=== PATIENT | male | born 1935 | race Caucasian/White ===

== ENCOUNTER 2017-01-03 11:14 | Inpatient (IN) | payer BC, OTHER ==
[~2017-01-03] VITALS: Ht 172.7 cm; Wt 76.5 kg
[~2017-01-03 11:14] MED LIST: COUMADIN PO; Diltiazem PO; coumadin PO
[2017-01-03 12:16] LABS: HEMATOCRIT 39.7 % (42-52); MEAN CORPUSCULAR HEMOGLOBIN 30.8 pg (25-34); MEAN CORPUSCULAR HGB CONC 34.3 g/dl (32-36); MEAN PLATELET VOLUME 10.2 fL (7.4-10.4); PLATELET COUNT 142 K/uL (130-400); RED BLOOD COUNT 4.41 M/uL (4.7-6.1); WHITE BLOOD COUNT 44.66 K/uL (4.8-10.8)
[2017-01-03 12:17] LABS: ALT/SGPT 20 U/L (12-78); BLOOD UREA NITROGEN 24 mg/dl (7-18); BUN/CREATININE RATIO 14.9 (10-20); CALCIUM 8.6 mg/dl (8.5-10.1); CARBON DIOXIDE 23 mmol/L (21-32); CHLORIDE 103 mmol/L (98-107); GLUCOSE 158 mg/dl (70-99); POTASSIUM 4.1 mmol/L (3.5-5.1); SODIUM 136 mmol/L (136-145)
--- NOTE | 2017-01-03 12:18 | DIAGNOSTIC IMAGING REPORT ---
CHEST ONE VIEW PORTABLE CLINICAL HISTORY: Syncope. COMPARISON STUDY: Chest radiograph May 07, 2016. FINDINGS: Lung volumes are normal. No consolidation is identified. There is no evidence of pulmonary edema. Mild cardiomegaly is unchanged. The appearance of the chest is unchanged. There is no evidence of pulmonary edema. IMPRESSION: No acute cardiopulmonary findings. No change in appearance of the chest. Electronically signed by: Tam Keller M.D. 01/03/2017 12:17 PM Dictated Date/Time: 01/03/2017 12:16 PM
[2017-01-03 12:27] LABS: ALB/GLOB RATIO 1.3 (0.9-2); ALKALINE PHOSPHATASE 59 U/L (45-117); AST/SGOT 17 U/L (15-37); CKMB/CK RATIO 1.1 (0-3.0)
[2017-01-03] MEDS ORDERED: METO25TA3 PO (12:41)
[2017-01-03] MEDS ORDERED: WARF5TAB90 PO (12:41)
[2017-01-03] MEDS ORDERED: SODIUM CHLORIDE 0.9% 1000ML 1,000 ML IV STA (13:10)
[2017-01-03] MEDS ORDERED: SODIUM CHLORIDE 0.9% 500ML 500 ML IV STA (13:10)
[2017-01-03] MEDS ORDERED: ACETAMINOPHEN 500 MG TAB PO STA (13:13)
[2017-01-03 13:14] LABS: COMPLETE YES; LYMPH ABS # 22.69 K/uL (1.2-3.4); LYMPHOCYTE % 50.8 %; NEUTROPHILS % 14.7 %; PROLYM# MAN 4.24 K/uL (0-0); VARIANT LYM ABS # 11.17 K/uL
[2017-01-03] MEDS ORDERED: VANCOMYCIN 1GM/270ML NSS IV STA (13:18)
[2017-01-03] MEDS ORDERED: CEFTRIAXONE SOD INJ 1 GM ADDVIAL IV STA (13:18)
[2017-01-03 13:29] LABS: PARTIAL THROMBOPLASTIN RATIO 1.4; PROTHROMBIN TIME (PATIENT) 22.1 SECONDS (9.0-12.0)
--- NOTE | 2017-01-03 13:56 | DIAGNOSTIC IMAGING REPORT ---
RIGHT KNEE 1 OR 2 VIEWS ROUTINE CLINICAL HISTORY: right knee swelling Right COMPARISON: None. 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 No significant joint effusion. Mild prepatellar soft tissue edema. There is no evidence for soft tissue swelling. 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 No acute process. Electronically signed by: Jorje Carmona M.D. 01/03/2017 1:55 PM Dictated Date/Time: 01/03/2017 1:43 PM
--- NOTE | 2017-01-03 14:27 | DIAGNOSTIC IMAGING REPORT ---
CT OF THE HEAD WITHOUT CONTRAST CLINICAL HISTORY: Syncope. Weakness. COMPARISON STUDY: No previous studies for comparison. CT DOSE: 614.27 mGy.cm TECHNIQUE: Helical axial images of the head were obtained without IV contrast. Automated exposure control was utilized for the study. FINDINGS: No acute intracranial hemorrhage, midline shift or mass effect is present. Mild ventricular dilatation is likely due to atrophy. The basilar cisterns are patent. There are no extra axial collections. There are old infarcts within the right frontal lobe and right basal ganglia. There are no CT findings to suggest acute dural sinus thrombosis or acute territorial infarct. No calvarial fracture is identified. IMPRESSION: 1. No acute intracranial findings. 2. 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 Electronically signed by: Tam Keller M.D. 01/03/2017 2:25 PM Dictated Date/Time: 01/03/2017 2:22 PM
[2017-01-03] MEDS ORDERED: MAGNESIUM HYDROXIDE SUSP 30 ML UDC PO PRN (15:45)
[2017-01-03] MEDS ORDERED: ONDANSETRON INJ 2 MG/ML 2 ML VIAL IV PRN (15:45)
--- NOTE | 2017-01-03 15:51 | Progress Note ---
Progress Note Date of Service Jan 03, 2017. Progress Note pt seen and examed, d/w PHY1 about shaw points of dignosis and care plan, agreed current management, for details please referral to PA's note S: feel hot, knee pain , syncope no n/v/abd pain /d/c no cough/sob/cp, palpitation denies dysuria O: VS reviewed, stable, pleasant, NAD, skin is hot Lungs: clear, decreased breathing sound, no respiratory distress, no accessory muscle use Cardiovascular: regular rate, rhythm, no edema, normal peripheral pulses Abdomen / GI: normal bowel sounds, non tender, soft Extremities: right knee hot/swelling/tender/effusion, no calf tenderness, no pedal edema Neurologic/Psychiatric: alert, normal mood/affect, oriented x 3, CNII-XII intact All labs, images, reviewed head Ct, CXR neg, Ua pending, blood C+S sent A/P: right kneed cellulitis in hx of leukemia /immuno compromised patient possible right knee sepsis possible sepsis (syncope, source of infection, wbc elevated) syncope likely from infection acute on chronic kidney failure with Cr 1.6 vanco Rocephin, ivf, call to ortho to see pt stat b/c possible septic right knee consult hem b/c leukemia f/u renal func hold Coumadin b/c possible need knee aspiration DNR d/w'ed 2 daughter in bedside, time spend (minutes): 35
--- NOTE | 2017-01-03 16:17 | History and Physical ---
History & Physical Date & Time of Service: Jan 03, 2017 at 15:25 Chief Complaint: Weakness Primary Care Physician: Prasad Encinas M.D. History of Present Illness Source: patient, family Patient is an 81 year old male with a past medical history of leukemia and multi -vessel heart disease that presents with confusion, altered mental status, and knee pain. The family states that the patient has has had some weakness and confusion over the last few days. Over the weekend they realized he was more quite and withdrawn than usual, and last night when they were over at his house he seemed to be a bit confused. This morning he called woke up at 2am and had multiple falls at home and was "trying to mckeon for his daughters in the house". He called his daughter this morning who brought him into the ED and at this point when removing his pants the patient stated that he was having right knee pain and at this point his knee was red, hot, and swollen. He claims this pain has been going on for over a month. He dies any recent fever, cough, or shortness of breath but says that he has had diarrhea over the last few days. His knee pain has been so bad over the last few days that he has been crawling around his house. The patient also has history of leukemia for which he is followed at [facility] and is now only having yearly follow ups. His previous visits to the ED show that his WBC count has been consistently in the mid to upper 30' s. Past Medical/Surgical History Medical Problems: (1) Heart disease Status: Chronic (2) Leukemia Status: Chronic Family History Cancer Diabetes mellitus Gallbladder disease Heart disease Hypertension Kidney disease Kidney stones Lung disease Social History Smoking Status: Former Smoker Immunizations History of Influenza Vaccine: Unknown History of Tetanus Vaccine?: Unknown History of Pneumococcal: Yes History of Hepatitis B Vaccine: No Multi-Drug Resistant Organisms History of MDRO: No Allergies Coded Allergies: No Known Allergies (Verified , 01/03/17) Home Medications Scheduled Metoprolol Succ (Toprol Xl) (Toprol-Xl), 25 MG PO HS Warfarin Sodium (Coumadin), 5 MG PO DAILY Review of Systems Constitutional: + fatigue, + weakness, No chills, No fever, No sweats Respiratory: No cough, No shortness of breath, No wheezing Cardiovascular: No chest pain, No palpitations Abdomen: + diarrhea, No nausea, No pain, No vomiting Musculoskeletal: + joint pain, + muscle pain, + problem reported (Right Knee Pain), + swelling Genitourinary - Male: No dysuria Endocrine: + fatigue Physical Exam Vital Signs Date Time Temp Pulse Resp B/P Pulse Ox O2 Delivery O2 Flow Rate FiO2 01/03/17 14:29 90 18 132/60 01/03/17 13:12 89 18 133/61 01/03/17 11:33 92 01/03/17 11:28 37.5 91 20 143/92 96 Room Air General Appearance: WD/WN, + mild distress Eyes: normal inspection, PERRL, EOMI, sclerae normal Neck: supple, no JVD, no carotid bruits Respiratory/Chest: chest non-tender, lungs clear, normal breath sounds Cardiovascular: regular rate, rhythm, no edema, no gallop, + systolic murmur Abdomen/GI: normal bowel sounds, non tender, soft, + hernia Extremities/Musculoskelatal: + inflammation, + swelling, + pertinent finding ( Tender, hot, swollen right knee. Attempts to flex knee result in severe pain. Palpation of the knee also results in severe pain. There is tracking of the erythema up the thigh (mid femur)) Neurologic/Psych: alert, normal mood/affect, oriented x 3 Diagnostics Laboratory Results Results Past 24 Hours Test 01/03/17 10:55 01/03/17 11:55 01/03/17 13:40 01/03/17 13:54 Range/Units White Blood Count 44.66 4.8-10.8 K/uL Red Blood Count 4.41 4.7-6.1 M/uL Hemoglobin 13.6 14.0-18.0 g/dL Hematocrit 39.7 42-52 % Mean Corpuscular Volume 90.0 80-100 fL Mean Corpuscular Hemoglobin 30.8 25-34 pg Mean Corpuscular Hemoglobin Concent 34.3 32-36 g/dl Platelet Count 142 130-400 K/uL Mean Platelet Volume 10.2 7.4-10.4 fL RDW Standard Deviation 48.3 36.4-46.3 fL RDW Coefficient of Variation 14.9 11.5-14.5 % Neutrophils % (Manual) 14.7 % Lymphocytes % (Manual) 50.8 % Prolymphocyte % 9.5 % Variant Lymphocytes % (manual) 25.0 % Neutrophils # (Manual) 6.57 1.4-6.5 K/uL Total Absolute Neutrophils 6.57 1.4-6.5 K/uL Lymphocytes # (Manual) 22.69 1.2-3.4 K/uL Prolymphocyte # 4.24 0-0 K/uL Absolute Variant Lymphocytes 11.17 K/uL Total Absolute Lymphocytes 33.85 1.2-3.4 K/uL Blood Smear Review Prothrombin Time 22.1 9.0-12.0 SECONDS Prothromb Time International Ratio 2.0 0.9-1.1 Activated Partial Thromboplast Time 36.4 21.0-31.0 SECONDS Partial Thromboplastin Ratio 1.4 Sodium Level 136 136-145 mmol/L Potassium Level 4.1 3.5-5.1 mmol/L Chloride Level 103 98-107 mmol/L Carbon Dioxide Level 23 21-32 mmol/L Anion Gap 10.0 3-11 mmol/L Blood Urea Nitrogen 24 7-18 mg/dl Creatinine 1.60 0.60-1.40 mg/dl Estimated GFR () 45.5 Estimated GFR (Non- 39.3 BUN/Creatinine Ratio 14.9 10-20 Random Glucose 158 70-99 mg/dl Calcium Level 8.6 8.5-10.1 mg/dl Total Bilirubin 1.6 0.2-1 mg/dl Aspartate Amino Transf (AST/SGOT) 17 15-37 U/L Alanine Aminotransferase (ALT/SGPT) 20 12-78 U/L Alkaline Phosphatase 59 45-117 U/L Total Creatine Kinase 73 39-308 U/L Creatine Kinase MB 0.8 0.5-3.6 ng/ml Creatine Kinase MB Ratio 1.1 0-3.0 Total Protein 6.9 6.4-8.2 gm/dl Albumin 3.9 3.4-5.0 gm/dl Globulin 3.0 2.5-4.0 gm/dl Albumin/Globulin Ratio 1.3 0.9-2 Thyroid Stimulating Hormone (TSH) 3.950 0.300-4.500 uIu/ml Bedside Troponin I 0.000 0-0.045 ng/ml Influenza Type A Antigen Neg for Influ A NEG Influenza Type B Antigen Neg for Influ B NEG Bedside Lactic Acid Venous 1.10 0.90-1.70 mmol/L Microbiology Results 01/03/17 Blood Culture, Received Pending 01/03/17 Blood Culture, Received Pending CXR normal Impression Assessment and Plan Patient is an 81 year old male that presents with confusion and right knee pain 1) Cellulitis with Possible Septic Right Knee - IV Vancomycin - IV Rocephin - IV Fluids - NS 100ml/h - Right Knee X-ray - No acute process, severe degenerative changes - Stat Orthopaedic Consultation for potential arthrocentesis - Blood cultures ordered - WBC elevated (h/o leukemia makes it difficult to assess true leukocytosis at this time) - Acetaminophen for pain 2) Sepsis - Meets SIRS Criteria - HR > 90, WBC > 09734 - Does not meet qSOFA at this time - Vitals currently stable - IV Fluids, IV Antibiotics 3) Confusion / AMS - Patient A&O x 3 at bedside - Most likely related to acute infectious process - Head CT shows no acute findings - UA pending 4) Chronic Lymphocytic Leukemia - Consult to Hematology Oncology to follow patient 5) History of Paroxysmal Atrial Fibrillation - Metoprolol - Hold Coumadin at this time for possible procedure - INR 2.0 6) DVT Prophylaxis - SCD at this time - Hold Coumadin Level of Care Med/Surg Resuscitation Status DO NOT RESUSCITATE VTE Prophylaxis VTE Risk Assessment Done? Y/N: Yes Risk Level: Moderate Given or contraindicated: SCD's Additional Copies To Nilton Sanchez M.D.
[2017-01-03] MEDS ORDERED: PATIENT'S HEIGHT AND/OR WEIGHT NEEDED SCH (16:30)
[2017-01-03] MEDS ORDERED: VANCOMYCIN CONSULT ACTIVE PRN (16:30)
[2017-01-03 17:28] LABS: URINE APPEARANCE CLEAR (CLEAR); URINE BILIRUBIN NEG (NEG); URINE COLOR YELLOW; URINE EPITHELIAL CELL AUTO 0-5 /lpf (0-5); URINE NITRITE NEG (NEG); URINE SPECIFIC GRAVITY 1.014 (1.000-1.030); UROBILINOGEN NEG (NEG)
[2017-01-03 17:29] LABS: MANUAL MICROSCOPIC REQUIRED? NO; REVIEW REQ? NO
--- NOTE | 2017-01-03 17:55 | EMERGENCY ROOM VISIT NOTE ---
History Report prepared by Eda: Jeanna Alcaraz Under the Supervision of: Dr. Roosevelt Zuluaag M.D. First contact with patient: 13:04 Chief Complaint: WEAKNESS Stated Complaint: WEAKNESS Nursing Triage Summary: pt lives alone independently has leukemia which is being monitored starting yesterday pt began to feel weak during night pt fell this am called his family, fell again possible loc pt skin is hot to touch pt denies n/v/d, cough or urinary s/s pt has abraison to nose and pain in right knee History of Present Illness The patient is an 81 year old male who presents to the Emergency Room with complaints of persistent weakness that began prior to arrival. Per the patient' s family, the patient has been feeling increasingly weak recently. They note that the patient had two recent falls. The family notes that the patient had a loss of consciousness this morning. They note that the patient fell a second time today as well when he was trying to answer the phone call. The patient's family states that the patient was very confused today. They state that they were with him last evening and he was normal. The patient states that he feels sore today and notes right leg pain that began several days ago. He states that his right knee started bothering him several days ago, stating that he had difficulty ambulating. The patient's family states that the patient is no his hands a knees different times scrubbing his floor and working on his tractor. The patient's family notes that the patient has had diarrhea recently. The patient has a history of Leukemia, which he is being monitored for. Pt denies headache, fevers, chills, diaphoresis, visual changes, neck pain, chest pain, breathing difficulties, nausea, vomiting, abdominal pain, back pain, melena, hematochezia, urinary symptoms, numbness, lymphadenopathy, rash, or other complaints. Source of History: patient, family Onset: prior to arrival Position: other (global) Quality: other (weakness) Timing: other (persistent) Associated Symptoms: + LOC, + diarrhea Note: Associated Symptoms: recent falls, right leg pain Review of Systems See HPI for pertinent positives and negatives. A total of ten systems were reviewed and were otherwise negative. Past Medical & Surgical Medical Problems: (1) Heart disease (2) Leukemia (3) Septic joint of right knee joint Family History Cancer Diabetes mellitus Gallbladder disease Heart disease Hypertension Kidney disease Kidney stones Lung disease Social History Smoking Status: Former Smoker Smokeless Tobacco Use: No Alcohol Use: none Current/Historical Medications Scheduled Metoprolol Succ (Toprol Xl) (Toprol-Xl), 25 MG PO HS Warfarin Sodium (Coumadin), 5 MG PO DAILY Allergies Coded Allergies: No Known Allergies (Verified , 01/03/17) Physical Exam Vital Signs Date Time Temp Pulse Resp B/P Pulse Ox O2 Delivery O2 Flow Rate FiO2 01/03/17 15:30 94 01/03/17 14:29 90 18 132/60 01/03/17 13:12 89 18 133/61 01/03/17 11:33 92 01/03/17 11:28 37.5 91 20 143/92 96 Room Air Physical Exam GENERAL: Awake, alert, well-appearing, in no acute distress HENT: Normocephalic, atraumatic. Oropharynx unremarkable. EYES: Normal conjunctiva. Sclera non-icteric. NECK: Supple. No nuchal rigidity. FROM. No JVD. RESPIRATORY: Clear to auscultation. CARDIAC: Regular rate, normal rhythm. Extremities warm and well perfused. Pulses equal. ABDOMEN: Soft, non-distended. No tenderness to palpation. No rebound or guarding. No masses. RECTAL: Deferred. MUSCULOSKELETAL: Chest examination reveals no tenderness. The back is symmetrical on inspection without obvious abnormality. There is no CVA tenderness to palpation. No joint edema. LOWER EXTREMITIES: Warmth erythema and swelling around the right anterior aspect of the knee. Calves are equal size bilaterally and non-tender. NEURO: Normal sensorium. No sensory or motor deficits noted. SKIN: No rash or jaundice noted. Medical Decision & Procedures ER Provider Diagnostic Interpretation: X ray results as stated below per my interpretation and radiologist interpretation. Other radiology results as stated below per my review and radiologist interpretation CHEST ONE VIEW PORTABLE CLINICAL HISTORY: Syncope. COMPARISON STUDY: Chest radiograph May 07, 2016. FINDINGS: Lung volumes are normal. No consolidation is identified. There is no evidence of pulmonary edema. Mild cardiomegaly is unchanged. The appearance of the chest is unchanged. There is no evidence of pulmonary edema. IMPRESSION: No acute cardiopulmonary findings. No change in appearance of the chest. Electronically signed by: Tam Keller M.D. 01/03/2017 12:17 PM Dictated Date/Time: 01/03/2017 12:[address] OF THE HEAD WITHOUT CONTRAST CLINICAL HISTORY: Syncope. Weakness. COMPARISON STUDY: No previous studies for comparison. CT DOSE: 614.27 mGy.cm TECHNIQUE: Helical axial images of the head were obtained without IV contrast. Automated exposure control was utilized for the study. FINDINGS: No acute intracranial hemorrhage, midline shift or mass effect is present. Mild ventricular dilatation is likely due to atrophy. The basilar cisterns are patent. There are no extra axial collections. There are old infarcts within the right frontal lobe and right basal ganglia. There are no CT findings to suggest acute dural sinus thrombosis or acute territorial infarct. No calvarial fracture is identified. IMPRESSION: 1. No acute intracranial findings. 2. 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 Electronically signed by: Tam Keller M.D. 01/03/2017 2:25 PM Dictated Date/Time: 01/03/2017 2:22 PM RIGHT KNEE 1 OR 2 VIEWS ROUTINE CLINICAL HISTORY: right knee swelling Right COMPARISON: None. 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 No significant joint effusion. Mild prepatellar soft tissue edema. There is no evidence for soft tissue swelling. 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 No acute process. Electronically signed by: Jorje Carmona M.D. 01/03/2017 1:55 PM Dictated Date/Time: 01/03/2017 1:43 PM Laboratory Results 01/03/17 10:55 Red Blood Count 4.41, Mean Corpuscular Volume 90.0, Mean Corpuscular Hemoglobin 30.8, Mean Corpuscular Hemoglobin Concent 34.3, Mean Platelet Volume 10.2 01/03/17 10:55 Test 01/03/17 10:55 01/03/17 11:55 01/03/17 13:40 01/03/17 13:54 White Blood Count 44.66 K/uL (4.8-10.8) Red Blood Count 4.41 M/uL (4.7-6.1) Hemoglobin 13.6 g/dL (14.0-18.0) Hematocrit 39.7 % (42-52) Mean Corpuscular Volume 90.0 fL (80-100) Mean Corpuscular Hemoglobin 30.8 pg (25-34) Mean Corpuscular Hemoglobin Concent 34.3 g/dl (32-36) Platelet Count 142 K/uL (130-400) Mean Platelet Volume 10.2 fL (7.4-10.4) RDW Standard Deviation 48.3 fL (36.4-46.3) RDW Coefficient of Variation 14.9 % (11.5-14.5) Neutrophils % (Manual) 14.7 % Lymphocytes % (Manual) 50.8 % Prolymphocyte % 9.5 % Variant Lymphocytes % (manual) 25.0 % Neutrophils # (Manual) 6.57 K/uL (1.4-6.5) Total Absolute Neutrophils 6.57 K/uL (1.4-6.5) Lymphocytes # (Manual) 22.69 K/uL (1.2-3.4) Prolymphocyte # 4.24 K/uL (0-0) Absolute Variant Lymphocytes 11.17 K/uL Total Absolute Lymphocytes 33.85 K/uL (1.2-3.4) Blood Smear Review Prothrombin Time 22.1 SECONDS (9.0-12.0) Prothromb Time International Ratio 2.0 (0.9-1.1) Activated Partial Thromboplast Time 36.4 SECONDS (21.0-31.0) Partial Thromboplastin Ratio 1.4 Anion Gap 10.0 mmol/L (3-11) Estimated GFR () 45.5 Estimated GFR (Non- 39.3 BUN/Creatinine Ratio 14.9 (10-20) Calcium Level 8.6 mg/dl (8.5-10.1) Total Bilirubin 1.6 mg/dl (0.2-1) Aspartate Amino Transf (AST/SGOT) 17 U/L (15-37) Alanine Aminotransferase (ALT/SGPT) 20 U/L (12-78) Alkaline Phosphatase 59 U/L (45-117) Total Creatine Kinase 73 U/L (39-308) Creatine Kinase MB 0.8 ng/ml (0.5-3.6) Creatine Kinase MB Ratio 1.1 (0-3.0) Total Protein 6.9 gm/dl (6.4-8.2) Albumin 3.9 gm/dl (3.4-5.0) Globulin 3.0 gm/dl (2.5-4.0) Albumin/Globulin Ratio 1.3 (0.9-2) Thyroid Stimulating Hormone (TSH) 3.950 uIu/ml (0.300-4.500) Bedside Troponin I 0.000 ng/ml (0-0.045) Influenza Type A Antigen Neg for Influ A (NEG) Influenza Type B Antigen Neg for Influ B (NEG) Bedside Lactic Acid Venous 1.10 mmol/L (0.90-1.70) Laboratory results reviewed by me Medications Administered Medications (Trade) Dose Ordered Sig/Dania Route Start Time Stop Time Status Last Admin Dose Admin Sodium Chloride 1,000 ml @ 125 mls/hr Q8H STAT IV 01/03/17 13:10 01/03/17 16:18 DC 01/03/17 14:11 125 MLS/HR Sodium Chloride (Nss 500ml) 500 ml @ 999 mls/hr Q31M STAT IV 01/03/17 13:10 01/03/17 13:40 DC 01/03/17 13:10 999 MLS/HR Acetaminophen (Tylenol Tab) 1,000 mg NOW STAT PO 01/03/17 13:13 01/03/17 13:14 DC 01/03/17 14:12 1,000 MG Ceftriaxone Sodium (Rocephin Inj) 1 gm NOW STAT IV 01/03/17 13:18 01/03/17 13:20 DC 01/03/17 14:11 1 GM Vancomycin HCl (Vancomycin 1gm/ 270ml Nss) 1 gm NOW STAT IV 01/03/17 13:18 01/03/17 13:20 DC 01/03/17 14:11 1 GM ECG Indication: weakness Rate (beats per minute): 94 Rhythm: sinus rhythm Findings: 1st degree AV block, PAC, no acute ischemic change, left axis deviation, other (LVH) ED Course 1307: The patient was evaluated in room A9B. A complete history and physical exam was performed. 1310: Ordered Sodium Chloride 500 ml @ 999 mls/hr IV, Sodium chloride 1000 ml @ 125 mls/hr IV. 1313: Ordered Tylenol Tab 1000 mg PO. 1318: Ordered Vancomycin HCl 1 gm IV, Rocephin Inj 1 gm IV 1434: I reevaluated the patient and he is resting comfortably. I discussed the exam findings with him and his family and I discussed the treatment plan. They all verbalized complete understanding and agreement. The patient is going to be evaluated for further treatment. 1436: I discussed the patients case with GLENNY Ojeda. He is going to evaluate the patient for further treatment. Medical Decision Triage Nursing notes reviewed. The patient's presentation and history were concerning for weakness and a fall. Etiologies such as metabolic, infection, hypo/hyperglycemia, electrolyte abnormalities, cardiac sources, intracerebral event, toxicologic, neurologic, contusion, fracture, soft tissue injury, as well as others were entertained. The patient was evaluated. On physical examination he had a cellulitis of the right knee and thigh. An IV was established. The patient was given saline hydration and Tylenol. Blood cultures were obtained. Lactate was normal. The patient had an elevated leukocytosis on CBC consistent with his hematologic disease. Chemistry panel was unremarkable. CT of his head and chest x-ray were unremarkable. X-ray imaging of the right knee showed arthritis but no fracture or dislocation. The patient was treated with IV Rocephin and IV vancomycin. Because of this situation he will need further evaluation and management in hospital. Consultation was made with internal medicine. The patient was evaluated in the Emergency Room for further treatment. The chart was completed utilizing [employer] Speech voice recognition software. Grammatical errors, random word insertions, pronoun errors, and incomplete sentences are an occasional consequence of this system due to software limitations, ambient noise, and hardware issues. Any formal questions or concerns about the content, text, or information contained within the body of this dictation should be directly addressed to the physician for clarification. Consults Time Called: 1433 Consulting Physician: GLENNY Ojeda Returned Call: [phone] I discussed the patients case with GLENNY Ojeda. He is going to evaluate the patient for further treatment. Impression Primary Impression: Cellulitis of right leg Additional Impressions: Syncope Weakness Closed head injury Scribe Attestation The scribe's documentation has been prepared under my direction and personally reviewed by me in its entirety. I confirm that the note above accurately reflects all work, treatment, procedures, and medical decision making performed by me. Departure Information Dispostion Being Evaluated By Hospitalist Referrals Nilton Sanchez M.D. (PCP) Problem Qualifiers
[2017-01-03 18:06] LABS: SYNOVIAL FLUID COLOR RED
[2017-01-03 18:08] LABS: SYNOVIAL FLUID MONONUC RELAT 30.6 %; SYNOVIAL FLUID POLYNUC RELAT 69.4 %
[2017-01-03 18:10] LABS: SYNOVIAL FLUID APPEARANCE BLOODY
[2017-01-03] MEDS ORDERED: VANCOMYCIN INJ 1,000 MG in SODIUM CHLORIDE 0.9% 250ML 250 ML IV ONE (18:30)
[2017-01-03] MEDS: SODIUM CHLORIDE 0.9% 1000ML 1,000 ML IV SCH (18:53)
--- NOTE | 2017-01-03 19:04 | CONSULTATION REPORT ---
DATE OF CONSULTATION: 01/03/2017 REASON FOR CONSULT: Question of septic right knee. HISTORY OF PRESENT ILLNESS: The patient is an 81-year-old white male, who came into the Emergency Room today to be seen for generalized weakness, general malaise and also right knee pain. The patient states that his knee has been hurting him off and on over the last month, but however, in the last several days it began to increase in the amount of pain he was having. He was still able to ambulate on the right lower extremity, but was having some more difficulty bending the knee and getting around. He does state along with his family who was present with him that he was having low-grade fevers, some chills and some nausea at home, but no vomiting per se. He was seen by the staff today in the Emergency Room and evaluated by Dr. Mead who has asked us to see the patient for his right knee. The patient states that at rest he does have pain, but is not excruciating. It is only when he tries to deeply bend the knee or touch the knee cap itself that he has moderate to severe pain. He denies any loss of consciousness, no falls. No shortness of breath or chest pain. The patient states that he does get around on his knees working around the house off and on, but denies injuring the knee in any way of recent. The family states that over the weekend, he seemed to be worsening and when they were over to see him yesterday evening he seemed a bit confused. Apparently, the family states that he had fallen late last night and was apparently trying to mckeon for his daughters home. He then ended up calling his daughters this morning around 9:00 a.m. and they brought him into the Emergency Room to be seen. PAST MEDICAL HISTORY: Heart disease, leukemia, previous history of intermittent SVT, previous myocardial infarction, hypertension and hypercholesterolemia. PAST SURGICAL HISTORY: Vasectomy and removal of a benign breast cyst. FAMILY HISTORY: Diabetes mellitus, cholelithiasis, heart disease, hypertension, kidney disease, lung disease and cancer with past history of family. SOCIAL HISTORY: The patient is a former smoker who does not use alcohol and he is . MEDICATIONS: Metoprolol XL 25 mg p.o. at bedtime, warfarin 5 mg p.o. daily. ALLERGIES: NKDA. REVIEW OF SYSTEMS: As per admitting history and physical. PHYSICAL EXAMINATION: VITAL SIGNS: Temperature on admission was 37.5, pulse was 91, respiratory rate was 20 and BP was 143/92, pulse ox was 96 on room air. GENERAL: Reveals a patient when walking into the room, he is lying in his gurney and sitting up. He did not appear to be in acute distress and he is pleasant and informative. Family is present with him. EXTREMITIES: On examination of his right lower extremity, he has some overt erythema over the patella itself that goes down over both medial and lateral sides of the joint line of the knee, but it is most prevalent over the patella itself. It does go distal, but only approximately a few centimeters. The patient is able to fully extend the knee without discomfort. Axial loading does not provide any increased pain. He is somewhat tense on letting me flex the knee at this time, but after relaxing the knee enough I can go from 0 to approximately 20 degrees of flexion without him having excruciating pain. Trying to bend the knee further though, he complains of pain over the patellar area mostly and a little bit down along the joint line. Collaterals feel stable and he does have a mild amount of pain whenever testing the collaterals at this time. He has no pain posterior on palpation. On palpating over the patellar surface and prepatellar area, I do feel a little bit of fluctuance and he is exquisitely tender on palpation. At one point in time, the patient did stand up at the bedside to use the urinal. He was able to put weight on the right lower extremity without having excruciating pain in the right knee. The erythema does travel approximately 3-4 cm, but mostly again his tenderness is around the patellar and prepatellar area. He has no overt tenderness at the tibial tubercle and approximately about [facility] up the patellar tendon towards the insertion at the inferior pole of the patella he does start having some mild tenderness. Otherwise, examination of the right lower extremity is essentially benign. He has no right hip pain at this time with range of motion and he has full range of motion of his right ankle and toes without any pain. Sensation is intact and distal pulses are equal bilaterally. NEUROLOGIC: He is not overtly confused, carries on a good conversation and answers most of the questions appropriately. Cranial nerves II-XII appear to be intact otherwise. IMAGING: X-ray review; AP and lateral film of the right knee were taken and it showed no overt effusion. He does have degenerative joint disease noted with some spurring over the patella as well. ASSESSMENT: I discussed the case with Dr. Pineda who is on-call tonight and with the exam at present I feel this is more of a prepatellar bursa infection rather than a joint infection. With the fluctuance that I felt over the patellar and prepatellar area after asking permission from the patient and family, we went ahead with cleansing the area that had the fluctuance, with 2 alcohol swabs and also 3 Betadine swabs and let it to dry. Ethyl chloride was applied to the aspiration site and a 20-gauge needle was inserted into the prepatellar bursa area. Approximately 1.5 mL of bloody fluid was extracted and sent for culture and cell count if there was enough for that. A small dressing was applied to the area and we will see if anything grows from the cultures. At this point in time, he will be admitted by the medicine service and antibiotics have been ordered. We will see the patient later tomorrow to see how well he was doing. I discussed with the family that we will make him n.p.o. after midnight tonight and the medicine service will hold his Coumadin and try to get his INR down for the possibility if he needs to go to the operating room for irrigation and debridement of the prepatellar bursa.
--- NOTE | 2017-01-03 20:29 | Pharmacy Progress Note ---
Pharmacy Antibiotic Consult Date of Service: Jan 03, 2017. Pharmacy Dosing Scope Pharmacy is consulted to initiate Vancomycin IV dosing therapy, order appropriate labs and adjust drug dose/frequency. Subjective The patient is a 81 year old male admitted on Jan 03, 2017 at 15:51 with potential septic (R) knee that Dr. Patricio consulted pharmacy for Vancomycin dosing. Objective Height (Feet): 5 Height (Inches): 8.00 Lab Results (24hrs): Laboratory Tests Test 01/03/17 10:55 BUN/Creatinine Ratio 14.9 Blood Urea Nitrogen 24 mg/dl Creatinine 1.60 mg/dl White Blood Count 44.66 K/uL Red Blood Count 4.41 M/uL Hemoglobin 13.6 g/dL Hematocrit 39.7 % Mean Corpuscular Volume 90.0 fL Mean Corpuscular Hemoglobin 30.8 pg Mean Corpuscular Hemoglobin Concent 34.3 g/dl Platelet Count 142 K/uL Mean Platelet Volume 10.2 fL Micro Results: Item Value Date Time Gram Stain Received 01/03/17 1715 Aspirate - Other Knee Right Pending Blood Culture Received 01/03/17 1402 Blood Pending Blood Culture Received 01/03/17 1347 Blood Pending Recent Pertinent Medications Item Value Date Time Ceftriaxone 50 ml @ 100 mls/hr 01/04/17 0800 Sodium 1 gm/ Q24H/IV Dextrose Assessment & Plan Loading dose was split between E.D Vanco 1gm x 1; then 1gm upon arrival to [facility] for total of 2000mg (~25mg/kg) I estimated patients half life to be around 16 hours per current renal function which I expect to improve. Given that, I will give him Vancomycin 1200mg (~15mg/kg) IV every 18 hours and check a trough level prior to 0400 dose on 01/06/17. Goal trough level estimate: between 15-20 mcg/mL. Pharmacy will continue to follow and will adjust dose/frequency as necessary. Thank you
[2017-01-03 20:53] VITALS: BP 138/76; PULSE 86; TEMP 37.4; O2SAT 96
[2017-01-03] MEDS: ACETAMINOPHEN 325 MG TAB PO PRN (22:04)
[2017-01-03 22:47] VITALS: BP 127/68; PULSE 83; TEMP 37.4; O2SAT 96; Ht 172.7 cm; Wt 76.5 kg
[2017-01-04] VITALS (9 sets, daily range): BP systolic 110–148; BP diastolic 64–83; PULSE 83–100; TEMP 36.8–38.2; O2SAT 94–96
[2017-01-04] MEDS: ACETAMINOPHEN 325 MG TAB PO PRN ×3 (01:51→22:08)
[2017-01-04 07:41] LABS: CREATININE 1.4 mg/dl (0.60-1.40)
[2017-01-04] MEDS: SODIUM CHLORIDE 0.9% 1000ML 1,000 ML IV SCH (07:55)
[2017-01-04] MEDS ORDERED: CEFTRIAXONE SOD INJ 1 GM in DEXTROSE 5% ADD-VANTAGE 50ML 50 ML IV SCH (08:00)
--- NOTE | 2017-01-04 09:43 | Clinical Documentation Query ---
NEVILLE Lester : CLINICAL DOCUMENTATION QUERIES QUERY 1 OF 2 Patient is an 81 year old male admitted for evaluation and treatment of confusion, altered mental status, and knee pain. He was noted to have a low grade fever, elevated HR, and elevated WBC's. CT scan of the head was performed and was negative for acute insult. Blood cultures are pending, orthopedics was consulted and performed a needle aspiration of the prepatellar bursa which is preliminarily growing Staph Aureus. As appropriate, consider clarification as suggested below as this directly impacts DRG assignment and therefore metrics affecting expected mortality and severity of illness. Thank you. In your clinical opinion is this patient being managed for: ( X) Encephalopathy secondary to sepsis ( ) Other explanation of clinical findings (Please Explain) ( ) Unable to determine (Please Define) ( ) Need to Discuss ( ) Not Agree The medical record reflects the following clinical findings, treatment, and risk factors. Clinical Indicators: Altered mental status in the setting of possible sepsis Treatment: CT scan of the head was performed and was negative for acute insult. Blood cultures are pending, orthopedics was consulted and performed a needle aspiration of the prepatellar bursa which is preliminarily growing Staph Aureus. Risk Factors: Age, infection, metabolic derangement. QUERY 2 OF 2 H&P documentation includes "chronic kidney failure", not otherwise specified. Estimated GFR range from 05/06/15 to 11/04/16 of 47-57 ml/min. Please clarify by explicitly documenting the appropriate stage of CKD in your patient. Thank you. In your clinical opinion is this patient being managed for: ( X ) Chronic kidney disease, stage 3 ( ) Other explanation of clinical findings (Please Explain) ( ) Unable to determine (Please Define) ( ) Need to Discuss ( ) Not Agree The medical record reflects the following clinical findings, treatment, and risk factors. Clinical Indicators: As above Treatment: IVF, serial chemistries Risk Factors: Age, hypertension, paroxysmal atrial fibrillation Please clarify and document your clinical opinion in the progress notes and discharge summary. Terms such as "probable", "suspected", "likely", "questionable", "possible", or "still to be ruled out" are acceptable. IF IN AGREEMENT, YOU MUST DOCUMENT ABOVE DIAGNOSTIC STATEMENT IN DAILY PROGRESS NOTES AND DISCHARGE SUMMARY. This document is not part of the patient's record. Thank You, Hesham Farrell, REDD [phone]
--- NOTE | 2017-01-04 10:03 | Progress Note ---
Subjective Date of Service: Jan 04, 2017. Subjective Pt evaluation today including: conversation w/ patient, physical exam, chart review, lab review, review of studies, review of inpatient medication list Overnight had aspiration of right knee bursa by ortho. Still c/ right knee pain exacerbated by movement. No new complaints. No chest pain, no sob, no urinary symptoms. One episode of loose stools prior to admission, no further episodes reported. Problem List Medical Problems: (1) Cellulitis of right leg Status: Acute (2) Closed head injury Status: Acute (3) Syncope Status: Acute (4) Weakness Status: Acute Review of Systems All Other Systems: Reviewed and Negative Medications Acetaminophen (Tylenol Tab) 650 mg Q4H PRN PO Last administered on 01/04/17 03 :24; Admin Dose 650 MG; Start 01/03/17 at 15:45; Stop 02/02/17 at 15:44 Ceftriaxone Sodium 1 gm/ Dextrose 50 ml @ 100 mls/hr Q24H IV Last administered on 01/04/17 07:54; Admin Dose 100 MLS/HR; Start 01/04/17 at 08:00; Stop 01/21/17 at 07:59 Magnesium Hydroxide (Milk Of Magnesia Susp) 30 ml Q6H PRN PO; Start 01/03/17 at 15:45; Stop 02/02/17 at 15:44 Ondansetron HCl 4 mg 4 mg Q6H PRN IV; Start 01/03/17 at 15:45; Stop 02/02/17 at 15:44 Sodium Chloride (Nss 1000ml) 1,000 ml @ 100 mls/hr Q10H IV Last administered on 01/04/17 07:55; Admin Dose 100 MLS/HR; Start 01/03/17 at 16:00; Stop at 15:59 Vancomycin HCl 1 ea 1 ea UD PRN N/A; Start 01/03/17 at 16:30; Stop 02/02/17 at 16:29 Vancomycin HCl/ Sodium Chloride (Vancomycin Inj/ Nss 250ml) 274 ml @ 125 mls/ hr Q18H IV; Start 01/04/17 at 16:00; Stop 02/15/17 at 15:59 Objective Vital Signs Date Time Temp Pulse Resp B/P Pulse Ox O2 Delivery O2 Flow Rate FiO2 01/04/17 06:55 36.8 84 19 125/64 96 Room Air 01/04/17 04:09 36.9 88 20 110/65 96 Room Air 01/04/17 01:54 37.2 01/04/17 00:22 38.2 100 20 123/83 95 Room Air 01/03/17 23:45 Room Air 01/03/17 22:47 37.4 83 17 127/68 96 Room Air 01/03/17 20:53 37.4 86 20 138/76 96 Room Air 01/03/17 17:11 89 20 120/60 96 Room Air 01/03/17 16:19 91 20 114/61 96 Room Air 01/03/17 15:30 94 01/03/17 14:29 90 18 132/60 01/03/17 13:12 89 18 133/61 01/03/17 11:33 92 01/03/17 11:28 37.5 91 20 143/92 96 Room Air Physical Exam Comments: NAD, AOx3, anicteric eomi, perrl, cn 2-12 grossly inact with coherent and fluent speech s1 s2 rrr, no murmurs appreciated ctab no w/r/r ab soft, nt/nd +BS R knee erythema and warmth noted, LLE no edema Laboratory Results Last 24 Hours Test 01/03/17 10:55 01/03/17 11:55 01/03/17 13:40 01/03/17 13:54 White Blood Count 44.66 K/uL Red Blood Count 4.41 M/uL Hemoglobin 13.6 g/dL Hematocrit 39.7 % Mean Corpuscular Volume 90.0 fL Mean Corpuscular Hemoglobin 30.8 pg Mean Corpuscular Hemoglobin Concent 34.3 g/dl Platelet Count 142 K/uL Mean Platelet Volume 10.2 fL RDW Standard Deviation 48.3 fL RDW Coefficient of Variation 14.9 % Neutrophils % (Manual) 14.7 % Lymphocytes % (Manual) 50.8 % Prolymphocyte % 9.5 % Variant Lymphocytes % (manual) 25.0 % Neutrophils # (Manual) 6.57 K/uL Total Absolute Neutrophils 6.57 K/uL Lymphocytes # (Manual) 22.69 K/uL Prolymphocyte # 4.24 K/uL Absolute Variant Lymphocytes 11.17 K/uL Total Absolute Lymphocytes 33.85 K/uL Blood Smear Review Prothrombin Time 22.1 SECONDS Prothromb Time International Ratio 2.0 Activated Partial Thromboplast Time 36.4 SECONDS Partial Thromboplastin Ratio 1.4 Sodium Level 136 mmol/L Potassium Level 4.1 mmol/L Chloride Level 103 mmol/L Carbon Dioxide Level 23 mmol/L Anion Gap 10.0 mmol/L Blood Urea Nitrogen 24 mg/dl Creatinine 1.60 mg/dl Estimated GFR () 45.5 Estimated GFR (Non- 39.3 BUN/Creatinine Ratio 14.9 Random Glucose 158 mg/dl Calcium Level 8.6 mg/dl Total Bilirubin 1.6 mg/dl Aspartate Amino Transf (AST/SGOT) 17 U/L Alanine Aminotransferase (ALT/SGPT) 20 U/L Alkaline Phosphatase 59 U/L Total Creatine Kinase 73 U/L Creatine Kinase MB 0.8 ng/ml Creatine Kinase MB Ratio 1.1 Total Protein 6.9 gm/dl Albumin 3.9 gm/dl Globulin 3.0 gm/dl Albumin/Globulin Ratio 1.3 Thyroid Stimulating Hormone (TSH) 3.950 uIu/ml Bedside Troponin I 0.000 ng/ml Influenza Type A Antigen Neg for Influ A Influenza Type B Antigen Neg for Influ B Bedside Lactic Acid Venous 1.10 mmol/L Test 01/03/17 17:15 01/04/17 06:32 Urine Color YELLOW Urine Appearance CLEAR Urine pH 5.0 Urine Specific [place] 1.014 Urine Protein NEG Urine Glucose (UA) NEG Urine Ketones NEG Urine Occult Blood 1+ Urine Nitrite NEG Urine Bilirubin NEG Urine Urobilinogen NEG Urine Leukocyte Esterase NEG Urine WBC (Auto) 1-5 /hpf Urine RBC (Auto) 5-10 /hpf Urine Hyaline Casts (Auto) 5-10 /lpf Urine Epithelial Cells (Auto) 0-5 /lpf Urine Bacteria (Auto) NEG Synovial Fluid Source PREPATELLAR BURSA Synovial Fluid Color RED Synovial Fluid Appearance BLOODY Synovial Fluid WBC 08661 /uL Synovial Fluid RBC [id number] /uL Synovial Fluid Polynuclear WBCs % 69.4 % Synovial Fluid Mononuclear WBCs % 30.6 % Creatinine 1.40 mg/dl Est Creatinine Clear Calc Drug Dose 38.7 ml/min Estimated GFR () 53.5 Estimated GFR (Non- 46.1 Phosphorus Level 2.6 mg/dl SPEC #: [id number] TONY: 01/03/17 STATUS: RES REQ #: [id number] RECD: 01/03/[address] [facility] [address]: Gasper Singh PLindyALindy SOURCE: ASP-OTHER ENTR: 01/03/[address] [facility] [address]: Jaiden Eckert , D.O. SPDESC: KNEE RIGHT Alyce, Colten Balbuena MD , PhD Roosevelt Zuluaga , Jer Faye M.D. Zoda, Albert R M.D. ORDERED: AER/SARAH CULTSMR COMMENTS: Specimen Comment RIGHT PREPATELLAR BURSA FLUID Has Specimen Been Obtained/Collected? Y Procedure Result Verified Site GRAM STAIN Final 01/04/17 RESULT NO ORGANISMS SEEN RARE WBCs SEEN OR AER/SARAH CULT Preliminary 01/04/17 Organism 1 STAPHYLOCOCCUS AUREUS QUANITY MODERATE SENS SENSITIVITY TO FOLLOW Assessment and Plan 1. Sepsis from Right knee septic joint - fluid cx with Staph, can stop Rocephin until sensitivities come back - appreciate ortho evaluation - IVF with D5 NS for now while NPO 2. Leukocytosis - 2/2 sepsis + leukemia (chronically elevated) - will cont to monitor - con abx 3. CKD IIIa - appears to be close to baseline ~1.3 - will cont IVF while NPO to prevent volume depletion 4. PAfib - hold off coumadin for possible procedure - INR 2.0 - no dvt ppx indicated
[2017-01-04] MEDS ORDERED: METOPROLOL SUCC 25MG EXT REL TAB PO ONE (10:15)
--- NOTE | 2017-01-04 10:41 | Orthopedic Progress Note ---
Orthopedic Progress Note Date of Service Jan 04, 2017. Subjective Additional Notes: Pt awake, alert. States his knee feels a little better but not much. Not quite 24 hours on antibx. Denies SOB, CP. Objective calves soft nontender, N/V intact, A&O x3, toes mobile right patellar area continues to be inflamed. Feels boggy on palpation and is very tender. Date Time Temp Pulse Resp B/P Pulse Ox O2 Delivery O2 Flow Rate FiO2 01/04/17 10:30 Room Air 01/04/17 06:55 36.8 84 19 125/64 96 Room Air 01/04/17 04:09 36.9 88 20 110/65 96 Room Air 01/04/17 01:54 37.2 01/04/17 00:22 38.2 100 20 123/83 95 Room Air 01/03/17 23:45 Room Air 01/03/17 22:47 37.4 83 17 127/68 96 Room Air 01/03/17 20:53 37.4 86 20 138/76 96 Room Air 01/03/17 17:11 89 20 120/60 96 Room Air 01/03/17 16:19 91 20 114/61 96 Room Air 01/03/17 15:30 94 01/03/17 14:29 90 18 132/60 01/03/17 13:12 89 18 133/61 01/03/17 11:33 92 01/03/17 11:28 37.5 91 20 143/92 96 Room Air Laboratory Results 24 Hours: Test 01/03/17 10:55 01/04/17 10:03 White Blood Count 44.66 K/uL Red Blood Count 4.41 M/uL Hemoglobin 13.6 g/dL Hematocrit 39.7 % Mean Corpuscular Volume 90.0 fL Mean Corpuscular Hemoglobin 30.8 pg Mean Corpuscular Hemoglobin Concent 34.3 g/dl Platelet Count 142 K/uL Mean Platelet Volume 10.2 fL Prothromb Time International Ratio 2.0 Prothrombin Time 22.1 SECONDS Additional Notes: RUN DATE: 01/04/17 [facility] LAB PAGE 1 RUN TIME: 0858 Specimen Inquiry PATIENT: MARK LARKIN LOC: Eliane U # : [id number] AGE/SX: 81/M ROOM: [id number] REG : 01/03/[address]: Colten Mead MD, PhD : 1935 BED: 1 DIS : STATUS: ADM IN TLOC: SPEC #: [id number] TONY: 01/03/17 STATUS: RES REQ #: [id number] RECD: 01/03/[address]: Gasper Singh PLindyALindy SOURCE: ASP-OTHER ENTR: 01/03/17 [facility] DR: Jaiden Eckert , D.O. SPDESC: KNEE RIGHT Colten Mead MD , PhD Roosevelt Zuluaga MD [place], Edwin, M.D. Zoda, Albert R M.D. ORDERED: AER/SARAH CULTSMR COMMENTS: Specimen Comment RIGHT PREPATELLAR BURSA FLUID Has Specimen Been Obtained/Collected? Y Procedure Result Verified Site GRAM STAIN Final 01/04/17 RESULT NO ORGANISMS SEEN RARE WBCs SEEN OR AER/SARAH CULT Preliminary 01/04/17 Organism 1 STAPHYLOCOCCUS AUREUS QUANITY MODERATE SENS SENSITIVITY TO FOLLOW Assessment & Plan Assessment: Septic Prepatellar Bursitis Cx showing Staph Aureus Plan: Continue IV antibx Sensitivities pending INR pending Possible need for I&D
[2017-01-04] MEDS ORDERED: MoRPHine SULFATE 4 MG/ML 1 ML CARP\\VIAL IV PRN (10:45)
[2017-01-04] MEDS ORDERED: MoRPHine SULFATE 2 MG/ML CARP IV PRN (10:45)
[2017-01-04] MEDS: D5W AND 1/2NSS 1,000 ML IV SCH ×2 (11:01→22:08)
[2017-01-04 11:06] LABS: INR 2.1 (0.9-1.1); PROTHROMBIN TIME (PATIENT) 23.3 SECONDS (9.0-12.0)
--- NOTE | 2017-01-04 11:15 | Oncology Consultation ---
Oncology/Heme Consultation Date of Consultation: Jan 04, 2017. Attending Physician: Colten Mead MD, PhD Reason for Consultation: History of CLL History of Present Illness Mr. 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 He was first diagnosed in mid 2014 is not required any sort of intervention. He is admitted now with what appears to be a septic arthritis affecting the right knee. He states he's lost a considerable amount of weight over the past month. He denies any night sweats. He states he's had fevers however. Past Medical/Surgical History Medical Problems: (1) Cellulitis of right leg Status: Acute (2) Closed head injury Status: Acute (3) Syncope Status: Acute (4) Weakness Status: Acute Family History Cancer Diabetes mellitus Gallbladder disease Heart disease Hypertension Kidney disease Kidney stones Lung disease Social History Smoking Status: Former Smoker Smokeless Tobacco Use: No Allergies Coded Allergies: No Known Allergies (Verified , 01/03/17) Home Medications Scheduled Metoprolol Succ (Toprol Xl) (Toprol-Xl), 25 MG PO HS Warfarin Sodium (Coumadin), 5 MG PO DAILY Current Inpatient Medications Current Inpatient Medications Medications (Trade) Dose Ordered Sig/Dania Route Start Time Stop Time Status Last Admin Dose Admin Acetaminophen (Tylenol Tab) 650 mg Q4H PRN PO 01/03/17 15:45 02/02/17 15:44 01/04/17 03:24 650 MG Magnesium Hydroxide (Milk Of Magnesia Susp) 30 ml Q6H PRN PO 01/03/17 15:45 02/02/17 15:44 Ondansetron HCl (Zofran Inj) 4 mg Q6H PRN IV 01/03/17 15:45 02/02/17 15:44 Vancomycin HCl 1 ea 1 ea UD PRN N/A 01/03/17 16:30 02/02/17 16:29 Vancomycin HCl/ Sodium Chloride (Vancomycin Inj/ Nss 250ml) 274 ml @ 125 mls/hr Q18H IV 01/04/17 16:00 02/15/17 15:59 Metoprolol Succinate 25 mg 25 mg HS PO 01/04/17 21:00 02/03/17 20:59 Dextrose/Sodium Chloride (D5W And 1/2nss) 1,000 ml @ 80 mls/hr [id number] IV 01/04/17 10:30 02/03/17 10:29 01/04/17 11:01 80 MLS/HR Morphine Sulfate (MoRPHine SULFATE INJ) 2 mg Q4HWA PRN IV 01/04/17 10:45 01/18/17 10:44 UNV Morphine Sulfate (MoRPHine SULFATE INJ) 4 mg Q4HWA PRN IM 01/04/17 10:45 01/18/17 10:44 UNV Review of Systems Constitutional: Negative for night sweats. He has had a fever he states. He also admits to about a 20-30 pound weight loss in the past several months Eyes: Negative for event change of vision ENT: Negative for epistaxis, nasal discharge, sore throat, or deafness Cardiovascular: Negative for chest pain, palpitations, dizziness, diaphoresis Respiratory: Negative for new shortness of breath,hemoptysis, or purulent cough Gastrointestinal: Negative for diarrhea, hematemesis, melena, nausea, vomiting , or dyspepsia Integumentary (skin): Negative for rash or jaundice discoloration Genitourinary: Negative for urinary frequency, hematuria, or dysuria Neurological: Negative for weakness, seizure activity, headache, or dizziness Lymphatic/Hematologic: Negative for petechiae, bleeding or new adenopathy Musculoskeletal: Negative for new joint or back pain. His right knee which has been a problem he states for about a year is gone significantly swollen and worse and painful Allergic/Immunologic: Negative for unusual rash or pruritis. Physical Exam Date Time Temp Pulse Resp B/P Pulse Ox O2 Delivery O2 Flow Rate FiO2 01/04/17 10:59 84 131/68 01/04/17 10:30 Room Air 01/04/17 06:55 36.8 84 19 125/64 96 Room Air 01/04/17 04:09 36.9 88 20 110/65 96 Room Air 01/04/17 01:54 37.2 01/04/17 00:22 38.2 100 20 123/83 95 Room Air 01/03/17 23:45 Room Air 01/03/17 22:47 37.4 83 17 127/68 96 Room Air 01/03/17 20:53 37.4 86 20 138/76 96 Room Air 01/03/17 17:11 89 20 120/60 96 Room Air 01/03/17 16:19 91 20 114/61 96 Room Air 01/03/17 15:30 94 01/03/17 14:29 90 18 132/60 01/03/17 13:12 89 18 133/61 01/03/17 11:33 92 01/03/17 11:28 37.5 91 20 143/92 96 Room Air Constitutional: vitals are stable. Eyes: Eyes are KATRIN EOMI without conjuctival erythema or icterus. ENT: External examination was negative for masses. Neck: Negative for masses or palpable thyromegaly Respiratory: Lung sounds were generally clear bilaterally Cardiovascular: Heart was RRR without significant murmur, gallops aoe rubs Gastrointestinal: No palpable hepatic or splenomegaly. The abdomen was soft with normal bowel sounds. Lymphatic system: there was no palpable peripheral lymphadenopathy Musculoskeletal System: The musculoskeletal system seemed concordant with age. Skin: The skin was negative for jaundice. Neurologic exam: The exam was negative for any focal findings. Deep tendon reflexes were equal and symmetrical. Psychiatric exam: Was essentially negative with normal mood and effect. Extremities: The right knee is erythematous tender and swollen Laboratory Results Last 24 Hours Test 01/03/17 11:55 01/03/17 13:40 01/03/17 13:54 01/03/17 17:15 Bedside Troponin I 0.000 ng/ml Influenza Type A Antigen Neg for Influ A Influenza Type B Antigen Neg for Influ B Bedside Lactic Acid Venous 1.10 mmol/L Urine Color YELLOW Urine Appearance CLEAR Urine pH 5.0 Urine Specific [place] 1.014 Urine Protein NEG Urine Glucose (UA) NEG Urine Ketones NEG Urine Occult Blood 1+ Urine Nitrite NEG Urine Bilirubin NEG Urine Urobilinogen NEG Urine Leukocyte Esterase NEG Urine WBC (Auto) 1-5 /hpf Urine RBC (Auto) 5-10 /hpf Urine Hyaline Casts (Auto) 5-10 /lpf Urine Epithelial Cells (Auto) 0-5 /lpf Urine Bacteria (Auto) NEG Synovial Fluid Source PREPATELLAR [place] Synovial Fluid Color RED Synovial Fluid Appearance BLOODY Synovial Fluid WBC [id number] /uL Synovial Fluid RBC [id number] /uL Synovial Fluid Polynuclear WBCs % 69.4 % Synovial Fluid Mononuclear WBCs % 30.6 % Test 01/04/17 06:32 01/04/17 10:40 Creatinine 1.40 mg/dl Est Creatinine Clear Calc Drug Dose 38.7 ml/min Estimated GFR () 53.5 Estimated GFR (Non- 46.1 Phosphorus Level 2.6 mg/dl Prothrombin Time 23.3 SECONDS Prothromb Time International Ratio 2.1 Assessment & Plan Low risk CLL. His CBC is acceptable. No intervention for his CLL is necessary from our standpoint. We'll ask for update of his serum immunoglobulin levels however when last checked a year ago these were quite normal.. At this juncture there doesn't appear to be any need for hematologic intervention. Perhaps an updated ultrasound of the abdomen will be necessary since his creatinine is ever so slightly higher than before.
[2017-01-04 12:40] LABS: IMMUNOGLOBULN A 35.6 mg/dL (70-400); IMMUNOGLOBULN M 21.7 mg/dL (40-230)
[2017-01-04] MEDS: VANCOMYCIN INJ 1,200 MG in SODIUM CHLORIDE 0.9% 250ML 250 ML IV SCH (17:17)
--- NOTE | 2017-01-04 19:52 | Anesthesiology Progress Note ---
Anesthesia Progress Note Date of Service Jan 04, 2017. Progress Notes Mr. Lakhani is a pleasant 81 year old gentleman who presented with sepsis and altered mental status 2/2 right septic knee. PMH significant for hx/o afib on coumadin (has since been held and awaiting normalization of INR), HTN, CAD, [place] 2000 with 3 stents placed, CKD and CLL. He was a former smoker and quit in the . He has not had any surgical procedures other than the heart cath. He denied any recent chest pains or pressures. Prior to this he was living at home and caring for himself. He states he is active and can mow the lawn without SOB , etc. EKG showed SR with 1 degree AV block and poor R wave progression along with LAD, LVH and LAFB (when compared to EKG 2003 showed new LVH). Labs notable for WBC 44.66 with heme/onc consulted and stated no further treatment necessary. BUN/creat elevated at 24/1.6 and INR today was 2.1 so surgery deferred another day. Airway exam notable for full dentures but favorable MP. Patient and his two daughters were present and he was counseled for general anesthesia. All questions were answered and his daughter signed consent on his behalf given his continued MS change/confusion.
--- NOTE | 2017-01-04 20:06 | Progress Note ---
Orthopedic SOAP Note Subjective Date of Service: Jan 04, 2017. Additional Notes: continued knee pain not severe Problem List Medical Problems: (1) Cellulitis of right leg Status: Acute (2) Closed head injury Status: Acute (3) Syncope Status: Acute (4) Weakness Status: Acute Objective N/V intact prepatellar bursal swelling indurated and boggy but no clear fluid collection, erythema up lateral thigh,distal csm intact,knee joint not painful all anterior pain, erythema over bursa Date Time Temp Pulse Resp B/P Pulse Ox O2 Delivery O2 Flow Rate FiO2 01/04/17 16:03 36.8 84 16 118/68 95 Room Air 01/04/17 10:59 84 131/68 01/04/17 10:30 Room Air 01/04/17 06:55 36.8 84 19 125/64 96 Room Air 01/04/17 04:09 36.9 88 20 110/65 96 Room Air 01/04/17 01:54 37.2 01/04/17 00:22 38.2 100 20 123/83 95 Room Air 01/03/17 23:45 Room Air 01/03/17 22:47 37.4 83 17 127/68 96 Room Air 01/03/17 20:53 37.4 86 20 138/76 96 Room Air Laboratory Results 24 Hours: Test 01/04/17 10:40 Prothromb Time International Ratio 2.1 Prothrombin Time 23.3 SECONDS Assessment Septic Prepatellar Bursitis Cx showing Staph Aureus Plan Continue IV antibx now on vanco Sensitivities pending INR pending Possible need for I&D
[2017-01-04] MEDS: METOPROLOL SUCC 25MG EXT REL TAB PO SCH (21:27)
[2017-01-05] VITALS (10 sets, daily range): BP systolic 113–157; BP diastolic 67–80; PULSE 80–87; TEMP 36.4–37.9; O2SAT 95–98
[2017-01-05 07:23] LABS: CREATININE 1.2 mg/dl (0.60-1.40)
--- NOTE | 2017-01-05 08:07 | Orthopedic Progress Note ---
Orthopedic Progress Note Date of Service Jan 05, 2017. Subjective Reports: complaints (continued pain in the right patellar area), feeling well Objective calves soft nontender, N/V intact, toes mobile Pt appears to be in good spirits. Remembered who I was and stated Dr Go was in to see him this AM. Right knee continues to be inflamed at the patellar/ prepatellar area. Tender on palpation. Boggy swelling but no fluctuance. No open areas of drainage. Date Time Temp Pulse Resp B/P Pulse Ox O2 Delivery O2 Flow Rate FiO2 01/05/17 07:45 37.1 80 16 138/70 96 Room Air 01/05/17 07:45 37.1 80 16 138/70 96 Room Air 01/05/17 04:16 37.1 81 20 157/77 98 Room Air 01/05/17 00:30 Room Air 01/04/17 23:58 37.9 89 20 148/76 95 Room Air 01/04/17 20:14 36.8 83 16 116/64 94 Room Air 01/04/17 16:25 95 Room Air 01/04/17 16:03 36.8 84 16 118/68 95 Room Air 01/04/17 10:59 84 131/68 01/04/17 10:30 Room Air Laboratory Results 24 Hours: Test 01/04/17 10:40 Prothromb Time International Ratio 2.1 Prothrombin Time 23.3 SECONDS Assessment & Plan Assessment: Septic Prepatellar Bursitis Cx showing Staph Aureus Plan: Dr Go did eval this AM. Plan for OR today for I&D right septic prepatellar bursa Continue IV antibx on vanco Sensitivities showing resistance to Erythromycin only Inhouse Planning Pain Management: Morphine
[2017-01-05 09:10] LABS: HEMATOCRIT 35.8 % (42-52); MEAN CELL VOLUME 90.9 fL (80-100); MEAN CORPUSCULAR HGB CONC 34.1 g/dl (32-36); PLATELET COUNT 103 K/uL (130-400); RED BLOOD COUNT 3.94 M/uL (4.7-6.1); WHITE BLOOD COUNT 40.04 K/uL (4.8-10.8)
[2017-01-05 09:19] LABS: INR 1.4 (0.9-1.1); PROTHROMBIN TIME (PATIENT) 15.6 SECONDS (9.0-12.0)
--- NOTE | 2017-01-05 10:03 | Hematology/Oncology Prog Note ---
Hematology/Onc Progress Note Date of Service Jan 05, 2017. Diagnoses CLL Septic arthritis Medications Medications Administered Medications (Trade) Dose Ordered Sig/Dania Route Start Time Stop Time Status Last Admin Dose Admin Sodium Chloride 1,000 ml @ 125 mls/hr Q8H STAT IV 01/03/17 13:10 01/03/17 16:18 DC 01/03/17 14:11 125 MLS/HR Sodium Chloride (Nss 500ml) 500 ml @ 999 mls/hr Q31M STAT IV 01/03/17 13:10 01/03/17 13:40 DC 01/03/17 13:10 999 MLS/HR Acetaminophen (Tylenol Tab) 1,000 mg NOW STAT PO 01/03/17 13:13 01/03/17 13:14 DC 01/03/17 14:12 1,000 MG Ceftriaxone Sodium (Rocephin Inj) 1 gm NOW STAT IV 01/03/17 13:18 01/03/17 13:20 DC 01/03/17 14:11 1 GM Vancomycin HCl (Vancomycin 1gm/ 270ml Nss) 1 gm NOW STAT IV 01/03/17 13:18 01/03/17 13:20 DC 01/03/17 14:11 1 GM Acetaminophen 650 mg 650 mg Q4H PRN PO 01/03/17 15:45 02/02/17 15:44 01/04/17 22:08 650 MG Vancomycin HCl 1000 mg/Sodium Chloride 270 ml @ 125 mls/hr TODAY@1830 ONCE IV 01/03/17 18:30 01/03/17 20:39 DC 01/03/17 18:53 125 MLS/HR Ceftriaxone Sodium 1 gm/ Dextrose 50 ml @ 100 mls/hr Q24H IV 01/04/17 08:00 01/04/17 10:21 DC 01/04/17 07:54 100 MLS/HR Sodium Chloride 1,000 ml @ 100 mls/hr Q10H IV 01/03/17 16:00 01/04/17 10:21 DC 01/04/17 07:55 100 MLS/HR Vancomycin HCl/ Sodium Chloride (Vancomycin Inj/ Nss 250ml) 274 ml @ 125 mls/hr Q18H IV 01/04/17 16:00 02/15/17 15:59 01/04/17 17:17 125 MLS/HR Metoprolol Succinate (Toprol Xl Tab) 25 mg HS PO 01/04/17 21:00 02/03/17 20:59 01/04/17 21:27 25 MG Metoprolol Succinate 12.5 mg 12.5 mg ONE ONCE PO 01/04/17 10:15 01/04/17 10:16 DC 01/04/17 11:00 12.5 MG Dextrose/Sodium Chloride (D5W And 1/2nss) 1,000 ml @ 80 mls/hr [id number] IV 01/04/17 10:30 02/03/17 10:29 01/04/17 22:08 80 MLS/HR Subjective He is stable. His right knee is still edematous and tender. Review of Systems: Constitutional: Negative for weight loss, night sweats, or fever Eyes: Negative for event change of vision ENT: Negative for epistaxis, nasal discharge, sore throat, or deafness Cardiovascular: Negative for chest pain, palpitations, dizziness, diaphoresis Respiratory: Negative for new shortness of breath,hemoptysis, or purulent cough Gastrointestinal: Negative for diarrhea, hematemesis, melena, nausea, vomiting , or dyspepsia Integumentary (skin): Negative for rash or jaundice discoloration Genitourinary: Negative for urinary frequency, hematuria, or dysuria Neurological: Negative for weakness, seizure activity, headache, or dizziness Lymphatic/Hematologic: Negative for petechiae, bleeding or new adenopathy Musculoskeletal: Right knee edematous with erythema overlying. Allergic/Immunologic: Negative for unusual rash or pruritis. Vital Signs Vital Signs Past 12 Hours Date Time Temp Pulse Resp B/P Pulse Ox O2 Delivery O2 Flow Rate FiO2 01/05/17 09:59 Room Air 01/05/17 07:50 Room Air 01/05/17 07:45 37.1 80 16 138/70 96 Room Air 01/05/17 07:45 37.1 80 16 138/70 96 Room Air 01/05/17 04:16 37.1 81 20 157/77 98 Room Air 01/05/17 00:30 Room Air 01/04/17 23:58 37.9 89 20 148/76 95 Room Air Physical Exam Constitutional: vitals are stable. Eyes: Eyes are KATRIN EOMI without conjuctival erythema or icterus. ENT: External examination was negative for masses. Neck: Negative for masses or palpable thyromegaly Respiratory: Lung sounds were generally clear bilaterally Cardiovascular: Heart was RRR without significant murmur, gallops aoe rubs Gastrointestinal: No palpable hepatic or splenomegaly. The abdomen was soft with normal bowel sounds. Lymphatic system: there was no palpable peripheral lymphadenopathy Musculoskeletal System: The musculoskeletal system seemed concordant with age. Skin: The skin was negative for jaundice. Neurologic exam: The exam was negative for any focal findings. Deep tendon reflexes were equal and symmetrical. Psychiatric exam: Was essentially negative with normal mood and effect. Extremities: Edematous right knee area with overlying erythema Laboratory Last 24 Hours Test 01/04/17 10:40 01/05/17 06:33 01/05/17 08:51 Prothrombin Time 23.3 SECONDS 15.6 SECONDS Prothromb Time International Ratio 2.1 1.4 Creatinine 1.20 mg/dl Est Creatinine Clear Calc Drug Dose 45.1 ml/min Estimated GFR () 64.4 Estimated GFR (Non- 55.6 White Blood Count 40.04 K/uL Red Blood Count 3.94 M/uL Hemoglobin 12.2 g/dL Hematocrit 35.8 % Mean Corpuscular Volume 90.9 fL Mean Corpuscular Hemoglobin 31.0 pg Mean Corpuscular Hemoglobin Concent 34.1 g/dl Platelet Count 103 K/uL Mean Platelet Volume 10.0 fL RDW Standard Deviation 50.9 fL RDW Coefficient of Variation 15.2 % Assessment & Plan CLL. Serum immunoglobulin levels are acceptable. I don't believe that IVIG infusion would be helpful. He appears clinical stable creatinine is now stable. He's moderately thrombocytopenic on the basis primarily I suspect of the staphylococcal infection. We will follow but mostly at a distance. Little else to offer from our standpoint. I understand that it surgical debridement is being planned of the right knee area.
[2017-01-05] MEDS: D5W AND 1/2NSS 1,000 ML IV SCH ×2 (10:08→23:59)
[2017-01-05] MEDS: VANCOMYCIN INJ 1,200 MG in SODIUM CHLORIDE 0.9% 250ML 250 ML IV SCH (10:10)
--- NOTE | 2017-01-05 10:34 | Progress Note ---
Subjective Date of Service: Jan 05, 2017. Subjective Pt evaluation today including: conversation w/ patient, physical exam, review of studies, review of inpatient medication list Patient feeling well. No chest pain, no sob. No new complaints. STill has right knee pain. Problem List Medical Problems: (1) Cellulitis of right leg Status: Acute (2) Closed head injury Status: Acute (3) Syncope Status: Acute (4) Weakness Status: Acute Review of Systems All Other Systems: Reviewed and Negative Medications Acetaminophen (Tylenol Tab) 1,000 mg Q8H PO; Start 01/05/17 at 14:00; Stop at 13:59 Dextrose/Sodium Chloride (D5W And 1/2nss) 1,000 ml @ 80 mls/hr [id number] IV Last administered on 01/05/17 10:08; Admin Dose 80 MLS/HR; Start 01/04/17 at 10:30; Stop 02/03/17 at 10:29 Magnesium Hydroxide (Milk Of Magnesia Susp) 30 ml Q6H PRN PO; Start 01/03/17 at 15:45; Stop 02/02/17 at 15:44 Metoprolol Succinate 25 mg 25 mg HS PO Last administered on 01/04/17 21:27; Admin Dose 25 MG; Start 01/04/17 at 21:00; Stop 02/03/17 at 20:59 Morphine Sulfate (MoRPHine SULFATE INJ) 2 mg Q4HWA PRN IV; Start 01/04/17 at 10: 45; Stop 01/18/17 at 10:44 Morphine Sulfate (MoRPHine SULFATE INJ) 4 mg Q4HWA PRN IV; Start 01/04/17 at 10: 45; Stop 01/18/17 at 10:44 Ondansetron HCl (Zofran Inj) 4 mg Q6H PRN IV; Start 01/03/17 at 15:45; Stop at 15:44 Oxycodone HCl (Roxicodone Immediate Rel Tab) 1-2 TABS FOR PAIN 1 TABLET ... Q4H PRN PO; Start 01/05/17 at 13:45; Stop 01/19/17 at 13:44 Vancomycin HCl 1 ea 1 ea UD PRN N/A; Start 01/03/17 at 16:30; Stop 02/02/17 at 16:29 Vancomycin HCl/ Sodium Chloride (Vancomycin Inj/ Nss 250ml) 274 ml @ 125 mls/ hr Q18H IV Last administered on 01/05/17t 10:10; Admin Dose 125 MLS/HR; Start 01/04/17 at 16:00; Stop 02/15/17 at 15:59 Objective Vital Signs Date Time Temp Pulse Resp B/P Pulse Ox O2 Delivery O2 Flow Rate FiO2 01/05/17 09:59 Room Air 01/05/17 07:50 Room Air 01/05/17 07:45 37.1 80 16 138/70 96 Room Air 01/05/17 07:45 37.1 80 16 138/70 96 Room Air 01/05/17 04:16 37.1 81 20 157/77 98 Room Air 01/05/17 00:30 Room Air 01/04/17 23:58 37.9 89 20 148/76 95 Room Air 01/04/17 20:14 36.8 83 16 116/64 94 Room Air 01/04/17 16:25 95 Room Air 01/04/17 16:03 36.8 84 16 118/68 95 Room Air 01/04/17 10:59 84 131/68 01/04/17 10:30 Room Air Physical Exam Comments: nad, aox3 eomi, perrl, anicteric s1 s2 rrr, no m/r/g ctab no w/r/r abd soft nt/nd +BS no LE edema Right knee swollen and erythematous cn 2-12 grossly intact Laboratory Results Last 24 Hours Test 01/04/17 10:40 01/05/17 06:33 01/05/17 08:51 Prothrombin Time 23.3 SECONDS 15.6 SECONDS Prothromb Time International Ratio 2.1 1.4 Creatinine 1.20 mg/dl Est Creatinine Clear Calc Drug Dose 45.1 ml/min Estimated GFR () 64.4 Estimated GFR (Non- 55.6 White Blood Count 40.04 K/uL Red Blood Count 3.94 M/uL Hemoglobin 12.2 g/dL Hematocrit 35.8 % Mean Corpuscular Volume 90.9 fL Mean Corpuscular Hemoglobin 31.0 pg Mean Corpuscular Hemoglobin Concent 34.1 g/dl Platelet Count 103 K/uL Mean Platelet Volume 10.0 fL RDW Standard Deviation 50.9 fL RDW Coefficient of Variation 15.2 % Assessment and Plan 1. Metabolic encephalopathy 2/2 Sepsis from Right knee septic joint - afebrile overnight, no tachycardia-- improving mental status and vitals - fluid cx with Staph, can stop Rocephin until sensitivities come back - appreciate ortho evaluation - IVF with D5 NS for now while NPO 2. Leukocytosis - 2/2 sepsis + leukemia (chronically elevated) - will cont to monitor - con abx 3. NANCY on CKD IIIa - 2/2 volume depletion - resolved - will cont IVF while NPO to prevent volume depletion 4. PAfib - hold off coumadin for possible procedure - INR 1.4 - no dvt ppx indicated
[2017-01-05] MEDS ORDERED: EpHEDrine SULFATE INJ 50 MG/ML AMP IV PRN (10:45)
[2017-01-05] MEDS ORDERED: PHENYLEPHRINE 100MCG/ML 5ML SYR IV PRN (10:45)
[2017-01-05] MEDS ORDERED: ATROPINE SULFATE 0.1 MG/ML 5ML SYR IV PRN (10:45)
[2017-01-05] MEDS ORDERED: ONDANSETRON INJ 2 MG/ML 2 ML VIAL IV PRN (10:45)
[2017-01-05] MEDS ORDERED: HYDROmorphone INJ 2 MG/ML SYR/VIAL IV PRN (10:45)
[2017-01-05 11:07] LABS: COMPLETE YES; LYMPH ABS # 25.71 K/uL (1.2-3.4); LYMPHOCYTE % 64.2 %; NEUTROPHILS % 10.8 %; VARIANT LYM ABS # 9.69 K/uL; VARIANT LYMPHOCYTE % 24.2 %
[2017-01-05] MEDS ORDERED: MIDAZOLAM HCL 1 MG/ML 2ML VIAL ONE (11:52)
[2017-01-05] MEDS ORDERED: FENTANYL CITRATE INJ 50 MCG/1 ML 2 ML VIAL ONE (11:53)
[2017-01-05] MEDS ORDERED: LIDOCAINE HCL 2% 2 ML VIAL (20MG/ML) ONE (11:57)
[2017-01-05] MEDS ORDERED: PROPOFOL IV EMULSION 10 MG/ML 20 ML VIAL IV ONE (11:57)
[2017-01-05] MEDS ORDERED: BACITRACIN 50000 UNIT VIAL ONE (12:48)
[2017-01-05] MEDS ORDERED: VANCOMYCIN HCL 1000MG/20ML VIAL ONE (13:26)
[2017-01-05] MEDS ORDERED: BUPIVACAINE/EPINEPHRINE 0.5% MPF 1:200,000 30 ML VIAL ONE (13:53)
[2017-01-05] MEDS ORDERED: EpHEDrine SULFATE 50MG/5ML SYR ONE (13:56)
--- NOTE | 2017-01-05 14:08 | [facility] Post Operative Brief Note ---
Immediate Operative Summary Operative Date Jan 05, 2017. Pre-Operative Diagnosis Septic Prepatellar Bursitis Post-Operative Diagnosis Septic Prepatellar Bursitis Procedure(s) Performed Right Prepatellar Bursitis Incision and Drainage with Application of Stimulan Beads Surgeon Dr. Go Heel Builder Surgeon(s) Gasper Singh PA-C Estimated Blood Loss 50 mL Findings Septic bursa Specimens Microbiology #1-Prepatellar Bursa Fluid, gram stain, routine culture and sensitivity, anaerobic/aerobic-out of room at 1341 Disposition Recovery Room / PACU
--- NOTE | 2017-01-05 14:19 | OPERATIVE REPORT ---
DATE OF OPERATION: 01/05/2017 PREOPERATIVE DIAGNOSIS: Septic prepatellar bursitis, right knee. POSTOPERATIVE DIAGNOSIS: Septic prepatellar bursitis, right knee. PROCEDURE: Excisional debridement, septic prepatellar bursa, right knee. SURGEON: Dr. Go. ANESTHESIA: General. COMPLICATIONS: None. OPERATION AND FINDINGS: PROCEDURE: Following induction of adequate general anesthesia, the patient's right leg was prepped and draped in usual sterile manner. Limb was exsanguinated with elevation only and tourniquet was inflated to 350 mmHg. Longitudinal incision was made over the palpable bursitis. Gross purulence was identified with much contaminated irregular septic bursal tissue. Initial cultures were obtained and initial irrigation of 100 mL of sterile saline was carried out. Using a 10 blade and pickups complete excision of the septic prepatellar bursa was carried out. Much bursal tissue was obtained. Hemostasis was obtained. Stimulan beads were prepared and the knee was thoroughly irrigated with 3000 mL of pulsatile irrigation with bacitracin. The inspection for bleeding was carried out once again and the previously prepared Stimulan beads were implanted. These were spread evenly throughout the bursal defect. The wound was closed using 2-0 Vicryl and 3-0 nylon vertical mattress and simple sutures. Sterile dressing of Xeroform, 4 x 4s, ABDs, sterile Webril and double length Ney was applied. The patient tolerated the procedure well. I attest to the content of the Intraoperative Record and any orders documented therein. Any exceptio ns are noted below.
--- NOTE | 2017-01-05 14:32 | Anesthesiology Progress Note ---
Anesthesia Post Op Note Date & Time Jan 05, 2017 at 14:31 Vital Signs Pain Intensity: 0 Vital Signs Past 12 Hours Date Time Temp Pulse Resp B/P Pulse Ox O2 Delivery O2 Flow Rate FiO2 01/05/17 14:09 37.0 92 16 106/60 91 Mask 10 01/05/17 11:31 37.2 80 14 139/74 97 Room Air 01/05/17 11:30 37.2 80 14 139/74 97 Room Air 01/05/17 09:59 Room Air 01/05/17 07:50 Room Air 01/05/17 07:45 37.1 80 16 138/70 96 Room Air 01/05/17 07:45 37.1 80 16 138/70 96 Room Air 01/05/17 04:16 37.1 81 20 157/77 98 Room Air Notes Mental Status: alert / awake / arousable, participated in evaluation Pt Amnestic to Procedure: Yes Nausea / Vomiting: adequately controlled Pain: adequately controlled Airway Patency, RR, SpO2: stable & adequate BP & HR: stable & adequate Hydration State: stable & adequate Anesthetic Complications: no major complications apparent
[2017-01-05] MEDS: ACETAMINOPHEN 500 MG TAB PO SCH ×2 (17:28→22:00)
[2017-01-05] MEDS: METOPROLOL SUCC 25MG EXT REL TAB PO SCH (21:05)
[2017-01-06 03:24] VITALS: BP 138/76; PULSE 74; TEMP 37; O2SAT 96
[2017-01-06] MEDS ORDERED: VANCOMYCIN TROUGH SCH (03:30)
[2017-01-06] MEDS: VANCOMYCIN INJ 1,200 MG in SODIUM CHLORIDE 0.9% 250ML 250 ML IV SCH (04:07)
[2017-01-06 04:15] LABS: INR 1.3 (0.9-1.1)
[2017-01-06 04:19] LABS: HEMATOCRIT 34.3 % (42-52); MEAN CELL VOLUME 89.6 fL (80-100); MEAN CORPUSCULAR HEMOGLOBIN 30.5 pg (25-34); MEAN CORPUSCULAR HGB CONC 34.1 g/dl (32-36); MEAN PLATELET VOLUME 9.7 fL (7.4-10.4); PLATELET COUNT 113 K/uL (130-400); RED BLOOD COUNT 3.83 M/uL (4.7-6.1); WHITE BLOOD COUNT 37.52 K/uL (4.8-10.8)
[2017-01-06 04:24] LABS: CALCIUM 7.8 mg/dl (8.5-10.1); CREATININE 1.3 mg/dl (0.60-1.40); MAGNESIUM 2.3 mg/dl (1.8-2.4); POTASSIUM 3.9 mmol/L (3.5-5.1)
[2017-01-06 05:14] LABS: COMPLETE YES; EOSINOPHIL % 0.9 %; LYMPH ABS # 15.87 K/uL (1.2-3.4); LYMPHOCYTE % 42.3 %; NEUTROPHILS % 7.2 %; PROLYM# MAN 2.03 K/uL (0-0); VARIANT LYM ABS # 16.25 K/uL; VARIANT LYMPHOCYTE % 43.3 %
[2017-01-06] MEDS: ACETAMINOPHEN 500 MG TAB PO SCH ×3 (05:29→21:21)
[2017-01-06 08:13] VITALS: BP 134/72; PULSE 72; TEMP 36.6; O2SAT 96
--- NOTE | 2017-01-06 08:23 | Progress Note ---
Subjective Date of Service: Jan 06, 2017. Subjective Pt evaluation today including: conversation w/ patient, physical exam, lab review, review of inpatient medication list Patient feeling well. T max 37.9 yesterday PM, afebrile overnight. Eating well. No chest pain, no sob. No BM yet. Right knee pain/tenderness. Problem List Medical Problems: (1) Cellulitis of right leg Status: Acute (2) Closed head injury Status: Acute (3) Syncope Status: Acute (4) Weakness Status: Acute Review of Systems All Other Systems: Reviewed and Negative Medications Current Inpatient Medications Medications (Trade) Dose Ordered Sig/Dania Route Start Time Stop Time Status Last Admin Dose Admin Magnesium Hydroxide (Milk Of Magnesia Susp) 30 ml Q6H PRN PO 01/03/17 15:45 02/02/17 15:44 Ondansetron HCl (Zofran Inj) 4 mg Q6H PRN IV 01/03/17 15:45 02/02/17 15:44 Vancomycin HCl 1 ea 1 ea UD PRN N/A 01/03/17 16:30 02/02/17 16:29 Vancomycin HCl/ Sodium Chloride (Vancomycin Inj/ Nss 250ml) 274 ml @ 125 mls/hr Q18H IV 01/04/17 16:00 02/15/17 15:59 01/06/17 04:07 125 MLS/HR Metoprolol Succinate 25 mg 25 mg HS PO 01/04/17 21:00 02/03/17 20:59 01/05/17 21:05 25 MG Dextrose/Sodium Chloride (D5W And 1/2nss) 1,000 ml @ 80 mls/hr [id number] IV 01/04/17 10:30 02/03/17 10:29 01/05/17 23:59 80 MLS/HR Morphine Sulfate (MoRPHine SULFATE INJ) 2 mg Q4HWA PRN IV 01/04/17 10:45 01/18/17 10:44 Morphine Sulfate (MoRPHine SULFATE INJ) 4 mg Q4HWA PRN IV 01/04/17 10:45 01/18/17 10:44 Oxycodone HCl (Roxicodone Immediate Rel Tab) 1-2 TABS FOR PAIN 1 TABLET ... Q4H PRN PO 01/05/17 13:45 01/19/17 13:44 Acetaminophen (Tylenol Tab) 1,000 mg Q8H PO 01/05/17 14:00 02/04/17 13:59 01/06/17 05:29 1,000 MG Objective Vital Signs Date Time Temp Pulse Resp B/P Pulse Ox O2 Delivery O2 Flow Rate FiO2 01/06/17 08:13 36.6 72 24 134/72 96 Room Air 01/06/17 03:24 37.0 74 19 138/76 96 Room Air 01/06/17 00:07 Room Air 01/05/17 23:47 36.8 83 20 120/71 96 Room Air 01/05/17 20:00 36.7 84 18 113/67 95 Room Air 01/05/17 17:09 36.9 87 18 151/80 98 Nasal Cannula 2.0 01/05/17 16:05 37.9 85 18 141/75 98 Nasal Cannula 2.0 01/05/17 16:00 Room Air 01/05/17 15:29 36.4 85 18 136/72 97 Nasal Cannula 2.0 01/05/17 15:20 37.6 84 18 137/74 96 Nasal Cannula 2.0 01/05/17 14:52 87 26 01/05/17 14:52 90 26 95 01/05/17 14:51 96/72 01/05/17 14:47 85 25 94 01/05/17 14:47 86 25 01/05/17 14:46 86 23 95 01/05/17 14:46 87 23 01/05/17 14:45 119/66 01/05/17 14:41 86 25 95 01/05/17 14:41 84 25 01/05/17 14:40 114/73 01/05/17 14:36 87 23 95 01/05/17 14:36 87 23 01/05/17 14:35 126/66 01/05/17 14:34 90 24 98 01/05/17 14:34 90 24 01/05/17 14:31 125/68 01/05/17 14:29 92 22 98 01/05/17 14:29 89 22 01/05/17 14:25 109/67 01/05/17 14:24 87 23 98 01/05/17 14:24 87 23 01/05/17 14:20 108/62 01/05/17 14:19 87 25 98 01/05/17 14:19 88 25 01/05/17 14:15 108/64 01/05/17 14:14 89 23 98 01/05/17 14:14 87 23 01/05/17 14:10 106/60 01/05/17 14:09 37.0 92 16 106/60 91 Mask 10 01/05/17 14:09 90 17 01/05/17 14:09 90 17 100/61 98 01/05/17 11:31 37.2 80 14 139/74 97 Room Air 01/05/17 11:30 37.2 80 14 139/74 97 Room Air 01/05/17 09:59 Room Air Physical Exam Comments: nad, aox3, eomi, perrl, anicteric s1 s2 rrr, no murmurs appreciated ctab no w/r/r abd soft, nt/nd +BS no cva tend no LLE edema RLE dressed cn 2-12 grossly intact without facial drooping Laboratory Results Last 24 Hours Test 01/05/17 08:51 01/06/17 03:55 White Blood Count 40.04 K/uL 37.52 K/uL Red Blood Count 3.94 M/uL 3.83 M/uL Hemoglobin 12.2 g/dL 11.7 g/dL Hematocrit 35.8 % 34.3 % Mean Corpuscular Volume 90.9 fL 89.6 fL Mean Corpuscular Hemoglobin 31.0 pg 30.5 pg Mean Corpuscular Hemoglobin Concent 34.1 g/dl 34.1 g/dl Platelet Count 103 K/uL 113 K/uL Mean Platelet Volume 10.0 fL 9.7 fL RDW Standard Deviation 50.9 fL 49.3 fL RDW Coefficient of Variation 15.2 % 15.2 % Neutrophils % (Manual) 10.8 % 7.2 % Lymphocytes % (Manual) 64.2 % 42.3 % Variant Lymphocytes % (manual) 24.2 % 43.3 % Monocytes % (Manual) 0.8 % 0.9 % Neutrophils # (Manual) 4.32 K/uL 2.70 K/uL Total Absolute Neutrophils 4.32 K/uL 2.70 K/uL Lymphocytes # (Manual) 25.71 K/uL 15.87 K/uL Absolute Variant Lymphocytes 9.69 K/uL 16.25 K/uL Total Absolute Lymphocytes 35.40 K/uL 32.12 K/uL Monocytes # (Manual) 0.32 K/uL 0.34 K/uL Red Blood Cell Morphology Unremarkable Unremarkable Prothrombin Time 15.6 SECONDS 14.0 SECONDS Prothromb Time International Ratio 1.4 1.3 Prolymphocyte % 5.4 % Eosinophils % (Manual) 0.9 % Prolymphocyte # 2.03 K/uL Eosinophils # (Manual) 0.34 K/uL Sodium Level 143 mmol/L Potassium Level 3.9 mmol/L Chloride Level 110 mmol/L Carbon Dioxide Level 24 mmol/L Anion Gap 9.0 mmol/L Blood Urea Nitrogen 21 mg/dl Creatinine 1.30 mg/dl Est Creatinine Clear Calc Drug Dose 41.6 ml/min Estimated GFR () 58.5 Estimated GFR (Non- 50.5 BUN/Creatinine Ratio 16.0 Random Glucose 123 mg/dl Calcium Level 7.8 mg/dl Magnesium Level 2.3 mg/dl Vancomycin Level Trough 10.0 mcg/ml Assessment and Plan 1. Metabolic encephalopathy 2/2 Sepsis from Right septic prepatellar bursitis - mentals status at baseline - Fluid Cx as above. ID consult for duration of treatment - stop fluids - PT/OT eval 2. Leukocytosis - 2/2 sepsis + leukemia (chronically elevated) - will cont to monitor - cont abx 3. NANCY on CKD IIIa - resolved - creat at baseline 4. PAfib - would resume anticoagulation if no further ortho procedures planned - coumadin 5 mg tonight -INR in am
--- NOTE | 2017-01-06 09:29 | Hematology/Oncology Prog Note ---
Hematology/Onc Progress Note Date of Service Jan 06, 2017. Diagnoses CLL Septic arthritis Medications Medications Administered Medications (Trade) Dose Ordered Sig/Dania Route Start Time Stop Time Status Last Admin Dose Admin Sodium Chloride 1,000 ml @ 125 mls/hr Q8H STAT IV 01/03/17 13:10 01/03/17 16:18 DC 01/03/17 14:11 125 MLS/HR Sodium Chloride (Nss 500ml) 500 ml @ 999 mls/hr Q31M STAT IV 01/03/17 13:10 01/03/17 13:40 DC 01/03/17 13:10 999 MLS/HR Acetaminophen (Tylenol Tab) 1,000 mg NOW STAT PO 01/03/17 13:13 01/03/17 13:14 DC 01/03/17 14:12 1,000 MG Ceftriaxone Sodium (Rocephin Inj) 1 gm NOW STAT IV 01/03/17 13:18 01/03/17 13:20 DC 01/03/17 14:11 1 GM Vancomycin HCl (Vancomycin 1gm/ 270ml Nss) 1 gm NOW STAT IV 01/03/17 13:18 01/03/17 13:20 DC 01/03/17 14:11 1 GM Acetaminophen 650 mg 650 mg Q4H PRN PO 01/03/17 15:45 01/05/17 13:41 DC 01/04/17 22:08 650 MG Vancomycin HCl 1000 mg/Sodium Chloride 270 ml @ 125 mls/hr TODAY@1830 ONCE IV 01/03/17 18:30 01/03/17 20:39 DC 01/03/17 18:53 125 MLS/HR Ceftriaxone Sodium 1 gm/ Dextrose 50 ml @ 100 mls/hr Q24H IV 01/04/17 08:00 01/04/17 10:21 DC 01/04/17 07:54 100 MLS/HR Sodium Chloride 1,000 ml @ 100 mls/hr Q10H IV 01/03/17 16:00 01/04/17 10:21 DC 01/04/17 07:55 100 MLS/HR Vancomycin HCl/ Sodium Chloride (Vancomycin Inj/ Nss 250ml) 274 ml @ 125 mls/hr Q18H IV 01/04/17 16:00 02/15/17 15:59 01/06/17 04:07 125 MLS/HR Metoprolol Succinate (Toprol Xl Tab) 25 mg HS PO 01/04/17 21:00 02/03/17 20:59 01/05/17 21:05 25 MG Metoprolol Succinate 12.5 mg 12.5 mg ONE ONCE PO 01/04/17 10:15 01/04/17 10:16 DC 01/04/17 11:00 12.5 MG Dextrose/Sodium Chloride (D5W And 1/2nss) 1,000 ml @ 80 mls/hr [id number] IV 01/04/17 10:30 01/06/17 08:24 DC 01/05/17 23:59 80 MLS/HR Bacitracin (Bacitracin Inj) 50,000 units STK-MED ONCE .ROUTE 01/05/17 12:48 01/05/17 12:51 DC 01/05/17 13:45 50,000 UNITS Vancomycin HCl (Vancomycin Inj) 100 mg STK-MED ONCE .ROUTE 01/05/17 13:26 01/05/17 13:29 DC 01/05/17 13:45 100 MG Acetaminophen (Tylenol Tab) 1,000 mg Q8H PO 01/05/17 14:00 02/04/17 13:59 01/06/17 05:29 1,000 MG Bupivacaine HCl/ Epinephrine Bitart (Sensorcaine/ Epinephrine 0.5% Mpf 1:200,000) 30 ml STK-MED ONCE .ROUTE 01/05/17 13:53 01/05/17 13:56 DC 01/05/17 13:58 30 ML Subjective He is now status post surgery IND of a right prepatellar bursitis. He really denies any new complaints Review of Systems: Constitutional: Negative for weight loss, night sweats, or fever Eyes: Negative for event change of vision ENT: Negative for epistaxis, nasal discharge, sore throat, or deafness Cardiovascular: Negative for chest pain, palpitations, dizziness, diaphoresis Respiratory: Negative for new shortness of breath,hemoptysis, or purulent cough Gastrointestinal: Negative for diarrhea, hematemesis, melena, nausea, vomiting , or dyspepsia Integumentary (skin): Negative for rash or jaundice discoloration Neurological: Negative for weakness, seizure activity, headache, or dizziness Lymphatic/Hematologic: Negative for petechiae, bleeding or new adenopathy Musculoskeletal: Negative for new joint or back pain Allergic/Immunologic: Negative for unusual rash or pruritis. Vital Signs Vital Signs Past 12 Hours Date Time Temp Pulse Resp B/P Pulse Ox O2 Delivery O2 Flow Rate FiO2 01/06/17 08:56 Room Air 01/06/17 08:13 36.6 72 24 134/72 96 Room Air 01/06/17 03:24 37.0 74 19 138/76 96 Room Air 01/06/17 00:07 Room Air 01/05/17 23:47 36.8 83 20 120/71 96 Room Air Physical Exam Constitutional: vitals are stable. Eyes: Eyes are KATRIN EOMI without conjuctival erythema or icterus. ENT: External examination was negative for masses. Neck: Negative for masses or palpable thyromegaly Respiratory: Lung sounds were generally clear bilaterally Cardiovascular: Heart was RRR without significant murmur, gallops aoe rubs Gastrointestinal: No palpable hepatic or splenomegaly. The abdomen was soft with normal bowel sounds. Lymphatic system: there was no palpable peripheral lymphadenopathy Musculoskeletal System: The musculoskeletal system seemed concordant with age. Skin: The skin was negative for jaundice. Neurologic exam: The exam was negative for any focal findings. Deep tendon reflexes were equal and symmetrical. Psychiatric exam: Was essentially negative with normal mood and effect. Extremity right lower extremity is bandaged. Bandaged looks dry. Left leg unremarkable Assessment & Plan CLL. CBC is acceptable. Platelet count is better yesterday to 113,000. Little else to offer from our standpoint. He appears comfortable. Would recheck a CBC in the morning again.
--- NOTE | 2017-01-06 09:35 | Orthopedic Progress Note ---
Orthopedic Progress Note Date of Service Jan 06, 2017. Subjective Post OP Day: 1 Reports: feeling well, Denies: SOB, chest pain, light headedness, nausea / vomiting Additional Notes: Having some knee pain but overall feels better today. No other complaints. Objective calves soft nontender, N/V intact, dressing C/D/I, A&O x3, toes mobile Date Time Temp Pulse Resp B/P Pulse Ox O2 Delivery O2 Flow Rate FiO2 01/06/17 08:56 Room Air 01/06/17 08:13 36.6 72 24 134/72 96 Room Air 01/06/17 03:24 37.0 74 19 138/76 96 Room Air 01/06/17 00:07 Room Air 01/05/17 23:47 36.8 83 20 120/71 96 Room Air 01/05/17 20:00 36.7 84 18 113/67 95 Room Air 01/05/17 17:09 36.9 87 18 151/80 98 Nasal Cannula 2.0 01/05/17 16:05 37.9 85 18 141/75 98 Nasal Cannula 2.0 01/05/17 16:00 Room Air 01/05/17 15:29 36.4 85 18 136/72 97 Nasal Cannula 2.0 01/05/17 15:20 37.6 84 18 137/74 96 Nasal Cannula 2.0 01/05/17 14:52 87 26 01/05/17 14:52 90 26 95 01/05/17 14:51 96/72 01/05/17 14:47 85 25 94 01/05/17 14:47 86 25 01/05/17 14:46 86 23 95 01/05/17 14:46 87 23 01/05/17 14:45 119/66 01/05/17 14:41 86 25 95 01/05/17 14:41 84 25 01/05/17 14:40 114/73 01/05/17 14:36 87 23 95 01/05/17 14:36 87 23 01/05/17 14:35 126/66 01/05/17 14:34 90 24 98 01/05/17 14:34 90 24 01/05/17 14:31 125/68 01/05/17 14:29 92 22 98 01/05/17 14:29 89 22 01/05/17 14:25 109/67 01/05/17 14:24 87 23 98 01/05/17 14:24 87 23 01/05/17 14:20 108/62 01/05/17 14:19 87 25 98 01/05/17 14:19 88 25 01/05/17 14:15 108/64 01/05/17 14:14 89 23 98 01/05/17 14:14 87 23 01/05/17 14:10 106/60 01/05/17 14:09 37.0 92 16 106/60 91 Mask 10 01/05/17 14:09 90 17 01/05/17 14:09 90 17 100/61 98 01/05/17 11:31 37.2 80 14 139/74 97 Room Air 01/05/17 11:30 37.2 80 14 139/74 97 Room Air 01/05/17 09:59 Room Air Laboratory Results 24 Hours: Test 01/06/17 03:55 White Blood Count 37.52 K/uL Red Blood Count 3.83 M/uL Hemoglobin 11.7 g/dL Hematocrit 34.3 % Mean Corpuscular Volume 89.6 fL Mean Corpuscular Hemoglobin 30.5 pg Mean Corpuscular Hemoglobin Concent 34.1 g/dl Platelet Count 113 K/uL Mean Platelet Volume 9.7 fL Prothromb Time International Ratio 1.3 Prothrombin Time 14.0 SECONDS Assessment & Plan Assessment: POD 1 s/p Right I&D of Septic Prepatellar Bursitis Cx showing Staph Aureus Plan: Plan for dressing change tomorrow. May expect some increased drainage with implantation of antibx beads. Continue IV antibx - Will consult ID per Dr Go request Sensitivities showing resistance to Erythromycin only Inhouse Planning Pain Management: Morphine, Oxy IR DVT Prophylaxis: TEDs, SCDs, Coumadin
--- NOTE | 2017-01-06 11:28 | Medical Consult ---
Consultation Date of Consultation: Jan 06, 2017. Attending Physician: Rere Delgado MD Reason for Consultation: Septic prepatellar bursitis History of Present Illness The patient is an 81-year-old male who presents to the hospital with concerns of confusion, altered mental status, and right knee pain. The patient states that he had been week prior to admission, and he had been having knee pain for approximately 1 month on an off. He states that it did get worse and then it would get better. 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 He states that approximately a few days prior to admission, the patient noted that his right knee was red, warm, and swollen. He had not been experiencing any fever, sweats, chills, shortness of breath, chest pain, palpitations, nausea, vomiting , diarrhea, or urinary symptoms at home. Since admission, the patient's white blood cell count has been 44,000 on admission. The patient does have history of leukemia. He had his prepatellar bursa aspirated at the beginning of admission, which is growing MSSA. His blood cultures are showing no growth. The patient is now status/post right prepatellar bursectomy and I and D of the area. The surgical cultures are also growing Staph aureus. His white blood cell count was 16454 today. His creatinine was 1.30. The patient is currently on IV vancomycin. I did speak to Gasper in Orthopedics regarding this patient as well. The patient did have a knee x-ray completed which showed severe degenerative change of all the major compartments but no acute process. Past Medical/Surgical History Medical Problems: (1) Cellulitis of right leg Status: Acute (2) Closed head injury Status: Acute (3) Syncope Status: Acute (4) Weakness Status: Acute Medical Problems: (1) Heart disease (2) Leukemia (3) Septic joint of right knee joint Family History Cancer Diabetes mellitus Gallbladder disease Heart disease Hypertension Kidney disease Kidney stones Lung disease Noncontributory Social History Smoking Status: Former Smoker Smokeless Tobacco Use: No Allergies Coded Allergies: No Known Allergies (Verified , 01/03/17) Home Medications Reported Home Medications Medications Dose Route/Sig Max Daily Dose Days Date Category Dose Instructions Coumadin (Warfarin Sodium) 5 Mg Tab 5 Mg PO DAILY 01/03/17 Reported [facility] PATIENT, CURRENT DIRECTIONS OF 12/20 5MG MON, WED, FRI, 2.52MG TUE,THUR,SAT,SUN NEXT APT 01/19/17 Toprol-Xl (Metoprolol Succinate) 25 Mg Tabcr 25 Mg PO HS 01/03/17 Reported Current Inpatient Medications Current Inpatient Medications Medications (Trade) Dose Ordered Sig/Dania Route Start Time Stop Time Status Last Admin Dose Admin Magnesium Hydroxide (Milk Of Magnesia Susp) 30 ml Q6H PRN PO 01/03/17 15:45 02/02/17 15:44 Ondansetron HCl (Zofran Inj) 4 mg Q6H PRN IV 01/03/17 15:45 02/02/17 15:44 Vancomycin HCl 1 ea 1 ea UD PRN N/A 01/03/17 16:30 02/02/17 16:29 Vancomycin HCl/ Sodium Chloride (Vancomycin Inj/ Nss 250ml) 274 ml @ 125 mls/hr Q18H IV 01/04/17 16:00 02/15/17 15:59 01/06/17 04:07 125 MLS/HR Metoprolol Succinate (Toprol Xl Tab) 25 mg HS PO 01/04/17 21:00 02/03/17 20:59 01/05/17 21:05 25 MG Morphine Sulfate (MoRPHine SULFATE INJ) 2 mg Q4HWA PRN IV 01/04/17 10:45 01/18/17 10:44 Morphine Sulfate (MoRPHine SULFATE INJ) 4 mg Q4HWA PRN IV 01/04/17 10:45 01/18/17 10:44 Oxycodone HCl (Roxicodone Immediate Rel Tab) 1-2 TABS FOR PAIN 1 TABLET ... Q4H PRN PO 01/05/17 13:45 01/19/17 13:44 Acetaminophen (Tylenol Tab) 1,000 mg Q8H PO 01/05/17 14:00 02/04/17 13:59 01/06/17 05:29 1,000 MG Warfarin Sodium (Coumadin Tab) 5 mg DAILY@16 PO 01/06/17 16:00 02/05/17 15:59 Review of Systems Constitutional: + fatigue, + weakness Eyes: No worsening of vision ENT: No hearing loss Respiratory: No cough Cardiovascular: No chest pain Abdomen: No diarrhea, No pain Musculoskeletal: + joint pain, + swelling (right knee) Genitourinary - Male: No hematuria Integumentary: + color change (erythema of the right knee) Physical Exam Date Time Temp Pulse Resp B/P Pulse Ox O2 Delivery O2 Flow Rate FiO2 01/06/17 08:56 Room Air 01/06/17 08:13 36.6 72 24 134/72 96 Room Air 01/06/17 03:24 37.0 74 19 138/76 96 Room Air 01/06/17 00:07 Room Air 01/05/17 23:47 36.8 83 20 120/71 96 Room Air 01/05/17 20:00 36.7 84 18 113/67 95 Room Air 01/05/17 17:09 36.9 87 18 151/80 98 Nasal Cannula 2.0 01/05/17 16:05 37.9 85 18 141/75 98 Nasal Cannula 2.0 01/05/17 16:00 Room Air 01/05/17 15:29 36.4 85 18 136/72 97 Nasal Cannula 2.0 01/05/17 15:20 37.6 84 18 137/74 96 Nasal Cannula 2.0 01/05/17 14:52 87 26 01/05/17 14:52 90 26 95 01/05/17 14:51 96/72 01/05/17 14:47 85 25 94 01/05/17 14:47 86 25 01/05/17 14:46 86 23 95 01/05/17 14:46 87 23 01/05/17 14:45 119/66 01/05/17 14:41 86 25 95 01/05/17 14:41 84 25 01/05/17 14:40 114/73 01/05/17 14:36 87 23 95 01/05/17 14:36 87 23 01/05/17 14:35 126/66 01/05/17 14:34 90 24 98 01/05/17 14:34 90 24 01/05/17 14:31 125/68 01/05/17 14:29 92 22 98 01/05/17 14:29 89 22 01/05/17 14:25 109/67 01/05/17 14:24 87 23 98 01/05/17 14:24 87 23 01/05/17 14:20 108/62 01/05/17 14:19 87 25 98 01/05/17 14:19 88 25 01/05/17 14:15 108/64 01/05/17 14:14 89 23 98 01/05/17 14:14 87 23 01/05/17 14:10 106/60 01/05/17 14:09 37.0 92 16 106/60 91 Mask 10 01/05/17 14:09 90 17 01/05/17 14:09 90 17 100/61 98 01/05/17 11:31 37.2 80 14 139/74 97 Room Air 01/05/17 11:30 37.2 80 14 139/74 97 Room Air General Appearance: WD/WN, no apparent distress Head: normocephalic, atraumatic Eyes: normal inspection, sclerae normal ENT: hearing grossly normal Neck: supple, trachea midline Respiratory/Chest: chest non-tender, lungs clear, normal breath sounds, no respiratory distress, no accessory muscle use Cardiovascular: regular rate, rhythm Abdomen/GI: normal bowel sounds, non tender, soft Back: normal inspection Extremities/Musculoskelatal: + pertinent finding (right knee and leg with large dressing in place. Noted edema of the right knee) Neurologic/Psych: alert, normal mood/affect Skin: warm/dry, no rash, + pertinent finding (erythema noted of the posterior/ lateral thigh above dressing) Laboratory Results [~ rep ct add3]] RIGHT KNEE 1 OR 2 VIEWS ROUTINE CLINICAL HISTORY: right knee swelling Right COMPARISON: None. 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 No significant joint effusion. Mild prepatellar soft tissue edema. There is no evidence for soft tissue swelling. 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 No acute process. RUN DATE: 01/06/17 [facility] LAB PAGE 1 RUN TIME: 1281 Specimen Inquiry PATIENT: MARK LARKIN LOC: [facility] U # : [id number] AGE/SX: 81/M ROOM: E405 REG : 01/03/[address]: Rere Delgado MD : 1935 BED: 1 DIS : STATUS: ADM IN TLOC: SPEC #: [id number] TONY: 01/03/17 STATUS: RES REQ #: [id number] RECD: 01/03/[address]: Gasper Singh P.ALindy SOURCE: ASP-OTHER ENTR: 01/03/17 [facility] DR: Jaiden Eckert , D.OLindy SPDESC: KNEE RIGHT Colten Mead MD , PhD Roosevelt Zuluaga MD Rogusky, Edwin, M.D. Zoda, Albert R M.D. ORDERED: AER/SARAH CULTSMR COMMENTS: Specimen Comment RIGHT PREPATELLAR BURSA FLUID Has Specimen Been Obtained/Collected? Y Procedure Result Verified Site GRAM STAIN Final 01/04/17-857 RESULT NO ORGANISMS SEEN RARE WBCs SEEN OR AER/SARAH CULT Preliminary 01/06/17-834 Organism 1 STAPHYLOCOCCUS AUREUS QUANITY MODERATE SENS SENSITIVITY TO FOLLOW ANAS NO ANAEROBES ISOLATED. 1. STAPHYLOCOCCUS AUREUS Target Route Dose RX AB Cost M.I.C. IQ ------ ----- ------ -- ------ -------- - ------ TRIMET/SULFA S <=0.5/ 9.5 * OXACILLIN S 0.5 VANCOMYCIN S 2 ERYTHROMYCIN R >4 TETRACYCLINE S <=4 CLINDAMYCIN S <=0.5 DAPTOMYCIN S <=0.5 S = SENSITIVE I = INTERMEDIATE R = RESISTANT Item Value Date Time Gram Stain - Final Resulted 01/05/17 1339 Joint Fluid/Space (Synovial) Knee Gram Stain - Final Resulted 01/03/17 1715 Aspirate - Other Knee Right Blood Culture - Preliminary Resulted 01/03/17 1402 Blood NO GROWTH TO DATE. Blood Culture - Preliminary Resulted 01/03/17 1347 Blood NO GROWTH TO DATE. Last 24 Hours Test 01/06/17 03:55 White Blood Count 37.52 K/uL Red Blood Count 3.83 M/uL Hemoglobin 11.7 g/dL Hematocrit 34.3 % Mean Corpuscular Volume 89.6 fL Mean Corpuscular Hemoglobin 30.5 pg Mean Corpuscular Hemoglobin Concent 34.1 g/dl Platelet Count 113 K/uL Mean Platelet Volume 9.7 fL RDW Standard Deviation 49.3 fL RDW Coefficient of Variation 15.2 % Neutrophils % (Manual) 7.2 % Lymphocytes % (Manual) 42.3 % Prolymphocyte % 5.4 % Variant Lymphocytes % (manual) 43.3 % Monocytes % (Manual) 0.9 % Eosinophils % (Manual) 0.9 % Neutrophils # (Manual) 2.70 K/uL Total Absolute Neutrophils 2.70 K/uL Lymphocytes # (Manual) 15.87 K/uL Prolymphocyte # 2.03 K/uL Absolute Variant Lymphocytes 16.25 K/uL Total Absolute Lymphocytes 32.12 K/uL Monocytes # (Manual) 0.34 K/uL Eosinophils # (Manual) 0.34 K/uL Red Blood Cell Morphology Unremarkable Prothrombin Time 14.0 SECONDS Prothromb Time International Ratio 1.3 Sodium Level 143 mmol/L Potassium Level 3.9 mmol/L Chloride Level 110 mmol/L Carbon Dioxide Level 24 mmol/L Anion Gap 9.0 mmol/L Blood Urea Nitrogen 21 mg/dl Creatinine 1.30 mg/dl Est Creatinine Clear Calc Drug Dose 41.6 ml/min Estimated GFR () 58.5 Estimated GFR (Non- 50.5 BUN/Creatinine Ratio 16.0 Random Glucose 123 mg/dl Calcium Level 7.8 mg/dl Magnesium Level 2.3 mg/dl Vancomycin Level Trough 10.0 mcg/ml Assessment & Plan Patient with right septic prepatellar bursitis with MSSA. He is s/p I & D with bursectomy. He is currently on IV Vancomycin. His continued leukocytosis is likely from leukemia with some component of infectious increase. Surgical culture also growing MSSA. Recommend transition to IV Ceftriaxone 2 g daily for continue IV therapy with sensitive staph strain, and would continue IV abx for at least 2 weeks. He may need an extension pending improvement, but he will need ID follow up after discharge. He will need a PICC line or midline. Thanks Plan: 1. D/C Vancomycin 2. Start IV Ceftriaxone 2 g daily x 2 weeks 3. PICC line or Midline 4. ID F/U Note: This document was dictated utilizing [employer] voice recognition software. Minor errors in warehouse shipping clerk may be present. case reviewed and agree with above assessment.
[2017-01-06 11:51] VITALS: BP 136/70; PULSE 76; TEMP 36.5; O2SAT 97
[2017-01-06] MEDS: CEFTRIAXONE SOD INJ 2,000 MG in DEXTROSE 5% 50ML 50 ML IV SCH (13:00)
[2017-01-06] MEDS ORDERED: CEFT1INJ26 IV (13:30)
--- NOTE | 2017-01-06 13:39 | Anesthesiology Progress Note ---
Anesthesia Post Op Note Date & Time Jan 06, 2017 at 13:36 Vital Signs Vital Signs Past 12 Hours Date Time Temp Pulse Resp B/P Pulse Ox O2 Delivery O2 Flow Rate FiO2 01/06/17 11:51 36.5 76 20 136/70 97 Room Air 01/06/17 08:56 Room Air 01/06/17 08:13 36.6 72 24 134/72 96 Room Air 01/06/17 03:24 37.0 74 19 138/76 96 Room Air
[2017-01-06] MEDS: OXYCODONE HCL IR 5 MG TAB (IMMEDIATE RELEASE) PO PRN ×2 (14:31→19:01)
[2017-01-06 15:53] VITALS: BP 151/69; PULSE 78; TEMP 37.1; O2SAT 96
[2017-01-06] MEDS: WARFARIN SOD 5 MG TAB PO SCH (15:59)
[2017-01-06 21:14] VITALS: BP 154/77; PULSE 83; TEMP 36.7; O2SAT 97
[2017-01-06] MEDS: METOPROLOL SUCC 25MG EXT REL TAB PO SCH (21:21)
[2017-01-06 22:21] VITALS: BP 165/85; PULSE 87; TEMP 36.7; O2SAT 96
[2017-01-07 03:50] VITALS: BP 177/93; PULSE 89; TEMP 36.8; O2SAT 95
[2017-01-07] MEDS: ACETAMINOPHEN 500 MG TAB PO SCH ×3 (05:39→22:21)
[2017-01-07 06:09] LABS: MEAN CORPUSCULAR HEMOGLOBIN 30.1 pg (25-34); MEAN CORPUSCULAR HGB CONC 33.4 g/dl (32-36); MEAN PLATELET VOLUME 9.8 fL (7.4-10.4); PLATELET COUNT 131 K/uL (130-400); RED BLOOD COUNT 3.89 M/uL (4.7-6.1); WHITE BLOOD COUNT 39.78 K/uL (4.8-10.8)
[2017-01-07 06:11] LABS: INR 1.3 (0.9-1.1); PROTHROMBIN TIME (PATIENT) 13.6 SECONDS (9.0-12.0)
[2017-01-07 06:20] LABS: ECHINOCYTES 1+
[2017-01-07 07:15] VITALS: BP 146/74; PULSE 77; TEMP 37.1; O2SAT 94
[2017-01-07 07:15] LABS: COMPLETE YES; LYMPH ABS # 24.56 K/uL (1.2-3.4); LYMPHOCYTE % 61.7 %; NEUTROPHILS % 5.2 %; PROLYM# MAN 5.88 K/uL (0-0); VARIANT LYM ABS # 7.26 K/uL; VARIANT LYMPHOCYTE % 18.3 %
--- NOTE | 2017-01-07 08:43 | Progress Note ---
Subjective Date of Service: Jan 07, 2017. Subjective Pt evaluation today including: conversation w/ patient, physical exam, review of studies, review of inpatient medication list No fevers. no chest pain. no sob. feels well. good appetite. Problem List Medical Problems: (1) Cellulitis of right leg Status: Acute (2) Closed head injury Status: Acute (3) Syncope Status: Acute (4) Weakness Status: Acute Review of Systems All Other Systems: Reviewed and Negative Medications Acetaminophen (Tylenol Tab) 1,000 mg Q8H PO Last administered on 01/07/17 14:05 ; Admin Dose 1,000 MG; Start 01/05/17 at 14:00; Stop 02/04/17 at 13:59 Ceftriaxone Sodium/Dextrose (Rocephin Inj/D5 50ml) 70 ml @ 100 mls/hr Q24H IV Last administered on 01/07/17 11:45; Admin Dose 100 MLS/HR; Start 01/06/17 at 12: 00; Stop 01/20/17 at 11:59 Enoxaparin Sodium (Lovenox Inj) 80 mg Q12 SQ Last administered on 01/07/17 10:14 ; Admin Dose 80 MG; Start 01/07/17 at 10:00; Stop 02/06/17 at 09:59 Heparin Sodium (Porcine) (Heparin 10 Unit/ ml 5 ml Flush) 5 ml PRN PRN FLUSH Last administered on 01/07/17 12:59; Admin Dose 5 ML; Start 01/07/17 at 07:00; Stop 02/06/17 at 06:59 Magnesium Hydroxide (Milk Of Magnesia Susp) 30 ml Q6H PRN PO; Start 01/03/17 at 15:45; Stop 02/02/17 at 15:44 Metoprolol Succinate (Toprol Xl Tab) 25 mg HS PO Last administered on 01/06/17 21:21; Admin Dose 25 MG; Start 01/04/17 at 21:00; Stop 02/03/17 at 20:59 Morphine Sulfate (MoRPHine SULFATE INJ) 2 mg Q4HWA PRN IV; Start 01/04/17 at 10: 45; Stop 01/18/17 at 10:44 Morphine Sulfate (MoRPHine SULFATE INJ) 4 mg Q4HWA PRN IV; Start 01/04/17 at 10: 45; Stop 01/18/17 at 10:44 Ondansetron HCl (Zofran Inj) 4 mg Q6H PRN IV; Start 01/03/17 at 15:45; Stop at 15:44 Oxycodone HCl (Roxicodone Immediate Rel Tab) 1-2 TABS FOR PAIN 1 TABLET ... Q4H PRN PO Last administered on 01/06/17 19:01; Admin Dose 5 MG; Start 01/05/17 at 13:45; Stop 01/19/17 at 13:44 Warfarin Sodium 5 mg 5 mg DAILY@16 PO Last administered on 01/07/17 15:51; Admin Dose 5 MG; Start 01/06/17 at 16:00; Stop 02/05/17 at 15:59 Objective Vital Signs Date Time Temp Pulse Resp B/P Pulse Ox O2 Delivery O2 Flow Rate FiO2 01/07/17 07:15 37.1 77 18 146/74 94 Room Air 01/07/17 03:50 36.8 89 20 177/93 95 Room Air 01/07/17 00:52 Room Air 01/06/17 22:21 36.7 87 18 165/85 96 Room Air 01/06/17 21:14 36.7 83 20 154/77 97 Room Air 01/06/17 16:00 Room Air 01/06/17 15:53 37.1 78 20 151/69 96 Room Air 01/06/17 11:51 36.5 76 20 136/70 97 Room Air 01/06/17 08:56 Room Air Physical Exam Comments: nad, aox3 eomi, perrl s1 s2 rrr, no murmurs appreciated ctab no w/r/r abd soft nt/nd +BS no LE edema right knee dressed cn 2-12 grossly intact without facial drooping Laboratory Results Last 24 Hours Test 01/07/17 05:23 White Blood Count 39.78 K/uL Red Blood Count 3.89 M/uL Hemoglobin 11.7 g/dL Hematocrit 35.0 % Mean Corpuscular Volume 90.0 fL Mean Corpuscular Hemoglobin 30.1 pg Mean Corpuscular Hemoglobin Concent 33.4 g/dl Platelet Count 131 K/uL Mean Platelet Volume 9.8 fL RDW Standard Deviation 49.9 fL RDW Coefficient of Variation 15.3 % Neutrophils % (Manual) 5.2 % Lymphocytes % (Manual) 61.7 % Prolymphocyte % 14.8 % Variant Lymphocytes % (manual) 18.3 % Neutrophils # (Manual) 2.08 K/uL Total Absolute Neutrophils 2.08 K/uL Lymphocytes # (Manual) 24.56 K/uL Prolymphocyte # 5.88 K/uL Absolute Variant Lymphocytes 7.26 K/uL Total Absolute Lymphocytes 31.82 K/uL Echinocytes 1+ Prothrombin Time 13.6 SECONDS Prothromb Time International Ratio 1.3 Assessment and Plan 1. Metabolic encephalopathy 2/2 Sepsis from Right septic prepatellar bursitis - mentals status at baseline - Fluid Cx MSSA. ID input re: agent and duration of treatment appreciated - stop fluids - PT/OT eval: will need inpatient rehab - will need PICC prior to discharge (consent done) 2. Leukocytosis - 2/2 sepsis + leukemia (chronically elevated) - will cont to monitor - cont abx 3. NANCY on CKD IIIa - resolved - creat at baseline 4. PAfib - would resume anticoagulation if no further ortho procedures planned - coumadin 5 mg tonight - INR in am
--- NOTE | 2017-01-07 10:08 | Orthopedic Progress Note ---
Orthopedic Progress Note Date of Service Jan 07, 2017. Subjective Post OP Day: 2 Reports: feeling well, Denies: SOB, calf pain, chest pain, light headedness, nausea / vomiting Objective calves soft nontender, N/V intact, capillary refill less than 2 sec., dressing C /D/I, incision C/D/I, A&O x3, toes mobile Date Time Temp Pulse Resp B/P Pulse Ox O2 Delivery O2 Flow Rate FiO2 01/07/17 07:15 37.1 77 18 146/74 94 Room Air 01/07/17 03:50 36.8 89 20 177/93 95 Room Air 01/07/17 00:52 Room Air 01/06/17 22:21 36.7 87 18 165/85 96 Room Air 01/06/17 21:14 36.7 83 20 154/77 97 Room Air 01/06/17 16:00 Room Air 01/06/17 15:53 37.1 78 20 151/69 96 Room Air 01/06/17 11:51 36.5 76 20 136/70 97 Room Air Laboratory Results 24 Hours: Test 01/07/17 05:23 White Blood Count 39.78 K/uL Red Blood Count 3.89 M/uL Hemoglobin 11.7 g/dL Hematocrit 35.0 % Mean Corpuscular Volume 90.0 fL Mean Corpuscular Hemoglobin 30.1 pg Mean Corpuscular Hemoglobin Concent 33.4 g/dl Platelet Count 131 K/uL Mean Platelet Volume 9.8 fL Prothromb Time International Ratio 1.3 Prothrombin Time 13.6 SECONDS Assessment & Plan Assessment: POD 2 s/p Right I&D of Septic Prepatellar Bursitis Cx showing Staph Aureus Plan: DRessing changed today. Continue IV antibx - Will appreciate ID input Sensitivities showing resistance to Erythromycin only Inhouse Planning Pain Management: Morphine, Oxy IR DVT Prophylaxis: TEDs, SCDs, Coumadin Discharge Planning Discharge Planning: uncertain
[2017-01-07] MEDS: ENOXAPARIN 80 MG/0.8 ML SYR SQ SCH ×2 (10:14→20:45)
--- NOTE | 2017-01-07 11:36 | Hematology/Oncology Prog Note ---
Hematology/Onc Progress Note Date of Service Jan 07, 2017. Diagnoses CLL Septic arthritis Medications Medications Administered Medications (Trade) Dose Ordered Sig/Dania Route Start Time Stop Time Status Last Admin Dose Admin Sodium Chloride 1,000 ml @ 125 mls/hr Q8H STAT IV 01/03/17 13:10 01/03/17 16:18 DC 01/03/17 14:11 125 MLS/HR Sodium Chloride (Nss 500ml) 500 ml @ 999 mls/hr Q31M STAT IV 01/03/17 13:10 01/03/17 13:40 DC 01/03/17 13:10 999 MLS/HR Acetaminophen (Tylenol Tab) 1,000 mg NOW STAT PO 01/03/17 13:13 01/03/17 13:14 DC 01/03/17 14:12 1,000 MG Ceftriaxone Sodium (Rocephin Inj) 1 gm NOW STAT IV 01/03/17 13:18 01/03/17 13:20 DC 01/03/17 14:11 1 GM Vancomycin HCl (Vancomycin 1gm/ 270ml Nss) 1 gm NOW STAT IV 01/03/17 13:18 01/03/17 13:20 DC 01/03/17 14:11 1 GM Acetaminophen 650 mg 650 mg Q4H PRN PO 01/03/17 15:45 01/05/17 13:41 DC 01/04/17 22:08 650 MG Vancomycin HCl 1000 mg/Sodium Chloride 270 ml @ 125 mls/hr TODAY@1830 ONCE IV 01/03/17 18:30 01/03/17 20:39 DC 01/03/17 18:53 125 MLS/HR Ceftriaxone Sodium 1 gm/ Dextrose 50 ml @ 100 mls/hr Q24H IV 01/04/17 08:00 01/04/17 10:21 DC 01/04/17 07:54 100 MLS/HR Sodium Chloride 1,000 ml @ 100 mls/hr Q10H IV 01/03/17 16:00 01/04/17 10:21 DC 01/04/17 07:55 100 MLS/HR Vancomycin HCl/ Sodium Chloride (Vancomycin Inj/ Nss 250ml) 274 ml @ 125 mls/hr Q18H IV 01/04/17 16:00 01/06/17 11:28 DC 01/06/17 04:07 125 MLS/HR Metoprolol Succinate (Toprol Xl Tab) 25 mg HS PO 01/04/17 21:00 02/03/17 20:59 01/06/17 21:21 25 MG Metoprolol Succinate 12.5 mg 12.5 mg ONE ONCE PO 01/04/17 10:15 01/04/17 10:16 DC 01/04/17 11:00 12.5 MG Dextrose/Sodium Chloride (D5W And 1/2nss) 1,000 ml @ 80 mls/hr [id number] IV 01/04/17 10:30 01/06/17 08:24 DC 01/05/17 23:59 80 MLS/HR Bacitracin (Bacitracin Inj) 50,000 units STK-MED ONCE .ROUTE 01/05/17 12:48 01/05/17 12:51 DC 01/05/17 13:45 50,000 UNITS Vancomycin HCl (Vancomycin Inj) 100 mg STK-MED ONCE .ROUTE 01/05/17 13:26 01/06/17 11:28 DC 01/05/17 13:45 100 MG Oxycodone HCl (Roxicodone Immediate Rel Tab) 1-2 TABS FOR PAIN 1 TABLET ... Q4H PRN PO 01/05/17 13:45 01/19/17 13:44 01/06/17 19:01 5 MG Acetaminophen (Tylenol Tab) 1,000 mg Q8H PO 01/05/17 14:00 02/04/17 13:59 01/07/17 05:39 1,000 MG Bupivacaine HCl/ Epinephrine Bitart (Sensorcaine/ Epinephrine 0.5% Mpf 1:200,000) 30 ml STK-MED ONCE .ROUTE 01/05/17 13:53 01/05/17 13:56 DC 01/05/17 13:58 30 ML Warfarin Sodium 5 mg 5 mg DAILY@16 PO 01/06/17 16:00 02/05/17 15:59 01/06/17 15:59 5 MG Ceftriaxone Sodium/Dextrose (Rocephin Inj/D5 50ml) 70 ml @ 100 mls/hr Q24H IV 01/06/17 12:00 01/20/17 11:59 01/06/17 13:00 100 MLS/HR Heparin Sodium (Porcine) (Heparin 10 Unit/ ml 5 ml Flush) 5 ml PRN PRN FLUSH 01/07/17 07:00 02/06/17 06:59 01/07/17 07:00 5 ML Enoxaparin Sodium (Lovenox Inj) 80 mg Q12 SQ 01/07/17 10:00 02/06/17 09:59 01/07/17 10:14 80 MG Subjective He is doing well postop. Afebrile and there has been no overt bleeding Review of Systems: Constitutional: Negative for night sweats, or fever Eyes: Negative for event change of vision ENT: Negative for epistaxis, nasal discharge, sore throat, or deafness Cardiovascular: Negative for chest pain, palpitations, dizziness, diaphoresis Respiratory: Negative for new shortness of breath,hemoptysis, or purulent cough Gastrointestinal: Negative for diarrhea, hematemesis, melena, nausea, vomiting , or dyspepsia Integumentary (skin): Negative for rash or jaundice discoloration Genitourinary: Negative for urinary frequency, hematuria, or dysuria Neurological: Negative for weakness, seizure activity, headache, or dizziness Lymphatic/Hematologic: Negative for petechiae, bleeding or new adenopathy Musculoskeletal: Negative for new joint or back pain. Right leg remains wrapped postop Allergic/Immunologic: Negative for unusual rash or pruritis. Vital Signs Vital Signs Past 12 Hours Date Time Temp Pulse Resp B/P Pulse Ox O2 Delivery O2 Flow Rate FiO2 01/07/17 08:15 Room Air 01/07/17 07:15 37.1 77 18 146/74 94 Room Air 01/07/17 03:50 36.8 89 20 177/93 95 Room Air 01/07/17 00:52 Room Air Physical Exam Constitutional: vitals are stable. Eyes: Eyes are KATRIN EOMI without conjuctival erythema or icterus. ENT: External examination was negative for masses. Neck: Negative for masses or palpable thyromegaly Respiratory: Lung sounds were generally clear bilaterally Cardiovascular: Heart was RRR without significant murmur, gallops aoe rubs Gastrointestinal: No palpable hepatic or splenomegaly. The abdomen was soft with normal bowel sounds. Lymphatic system: there was no palpable peripheral lymphadenopathy Musculoskeletal System: The musculoskeletal system seemed concordant with age. Skin: The skin was negative for jaundice. Neurologic exam: The exam was negative for any focal findings. Deep tendon reflexes were equal and symmetrical. Psychiatric exam: Was essentially negative with normal mood and effect. Extremities: Negative for edema or erythema the right leg remains wrapped. Pain seems well under control Laboratory Last 24 Hours Test 01/07/17 05:23 White Blood Count 39.78 K/uL Red Blood Count 3.89 M/uL Hemoglobin 11.7 g/dL Hematocrit 35.0 % Mean Corpuscular Volume 90.0 fL Mean Corpuscular Hemoglobin 30.1 pg Mean Corpuscular Hemoglobin Concent 33.4 g/dl Platelet Count 131 K/uL Mean Platelet Volume 9.8 fL RDW Standard Deviation 49.9 fL RDW Coefficient of Variation 15.3 % Neutrophils % (Manual) 5.2 % Lymphocytes % (Manual) 61.7 % Prolymphocyte % 14.8 % Variant Lymphocytes % (manual) 18.3 % Neutrophils # (Manual) 2.08 K/uL Total Absolute Neutrophils 2.08 K/uL Lymphocytes # (Manual) 24.56 K/uL Prolymphocyte # 5.88 K/uL Absolute Variant Lymphocytes 7.26 K/uL Total Absolute Lymphocytes 31.82 K/uL Echinocytes 1+ Prothrombin Time 13.6 SECONDS Prothromb Time International Ratio 1.3 Assessment & Plan CLL. CBC is acceptable. Platelet count 130,000. His been no overt bleeding. Little else to offer from our standpoint and subsequently we will sign off. Please am hesitate to reconsult if needed. He'll have a follow-up in our clinic.
[2017-01-07] MEDS: CEFTRIAXONE SOD INJ 2,000 MG in DEXTROSE 5% 50ML 50 ML IV SCH (11:45)
[2017-01-07 12:07] VITALS: BP 123/72; PULSE 81; TEMP 36.9; O2SAT 97
[2017-01-07 15:48] VITALS: BP 136/67; PULSE 85; TEMP 36.8; O2SAT 96
[2017-01-07] MEDS: WARFARIN SOD 5 MG TAB PO SCH (15:51)
[2017-01-07 20:27] VITALS: BP 141/78; PULSE 83; TEMP 37.3; O2SAT 96
[2017-01-07] MEDS: METOPROLOL SUCC 25MG EXT REL TAB PO SCH (20:46)
[2017-01-07 23:25] VITALS: BP 150/74; PULSE 82; TEMP 36.8; O2SAT 96
[2017-01-08 03:00] VITALS: BP 160/74; PULSE 74; TEMP 36.6; O2SAT 98
[2017-01-08 05:59] LABS: INR 1.4 (0.9-1.1); PROTHROMBIN TIME (PATIENT) 14.9 SECONDS (9.0-12.0)
[2017-01-08 06:05] LABS: HEMATOCRIT 34.5 % (42-52); MEAN CELL VOLUME 89.8 fL (80-100); MEAN CORPUSCULAR HEMOGLOBIN 29.9 pg (25-34); MEAN CORPUSCULAR HGB CONC 33.3 g/dl (32-36); MEAN PLATELET VOLUME 9.8 fL (7.4-10.4); PLATELET COUNT 126 K/uL (130-400); RED BLOOD COUNT 3.84 M/uL (4.7-6.1); WHITE BLOOD COUNT 36.01 K/uL (4.8-10.8)
[2017-01-08] MEDS: ACETAMINOPHEN 500 MG TAB PO SCH ×3 (06:12→21:18)
[2017-01-08 06:21] LABS: COMPLETE YES; LYMPHOCYTE % 48.6 %; NEUTROPHILS % 10.6 %; PROLYM# MAN 2.88 K/uL (0-0); VARIANT LYM ABS # 10.84 K/uL; VARIANT LYMPHOCYTE % 30.1 %
[2017-01-08 06:25] LABS: BUN/CREATININE RATIO 23.3 (10-20); CALCIUM 8.5 mg/dl (8.5-10.1); POTASSIUM 3.9 mmol/L (3.5-5.1)
--- NOTE | 2017-01-08 08:24 | Progress Note ---
Subjective Date of Service: Jan 08, 2017. Subjective Pt evaluation today including: conversation w/ patient, physical exam, chart review, review of studies, review of inpatient medication list Patient feeling well. Tolerating diet. No chest pain. No sob. No new constipation. No new complaints. Problem List Medical Problems: (1) Cellulitis of right leg Status: Acute (2) Closed head injury Status: Acute (3) Syncope Status: Acute (4) Weakness Status: Acute Review of Systems All Other Systems: Reviewed and Negative Medications Acetaminophen (Tylenol Tab) 1,000 mg Q8H PO Last administered on 01/08/17 06:12 ; Admin Dose 1,000 MG; Start 01/05/17 at 14:00; Stop 02/04/17 at 13:59 Ceftriaxone Sodium/Dextrose (Rocephin Inj/D5 50ml) 70 ml @ 100 mls/hr Q24H IV Last administered on 01/07/17 11:45; Admin Dose 100 MLS/HR; Start 01/06/17 at 12: 00; Stop 01/20/17 at 11:59 Enoxaparin Sodium (Lovenox Inj) 80 mg Q12 SQ Last administered on 01/07/17 20:45 ; Admin Dose 80 MG; Start 01/07/17 at 10:00; Stop 02/06/17 at 09:59 Heparin Sodium (Porcine) (Heparin 10 Unit/ ml 5 ml Flush) 5 ml PRN PRN FLUSH Last administered on 01/08/17 05:40; Admin Dose 5 ML; Start 01/07/17 at 07:00; Stop 02/06/17 at 06:59 Magnesium Hydroxide (Milk Of Magnesia Susp) 30 ml Q6H PRN PO; Start 01/03/17 at 15:45; Stop 02/02/17 at 15:44 Metoprolol Succinate (Toprol Xl Tab) 25 mg HS PO Last administered on 01/07/17 20:46; Admin Dose 25 MG; Start 01/04/17 at 21:00; Stop 02/03/17 at 20:59 Morphine Sulfate (MoRPHine SULFATE INJ) 2 mg Q4HWA PRN IV; Start 01/04/17 at 10: 45; Stop 01/18/17 at 10:44 Morphine Sulfate (MoRPHine SULFATE INJ) 4 mg Q4HWA PRN IV; Start 01/04/17 at 10: 45; Stop 01/18/17 at 10:44 Ondansetron HCl (Zofran Inj) 4 mg Q6H PRN IV; Start 01/03/17 at 15:45; Stop at 15:44 Oxycodone HCl (Roxicodone Immediate Rel Tab) 1-2 TABS FOR PAIN 1 TABLET ... Q4H PRN PO Last administered on 01/06/17 19:01; Admin Dose 5 MG; Start 01/05/17 at 13:45; Stop 01/19/17 at 13:44 Warfarin Sodium 5 mg 5 mg DAILY@16 PO Last administered on 01/07/17 15:51; Admin Dose 5 MG; Start 01/06/17 at 16:00; Stop 02/05/17 at 15:59 Objective Vital Signs Date Time Temp Pulse Resp B/P Pulse Ox O2 Delivery O2 Flow Rate FiO2 01/08/17 03:00 36.6 74 20 160/74 98 Room Air 01/07/17 23:59 Room Air 01/07/17 23:25 36.8 82 18 150/74 96 Room Air 01/07/17 20:27 37.3 83 20 141/78 96 Room Air 01/07/17 20:00 Room Air 01/07/17 16:15 Room Air 01/07/17 15:48 36.8 85 18 136/67 96 Room Air 01/07/17 12:07 36.9 81 18 123/72 97 Room Air Physical Exam Comments: NAD AOX3 EOMI PERRL anicteric s1 s2 rrr, no murmurs appreciated ctab no w/r/r abd soft nt/nd +Bs no cva tend no LE edema, right knee tend cn 2-12 grossly intact with no facial drooping Laboratory Results Last 24 Hours Test 01/08/17 05:17 White Blood Count 36.01 K/uL Red Blood Count 3.84 M/uL Hemoglobin 11.5 g/dL Hematocrit 34.5 % Mean Corpuscular Volume 89.8 fL Mean Corpuscular Hemoglobin 29.9 pg Mean Corpuscular Hemoglobin Concent 33.3 g/dl Platelet Count 126 K/uL Mean Platelet Volume 9.8 fL RDW Standard Deviation 49.7 fL RDW Coefficient of Variation 15.2 % Neutrophils % (Manual) 10.6 % Lymphocytes % (Manual) 48.6 % Prolymphocyte % 8.0 % Variant Lymphocytes % (manual) 30.1 % Monocytes % (Manual) 2.7 % Neutrophils # (Manual) 3.82 K/uL Total Absolute Neutrophils 3.82 K/uL Lymphocytes # (Manual) 17.50 K/uL Prolymphocyte # 2.88 K/uL Absolute Variant Lymphocytes 10.84 K/uL Total Absolute Lymphocytes 28.34 K/uL Monocytes # (Manual) 0.97 K/uL Red Blood Cell Morphology Unremarkable Prothrombin Time 14.9 SECONDS Prothromb Time International Ratio 1.4 Sodium Level 143 mmol/L Potassium Level 3.9 mmol/L Chloride Level 110 mmol/L Carbon Dioxide Level 24 mmol/L Anion Gap 9.0 mmol/L Blood Urea Nitrogen 23 mg/dl Creatinine 1.00 mg/dl Est Creatinine Clear Calc Drug Dose 54.1 ml/min Estimated GFR () 80.3 Estimated GFR (Non- 69.3 BUN/Creatinine Ratio 23.3 Random Glucose 98 mg/dl Calcium Level 8.5 mg/dl Assessment and Plan 1. Sepsis from Right septic prepatellar bursitis - s/p aspiration, s/p I &D - Fluid Cx MSSA. ID input re: agent and duration of treatment appreciated - PT/OT eval: will need inpatient rehab - PICC in place - awaiting placement 2. Leukocytosis - 2/2 sepsis + leukemia (chronically elevated) - will cont to monitor - cont abx 3. NANCY on CKD IIIa - resolved - creat at baseline 4. PAfib - would resume anticoagulation if no further ortho procedures planned - lovenox bridging with coumadin day 3 today - INR in am
[2017-01-08] MEDS: ENOXAPARIN 80 MG/0.8 ML SYR SQ SCH ×2 (08:52→21:17)
[2017-01-08 09:01] VITALS: BP 150/82; PULSE 75; TEMP 36.8; O2SAT 96
--- NOTE | 2017-01-08 09:09 | Orthopedic Progress Note ---
Orthopedic Progress Note Date of Service Jan 08, 2017. Subjective Post OP Day: 3 Reports: feeling well, pain controlled w PO medications, Denies: SOB, calf pain , chest pain, light headedness, nausea / vomiting Objective calves soft nontender, N/V intact, capillary refill less than 2 sec., dressing C /D/I, A&O x3, toes mobile Date Time Temp Pulse Resp B/P Pulse Ox O2 Delivery O2 Flow Rate FiO2 01/08/17 09:01 36.8 75 18 150/82 96 Room Air 01/08/17 03:00 36.6 74 20 160/74 98 Room Air 01/07/17 23:59 Room Air 01/07/17 23:25 36.8 82 18 150/74 96 Room Air 01/07/17 20:27 37.3 83 20 141/78 96 Room Air 01/07/17 20:00 Room Air 01/07/17 16:15 Room Air 01/07/17 15:48 36.8 85 18 136/67 96 Room Air 01/07/17 12:07 36.9 81 18 123/72 97 Room Air Laboratory Results 24 Hours: Test 01/08/17 05:17 White Blood Count 36.01 K/uL Red Blood Count 3.84 M/uL Hemoglobin 11.5 g/dL Hematocrit 34.5 % Mean Corpuscular Volume 89.8 fL Mean Corpuscular Hemoglobin 29.9 pg Mean Corpuscular Hemoglobin Concent 33.3 g/dl Platelet Count 126 K/uL Mean Platelet Volume 9.8 fL Prothromb Time International Ratio 1.4 Prothrombin Time 14.9 SECONDS Assessment & Plan Assessment: POD 3 s/p Right I&D of Septic Prepatellar Bursitis Plan: Patient doing well. Continue ID input. cleared for discharge from ortho, will await medicine discharge plans May need rehab for a few days Inhouse Planning Pain Management: Oxy IR DVT Prophylaxis: TEDs, SCDs, Coumadin Discharge Planning Discharge Planning: uncertain Pain Management: Oxy IR
[2017-01-08 11:42] VITALS: BP 147/75; PULSE 76; O2SAT 96
[2017-01-08] MEDS: CEFTRIAXONE SOD INJ 2,000 MG in DEXTROSE 5% 50ML 50 ML IV SCH (11:42)
[2017-01-08 15:00] VITALS: BP 153/77; PULSE 80; TEMP 36.8; O2SAT 97
[2017-01-08] MEDS: WARFARIN SOD 5 MG TAB PO SCH (15:49)
[2017-01-08 19:55] VITALS: BP 155/77; PULSE 78; TEMP 36.7; O2SAT 97
[2017-01-08] MEDS: METOPROLOL SUCC 25MG EXT REL TAB PO SCH (21:17)
[2017-01-09 00:13] VITALS: BP 155/71; PULSE 81; TEMP 37.1; O2SAT 96
[2017-01-09] MEDS: ACETAMINOPHEN 500 MG TAB PO SCH ×3 (06:07→23:01)
[2017-01-09 06:31] LABS: INR 1.5 (0.9-1.1); PROTHROMBIN TIME (PATIENT) 16.8 SECONDS (9.0-12.0)
[2017-01-09 08:24] VITALS: BP 146/72; PULSE 82; TEMP 36.9; O2SAT 93
[2017-01-09] MEDS: OXYCODONE HCL IR 5 MG TAB (IMMEDIATE RELEASE) PO PRN ×3 (08:45→20:45)
[2017-01-09] MEDS: ENOXAPARIN 80 MG/0.8 ML SYR SQ SCH (08:46)
[2017-01-09] MEDS: CEFTRIAXONE SOD INJ 2,000 MG in DEXTROSE 5% 50ML 50 ML IV SCH (13:00)
[2017-01-09] MEDS ORDERED: CEFT1INJ26 IV (15:20)
[2017-01-09 15:48] VITALS: BP 134/73; PULSE 90; TEMP 36.4; O2SAT 95
--- NOTE | 2017-01-09 15:55 | Orthopedic Progress Note ---
Orthopedic Progress Note Date of Service Jan 09, 2017. Subjective Post OP Day: 4 Reports: feeling well Additional Notes: states that overall, the leg is feeling better, however the area over the patella is still fairly tender. Nursing called to say that patient had copious drainage from the right knee wound today while up and ambulating. Still having drainage from the wound when at rest as well. Objective calves soft nontender, N/V intact, A&O x3, toes mobile Wound with continued erythema around the patella. Ecchymosis noted of the distal portion of the wound. Mild drainage on the current dressing. Less erythema up the leg. Tender over the lateral patella. Area feels boggy to palpation. Redressed Date Time Temp Pulse Resp B/P Pulse Ox O2 Delivery O2 Flow Rate FiO2 01/09/17 10:37 Room Air 01/09/17 08:24 36.9 82 19 146/72 93 Room Air 01/09/17 00:13 37.1 81 20 155/71 96 Room Air 01/08/17 23:59 Room Air 01/08/17 20:00 Room Air 01/08/17 19:55 36.7 78 20 155/77 97 Room Air 01/08/17 16:15 Room Air Laboratory Results 24 Hours: Test 01/09/17 05:20 Prothromb Time International Ratio 1.5 Prothrombin Time 16.8 SECONDS Assessment & Plan Assessment: POD 4 s/p Right I&D of Septic Prepatellar Bursitis Plan: Antibx as per ID team. Will discuss with Dr Go about wound and drainage With the implantation of the Stimulan Beads (antibx beads), Serous drainage is expected. (Addendum 1920 - I discussed the patient's wound with Dr Go who feels a second I&D is warranted. Plan for 2nd I&D tomorrow. Pt made NPO after midnight per Dr Cloud. Recheck INR early AM and plan to appropriate reversal for Coumadin if needed.) Inhouse Planning Pain Management: Morphine, Oxy IR DVT Prophylaxis: TEDs, SCDs, Coumadin Discharge Planning Discharge Planning: uncertain Pain Management: Oxy IR DVT Prophylaxis: Coumadin
[2017-01-09] MEDS: WARFARIN SOD 5 MG TAB PO SCH (16:17)
--- NOTE | 2017-01-09 18:52 | Progress Note ---
Subjective Date of Service: Jan 09, 2017. Subjective notified by nursing of drainage from knee, also spoke to family and they have concerns about pt going home alone Problem List Medical Problems: (1) Cellulitis of right leg Status: Acute (2) Closed head injury Status: Acute (3) Syncope Status: Acute (4) Weakness Status: Acute Review of Systems Constitutional: No chills, No fever Respiratory: No cough, No shortness of breath Cardiac: No chest pain, No edema Abdomen: No diarrhea, No nausea, No pain, No vomiting Musculoskeletal: + muscle pain, + swelling Objective Vital Signs Date Time Temp Pulse Resp B/P Pulse Ox O2 Delivery O2 Flow Rate FiO2 01/09/17 08:24 36.9 82 19 146/72 93 Room Air 01/09/17 00:13 37.1 81 20 155/71 96 Room Air 01/08/17 23:59 Room Air 01/08/17 20:00 Room Air 01/08/17 19:55 36.7 78 20 155/77 97 Room Air 01/08/17 16:15 Room Air 01/08/17 15:00 36.8 80 22 153/77 97 Room Air 01/08/17 11:42 76 18 147/75 96 Room Air 01/08/17 09:01 36.8 75 18 150/82 96 Room Air Physical Exam General Appearance: WD/WN, + mild distress Neck: supple, no JVD Respiratory/Chest: chest non-tender, lungs clear, normal breath sounds Cardiovascular: regular rate, rhythm, no murmur Abdomen: normal bowel sounds, non tender, soft Extremities: + pertinent finding (swelling and serous drainage from left knee) Neurologic/Psychiatric: alert, oriented x 3 Laboratory Results Last 24 Hours Test 01/09/17 05:20 Prothrombin Time 16.8 SECONDS Prothromb Time International Ratio 1.5 Assessment and Plan 81 M with Septic arthritis of knee s/p I&D, shown to be MSSA, has baseline CLL MSSA septic arthritis, per ID note of 3/ IV ceftriaxone for 2 weeks, ortho has evaluated and feels may benefit from another washout, planned for 01/10 Discussion with daughter feels would prefer [facility] evaluation CLL, counts near his baseline with persistent leukocytosis, platelets are acceptable htn control is acceptable with metoprolol DVT prevention is lovenox, but on hold with procedure scheduled I reviewed labs and vital signs 01/09 wbc in 30K range, PLTL 126K
[2017-01-09 19:40] VITALS: BP 134/86; PULSE 87; TEMP 36.8; O2SAT 95
[2017-01-09] MEDS: METOPROLOL SUCC 25MG EXT REL TAB PO SCH (20:44)
[2017-01-09 23:49] VITALS: BP 140/70; PULSE 87; TEMP 37; O2SAT 96
[2017-01-10] VITALS (7 sets, daily range): BP systolic 114–151; BP diastolic 69–82; PULSE 73–88; TEMP 36.7–37.4; O2SAT 95–98
[2017-01-10] MEDS: ACETAMINOPHEN 500 MG TAB PO SCH ×3 (06:13→22:01)
[2017-01-10 06:41] LABS: HEMATOCRIT 36.2 % (42-52); MEAN CELL VOLUME 92.1 fL (80-100); MEAN CORPUSCULAR HGB CONC 33.7 g/dl (32-36); MEAN PLATELET VOLUME 10.1 fL (7.4-10.4); PLATELET COUNT 149 K/uL (130-400); RED BLOOD COUNT 3.93 M/uL (4.7-6.1); WHITE BLOOD COUNT 40.66 K/uL (4.8-10.8)
[2017-01-10 06:42] LABS: INR 1.8 (0.9-1.1); PROTHROMBIN TIME (PATIENT) 19.3 SECONDS (9.0-12.0)
[2017-01-10 06:43] LABS: CREATININE 1.2 mg/dl (0.60-1.40)
[2017-01-10] MEDS: CEFTRIAXONE SOD INJ 2,000 MG in DEXTROSE 5% 50ML 50 ML IV SCH (13:38)
--- NOTE | 2017-01-10 14:03 | Infectious Disease Progress Nt ---
Progress Note Date of Service Jan 10, 2017. Subjective Pt evaluation today including: conversation w/ patient, physical exam, chart review, lab review, review of studies, review of inpatient medication list White blood cell count today was decreased to 10.82. Creatinine was stable at 1.20. His urine culture is growing 3 types of organisms all and high counts, likely skin josh. Blood cultures continue to show no growth. Patient states that he continues to have some mild nausea, but otherwise has no continued symptoms. All Other Systems: Reviewed and Negative Medications Current Inpatient Medications Medications (Trade) Dose Ordered Sig/Dania Route Start Time Stop Time Status Last Admin Dose Admin Magnesium Hydroxide (Milk Of Magnesia Susp) 30 ml Q6H PRN PO 01/03/17 15:45 02/02/17 15:44 Ondansetron HCl (Zofran Inj) 4 mg Q6H PRN IV 01/03/17 15:45 02/02/17 15:44 Metoprolol Succinate (Toprol Xl Tab) 25 mg HS PO 01/04/17 21:00 02/03/17 20:59 01/09/17 20:44 25 MG Morphine Sulfate (MoRPHine SULFATE INJ) 2 mg Q4HWA PRN IV 01/04/17 10:45 01/18/17 10:44 Morphine Sulfate (MoRPHine SULFATE INJ) 4 mg Q4HWA PRN IV 01/04/17 10:45 01/18/17 10:44 Oxycodone HCl (Roxicodone Immediate Rel Tab) 1-2 TABS FOR PAIN 1 TABLET ... Q4H PRN PO 01/05/17 13:45 01/19/17 13:44 01/09/17 20:45 10 MG Acetaminophen (Tylenol Tab) 1,000 mg Q8H PO 01/05/17 14:00 02/04/17 13:59 01/10/17 06:13 1,000 MG Warfarin Sodium 5 mg 5 mg DAILY@16 PO 01/06/17 16:00 02/05/17 15:59 Future Hold 01/09/17 16:17 5 MG Ceftriaxone Sodium/Dextrose (Rocephin Inj/D5 50ml) 70 ml @ 100 mls/hr Q24H IV 01/06/17 12:00 01/20/17 11:59 01/09/17 13:00 100 MLS/HR Heparin Sodium (Porcine) (Heparin 10 Unit/ ml 5 ml Flush) 5 ml PRN PRN FLUSH 01/07/17 07:00 02/06/17 06:59 01/10/17 06:45 5 ML Enoxaparin Sodium (Lovenox Inj) 80 mg Q12 SQ 01/07/17 10:00 02/06/17 09:59 Future Hold 01/09/17 08:46 80 MG Objective Vital Signs Date Time Temp Pulse Resp B/P Pulse Ox O2 Delivery O2 Flow Rate FiO2 01/10/17 11:29 37.1 73 18 151/74 96 01/10/17 10:45 96 Room Air 01/10/17 07:17 36.7 77 16 114/69 97 Room Air 01/10/17 04:08 36.9 78 20 146/74 95 Room Air 01/10/17 02:30 96 Room Air 01/09/17 23:49 37.0 87 18 140/70 96 Room Air 01/09/17 19:40 36.8 87 20 134/86 95 Room Air 01/09/17 16:00 Room Air 01/09/17 15:48 36.4 90 18 134/73 95 Room Air Physical Exam General Appearance: WD/WN, no apparent distress Eyes: normal inspection, sclerae normal ENT: hearing grossly normal Neck: supple, trachea midline Respiratory/Chest: no respiratory distress, no accessory muscle use Cardiovascular: regular rate, rhythm Extremities: + pertinent finding (Dressing on right knee c/d/i) Neurologic/Psychiatric: alert, normal mood/affect Skin: normal color, warm/dry, no rash Laboratory Results RUN DATE: 01/10/17 [facility] PAGE 1 RUN TIME: 113 Specimen Inquiry PATIENT: MARK LARKIN LOC: Eliane U # : [id number] AGE/SX: 81/M ROOM: [facility] REG : 01/03/[address]: Joaquin Cloud M : 1935 BED: 1 DIS : STATUS: ADM IN TLOC: SPEC #: [id number] TONY: 01/05/17 STATUS: COMP REQ #: [id number] RECD: 01/05/[address]: Rere Delgado MD SOURCE: JOINT FLSP ENTR: 01/05/[address] [facility] DR: Jaiden Eckert , D.O. SPDESC: KNEE Jakob Patricio MD Lin, Daniel Y., MD , PhD Jer Pineda M.D. Zoda, Albert R M.D. ORDERED: AER/SARAH CULTSMR Procedure Result Verified Site GRAM STAIN Final 01/05/17-1418 RESULT MANY POLYS FEW GRAM POSITIVE COCCI Phoned results to REYNALDO STEEL on 01/05/17 at 1417 by Jaye Zamudio. Results were verbalized back to JACQUELIN. OR AER/SARAH CULT Final 01/10/17-1132 Organism 1 STAPHYLOCOCCUS AUREUS QUANITY FEW SENS SENSITIVITY TO FOLLOW ANAS NO ANAEROBES ISOLATED. 1. STAPHYLOCOCCUS AUREUS Target Route Dose RX AB Cost M.I.C. IQ ------ ----- ------ -- ------ -------- - ------ TRIMET/SULFA S <=0.5/ 9.5 * OXACILLIN S 0.5 VANCOMYCIN S 2 ERYTHROMYCIN R >4 TETRACYCLINE S <=4 CLINDAMYCIN S <=0.5 DAPTOMYCIN S <=0.5 S = SENSITIVE I = INTERMEDIATE R = RESISTANT Item Value Date Time Gram Stain - Final Complete 01/05/17 1339 Joint Fluid/Space (Synovial) Knee Gram Stain - Final Complete 01/03/17 1715 Aspirate - Other Knee Right Last 24 Hours Test 01/10/17 05:40 White Blood Count 40.66 K/uL Red Blood Count 3.93 M/uL Hemoglobin 12.2 g/dL Hematocrit 36.2 % Mean Corpuscular Volume 92.1 fL Mean Corpuscular Hemoglobin 31.0 pg Mean Corpuscular Hemoglobin Concent 33.7 g/dl RDW Standard Deviation 51.0 fL RDW Coefficient of Variation 15.1 % Platelet Count 149 K/uL Mean Platelet Volume 10.1 fL Prothrombin Time 19.3 SECONDS Prothromb Time International Ratio 1.8 Creatinine 1.20 mg/dl Est Creatinine Clear Calc Drug Dose 45.1 ml/min Estimated GFR () 64.4 Estimated GFR (Non- 55.6 Assessment and Plan Patient with right septic prepatellar bursitis with MSSA. He is s/p I & D with bursectomy. He is currently on IV Ceftriaxone 2 g daily. 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 Patient anticipated to have 2nd I & D today due to increased sanguinous drainage. PICC line is in place. Will continue IV abx for at least 2 weeks after surgery. We will follow. Case reviewed and agree with above assessment, continue abx, will follow
[2017-01-10] MEDS ORDERED: LIDOCAINE/EPINEPHRINE 1% 20 ML VIAL ONE (14:13)
[2017-01-10] MEDS ORDERED: BUPIVACAINE 0.5 % 5 MG/1 ML MPF 30ML VIAL ONE (14:14)
[2017-01-10] MEDS ORDERED: SUCCINYLCHOLINE CHLORIDE 20 MG/ML 10 ML VIAL IV ONE (14:14)
[2017-01-10] MEDS ORDERED: NEOSTIGMINE METHYLSULFATE 5 MG/5 ML SYR ONE (14:14)
[2017-01-10] MEDS ORDERED: LIDOCAINE HCL 2% 2 ML VIAL (20MG/ML) ONE (14:14)
[2017-01-10] MEDS ORDERED: EpHEDrine SULFATE INJ 50 MG/ML AMP ONE (14:14)
[2017-01-10] MEDS ORDERED: ROCURONIUM BROMIDE 10 MG/ML 5 ML VIAL ONE (14:14)
[2017-01-10] MEDS ORDERED: BACITRACIN 50000 UNIT VIAL ONE ×2 (14:14→15:55)
[2017-01-10] MEDS ORDERED: MIDAZOLAM HCL 1 MG/ML 2ML VIAL ONE (14:14)
[2017-01-10] MEDS ORDERED: DEXAMETHASONE SOD INJ 4 MG/ML VIAL ONE ×2 (14:14→16:22)
[2017-01-10] MEDS ORDERED: PROPOFOL IV EMULSION 10 MG/ML 20 ML VIAL IV ONE ×2 (14:14→16:21)
[2017-01-10] MEDS ORDERED: PHENYLEPHRINE HCL INJ 10 MG/ML VIAL ONE (14:14)
[2017-01-10] MEDS ORDERED: ONDANSETRON INJ 2 MG/ML 2 ML VIAL ONE (14:14)
[2017-01-10] MEDS ORDERED: GLYCOPYRROLATE INJ 0.2 MG/ML VIAL ONE (14:14)
[2017-01-10] MEDS ORDERED: FENTANYL CITRATE INJ 50 MCG/1 ML 2 ML VIAL ONE (14:15)
--- NOTE | 2017-01-10 16:00 | History & Physical Bridge Note ---
H&P Re-Evaluation Bridge Note: I have examined the patient, reviewed the History & Physical and in the interval since the performance of the History & Physical I have noted the following changes of clinical significance: No changes noted
[2017-01-10] MEDS ORDERED: TRAMADOL HCL 50 MG TAB PO PRN (16:15)
[2017-01-10] MEDS ORDERED: GENTAMICIN SULFATE 40 MG/ML 2 ML VIAL ONE (16:23)
[2017-01-10] MEDS ORDERED: VANCOMYCIN HCL 1000MG/20ML VIAL ONE (16:24)
[2017-01-10] MEDS ORDERED: ATROPINE SULFATE 0.1 MG/ML 5ML SYR IV PRN (16:30)
[2017-01-10] MEDS ORDERED: ONDANSETRON INJ 2 MG/ML 2 ML VIAL IV PRN (16:30)
[2017-01-10] MEDS ORDERED: FENTANYL CITRATE INJ 50 MCG/1 ML 2 ML VIAL IV PRN (16:30)
[2017-01-10] MEDS ORDERED: EpHEDrine SULFATE INJ 50 MG/ML AMP IV PRN (16:30)
--- NOTE | 2017-01-10 16:49 | [facility] Post Operative Brief Note ---
Immediate Operative Summary Operative Date Jan 10, 2017. Pre-Operative Diagnosis Septic Prepatellar Bursitis Post-Operative Diagnosis Septic Prepatellar Bursitis Procedure(s) Performed Right Prepatellar Bursitis Incision and Drainage with Application of Stimulan Beads Surgeon Dr. Go Patrol Officer Surgeon(s) Gasper Singh PA-C Estimated Blood Loss 50 mL Findings Hematoma right knee Specimens Microbiology #1-Prepatellar Bursa Fluid, gram stain, routine culture and sensitivity, anaerobic/aerobic-out of room at 1341 Drains hemovac Anesthesia general Disposition Recovery Room / PACU
--- NOTE | 2017-01-10 17:37 | Anesthesiology Progress Note ---
Anesthesia Post Op Note Date & Time Jan 10, 2017 at 17:37 Vital Signs Pain Intensity: 0 Vital Signs Past 12 Hours Date Time Temp Pulse Resp B/P Pulse Ox O2 Delivery O2 Flow Rate FiO2 01/10/17 17:25 74 20 139/89 96 Nasal Cannula 2 01/10/17 17:15 74 18 150/73 97 Nasal Cannula 2 01/10/17 17:05 72 16 161/72 100 Mask 10 01/10/17 16:55 70 18 133/98 100 Mask 10 01/10/17 16:47 37.6 78 20 149/86 98 Mask 10 01/10/17 11:29 37.1 73 18 151/74 96 01/10/17 10:45 96 Room Air 01/10/17 07:17 36.7 77 16 114/69 97 Room Air Notes Mental Status: alert / awake / arousable, participated in evaluation Pt Amnestic to Procedure: Yes Nausea / Vomiting: adequately controlled Pain: adequately controlled Airway Patency, RR, SpO2: stable & adequate BP & HR: stable & adequate Hydration State: stable & adequate Anesthetic Complications: no major complications apparent
--- NOTE | 2017-01-10 18:06 | Progress Note ---
Subjective Date of Service: Jan 10, 2017. Subjective this pt is doing well but returns to the OR for re exploration of knee and possible washout Problem List Medical Problems: (1) Cellulitis of right leg Status: Acute (2) Closed head injury Status: Acute (3) Syncope Status: Acute (4) Weakness Status: Acute Review of Systems Constitutional: No chills, No fever Respiratory: No cough, No wheezing Cardiac: No chest pain, No edema Abdomen: No diarrhea, No nausea, No pain Musculoskeletal: + joint pain, + muscle pain, + swelling Male : No dysuria, No urinary frequency Objective Vital Signs Date Time Temp Pulse Resp B/P Pulse Ox O2 Delivery O2 Flow Rate FiO2 01/10/17 17:45 77 20 141/75 97 Nasal Cannula 2 01/10/17 17:35 37 79 20 142/86 95 Nasal Cannula 2 01/10/17 17:25 74 20 139/89 96 Nasal Cannula 2 01/10/17 17:15 74 18 150/73 97 Nasal Cannula 2 01/10/17 17:05 72 16 161/72 100 Mask 10 01/10/17 16:55 70 18 133/98 100 Mask 10 01/10/17 16:47 37.6 78 20 149/86 98 Mask 10 01/10/17 11:29 37.1 73 18 151/74 96 01/10/17 10:45 96 Room Air 01/10/17 07:17 36.7 77 16 114/69 97 Room Air 01/10/17 04:08 36.9 78 20 146/74 95 Room Air 01/10/17 02:30 96 Room Air 01/09/17 23:49 37.0 87 18 140/70 96 Room Air 01/09/17 19:40 36.8 87 20 134/86 95 Room Air Physical Exam General Appearance: WD/WN, + moderate distress Neck: supple, no JVD Respiratory/Chest: chest non-tender, lungs clear, normal breath sounds Cardiovascular: no murmur, + irregularly irregular Abdomen: normal bowel sounds, non tender, soft Extremities: no pedal edema, no calf tenderness, + pertinent finding (swollen tender knee) Laboratory Results Last 24 Hours Test 01/10/17 05:40 White Blood Count 40.66 K/uL Red Blood Count 3.93 M/uL Hemoglobin 12.2 g/dL Hematocrit 36.2 % Mean Corpuscular Volume 92.1 fL Mean Corpuscular Hemoglobin 31.0 pg Mean Corpuscular Hemoglobin Concent 33.7 g/dl RDW Standard Deviation 51.0 fL RDW Coefficient of Variation 15.1 % Platelet Count 149 K/uL Mean Platelet Volume 10.1 fL Prothrombin Time 19.3 SECONDS Prothromb Time International Ratio 1.8 Creatinine 1.20 mg/dl Est Creatinine Clear Calc Drug Dose 45.1 ml/min Estimated GFR () 64.4 Estimated GFR (Non- 55.6 Assessment and Plan 81 M with Septic arthritis of knee s/p I&D, shown to be MSSA, has baseline CLL MSSA septic arthritis, per ID note of 3/3 IV ceftriaxone for 2 weeks, ortho has evaluated and feels may benefit from another washout, planned for 01/10 Discussion with daughter feels would prefer [facility] evaluation, ace as second choice CLL, counts near his baseline with persistent leukocytosis, platelets are acceptable but low and may have implication in bleeding htn control is acceptable with metoprolol was on full AC for PAF may consider holding for a bit in face of recent surgery DVT prevention is lovenox, but on hold with procedure scheduled I reviewed labs and vital signs 3/ wbc in 40K range, PLTL 149K
[2017-01-10] MEDS: D5W AND 1/2NSS + 20MEQ KCL 1,000 ML IV SCH (19:47)
[2017-01-10] MEDS: OXYCODONE HCL IR 5 MG TAB (IMMEDIATE RELEASE) PO PRN (20:20)
[2017-01-10] MEDS: METOPROLOL SUCC 25MG EXT REL TAB PO SCH (22:00)
[2017-01-11] VITALS (7 sets, daily range): BP systolic 103–137; BP diastolic 50–72; PULSE 77–88; TEMP 36.8–37; O2SAT 95–97
[2017-01-11] MEDS: D5W AND 1/2NSS + 20MEQ KCL 1,000 ML IV SCH ×3 (02:17→22:13)
[2017-01-11] MEDS: ACETAMINOPHEN 500 MG TAB PO SCH ×3 (06:23→20:24)
--- NOTE | 2017-01-11 06:59 | OPERATIVE REPORT ---
DATE OF OPERATION: 01/10/2017 PREOPERATIVE DIAGNOSIS: Recurrent septic prepatellar bursa, right knee. POSTOPERATIVE DIAGNOSIS: Hemorrhage, previous I\T\D, septic prepatellar bursitis. SURGEON: kAira Go MD ANESTHESIA: General. COMPLICATIONS: None. DESCRIPTION OF PROCEDURE: Following induction of adequate general anesthesia, the nylon stitches were removed and the right leg was prepped and draped in usual sterile manner. Limb was exsanguinated with elevation and tourniquet was inflated to 250 mmHg. Previously made incision was reopened by cutting the Dexon sutures. Digital palpation revealed no gross purulence. The previous Stimulan beads with prepatellar hematoma were evacuated. No additional soft tissue dissection was carried out. The wound was thoroughly irrigated with 3000 mL of pulsatile irrigation with bacitracin. Another kit for placement of Stimulan beads was obtained, mixed with 1 gram of vancomycin and 1 gram of gentamicin and the Stimulan beads were mixed. Once hardened, there were evacuated into a kidney basin and roughly two-thirds of the kit was utilized throughout the prepatellar bursal defect. Prior to placement of the beads, a small Hemovac drain single limb was placed to avoid reaccumulation of any additional blood. The wound was closed with 3-0 nylon simple suture loosely. A sterile dressing of Xeroform, 4 x 4's, sterile Webril and 4 and 6 inch Ney wrap was applied. The patient tolerated the procedure well. I attest to the content of the Intraoperative Record and any orders documented therein. Any exceptions are noted below. OLMAN
--- NOTE | 2017-01-11 08:28 | Anesthesiology Progress Note ---
Anesthesia Post Op Note Date & Time Jan 11, 2017 at 08:28 Vital Signs Pain Intensity: 2.0 Vital Signs Past 12 Hours Date Time Temp Pulse Resp B/P Pulse Ox O2 Delivery O2 Flow Rate FiO2 01/11/17 04:03 36.8 77 20 121/72 96 Room Air 01/11/17 01:19 96 Room Air 01/10/17 23:34 37.4 88 20 137/76 95 Room Air Notes Mental Status: alert / awake / arousable, participated in evaluation Pt Amnestic to Procedure: Yes Nausea / Vomiting: adequately controlled Pain: adequately controlled Airway Patency, RR, SpO2: stable & adequate BP & HR: stable & adequate Hydration State: stable & adequate Anesthetic Complications: no major complications apparent
[2017-01-11] MEDS: CEFTRIAXONE SOD INJ 2,000 MG in DEXTROSE 5% 50ML 50 ML IV SCH (11:48)
--- NOTE | 2017-01-11 13:13 | Orthopedic Progress Note ---
Orthopedic Progress Note Date of Service Jan 11, 2017. Subjective Post OP Day: 1 Reports: feeling well, Denies: complaints Objective calves soft nontender, N/V intact, A&O x3, toes mobile Dressings with drainage. Appears it had to be reinforced once. HV with mild drainage noted. Date Time Temp Pulse Resp B/P Pulse Ox O2 Delivery O2 Flow Rate FiO2 01/11/17 09:43 Room Air 01/11/17 08:40 97 Room Air 01/11/17 08:36 36.9 86 18 134/54 97 Room Air 01/11/17 04:03 36.8 77 20 121/72 96 Room Air 01/11/17 01:19 96 Room Air 01/10/17 23:34 37.4 88 20 137/76 95 Room Air 01/10/17 19:40 Nasal Cannula 2.0 01/10/17 19:26 36.7 84 20 151/82 98 Nasal Cannula 2.0 01/10/17 18:00 36.9 78 20 141/82 97 Nasal Cannula 2 01/10/17 17:45 77 20 141/75 97 Nasal Cannula 2 01/10/17 17:35 37 79 20 142/86 95 Nasal Cannula 2 01/10/17 17:25 74 20 139/89 96 Nasal Cannula 2 01/10/17 17:15 74 18 150/73 97 Nasal Cannula 2 01/10/17 17:05 72 16 161/72 100 Mask 10 01/10/17 16:55 70 18 133/98 100 Mask 10 01/10/17 16:47 37.6 78 20 149/86 98 Mask 10 Assessment & Plan Assessment: POD 1 (2nd I&D) s/p Right I&D of Septic Prepatellar Bursitis Plan: Antibx as per ID team. Will recheck INR If possible, hold Lovenox one more day. May restart Coumadin. DC drain tomorrow. Inhouse Planning Pain Management: Morphine, Oxy IR DVT Prophylaxis: TEDs, SCDs, Coumadin Discharge Planning Discharge Planning: uncertain Pain Management: Oxy IR DVT Prophylaxis: Coumadin
[2017-01-11 14:06] LABS: PROTHROMBIN TIME (PATIENT) 21.7 SECONDS (9.0-12.0)
--- NOTE | 2017-01-11 15:53 | Hospitalist Progress Note ---
Hospitalist Progress Note Date of Service Jan 11, 2017. Subjective pt is doing well and is now more accepting of rehab whether acute or subacute, drain present in left knee Objective Vital Signs Date Time Temp Pulse Resp B/P Pulse Ox O2 Delivery O2 Flow Rate FiO2 01/11/17 15:01 36.8 87 18 103/50 95 Room Air 01/11/17 09:43 Room Air 01/11/17 08:40 97 Room Air 01/11/17 08:36 36.9 86 18 134/54 97 Room Air 01/11/17 04:03 36.8 77 20 121/72 96 Room Air 01/11/17 01:19 96 Room Air 01/10/17 23:34 37.4 88 20 137/76 95 Room Air 01/10/17 19:40 Nasal Cannula 2.0 01/10/17 19:26 36.7 84 20 151/82 98 Nasal Cannula 2.0 01/10/17 18:00 36.9 78 20 141/82 97 Nasal Cannula 2 01/10/17 17:45 77 20 141/75 97 Nasal Cannula 2 01/10/17 17:35 37 79 20 142/86 95 Nasal Cannula 2 01/10/17 17:25 74 20 139/89 96 Nasal Cannula 2 01/10/17 17:15 74 18 150/73 97 Nasal Cannula 2 01/10/17 17:05 72 16 161/72 100 Mask 10 01/10/17 16:55 70 18 133/98 100 Mask 10 01/10/17 16:47 37.6 78 20 149/86 98 Mask 10 Physical Exam General Appearance: WD/WN, + mild distress Neck: supple, no JVD Respiratory/Chest: chest non-tender, lungs clear, no respiratory distress Cardiovascular: regular rate, rhythm, no murmur Abdomen: normal bowel sounds, non tender, soft Extremities: + pertinent finding (swelling to knee , serous drainage on bandage ) Laboratory Results Last 24 Hours Test 01/11/17 07:37 01/11/17 11:45 01/11/17 13:48 Bedside Glucose 117 mg/dl 119 mg/dl Prothrombin Time 21.7 SECONDS Prothromb Time International Ratio 2.0 Assessment and Plan 81 M with Septic arthritis of knee s/p I&D, shown to be MSSA, has baseline CLL MSSA septic arthritis, per ID note of 3/3 IV ceftriaxone for 2 weeks, ortho has perfomred second washout 01/10, drain in place PT now agrees to rehab and would prefer [facility] evaluation, ace as second choice CLL, counts have been near his baseline with persistent leukocytosis, platelets are acceptable but low and may have implication in bleeding htn control is acceptable with metoprolol was on full AC for PAF resumed inr 2.0 01/11
[2017-01-11] MEDS: WARFARIN SOD 2.5 MG TAB PO SCH (17:09)
[2017-01-11] MEDS: METOPROLOL SUCC 25MG EXT REL TAB PO SCH (20:25)
[2017-01-12 04:52] VITALS: BP 151/72; PULSE 76; TEMP 36.5; O2SAT 99
[2017-01-12] MEDS: ACETAMINOPHEN 500 MG TAB PO SCH ×2 (06:00→14:00)
[2017-01-12 06:02] LABS: INR 1.7 (0.9-1.1); PROTHROMBIN TIME (PATIENT) 18.5 SECONDS (9.0-12.0)
[2017-01-12 07:50] VITALS: BP 147/73; PULSE 79; TEMP 36.9; O2SAT 95
[2017-01-12] MEDS: D5W AND 1/2NSS + 20MEQ KCL 1,000 ML IV SCH (09:20)
--- NOTE | 2017-01-12 11:47 | Orthopedic Progress Note ---
Orthopedic Progress Note Date of Service Jan 12, 2017. Subjective Post OP Day: 2 (2nd washout) Reports: feeling well Objective N/V intact, incision C/D/I (Dressing changed by Dr Go), toes mobile Date Time Temp Pulse Resp B/P Pulse Ox O2 Delivery O2 Flow Rate FiO2 01/12/17 07:50 36.9 79 22 147/73 95 Room Air 01/12/17 04:52 36.5 76 20 151/72 99 Room Air 01/12/17 00:00 Room Air 01/11/17 20:00 Room Air 01/11/17 19:45 37.0 88 16 137/64 97 Room Air 01/11/17 16:30 95 Room Air 2.0 01/11/17 15:01 36.8 87 18 103/50 95 Room Air Laboratory Results 24 Hours: Test 01/11/17 13:48 01/12/17 05:35 Prothromb Time International Ratio 2.0 1.7 Prothrombin Time 21.7 SECONDS 18.5 SECONDS Assessment & Plan Assessment: POD 2 (2nd I&D) s/p Right I&D of Septic Prepatellar Bursitis Plan: 1. Med management- cont iv abx 2. Daily dressing changes- may leave wound open to air when dry 3. D/C planning- per medicine, ortho to sign-off, f/u with dr Go ~ 10-14 days Inhouse Planning Pain Management: Morphine, Oxy IR DVT Prophylaxis: TEDs, SCDs, Coumadin Discharge Planning Discharge Planning: uncertain Pain Management: Oxy IR DVT Prophylaxis: Coumadin
[2017-01-12 11:52] VITALS: BP 122/66; PULSE 77; TEMP 36.8; O2SAT 99
[2017-01-12] MEDS: CEFTRIAXONE SOD INJ 2,000 MG in DEXTROSE 5% 50ML 50 ML IV SCH (12:15)
[2017-01-12] MEDS ORDERED: CEFT1INJ26 IV (14:57)
--- NOTE | 2017-01-12 15:00 | Discharge Instructions ---
Discharge Instructions Date of Service Jan 12, 2017. Admission Reason for Admission: Septic Joint Of Right Knee Discharge Discharge Diagnosis / Problem: mSSA knee infection Discharge Goals Goal(s): Diagnostic testing, Therapeutic intervention Activity Recommendations Activity Level: Assistance Required Therapies: Physical Therapy, Occupational Therapy Weight bearing as tolerated, please contact DR vann for instructions on drain or wounds . Additional Information Patient informed of condition: Yes Advance Directives: Yes DNR: Yes Level of Care: Acute Rehab Communicable Disease: Yes Prognosis: Stable Pena Catheter: No Instructions / Follow-Up Instructions / Follow-Up 81 M with Septic arthritis of knee s/p I&D, shown to be MSSA, has baseline CLL MSSA septic arthritis, per ID note of 3/3 IV ceftriaxone for 2 weeks, DR Castro has washout x2 with antibiotic beads, drain in place CLL, counts near his baseline with persistent leukocytosis, platelets are acceptable but low and may have implication in bleeding htn control is acceptable with metoprolol was on full AC for PAF, restarted coumadin follow inr Current Hospital Diet Patient's current hospital diet: Regular Diet Discharge Diet Recommended Diet: Regular Diet Procedures Procedures Performed: Right Prepatellar Bursitis Incision and Drainage with Application of Stimulan Beads Pending Studies Studies pending at discharge: no Laboratory Results Lipid Panel Test 11/04/16 11:15 Range/Units Triglycerides Level 127 0-150 mg/dl Cholesterol Level 171 0-200 mg/dl HDL Cholesterol 31 mg/dl Cholesterol/HDL Ratio 5.5 LDL Cholesterol, Calculated 115 mg/dl Medical Emergencies . Who to Call and When: Medical Emergencies: If at any time you feel your situation is an emergency, please call 911 immediately. . Non-Emergent Contact Non-Emergency issues call your: Primary Care Provider, Surgeon . . "Provider Documentation" section prepared by Joaquin Cloud. Core Measure Problem Core Measures: None
--- NOTE | 2017-01-12 15:03 | Discharge Summary ---
Discharge Summary Date of Service Jan 12, 2017. Discharge Summary Admission Date: Jan 03, 2017 at 15:51 Discharge Date: Jan 12, 2017 Discharge Disposition: Rehab Principal Diagnosis: MSSA right knee infection s/p or with washout x2 Immunizations: Have You Had Influenza Vaccine: Unknown History of Tetanus Vaccine?: Unknown History of Pneumococcal: Yes History of Hepatitis B Vaccine: No Consultations: INfectious disease, Dr Go from ortho Medication Reconciliation New Medications: Ceftriaxone Sodium (Rocephin) 1 Gm Inj 2 GM IV DAILY for 7 Days Continued Medications: Metoprolol Succ (Toprol Xl) (Toprol-Xl) 25 Mg Tabcr 25 MG PO HS, #30 TAB Warfarin Sodium (Coumadin) 5 Mg Tab 5 MG PO DAILY, TAB COAGULATINO CLINIC PATIENT, CURRENT DIRECTIONS OF 12/20/16 5MG MON, WED, FRI, 2.52MG TUE,THUR,SAT,SUN NEXT APT 01/19/17 Discharge Exam Review of Systems: Constitutional: No chills, No fever Respiratory: No cough, No sputum Cardiovascular: No chest pain, No orthopnea Abdomen: No constipation, No diarrhea, No nausea, No pain, No vomiting Musculoskeletal: + joint pain, + muscle pain Genitourinary - Male: No dysuria, No hematuria Psychiatric: No anhedonism, No depression symptoms Physical Exam: General Appearance: WD/WN, + mild distress Neck: supple, no JVD Respiratory/Chest: chest non-tender, lungs clear, normal breath sounds Cardiovascular: regular rate, rhythm, no murmur Abdomen / GI: normal bowel sounds, non tender, soft Extremities: normal inspection, normal range of motion 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 as tested, no motor/sensory deficits , alert Hospital Course 81 M with Septic arthritis of knee s/p I&D, shown to be MSSA, has baseline CLL MSSA septic arthritis, per ID note of 3/3 IV ceftriaxone for 2 weeks, DR Castro has washout x2 with antibiotic beads, drain in place CLL, counts near his baseline with persistent leukocytosis, platelets are acceptable but low and may have implication in bleeding htn control is acceptable with metoprolol was on full AC for PAF, restarted coumadin follow inr Total Time Spent: Greater than 30 minutes This includes examination of the patient, discharge planning, medication reconciliation, and communication with other providers. Discharge Instructions Please refer to the electronic Patient Visit Report (Discharge Instructions) for additional information.
[2017-01-12] MEDS ORDERED: RXC5 PO (15:26)
[2017-01-12] MEDS: WARFARIN SOD 2.5 MG TAB PO SCH (16:18)
[2017-01-12 16:42] VITALS: BP 144/83; PULSE 80; TEMP 36.5; O2SAT 97
[2017-02-15] MEDS ORDERED: CEPH500C PO (11:03)
== END 2017-01-12 17:00 | DRG 500 ==
LOC: ENRESERVTM → ENRESERVDT → EDBD 11:14 → C.EDA 11:15 → C.4E 15:51
PROVIDERS: ADMIT Student in an Organized Health Care Education/Training Program; ATTEND Internal Medicine
PROC: 0MBN0ZZ Excision of Right Knee Bursa and Ligament, Open Approach (ICD-10-PCS; principal; 2017-01-05 13:30)
PROC: 0MCN0ZZ Extirpation of Matter from Right Knee Bursa and Ligament, Open Approach (ICD-10-PCS; 2017-01-10)
DX: M00.061 Staphylococcal arthritis, right knee (principal); G93.41 Metabolic encephalopathy; N17.9 Acute kidney failure, unspecified; C91.10 Chronic lymphocytic leukemia of B-cell type not having achieved remission; M96.840 Postprocedural hematoma of a musculoskeletal structure following a musculoskeletal system procedure; Z87.891 Personal history of nicotine dependence; R19.7 Diarrhea, unspecified; I48.0 Paroxysmal atrial fibrillation; Z66 Do not resuscitate; I25.2 Old myocardial infarction; E78.00 Pure hypercholesterolemia, unspecified; I12.9 Hypertensive chronic kidney disease with stage 1 through stage 4 chronic kidney disease, or unspecified chronic kidney disease; N18.3 Chronic kidney disease, stage 3 (moderate); I25.10 Atherosclerotic heart disease of native coronary artery without angina pectoris; D69.6 Thrombocytopenia, unspecified; B95.61 Methicillin susceptible Staphylococcus aureus infection as the cause of diseases classified elsewhere; Z80.9 Family history of malignant neoplasm, unspecified; Z83.3 Family history of diabetes mellitus; Z83.6 Family history of other diseases of the respiratory system; Z83.79 Family history of other diseases of the digestive system; Z82.49 Family history of ischemic heart disease and other diseases of the circulatory system

== ENCOUNTER 2017-01-22 10:46 | Inpatient (IN) | payer BC, OTHER ==
[~2017-01-22] VITALS: Ht 175.3 cm; Wt 73.9 kg
[~2017-01-22 10:46] MED LIST changes: +CEFT1INJ26 IV; -COUMADIN PO; -Diltiazem PO; +METO25TA3 PO; +RXC5 PO; +WARF5TAB90 PO; -coumadin PO
[2017-01-22] MEDS ORDERED: ACET325T96 PO (11:51)
[2017-01-22 12:19] LABS: C-REACTIVE PROTEIN 0.45 mg/dl (0-0.29); CALCIUM 8.3 mg/dl (8.5-10.1); CREATININE 1.3 mg/dl (0.60-1.40); PARTIAL THROMBOPLASTIN RATIO 1.5; POTASSIUM 4.8 mmol/L (3.5-5.1); PROTHROMBIN TIME (PATIENT) 33.7 SECONDS (9.0-12.0)
[2017-01-22 12:39] LABS: HEMATOCRIT 37.7 % (42-52); MEAN CELL VOLUME 93.5 fL (80-100); MEAN CORPUSCULAR HEMOGLOBIN 30.5 pg (25-34); MEAN CORPUSCULAR HGB CONC 32.6 g/dl (32-36); MEAN PLATELET VOLUME 9.7 fL (7.4-10.4); PLATELET COUNT 239 K/uL (130-400); RED BLOOD COUNT 4.03 M/uL (4.7-6.1); WHITE BLOOD COUNT 49.92 K/uL (4.8-10.8)
--- NOTE | 2017-01-22 12:44 | DIAGNOSTIC IMAGING REPORT ---
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 Anterior and slightly lateral to the patella are multiple radiopaque foreign bodies within and area of soft tissue prepatellar edematous change. These extend over a soft tissue geographic dimension of 7 x 3 cm. No acute bony abnormality is identified. IMPRESSION: Multiple radiopaque foreign bodies within the soft tissues anterolateral to the patella. Pre-existing degenerative change of all major joint compartments. No acute process specifically of the osseous structures. Electronically signed by: Jorje Carmona M.D. 01/22/2017 12:43 PM Dictated Date/Time: 01/22/2017 12:39 PM
[2017-01-22 12:55] LABS: COMPLETE YES; LYMPH ABS # 20.67 K/uL (1.2-3.4); LYMPHOCYTE % 41.4 %; NEUTROPHILS % 7.4 %; PROLYM# MAN 8.24 K/uL (0-0); VARIANT LYM ABS # 17.32 K/uL; VARIANT LYMPHOCYTE % 34.7 %
[2017-01-22] MEDS ORDERED: PHYTONADIONE INJ 5 MG in SODIUM CHLORIDE 0.9% 50ML 50 ML IV ONE (13:15)
[2017-01-22] MEDS ORDERED: PANTOprazole INJ 80 MG in DEXTROSE 5% 100ML IV SCH (13:30)
[2017-01-22] MEDS ORDERED: PANTOprazole INJ 40 MG in DEXTROSE 5% 100ML IV SCH (14:00)
[2017-01-22] MEDS ORDERED: ONDANSETRON INJ 2 MG/ML 2 ML VIAL IV PRN (14:15)
[2017-01-22] MEDS ORDERED: ACETAMINOPHEN 325 MG TAB PO PRN (14:15)
[2017-01-22 14:30] VITALS: O2SAT 95; Ht 175.3 cm; Wt 73.9 kg
--- NOTE | 2017-01-22 14:57 | ORTHOPEDIC CONSULTATION ---
DATE OF CONSULTATION: 01/22/2017 HISTORY OF PRESENT ILLNESS: This is an 81-year-old gentleman seen at the request of Emergency Department for partial wound dehiscence and anterior knee bleeding. The patient is being treated for chronic lymphocytic leukemia and had a surgery by Dr. Go on his right knee approximately 3 weeks ago. He had been doing fairly well, had his sutures removed last week and then the wound began to dehisce. Again having bleeding last evening and then presented to the Emergency Department today. The patient also complained of black tarry stools this morning which is new onset. The patient is currently on warfarin. He has 3 stents placed and a history of atrial fibrillation. PAST MEDICAL HISTORY: Atrial fibrillation, chronic lymphocytic leukemia, septic prepatellar bursitis. PAST SURGICAL HISTORY: Right knee prepatellar bursectomy with implantation of antibiotic beads, additional noncontributory. ALLERGIES: No known drug allergies. MEDICATIONS: Toprol-XL, oxycodone and warfarin 5 mg daily. SOCIAL HISTORY: Denies tobacco, alcohol or drug use. He is retired. He lives at home with his family members. PHYSICAL EXAMINATION: GENERAL: This is an 81-year-old gentleman who is resting quietly in the Emergency Department. Two of his daughter are present during the examination. No acute pain. EXTREMITIES: Examination of the right knee demonstrates an anterior knee incision with partial closure proximal and distal aspects of the incision; however, the central approximately 2 cm is partially dehisced with trace oozing blood. There is no arterial bleeding at the time. There is enhancing erythema around the incision; however, there is no purulence, no abscess, no fluctuance. There is no proximal streaking. No inflamed lymph nodes with palpation proximally. Pedal pulses are palpable. Feet are warm. Radiographs reviewed demonstrating implanted antibiotic beads and degenerative arthritis, no obvious fractures. Stable alignment. IMPRESSION: Right anterior knee partial wound dehiscence, chronic anticoagulation, atrial fibrillation and chronic lymphocytic leukemia. RECOMMENDATIONS: For supportive measures for the knee. Sterile dry dressing was applied at bedside and consultation should be made for wound care nurse for possibility of application of wound VAC to the right anterior knee. Will follow with you after patient is admitted. Thank you for the opportunity to consult in the care of this patient Carlos Lakhani. No need for emergent operative intervention at this time.
[2017-01-22 16:07] VITALS: BP 104/67; PULSE 77; TEMP 36.8; O2SAT 95
--- NOTE | 2017-01-22 16:45 | History and Physical ---
History & Physical Date & Time of Service: Jan 22, 2017 at 16:35 Chief Complaint: Septic Joint Of Right Knee Joint Primary Care Physician: Prasad Encinas M.D. History of Present Illness Source: patient, family Pt is a 81 yo male who presents to ER for wound dehiscence of right knee. Pt somnolent during exam and most of hx is obtained by 2 daughters at bedside. Pt was admitted to [facility] 2 weeks ago for septic bursitis in the right knee at which he underwent a washout of that knee joint. Pt was discharged on 3 days of IV rocephin and discharged to rehab. Pt was seeing ID and ortho as outpt and had sutures removed last monday. Pt reports worsening pain, swelling over weekend and noted bleeding from knee that started last evening. The patient also complained of black tarry stools this morning which is new onset as well. The patient is currently on warfarin. Pt has hx of CAD, CLL, atrial fibrillation, HTN. Past Medical/Surgical History Medical Problems: (1) Heart disease Status: Chronic (2) Leukemia Status: Chronic Family History Cancer Diabetes mellitus Gallbladder disease Heart disease Hypertension Kidney disease Kidney stones Lung disease Social History Smoking Status: Never Smoker Smokeless Tobacco Use: No Drug Use: none Immunizations History of Influenza Vaccine: Unknown History of Tetanus Vaccine?: Unknown History of Pneumococcal: Yes History of Hepatitis B Vaccine: No Multi-Drug Resistant Organisms History of MDRO: No Allergies Coded Allergies: No Known Allergies (Verified , 01/22/17) Home Medications Scheduled Metoprolol Succ (Toprol Xl) (Toprol-Xl), 25 MG PO HS Oxycodone HCl (Oxycodone HCl), 5-10 MG PO Q6 Warfarin Sodium (Coumadin), 5 MG PO DAILY Scheduled PRN Acetaminophen Tab (Tylenol), 325 MG PO Q6H PRN for Pain Review of Systems Constitutional: No chills, No fever Respiratory: No cough, No sputum Abdomen: + GI bleeding, No diarrhea, No nausea, No pain, No vomiting Musculoskeletal: + joint pain, No muscle pain, No swelling Genitourinary - Male: No dysuria, No hematuria Neurologic: No paralysis, No weakness Endocrine: No fatigue Integumentary: No itch, No rash Physical Exam Vital Signs Date Time Temp Pulse Resp B/P Pulse Ox O2 Delivery O2 Flow Rate FiO2 01/22/17 16:07 36.8 77 20 104/67 95 Room Air 01/22/17 14:30 95 Room Air 01/22/17 14:25 65 16 120/55 95 Room Air 01/22/17 13:12 75 20 91/64 98 Room Air 01/22/17 10:48 36.8 73 20 126/66 97 Room Air General Appearance: WD/WN, no apparent distress Eyes: PERRL, EOMI Neck: supple, no adenopathy Respiratory/Chest: chest non-tender, lungs clear Cardiovascular: no edema, no JVD Abdomen/GI: non tender, soft Neurologic/Psych: alert, normal mood/affect, oriented x 3 Diagnostics Laboratory Results Results Past 24 Hours Test 01/22/17 11:00 Range/Units White Blood Count 49.92 4.8-10.8 K/uL Red Blood Count 4.03 4.7-6.1 M/uL Hemoglobin 12.3 14.0-18.0 g/dL Hematocrit 37.7 42-52 % Mean Corpuscular Volume 93.5 80-100 fL Mean Corpuscular Hemoglobin 30.5 25-34 pg Mean Corpuscular Hemoglobin Concent 32.6 32-36 g/dl Platelet Count 239 130-400 K/uL Mean Platelet Volume 9.7 7.4-10.4 fL RDW Standard Deviation 52.2 36.4-46.3 fL RDW Coefficient of Variation 15.3 11.5-14.5 % Neutrophils % (Manual) 7.4 % Band Neutrophils % (Manual) 0.0 % Lymphocytes % (Manual) 41.4 % Prolymphocyte % 16.5 % Variant Lymphocytes % (manual) 34.7 % Neutrophils # (Manual) 3.69 1.4-6.5 K/uL Total Absolute Neutrophils 3.69 1.4-6.5 K/uL Lymphocytes # (Manual) 20.67 1.2-3.4 K/uL Prolymphocyte # 8.24 0-0 K/uL Absolute Variant Lymphocytes 17.32 K/uL Total Absolute Lymphocytes 37.99 1.2-3.4 K/uL Percent Large Granular Lymphocytes 0.0 % Red Blood Cell Morphology Unremarkable Prothrombin Time 33.7 9.0-12.0 SECONDS Prothromb Time International Ratio 3.0 0.9-1.1 Activated Partial Thromboplast Time 39.0 21.0-31.0 SECONDS Partial Thromboplastin Ratio 1.5 Sodium Level 143 136-145 mmol/L Potassium Level 4.8 3.5-5.1 mmol/L Chloride Level 108 98-107 mmol/L Carbon Dioxide Level 27 21-32 mmol/L Anion Gap 8.0 3-11 mmol/L Blood Urea Nitrogen 29 7-18 mg/dl Creatinine 1.30 0.60-1.40 mg/dl Est Creatinine Clear Calc Drug Dose 43.1 ml/min Estimated GFR () 58.5 Estimated GFR (Non- 50.5 BUN/Creatinine Ratio 22.0 10-20 Random Glucose 92 70-99 mg/dl Calcium Level 8.3 8.5-10.1 mg/dl C-Reactive Protein 0.45 0-0.29 mg/dl Impression Assessment and Plan Pt is a 81 yo male with hx of MSSA septic knee who underwent washout of knee by Dr Go 3 weeks ago admitted to ER today for worsening pain, wound dehiscence and also 1 episode of dark tarry stool this AM. Wound dehiscence s/p washout of right septic knee 3 weeks ago. Ortho has been consulted in addition to wound care. May benefit from wound vac at this time. Coumadin reversed with Vit K in ER. No active bleeding at this time. Started on IV clindamycin which cx was sens to from last admission. ID has been consulted. CLL with leukocytosis at baseline. No need for heme/onc consultation at this time. Platelets WNL GIB cont protonix at this time. Coumadin on hold, 5 mg Vit K given in ER. Recheck HH. Hg stable. HTN stable, cont metoprolol Atrial fibrillation - Coumadin on hold, cont metoprolol DNR code status Advanced Directives Existing Living Will: No Existing Power of Health Program Director: No VTE Prophylaxis VTE Risk Assessment Done? Y/N: Yes Risk Level: Moderate
[2017-01-22] MEDS: SODIUM CHLORIDE 0.9% 1000ML 1,000 ML IV SCH (17:38)
[2017-01-22] MEDS: CLINDAMYCIN IV 300 MG in DEXTROSE 5% 50ML 50 ML IV SCH ×2 (17:50→21:35)
[2017-01-22] MEDS: OXYCODONE HCL IR 5 MG TAB (IMMEDIATE RELEASE) PO SCH (18:00)
[2017-01-22 19:35] VITALS: BP 108/60; PULSE 88; TEMP 36.6; O2SAT 97
[2017-01-22 20:00] VITALS: O2SAT 97
--- NOTE | 2017-01-22 20:10 | EMERGENCY ROOM VISIT NOTE ---
History Report prepared by Eda: Kendra Tapia Under the Supervision of: Dr. Colten White M.D. First contact with patient: 11:56 Chief Complaint: WOUND DEHISCENCE Stated Complaint: BLEEDING Nursing Triage Summary: patient with surgical inscision on the right knee which has been infected with cellulitis. Incision line ruptured with arterial flow at home History of Present Illness The patient is an 81 year old male who presents to the Emergency Room via EMS with complaints of worsening bleeding from a surgical site on his right knee that started one night ago. The patient had surgery on his right knee three weeks ago. The patient spent time at physical rehabilitation and was doing well. His stitches were removed several days ago. One night ago, the patient's surgical wound started to bleed. The patient's family members note that he had an arterial bleed in this site after the surgery. The patient had black stool this morning. The patient denies any trauma to the site, chest pain, headaches. Additionally, the patient is on Warfarin. The patient has three stents in place and he has a history of atrial fibrillation. The patient has a history of CLL. Source of History: patient, family Onset: one night ago Position: knee (right) Quality: other (wound bleeding ) Timing: worsening Associated Symptoms: No chest pain, No headache Note: The patient had black stool this morning. Review of Systems See HPI for pertinent positives & negatives. A total of 10 systems reviewed and were otherwise negative. Past Medical & Surgical Medical Problems: (1) Heart disease (2) Leukemia (3) Septic joint of right knee joint Family History Cancer Diabetes mellitus Gallbladder disease Heart disease Hypertension Kidney disease Kidney stones Lung disease Social History Smoking Status: Never Smoker Alcohol Use: none Current/Historical Medications Scheduled Metoprolol Succ (Toprol Xl) (Toprol-Xl), 25 MG PO HS Oxycodone HCl (Oxycodone HCl), 5-10 MG PO Q6 Warfarin Sodium (Coumadin), 5 MG PO DAILY Scheduled PRN Acetaminophen Tab (Tylenol), 325 MG PO Q6H PRN for Pain Allergies Coded Allergies: No Known Allergies (Verified , 01/22/17) Physical Exam Vital Signs Date Time Temp Pulse Resp B/P Pulse Ox O2 Delivery O2 Flow Rate FiO2 01/22/17 13:12 75 20 91/64 98 Room Air 01/22/17 10:48 36.8 73 20 126/66 97 Room Air Physical Exam GENERAL: Patient is well appearing and in no acute distress. HEENT: No acute trauma, normocephalic atraumatic, mucous membranes moist, no nasal congestion, no scleral icterus. NECK: No stridor, no adenopathy, no meningismus, trachea is midline. LUNGS: No dyspnea. Clear to auscultation and equal bilaterally. No wheeze, no rhonchi. HEART: Regular rate and rhythm. No murmurs, rubs, gallops appreciated. ABDOMEN: Soft, nontender, bowel sounds positive, no masses appreciated, no peritonitis. BACK: No midline tenderness, no CVA tenderness EXTREMITIES: Normal motion all extremities, no cyanosis, no edema. Right knee: anterior patellar swelling with bogginess, with diffuse erythema and warmth, midline incision and the wound has dehisced over the distal half, with mild venous oozing. NEUROLOGIC: Alert and oriented, no acute motor or sensory deficits, no focal weakness, cranial nerves grossly intact. SKIN: No rash, no jaundice, no diaphoresis. RECTAL: Normal perirectal, mildly enlarged nontender prostate, dark brown heme positive stool. Medical Decision & Procedures ER Provider Diagnostic Interpretation: X ray results are stated below per my interpretation and the radiologist's interpretation. 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 Anterior and slightly lateral to the patella are multiple radiopaque foreign bodies within and area of soft tissue prepatellar edematous change. These extend over a soft tissue geographic dimension of 7 x 3 cm. No acute bony abnormality is identified. IMPRESSION: Multiple radiopaque foreign bodies within the soft tissues anterolateral to the patella. Pre-existing degenerative change of all major joint compartments. No acute process specifically of the osseous structures. Electronically signed by: Jorje Carmona M.D. 01/22/2017 12:43 PM Dictated Date/Time: 01/22/2017 12:39 PM Laboratory Results 01/22/17 11:00 Red Blood Count 4.03, Mean Corpuscular Volume 93.5, Mean Corpuscular Hemoglobin 30.5, Mean Corpuscular Hemoglobin Concent 32.6, Mean Platelet Volume 9.7 01/22/17 11:00 Test 01/22/17 11:00 White Blood Count 49.92 K/uL (4.8-10.8) Red Blood Count 4.03 M/uL (4.7-6.1) Hemoglobin 12.3 g/dL (14.0-18.0) Hematocrit 37.7 % (42-52) Mean Corpuscular Volume 93.5 fL (80-100) Mean Corpuscular Hemoglobin 30.5 pg (25-34) Mean Corpuscular Hemoglobin Concent 32.6 g/dl (32-36) Platelet Count 239 K/uL (130-400) Mean Platelet Volume 9.7 fL (7.4-10.4) RDW Standard Deviation 52.2 fL (36.4-46.3) RDW Coefficient of Variation 15.3 % (11.5-14.5) Neutrophils % (Manual) 7.4 % Band Neutrophils % (Manual) 0.0 % Lymphocytes % (Manual) 41.4 % Prolymphocyte % 16.5 % Variant Lymphocytes % (manual) 34.7 % Neutrophils # (Manual) 3.69 K/uL (1.4-6.5) Total Absolute Neutrophils 3.69 K/uL (1.4-6.5) Lymphocytes # (Manual) 20.67 K/uL (1.2-3.4) Prolymphocyte # 8.24 K/uL (0-0) Absolute Variant Lymphocytes 17.32 K/uL Total Absolute Lymphocytes 37.99 K/uL (1.2-3.4) Percent Large Granular Lymphocytes 0.0 % Red Blood Cell Morphology Unremarkable Prothrombin Time 33.7 SECONDS (9.0-12.0) Prothromb Time International Ratio 3.0 (0.9-1.1) Activated Partial Thromboplast Time 39.0 SECONDS (21.0-31.0) Partial Thromboplastin Ratio 1.5 Anion Gap 8.0 mmol/L (3-11) Est Creatinine Clear Calc Drug Dose 43.1 ml/min Estimated GFR () 58.5 Estimated GFR (Non- 50.5 BUN/Creatinine Ratio 22.0 (10-20) Calcium Level 8.3 mg/dl (8.5-10.1) C-Reactive Protein 0.45 mg/dl (0-0.29) Laboratory results as reviewed by me. Medications Administered Medications (Trade) Dose Ordered Sig/Dania Route Start Time Stop Time Status Last Admin Dose Admin Phytonadione 5 mg/ Sodium Chloride 50.5 ml @ 101 mls/hr ONE ONCE IV 01/22/17 13:15 01/22/17 13:44 DC 01/22/17 13:15 101 MLS/HR Pantoprazole Sodium 80 mg/ Dextrose 120 ml @ 480 mls/hr 1330 IV 01/22/17 13:30 01/22/17 13:44 DC 01/22/17 13:30 480 MLS/HR Pantoprazole Sodium/Dextrose (Protonix Inj/D5 100ml) 100 ml @ 20 mls/hr Q5H IV 01/22/17 14:00 01/22/17 18:59 DC 01/22/17 14:00 20 MLS/HR ED Course 1158: The patient was evaluated in room C6. A complete history and physical exam was performed. 1255: I discussed the case with Dr. Gates (Orthopedics); he will come evaluate the patient. 1302: I reevaluated the patient; he is feeling well and nursing staff is looking for a Hemoccult developer. 1313: Protonix 1 ea IV 1315: Phytonadione 5 mg/ Sodium Chloride 50.5 ml @ 101 mls/ hr IV 1330: Pantoprazole Sodium 80 mg / Dextrose 120 ml @ 480 mls/ hr IV 1400: Pantoprazole Sodium 40 mg / Dextrose 100 ml @ 20 mls/ hr IV 1329: I discussed the case with Dr. Nuñez ([facility]); he will further evaluate the patient. Medical Decision 81 yr old male arrives with complaint of right knee bleeding along with blood in stool. Recent knee replacement with some post op bleeding. Just out of [facility] and now with dehiscence of wound today. On coumadin and has CLL. No heavy bleeding now. Ortho in to see patient and feel monitoring and wound care consults without need for OR currently. He has heme positive stool and since on coumadin will need to come in. Will reverse with Vit K given active bleeding. Stable, vitals OK, and patient in no distress. Medicine to bring in for further monitoring/treatment. Consults Time Called: 1250 Consulting Physician: Dr. Gates (Orthopedics) Returned Call: [phone] I discussed the case with Dr. Gates (Orthopedics); he will come evaluate the patient. Additional Consults: Time Called: 1325 Consulted Physician: Dr. Nuñez ([facility]) Returned Call: [phone] Additional Comments: I discussed the case with Dr. Nuñez ([facility]); he will further evaluate the patient. Impression Primary Impression: GI bleed Additional Impressions: Wound dehiscence CLL (chronic lymphocytic leukemia) Supratherapeutic INR Scribe Attestation The scribe's documentation has been prepared under my direction and personally reviewed by me in its entirety. I confirm that the note above accurately reflects all work, treatment, procedures, and medical decision making performed by me. Departure Information Dispostion Being Evaluated By Hospitalist Referrals Prasad Encinas M.D. (PCP) Patient Instructions My [facility] Problem Qualifiers Primary Impression: GI bleed GI bleed type/associated pathology: unspecified gastrointestinal hemorrhage type Qualified Codes: K92.2 - Gastrointestinal hemorrhage, unspecified
[2017-01-22 21:26] LABS: HEMATOCRIT 33.1 % (42-52)
[2017-01-22 21:35] VITALS: BP 106/71; PULSE 79
[2017-01-22] MEDS: METOPROLOL SUCC 25MG EXT REL TAB PO SCH (21:36)
[2017-01-22 23:32] VITALS: BP 124/70; PULSE 86; TEMP 37; O2SAT 95
[2017-01-23] VITALS (7 sets, daily range): BP systolic 108–134; BP diastolic 60–73; PULSE 58–87; TEMP 36.5–36.9; O2SAT 95–98
[2017-01-23] MEDS: OXYCODONE HCL IR 5 MG TAB (IMMEDIATE RELEASE) PO SCH ×5 (00:20→23:28)
[2017-01-23] MEDS: SODIUM CHLORIDE 0.9% 1000ML 1,000 ML IV SCH ×3 (05:23→22:42)
[2017-01-23] MEDS: CLINDAMYCIN IV 300 MG in DEXTROSE 5% 50ML 50 ML IV SCH (05:54)
[2017-01-23 07:08] LABS: HEMATOCRIT 33.4 % (42-52); MEAN CORPUSCULAR HEMOGLOBIN 30.3 pg (25-34); MEAN CORPUSCULAR HGB CONC 32.9 g/dl (32-36); MEAN PLATELET VOLUME 9.3 fL (7.4-10.4); PLATELET COUNT 203 K/uL (130-400); RED BLOOD COUNT 3.63 M/uL (4.7-6.1); WHITE BLOOD COUNT 48.99 K/uL (4.8-10.8)
[2017-01-23 07:10] LABS: BLOOD UREA NITROGEN 24 mg/dl (7-18); BUN/CREATININE RATIO 18.1 (10-20); CALCIUM 8.1 mg/dl (8.5-10.1); CARBON DIOXIDE 27 mmol/L (21-32); CHLORIDE 108 mmol/L (98-107); GLUCOSE 92 mg/dl (70-99); POTASSIUM 4.3 mmol/L (3.5-5.1); SODIUM 142 mmol/L (136-145)
[2017-01-23] MEDS: PANTOprazole SOD 40 MG TAB PO SCH ×2 (08:21→22:37)
[2017-01-23 08:42] LABS: INR 1.3 (0.9-1.1); PROTHROMBIN TIME (PATIENT) 14.3 SECONDS (9.0-12.0)
[2017-01-23 08:55] LABS: BASO ABS # 0.98 K/uL (0-0.2); COMPLETE YES; LYMPH ABS # 14.21 K/uL (1.2-3.4); PROLYM# MAN 7.35 K/uL (0-0); VARIANT LYM ABS # 23.03 K/uL
[2017-01-23 08:56] LABS: SMUDGE CELLS PRESENT
--- NOTE | 2017-01-23 10:15 | Progress Note ---
Progress Note Date of Service Jan 23, 2017. Progress Note ID Consult Dictated #[id number] A/P: 1. Wound dehiscence 2. h/o MSSA septic bursitis -will change to ctx pending surgical plan, if no plans for OR can transition back to po keflex -will continue to follow while inpt and outpt as well -thank you
[2017-01-23] MEDS ORDERED: CEFTRIAXONE SOD INJ 2,000 MG in DEXTROSE 5% 50ML 50 ML IV SCH (12:00)
[2017-01-23] MEDS: CEFTRIAXONE SOD INJ 2000 MG in DEXTROSE 5% 50ML IV SCH (12:51)
--- NOTE | 2017-01-23 13:36 | CONSULTATION REPORT ---
DATE OF CONSULTATION: 01/23/2017 REASON FOR CONSULT: Small wound dehiscence of right knee. HISTORY OF PRESENT ILLNESS: The patient is an 81-year-old white male known to our practice who is status post I\T\D of a septic prepatellar bursa of the right knee by Dr. Go. During his stay between January 03 and January 12 the patient underwent I\T\D x2 with implantation of antibiotic beads. At that point in time he was discharged to [facility] and was continued on antibiotics and physical therapy. The patient was admitted yesterday afternoon after stating that he had just gotten home from [facility]. He apparently had a very rigorous work out in physical therapy with range of motion and ambulation prior to his departure which he states at that point in time he began noticing tightness in the right knee. He had his stitches removed on Monday the in Dr. Go's office and was seen by Dr. Garcia actually the same day. They were continuing with treatment of his knee. When he got home, he felt like the knee was a lot more swollen and was having some discomfort. He states that he might have had some slight chills and slight fever, but nothing overtly so. He apparently was also having black tarry stools as well. He states that at one point he bent the knee and all of a sudden bloody fluid shot out of the knee fairly high in the air from his incision. It drained from then on for some period of time. This obviously worried his family and he was brought into the Emergency Room yesterday and is now admitted for further care. PAST MEDICAL HISTORY: Above noted MSSA septic prepatellar bursitis treated with ceftriaxone for 2 weeks, chronic lymphocytic leukemia, hypertension, paroxysmal atrial fibrillation, on chronic Coumadin, currently admitted for GI bleed. PAST SURGICAL HISTORY: I\T\D x2 of the right prepatellar bursa as noted above, vasectomy, removal of benign breast cyst. FAMILY HISTORY: Diabetes mellitus, cholelithiasis, heart disease, hypertension, kidney disease, lung disease and cancer. SOCIAL HISTORY: Former smoker who does not use alcohol and is . MEDICATIONS: At home Tylenol 325 mg p.o. q. 6 hours p.r.n., metoprolol XL 25 mg p.o. at bedtime, oxycodone 5-10 mg p.o. q. 6 hours, warfarin 5 mg p.o. daily. ALLERGIES: NKDA. REVIEW OF SYSTEMS: As per admitting history and physical. PHYSICAL EXAMINATION: GENERAL: The patient is sleeping when I walk into the room, but is easily awoken. He is in good spirits. VITAL SIGNS: Stable. Temperature 36.8, pulse 76, respirations 18, BP 120/70, on room air, pulse ox is 96%. Of note no fevers from the time he came to the Emergency Room until now. The patient is oriented x3, pleasant, cooperative and in no acute distress. EXTREMITIES: Examination of the patient's right knee, he has a large dressing that was placed on it, which I have removed. He has some Steri-Strips left on the proximal and 1 distal portion of his wound over the prepatellar bursa. There is an area in between that that has opened but is not putting out any grossly purulent material. The dressings itself have a small amount of blood them. He has some mild dusky erythema over the patella and around the wound itself but no overt erythema and he has no pain on palpation over the patella and around the wound at this time. I cannot appreciate any fluid level at this time or fluctuance. He is able to go through gentle range of motion of the right knee without any pain at all. He has full extension without discomfort and states he is able to ambulate weightbearing as tolerated without pain. He states that sensation is intact of his right lower extremity. He does state that he had some mild decrease in sensation at the bottom of his foot, whenever the knee had swollen up over the weekend; however, that has since dissipated and is normal to him at this point in time. He has good active and passive range of motion of the right ankle and toes as well as the right hip. Left lower extremity is benign and has good range of motion throughout the exam. Upper extremities are benign and has good range of motion actively and passively throughout the exam. Distal pulses are equal bilaterally of the upper and lower extremities. NEUROLOGICAL: Sensation is intact and there are no gross motor deficits. The patient is alert and oriented. ASSESSMENT: Wound dehiscence, right prepatellar bursa incision. PLAN: I discussed the plan with Dr. Go who had seen the patient on Monday. He also has discussed the patient's care with Dr. Gates who initially got the consult. Plans will be to consult wound care nursing, which has been done by Dr. Hdez. I have spoken to Citlalli Carmelo and she will plan to place a wound VAC on the right knee if applicable; currently he is on clindamycin. However, Dr. Garcia has been consulted and will see this patient and adjust and change antibiotics as needed. We will also plan on keeping this patient in an immobilizer and limit his range of motion at this time to further help his wound to heal. We will continue to follow this patient during his stay and if wound VAC is not applicable will adjust our treatment as necessary. OLMAN
--- NOTE | 2017-01-23 13:53 | INFECT. DISEASE CONSULTATION ---
DATE OF CONSULTATION: 01/23/2017 REQUESTING PHYSICIAN: Dr. Hdez. HISTORY OF PRESENT ILLNESS: This is an 81-year-old gentleman who was admitted after he had dehiscence of a right knee wound. He was just seen in the office on Monday and was transitioned to oral antibiotics. He was finishing a course of Rocephin for septic bursitis growing MSSA on cultures dated 01/03 and again on 01/05. He had a final washout on 01/10 and intraoperative cultures at that time were negative. He was transitioned to p.o. Keflex. He did have his sutures removed in the orthopedic office on Monday and then followed up by ID in the office. On that exam, he had minimal serosanguineous drainage from the middle of the incision but no significant bleeding, pain, swelling, erythema or warmth. He was home on Monday and had a sudden dehiscence of wound with significant bleeding. He was brought to the Emergency Room and placed on IV clindamycin. He has been afebrile. He denies any pain in the knee. He denies any bleeding today. He is being followed by orthopedics and may undergo washout again. He denies any chest pain, cough, shortness of breath, nausea, vomiting or diarrhea. He is tolerating antibiotics well. All remaining review of systems are reviewed and are negative except for as noted above. PAST MEDICAL HISTORY: Significant for CLL, coronary artery disease, AFib and hypertension. He is chronically on Coumadin. PAST SURGICAL HISTORY: Significant for washout of the knee. FAMILY HISTORY: Noncontributory. SOCIAL HISTORY: Negative for tobacco use, alcohol use or drug use. ALLERGIES: He has no known drug allergies. CURRENT MEDICATIONS: Include Protonix, Toprol-XL, oxycodone, clindamycin, Tylenol and Zofran. PHYSICAL EXAMINATION: VITAL SIGNS: He is afebrile, pulse 76, respiratory rate is 18, blood pressure is 128/70, oxygen saturation is 96% on room air. GENERAL: He is awake, alert and oriented x3. He is in no acute distress. HEENT: Mucous membranes are moist. Extraocular muscles are intact. HEART: Without murmur. LUNGS: Clear. ABDOMEN: Soft. EXTREMITIES: There is no lower extremity edema. Right knee dressing is clean, dry and intact. There is no bleeding, surrounding warmth or erythema. LABORATORY STUDIES: CBC today reveals a white blood cell count of 48.9, hemoglobin 11, platelets are 203. Chemistry panel reveals a sodium of 142, potassium 4.3, chloride 108, bicarb 27, BUN 24, creatinine 1.3, glucose is 92. CRP is mildly elevated at 0.4. There are no cultures to review and the x-ray done in the ER shows no bony abnormalities. ASSESSMENT AND PLAN: Wound dehiscence with history of septic bursitis growing MSSA. He will be transitioned back to IV Rocephin, pending surgical plans. If there are no plans for surgery, certainly he could be transitioned back to oral antibiotics as previously planned. We will follow along with you. Thank you for this consultation.
--- NOTE | 2017-01-23 16:52 | Progress Note ---
Subjective Date of Service: Jan 23, 2017. (Martha Wright PA-C) Subjective Pt evaluation today including: conversation w/ patient, physical exam, chart review, lab review, review of studies, review of inpatient medication list Patient seen and evaluated. No acute events overnight. He is reporting improvement in right knee pain and states that edema has improved. Patient reports one episode of black tarry stool. States he hasn't had a bowel movement yet while admitted. (Martha Wright PA-C) Problem List Medical Problems: (1) Cellulitis of right leg Status: Acute (2) CLL (chronic lymphocytic leukemia) Status: Acute (3) Closed head injury Status: Acute (4) GI bleed Status: Acute (5) Supratherapeutic INR Status: Acute (6) Syncope Status: Acute (7) Weakness Status: Acute (8) Wound dehiscence Status: Acute (Martha Wright, MONI) Review of Systems Constitutional: No chills, No fever Eyes: No worsening of vision ENT: No nasal symptoms, No sore throat Respiratory: No cough, No shortness of breath Cardiac: No chest pain Abdomen: No constipation, No diarrhea, No nausea, No pain, No vomiting Musculoskeletal: + joint pain (R knee pain (improved)), No calf pain, No swelling Male : No dysuria Neurologic: No numbness/tingling, No vertigo Skin: No new/changing skin lesions, No rash (Martha Wright, TEDC) Medications Current Inpatient Medications Medications (Trade) Dose Ordered Sig/Dania Route Start Time Stop Time Status Last Admin Dose Admin Sodium Chloride (Nss 1000ml) 1,000 ml @ 100 mls/hr Q10H IV 01/22/17 17:00 02/21/17 16:59 01/23/17 14:04 100 MLS/HR Acetaminophen (Tylenol Tab) 650 mg Q4H PRN PO 01/22/17 14:15 02/21/17 14:14 Ondansetron HCl (Zofran Inj) 4 mg Q6H PRN IV 01/22/17 14:15 02/21/17 14:14 Metoprolol Succinate (Toprol Xl Tab) 25 mg HS PO 01/22/17 21:00 02/21/17 20:59 01/22/17 21:36 25 MG Oxycodone HCl (Roxicodone Immediate Rel Tab) 5 mg Q6 PO 01/22/17 18:00 02/05/17 17:59 01/23/17 11:21 5 MG Pantoprazole Sodium 40 mg 40 mg BID PO 01/23/17 09:00 02/22/17 08:59 01/23/17 08:21 40 MG Ceftriaxone Sodium/Dextrose (Rocephin Inj/D5 50ml) 70 ml @ 140 mls/hr Q24H IV 01/23/17 12:00 03/06/17 11:59 01/23/17 12:51 140 MLS/HR (Martha Wright, ENRRIQUE-C) Objective Vital Signs Date Time Temp Pulse Resp B/P Pulse Ox O2 Delivery O2 Flow Rate FiO2 01/23/17 16:01 36.6 79 17 108/62 95 Room Air 01/23/17 14:00 36.7 73 16 111/60 95 Room Air 01/23/17 13:43 36.9 58 16 96 01/23/17 11:38 Room Air 01/23/17 11:33 36.9 58 16 115/64 96 Room Air 01/23/17 08:00 Room Air 01/23/17 08:00 36.8 76 18 128/70 96 Room Air 01/23/17 04:00 Room Air 01/23/17 03:09 36.5 71 17 108/68 96 Room Air 01/23/17 00:01 Room Air 01/22/17 23:32 37.0 86 17 124/70 95 Room Air 01/22/17 21:35 79 106/71 01/22/17 20:00 97 Room Air 01/22/17 19:35 36.6 88 16 108/60 97 Room Air (Martha Wright, PA-C) Physical Exam General Appearance: WD/WN, no apparent distress Eyes: sclerae normal ENT: hearing grossly normal Neck: supple, no JVD, trachea midline Respiratory/Chest: lungs clear, normal breath sounds, no respiratory distress, no accessory muscle use Cardiovascular: regular rate, rhythm, no gallop, no murmur Abdomen: normal bowel sounds, non tender, soft Extremities: non-tender, no pedal edema, normal capillary refill, + pertinent finding (R knee with TRENT wrap in place that is clean/dry/intact) Neurologic/Psychiatric: alert, oriented x 3 Skin: normal color, warm/dry (Martha Wright PA-C) Laboratory Results Last 24 Hours Test 01/22/17 21:04 01/23/17 06:05 01/23/17 08:07 Hemoglobin 11.1 g/dL 11.0 g/dL Hematocrit 33.1 % 33.4 % Troponin I < 0.015 ng/ml < 0.015 ng/ml White Blood Count 48.99 K/uL Red Blood Count 3.63 M/uL Mean Corpuscular Volume 92.0 fL Mean Corpuscular Hemoglobin 30.3 pg Mean Corpuscular Hemoglobin Concent 32.9 g/dl Platelet Count 203 K/uL Mean Platelet Volume 9.3 fL RDW Standard Deviation 51.4 fL RDW Coefficient of Variation 15.2 % Neutrophils % (Manual) 5.0 % Lymphocytes % (Manual) 29.0 % Prolymphocyte % 15.0 % Variant Lymphocytes % (manual) 47.0 % Monocytes % (Manual) 2.0 % Basophils % (Manual) 2.0 % Neutrophils # (Manual) 2.45 K/uL Total Absolute Neutrophils 2.45 K/uL Lymphocytes # (Manual) 14.21 K/uL Prolymphocyte # 7.35 K/uL Absolute Variant Lymphocytes 23.03 K/uL Total Absolute Lymphocytes 37.23 K/uL Monocytes # (Manual) 0.98 K/uL Basophils # (Manual) 0.98 K/uL Smudge Cells PRESENT Red Blood Cell Morphology Unremarkable Sodium Level 142 mmol/L Potassium Level 4.3 mmol/L Chloride Level 108 mmol/L Carbon Dioxide Level 27 mmol/L Anion Gap 7.0 mmol/L Blood Urea Nitrogen 24 mg/dl Creatinine 1.30 mg/dl Est Creatinine Clear Calc Drug Dose 43.1 ml/min Estimated GFR () 58.5 Estimated GFR (Non- 50.5 BUN/Creatinine Ratio 18.1 Random Glucose 92 mg/dl Calcium Level 8.1 mg/dl Prothrombin Time 14.3 SECONDS Prothromb Time International Ratio 1.3 (Martha Wright PA-C) Assessment and Plan Pt is a 81 yo male with hx of MSSA septic knee who underwent washout of knee by Dr Go 3 weeks ago admitted to ER today for worsening pain, wound dehiscence and also 1 episode of dark tarry stool this AM. Wound Dehiscence S/P Washout of R Septic Knee (3 Weeks Ago): - Hold Coumadin - vitamin K administered in ED - INR currently 1.3 - no evidence of active bleeding at this time - Orthopedics following - recommend wound VAC, knee immobilizer, and limited ROM - Infectious disease following - Rocephin 2 g IV daily - probable conversion to by mouth Keflex - Wound care following - appreciate recommendations and wound VAC Melena: Hgb Stable at 11 - Hold Coumadin - Protonix 40 mg BID - Trend H&H HTN: Stable - Metoprolol succinate 25 mg daily Paroxysmal Atrial Fibrillation: Currently NSR - Hold Coumadin - Metoprolol succinate 25 mg daily CLL - Leukocytosis at Baseline DVT Prophylaxis: - TRANG/SCDs Code Status: DO NOT RESUSCITATE (Martha Wright, PACateC) Attending Attestation: Pt seen/examined, chart reviewed, care plan d/w ENRRIQUE Wright. I agree w/ the shaw components of her documentation. Only complaint is that of right knee pain. No sob. VSS no fever gen - nad heart - RRR lungs - CTA b/l ext - right knee wrapped in large TRENT dressing WBC count on CBC 45-50 range INR 1.3 Cr 1.3 A/P: 1. recent right septic knee 2nd to MSSA - s/p wash-out/debridement, abx beads, etc now with wound dehiscence no plans for surgery at this time wound vac placement appreciate ortho & ID consults 2. CLL - WBC stable 3. a. fib - in NSR resume coumadin since no surgery planned 4. CKD stage 3 - Cr stable hopefully home with or back to rehab soon Kalyan SUERO MD (Ari Suero MD)
[2017-01-23] MEDS: METOPROLOL SUCC 25MG EXT REL TAB PO SCH (22:40)
[2017-01-24] MEDS: OXYCODONE HCL IR 5 MG TAB (IMMEDIATE RELEASE) PO SCH (06:00)
[2017-01-24 06:38] LABS: BUN/CREATININE RATIO 16.6 (10-20); CALCIUM 8.1 mg/dl (8.5-10.1); CREATININE 1.3 mg/dl (0.60-1.40); POTASSIUM 4.4 mmol/L (3.5-5.1)
[2017-01-24 06:55] LABS: HEMATOCRIT 33.5 % (42-52); MEAN CELL VOLUME 93.6 fL (80-100); MEAN CORPUSCULAR HEMOGLOBIN 30.7 pg (25-34); MEAN CORPUSCULAR HGB CONC 32.8 g/dl (32-36); MEAN PLATELET VOLUME 9.8 fL (7.4-10.4); PLATELET COUNT 190 K/uL (130-400); RED BLOOD COUNT 3.58 M/uL (4.7-6.1); WHITE BLOOD COUNT 50.23 K/uL (4.8-10.8)
[2017-01-24 07:21] VITALS: BP 127/70; PULSE 73; TEMP 36.5; O2SAT 97
[2017-01-24 07:48] LABS: COMPLETE YES; LYMPH ABS # 19.59 K/uL (1.2-3.4); VARIANT LYM ABS # 27.63 K/uL
[2017-01-24] MEDS: PANTOprazole INJ 40 MG in SYRINGE 0 ML IV SCH ×2 (09:36→20:55)
--- NOTE | 2017-01-24 11:26 | Infectious Disease Progress Nt ---
Progress Note Date of Service Jan 24, 2017. Subjective Pt evaluation today including: conversation w/ patient, physical exam, chart review, lab review, review of studies, review of inpatient medication list WBC count today is 50.23 with predoninantly lymphocytes. Creatinine is stable at 1.30. He continues to tolerate his IV Ceftriaxone well. Awaiting further orthopedic opinion since wound VAC was not placed yesterday. He states that his pain is well controlled today. He denies sweats, chills, diarrhea, or abdominal pain. All Other Systems: Reviewed and Negative Medications Current Inpatient Medications Medications (Trade) Dose Ordered Sig/Dania Route Start Time Stop Time Status Last Admin Dose Admin Acetaminophen (Tylenol Tab) 650 mg Q4H PRN PO 01/22/17 14:15 02/21/17 14:14 Ondansetron HCl (Zofran Inj) 4 mg Q6H PRN IV 01/22/17 14:15 02/21/17 14:14 Metoprolol Succinate 25 mg 25 mg HS PO 01/22/17 21:00 02/21/17 20:59 01/23/17 22:40 25 MG Ceftriaxone Sodium/Dextrose (Rocephin Inj/D5 50ml) 70 ml @ 140 mls/hr Q24H IV 01/23/17 12:00 03/06/17 11:59 01/23/17 12:51 140 MLS/HR Oxycodone HCl 10 mg 10 mg Q6H PRN PO 01/24/17 12:00 02/07/17 11:59 Pantoprazole Sodium/Syringe (Protonix Inj/ Syringe) 10 ml @ 5 mls/min DAILY@ IV 01/24/17 09:00 02/23/17 08:59 01/24/17 09:36 5 MLS/MIN Objective Vital Signs Date Time Temp Pulse Resp B/P Pulse Ox O2 Delivery O2 Flow Rate FiO2 01/24/17 07:50 Room Air 01/24/17 07:21 36.5 73 15 127/70 97 Room Air 01/23/17 23:30 Room Air 01/23/17 22:57 36.5 87 18 134/73 98 Room Air 01/23/17 16:01 36.6 79 17 108/62 95 Room Air 01/23/17 15:45 Room Air 01/23/17 14:00 36.7 73 16 111/60 95 Room Air 01/23/17 13:43 36.9 58 16 96 01/23/17 11:38 Room Air 01/23/17 11:33 36.9 58 16 115/64 96 Room Air Physical Exam General Appearance: WD/WN, no apparent distress Eyes: normal inspection, sclerae normal ENT: hearing grossly normal Neck: supple, trachea midline Respiratory/Chest: no respiratory distress, no accessory muscle use Cardiovascular: regular rate, rhythm Extremities: + pertinent finding (Large leg brace on right leg) Neurologic/Psychiatric: alert, normal mood/affect Skin: normal color, warm/dry, no rash Laboratory Results RIGHT KNEE 1 OR 2 VIEWS ROUTINE CLINICAL HISTORY: right knee post op wound dehisce Right COMPARISON: 01/03/2017 DISCUSSION: 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 Anterior and slightly lateral to the patella are multiple radiopaque foreign bodies within and area of soft tissue prepatellar edematous change. These extend over a soft tissue geographic dimension of 7 x 3 cm. No acute bony abnormality is identified. IMPRESSION: Multiple radiopaque foreign bodies within the soft tissues anterolateral to the patella. Pre-existing degenerative change of all major joint compartments. No acute process specifically of the osseous structures. Last 24 Hours Test 01/24/17 05:45 White Blood Count 50.23 K/uL Red Blood Count 3.58 M/uL Hemoglobin 11.0 g/dL Hematocrit 33.5 % Mean Corpuscular Volume 93.6 fL Mean Corpuscular Hemoglobin 30.7 pg Mean Corpuscular Hemoglobin Concent 32.8 g/dl Platelet Count 190 K/uL Mean Platelet Volume 9.8 fL RDW Standard Deviation 51.7 fL RDW Coefficient of Variation 15.2 % Neutrophils % (Manual) 5.0 % Lymphocytes % (Manual) 39.0 % Variant Lymphocytes % (manual) 55.0 % Monocytes % (Manual) 1.0 % Neutrophils # (Manual) 2.51 K/uL Total Absolute Neutrophils 2.51 K/uL Lymphocytes # (Manual) 19.59 K/uL Absolute Variant Lymphocytes 27.63 K/uL Total Absolute Lymphocytes 47.22 K/uL Monocytes # (Manual) 0.50 K/uL Red Blood Cell Morphology Unremarkable Sodium Level 143 mmol/L Potassium Level 4.4 mmol/L Chloride Level 110 mmol/L Carbon Dioxide Level 26 mmol/L Anion Gap 7.0 mmol/L Blood Urea Nitrogen 22 mg/dl Creatinine 1.30 mg/dl Est Creatinine Clear Calc Drug Dose 43.1 ml/min Estimated GFR () 58.5 Estimated GFR (Non- 50.5 BUN/Creatinine Ratio 16.6 Random Glucose 92 mg/dl Calcium Level 8.1 mg/dl Assessment and Plan Patient with right knee wound dehiscence and history of MSSA prepatellar bursitis. He is currently on IV Ceftriaxone awaiting orthopedic opinion regarding further intervention/wound care. He very likely can transition to PO Keflex 500 mg BID again upon discharge. OK to continue IV therapy while inhouse pending surgical intervention/other wound care. We will follow. PROVIDER ADDENDUM: Patient reviewed with Ms. Yanez. Agree with above assessment.
[2017-01-24] MEDS ORDERED: OXYCODONE HCL IR 5 MG TAB (IMMEDIATE RELEASE) PO PRN (12:00)
[2017-01-24] MEDS: CEFTRIAXONE SOD INJ 2000 MG in DEXTROSE 5% 50ML IV SCH (12:20)
[2017-01-24 15:40] VITALS: BP 114/66; PULSE 79; TEMP 36.7; O2SAT 95
--- NOTE | 2017-01-24 16:12 | Progress Note ---
Subjective Date of Service: Jan 24, 2017. Subjective pt has no additional melena, vac placed on wound. Problem List Medical Problems: (1) Cellulitis of right leg Status: Acute (2) CLL (chronic lymphocytic leukemia) Status: Acute (3) Closed head injury Status: Acute (4) GI bleed Status: Acute (5) Supratherapeutic INR Status: Acute (6) Syncope Status: Acute (7) Weakness Status: Acute (8) Wound dehiscence Status: Acute Review of Systems Constitutional: No chills, No fever, No weakness Cardiac: No chest pain, No edema, No orthopnea Abdomen: No diarrhea, No nausea, No pain, No vomiting Male : No dysuria, No urinary frequency Psychiatric: No anhedonism, No depression symptoms Objective Vital Signs Date Time Temp Pulse Resp B/P Pulse Ox O2 Delivery O2 Flow Rate FiO2 01/23/17 23:30 Room Air 01/23/17 22:57 36.5 87 18 134/73 98 Room Air 01/23/17 16:01 36.6 79 17 108/62 95 Room Air 01/23/17 15:45 Room Air 01/23/17 14:00 36.7 73 16 111/60 95 Room Air 01/23/17 13:43 36.9 58 16 96 01/23/17 11:38 Room Air 01/23/17 11:33 36.9 58 16 115/64 96 Room Air Physical Exam General Appearance: WD/WN, + mild distress Neck: supple, no JVD Respiratory/Chest: chest non-tender, lungs clear, normal breath sounds Cardiovascular: regular rate, rhythm, no murmur Abdomen: normal bowel sounds, non tender, soft Extremities: + pertinent finding (vac in place centrally, some dusky skin surrounding) Laboratory Results Last 24 Hours Test 01/23/17 08:07 01/24/17 05:45 Prothrombin Time 14.3 SECONDS Prothromb Time International Ratio 1.3 White Blood Count 50.23 K/uL Red Blood Count 3.58 M/uL Hemoglobin 11.0 g/dL Hematocrit 33.5 % Mean Corpuscular Volume 93.6 fL Mean Corpuscular Hemoglobin 30.7 pg Mean Corpuscular Hemoglobin Concent 32.8 g/dl Platelet Count 190 K/uL Mean Platelet Volume 9.8 fL RDW Standard Deviation 51.7 fL RDW Coefficient of Variation 15.2 % Neutrophils % (Manual) 5.0 % Lymphocytes % (Manual) 39.0 % Variant Lymphocytes % (manual) 55.0 % Monocytes % (Manual) 1.0 % Neutrophils # (Manual) 2.51 K/uL Total Absolute Neutrophils 2.51 K/uL Lymphocytes # (Manual) 19.59 K/uL Absolute Variant Lymphocytes 27.63 K/uL Total Absolute Lymphocytes 47.22 K/uL Monocytes # (Manual) 0.50 K/uL Red Blood Cell Morphology Unremarkable Sodium Level 143 mmol/L Potassium Level 4.4 mmol/L Chloride Level 110 mmol/L Carbon Dioxide Level 26 mmol/L Anion Gap 7.0 mmol/L Blood Urea Nitrogen 22 mg/dl Creatinine 1.30 mg/dl Est Creatinine Clear Calc Drug Dose 43.1 ml/min Estimated GFR () 58.5 Estimated GFR (Non- 50.5 BUN/Creatinine Ratio 16.6 Random Glucose 92 mg/dl Calcium Level 8.1 mg/dl Assessment and Plan Pt is a 81 yo male with hx of MSSA septic knee who underwent washout of knee by Dr Go 3 weeks ago, wound dehiscence and also 1 episode of dark tarry stool Wound Dehiscence S/P Washout of R Septic Knee (3 Weeks Ago): - Hold Coumadin - vitamin K administered in ED - Orthopedics following - recommend wound VAC, knee immobilizer, and limited ROM , no plans for further surgical intervention - Infectious disease following - Rocephin 2 g IV daily - probable conversion to po Keflex Melena: Hgb Stable at 11, Hold Coumadin, Protonix 40 mg iv BID, if hgb remains stable will consider outpt colo if needed Paroxysmal Atrial Fibrillation/: HTN:Currently NSR Hold Coumadin Metoprolol succinate 25 mg daily CLL - Leukocytosis remains 50K range DVT Prophylaxis: - TRANG/SCDs
--- NOTE | 2017-01-24 16:14 | Orthopedic Progress Note ---
Orthopedic Progress Note Date of Service Jan 24, 2017. Subjective Additional Notes: Pt asleep when I walked in. Easiy awoken. No complaints. Pain controlled. Objective Wound vac applied. Seems to have less erythema today around the patella. No overt drainage. Immobilizer put back on. Date Time Temp Pulse Resp B/P Pulse Ox O2 Delivery O2 Flow Rate FiO2 01/24/17 15:40 36.7 79 18 114/66 95 Room Air 01/24/17 07:50 Room Air 01/24/17 07:21 36.5 73 15 127/70 97 Room Air 01/23/17 23:30 Room Air 01/23/17 22:57 36.5 87 18 134/73 98 Room Air Laboratory Results 24 Hours: Test 01/24/17 05:45 White Blood Count 50.23 K/uL Red Blood Count 3.58 M/uL Hemoglobin 11.0 g/dL Hematocrit 33.5 % Mean Corpuscular Volume 93.6 fL Mean Corpuscular Hemoglobin 30.7 pg Mean Corpuscular Hemoglobin Concent 32.8 g/dl Platelet Count 190 K/uL Mean Platelet Volume 9.8 fL Assessment & Plan Assessment: Wound dehiscence Right Preatellar Area s/p I&D Plan: As per Wound Care team No surgery planned currently May be OOB WBAT with Immobilizer and walker. Inhouse Planning Pain Management: Oxy IR
[2017-01-24] MEDS: METOPROLOL SUCC 25MG EXT REL TAB PO SCH (20:55)
[2017-01-24 23:12] VITALS: BP 122/72; PULSE 78; TEMP 36.9; O2SAT 93
[2017-01-25 07:40] LABS: HEMATOCRIT 34.5 % (42-52); MEAN CELL VOLUME 90.1 fL (80-100); MEAN CORPUSCULAR HGB CONC 33.3 g/dl (32-36); MEAN PLATELET VOLUME 9.4 fL (7.4-10.4); PLATELET COUNT 195 K/uL (130-400); RED BLOOD COUNT 3.83 M/uL (4.7-6.1)
[2017-01-25 07:45] LABS: BUN/CREATININE RATIO 17.7 (10-20); CALCIUM 8.4 mg/dl (8.5-10.1); CREATININE 1.3 mg/dl (0.60-1.40); POTASSIUM 4.3 mmol/L (3.5-5.1)
[2017-01-25 07:51] VITALS: BP 138/78; PULSE 76; TEMP 36.6; O2SAT 95
[2017-01-25] MEDS: PANTOprazole INJ 40 MG in SYRINGE 0 ML IV SCH ×2 (08:40→21:15)
[2017-01-25] MEDS: ARGININE EXTRA NUTRITION DRINK 1 BOX PO SCH ×2 (08:40→21:14)
[2017-01-25 09:42] VITALS: O2SAT 95
[2017-01-25 10:57] LABS: COMPLETE YES; LYMPH ABS # 11.18 K/uL (1.2-3.4); LYMPHOCYTE % 24.4 %; NEUTROPHILS % 6.3 %; VARIANT LYM ABS # 30.32 K/uL; VARIANT LYMPHOCYTE % 66.2 %
[2017-01-25] MEDS: CEFTRIAXONE SOD INJ 2000 MG in DEXTROSE 5% 50ML IV SCH (12:32)
[2017-01-25 16:34] VITALS: BP 145/76; PULSE 76; TEMP 36.8; O2SAT 97
--- NOTE | 2017-01-25 17:39 | Progress Note ---
Subjective Date of Service: Jan 25, 2017. Subjective pt is patiently waiting, wound vac is in place, attempted to call family and go answering machine Problem List Medical Problems: (1) Cellulitis of right leg Status: Acute (2) CLL (chronic lymphocytic leukemia) Status: Acute (3) Closed head injury Status: Acute (4) GI bleed Status: Acute (5) Supratherapeutic INR Status: Acute (6) Syncope Status: Acute (7) Weakness Status: Acute (8) Wound dehiscence Status: Acute Review of Systems Constitutional: No chills, No fever, No weakness Respiratory: No cough, No shortness of breath Cardiac: No chest pain, No edema Abdomen: No diarrhea, No nausea, No pain, No vomiting Musculoskeletal: + joint pain, + swelling, No muscle pain Neurologic: No memory loss, No paralysis Psychiatric: No anhedonism, No depression symptoms Objective Vital Signs Date Time Temp Pulse Resp B/P Pulse Ox O2 Delivery O2 Flow Rate FiO2 01/25/17 16:34 36.8 76 17 145/76 97 Room Air 01/25/17 09:42 95 Room Air 01/25/17 07:51 36.6 76 16 138/78 95 Room Air 01/25/17 07:40 Room Air 01/25/17 00:20 Room Air 01/24/17 23:12 36.9 78 17 122/72 93 Room Air Physical Exam General Appearance: WD/WN, + mild distress Neck: supple, thyroid normal Respiratory/Chest: chest non-tender, lungs clear, no accessory muscle use Cardiovascular: regular rate, rhythm, no murmur Abdomen: normal bowel sounds, non tender, soft Extremities: + pertinent finding (wound vac with some bogginess surrounding but much improved) Neurologic/Psychiatric: alert, oriented x 3 Laboratory Results Last 24 Hours Test 01/25/17 06:53 White Blood Count 45.80 K/uL Red Blood Count 3.83 M/uL Hemoglobin 11.5 g/dL Hematocrit 34.5 % Mean Corpuscular Volume 90.1 fL Mean Corpuscular Hemoglobin 30.0 pg Mean Corpuscular Hemoglobin Concent 33.3 g/dl Platelet Count 195 K/uL Mean Platelet Volume 9.4 fL RDW Standard Deviation 48.8 fL RDW Coefficient of Variation 14.9 % Neutrophils % (Manual) 6.3 % Lymphocytes % (Manual) 24.4 % Variant Lymphocytes % (manual) 66.2 % Monocytes % (Manual) 3.1 % Neutrophils # (Manual) 2.89 K/uL Total Absolute Neutrophils 2.89 K/uL Lymphocytes # (Manual) 11.18 K/uL Absolute Variant Lymphocytes 30.32 K/uL Total Absolute Lymphocytes 41.49 K/uL Monocytes # (Manual) 1.42 K/uL Sodium Level 141 mmol/L Potassium Level 4.3 mmol/L Chloride Level 107 mmol/L Carbon Dioxide Level 25 mmol/L Anion Gap 9.0 mmol/L Blood Urea Nitrogen 23 mg/dl Creatinine 1.30 mg/dl Est Creatinine Clear Calc Drug Dose 43.1 ml/min Estimated GFR () 58.5 Estimated GFR (Non- 50.5 BUN/Creatinine Ratio 17.7 Random Glucose 85 mg/dl Calcium Level 8.4 mg/dl Assessment and Plan Pt is a 81 yo male with hx of MSSA septic knee who underwent washout of knee by Dr Go 3 weeks ago, wound dehiscence and also 1 episode of dark tarry stool Wound Dehiscence S/P Washout of R Septic Knee (3 Weeks Ago): - Held Coumadin - vitamin K administered in ED - Orthopedics following - recommend wound VAC, knee immobilizer, and limited ROM , no plans for further surgical intervention - Infectious disease following - Rocephin 2 g IV daily - probable conversion to po Keflex Melena: Hgb Stable at 11, Hold Coumadin, Protonix 40 mg iv BID, as hgb remained stable will consider outpt colo Paroxysmal Atrial Fibrillation/: HTN:Currently NSR Hold Coumadin Metoprolol succinate 25 mg daily, pt in sinus rhythm CLL - Leukocytosis remains 50K range DVT Prophylaxis: - TRANG/SCDs
[2017-01-25 21:10] VITALS: BP 123/65; PULSE 76
[2017-01-25] MEDS: METOPROLOL SUCC 25MG EXT REL TAB PO SCH (21:14)
[2017-01-25 23:59] VITALS: BP 104/68; PULSE 83; TEMP 36.5; O2SAT 95
[2017-01-26 06:56] LABS: HEMATOCRIT 33.4 % (42-52); MEAN CELL VOLUME 90.3 fL (80-100); MEAN CORPUSCULAR HGB CONC 33.2 g/dl (32-36); MEAN PLATELET VOLUME 9.6 fL (7.4-10.4); PLATELET COUNT 181 K/uL (130-400); WHITE BLOOD COUNT 44.11 K/uL (4.8-10.8)
[2017-01-26 07:06] LABS: BUN/CREATININE RATIO 20.1 (10-20); CALCIUM 8.2 mg/dl (8.5-10.1); CREATININE 1.5 mg/dl (0.60-1.40); POTASSIUM 3.6 mmol/L (3.5-5.1)
[2017-01-26 07:11] VITALS: BP 123/69; PULSE 67; TEMP 36.7; O2SAT 97
[2017-01-26] MEDS: ARGININE EXTRA NUTRITION DRINK 1 BOX PO SCH ×2 (07:56→20:30)
[2017-01-26] MEDS: PANTOprazole INJ 40 MG in SYRINGE 0 ML IV SCH (07:57)
[2017-01-26 08:28] LABS: COMPLETE YES; LYMPH ABS # 18.39 K/uL (1.2-3.4); LYMPHOCYTE % 41.7 %; NEUTROPHILS % 5.2 %; PROLYM# MAN 1.54 K/uL (0-0); SMUDGE CELLS PRESENT; VARIANT LYM ABS # 21.88 K/uL; VARIANT LYMPHOCYTE % 49.6 %
--- NOTE | 2017-01-26 11:06 | Infectious Disease Progress Nt ---
Progress Note Date of Service Jan 26, 2017. Subjective Pt evaluation today including: conversation w/ patient, physical exam, chart review, lab review, review of studies, conversation w/ consultant internship, review of inpatient medication list WBC count this morning was 44.11. Hgb is stable at 11.1. Creatinine slightly elevated today to 1.50. No new micro or imaging studies. I did discuss this patient with Dr. Cloud. He continues on IV Ceftriaxone. Awaiting wound care evaluation/eval for home wound vac. The patient continues to have some nausea with sitting for long periods of time. His pain overall is well controlled on current medications. He has an irrigating wound vac in place. All Other Systems: Reviewed and Negative Medications Current Inpatient Medications Medications (Trade) Dose Ordered Sig/Dania Route Start Time Stop Time Status Last Admin Dose Admin Acetaminophen (Tylenol Tab) 650 mg Q4H PRN PO 01/22/17 14:15 02/21/17 14:14 Ondansetron HCl (Zofran Inj) 4 mg Q6H PRN IV 01/22/17 14:15 02/21/17 14:14 Metoprolol Succinate 25 mg 25 mg HS PO 01/22/17 21:00 02/21/17 20:59 01/25/17 21:14 25 MG Ceftriaxone Sodium/Dextrose (Rocephin Inj/D5 50ml) 70 ml @ 140 mls/hr Q24H IV 01/23/17 12:00 03/06/17 11:59 01/25/17 12:32 140 MLS/HR Oxycodone HCl 10 mg 10 mg Q6H PRN PO 01/24/17 12:00 02/07/17 11:59 Pantoprazole Sodium/Syringe (Protonix Inj/ Syringe) 10 ml @ 5 mls/min DAILY@ IV 01/24/17 09:00 02/23/17 08:59 01/26/17 07:57 5 MLS/MIN Enteral Nutritional Formula (Arginaid Extra) 1 box BID PO 01/25/17 09:00 02/24/17 08:59 01/26/17 07:56 1 BOX Objective Vital Signs Date Time Temp Pulse Resp B/P Pulse Ox O2 Delivery O2 Flow Rate FiO2 01/26/17 09:49 Room Air 01/26/17 07:11 36.7 67 16 123/69 97 Room Air 01/26/17 00:05 Room Air 01/25/17 23:59 36.5 83 18 104/68 95 Room Air 01/25/17 21:10 76 123/65 01/25/17 16:34 36.8 76 17 145/76 97 Room Air 01/25/17 16:30 Room Air Physical Exam General Appearance: WD/WN, no apparent distress Eyes: normal inspection, sclerae normal ENT: hearing grossly normal Neck: supple, trachea midline Respiratory/Chest: no respiratory distress, no accessory muscle use Cardiovascular: + pertinent finding (regular rate) Extremities: + pertinent finding (knee immobilizer on right knee. Irrigating wound vac in place) Neurologic/Psychiatric: alert, normal mood/affect Skin: normal color, warm/dry, no rash Laboratory Results Last 24 Hours Test 01/26/17 06:11 White Blood Count 44.11 K/uL Red Blood Count 3.70 M/uL Hemoglobin 11.1 g/dL Hematocrit 33.4 % Mean Corpuscular Volume 90.3 fL Mean Corpuscular Hemoglobin 30.0 pg Mean Corpuscular Hemoglobin Concent 33.2 g/dl Platelet Count 181 K/uL Mean Platelet Volume 9.6 fL RDW Standard Deviation 48.8 fL RDW Coefficient of Variation 14.9 % Neutrophils % (Manual) 5.2 % Lymphocytes % (Manual) 41.7 % Prolymphocyte % 3.5 % Variant Lymphocytes % (manual) 49.6 % Neutrophils # (Manual) 2.29 K/uL Total Absolute Neutrophils 2.29 K/uL Lymphocytes # (Manual) 18.39 K/uL Prolymphocyte # 1.54 K/uL Absolute Variant Lymphocytes 21.88 K/uL Total Absolute Lymphocytes 40.27 K/uL Smudge Cells PRESENT Sodium Level 142 mmol/L Potassium Level 3.6 mmol/L Chloride Level 109 mmol/L Carbon Dioxide Level 23 mmol/L Anion Gap 10.0 mmol/L Blood Urea Nitrogen 30 mg/dl Creatinine 1.50 mg/dl Est Creatinine Clear Calc Drug Dose 37.3 ml/min Estimated GFR () 49.2 Estimated GFR (Non- 42.4 BUN/Creatinine Ratio 20.1 Random Glucose 114 mg/dl Calcium Level 8.2 mg/dl Assessment and Plan Patient with right knee wound dehiscence and history of MSSA prepatellar bursitis. He is currently on IV Ceftriaxone awaiting wound care opinion regarding continued wound vac. He can transition to PO Keflex 500 mg BID again upon discharge. Recommend at least 2 more weeks of therapy pending further outpatient improvement. OK for D/C from ID perspective when cleared by wound/ ortho. We will follow as outpatient. Thanks PROVIDER ADDENDUM: Patient reviewed with Ms. Yanez. Agree with above assessment.
[2017-01-26] MEDS: CEFTRIAXONE SOD INJ 2000 MG in DEXTROSE 5% 50ML IV SCH (12:22)
--- NOTE | 2017-01-26 14:48 | CONSULTATION REPORT ---
DATE OF CONSULTATION: 01/25/2017 DATE OF CONSULTATION: 01/25/2017. CHIEF COMPLAINT: Postoperative wound dehiscence, right knee. HISTORY OF PRESENT ILLNESS: The patient underwent a surgical procedure for a washout of a septic bursitis of the right knee approximately 2 weeks prior. The patient was recently readmitted to the hospital 3 days prior for evaluation of infection in this site and wound dehiscence. The patient today has no other systemic complaints of fever, chills or night sweats. The patient denies any chest pain, shortness of breath, abdominal discomfort, nausea or vomiting. The patient denies any new trauma to the site. 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 SOCIAL HISTORY: The patient is a nonsmoker. REVIEW OF MEDICATIONS: Were noted in the nursing notes and were reviewed. ALLERGIES: None. REVIEW OF SYSTEMS: Ten systems were reviewed in their entirety and positive findings were noted in the chief complaint and history of present illness. PHYSICAL EXAMINATION: GENERAL: The patient is currently sitting in hospital bed in no acute distress, alert and cooperative throughout the examination. HEAD, EYES, EARS, NOSE, AND THROAT: Pupils equal and reactive to light. Sclerae clear. NECK: Supple. CHEST: Heart and lungs clear to auscultation. EXTREMITIES: Reveals the presence of a postoperative wound dehiscence of the right knee measuring 3.9 x 1.2 x 1.2 cm. There is tunneling present at 4 o'clock of 1 cm and at 12 o'clock of 2.1 cm. There is hematoma formation present in the base of the site. There is no periwound erythema, active drainage or odor present. No significant palpable fluctuance present in the knee joint area. Distal neurovascular bundles intact. NEUROLOGIC EXAMINATION: The patient is alert and oriented x3. There are no focal deficits noted. IMPRESSION: Postoperative wound dehiscence, right knee with hematoma formation. PLAN: At this time, the site did require debridement and evacuation of the existing hematoma. With the patient's permission and after the application of topical Xylocaine 4% this was performed with a combination of #5 curette and copious irrigation of normal saline. Greater than 95% of the clot material was removed. Minimal residual was noted. There was no active bleeding present. No tenderness to palpation noted. No exposure of bone is present in the base. This site will be managed with an irrigating wound VAC over the next 24-48 hours and then converted to a conventional wound VAC. Black foam will be placed in the base of the wound. Irrigation of normal saline 10 minutes on, 2 hours of the VAC at 125 mm of negative pressure. The patient will continue to be monitored during his hospital course and will be followed on an outpatient basis upon discharge. It is recommended that wound VAC therapy be maintained once the patient is discharged at 125 mm of negative pressure, black foam in the base, wound VAC changed 3 times weekly. This represented an evacuation of hematoma in the right lower extremity.
[2017-01-26 16:11] VITALS: BP 125/68; PULSE 79; TEMP 36.5; O2SAT 98
--- NOTE | 2017-01-26 17:16 | Orthopedic Progress Note ---
Orthopedic Progress Note Date of Service Jan 26, 2017. Subjective Reports: feeling well, Denies: complaints Additional Notes: States he's doing well overall. Wound Care nurses present to change wound vac. Objective calves soft nontender, N/V intact, A&O x3, toes mobile Wound without purulence. Small darkened area noted by Wound Care that was not there yesterday. (Pictures noted in imaging) Date Time Temp Pulse Resp B/P Pulse Ox O2 Delivery O2 Flow Rate FiO2 01/26/17 16:11 36.5 79 18 125/68 98 Room Air 01/26/17 09:49 Room Air 01/26/17 07:11 36.7 67 16 123/69 97 Room Air 01/26/17 00:05 Room Air 01/25/17 23:59 36.5 83 18 104/68 95 Room Air 01/25/17 21:10 76 123/65 Laboratory Results 24 Hours: Test 01/26/17 06:11 White Blood Count 44.11 K/uL Red Blood Count 3.70 M/uL Hemoglobin 11.1 g/dL Hematocrit 33.4 % Mean Corpuscular Volume 90.3 fL Mean Corpuscular Hemoglobin 30.0 pg Mean Corpuscular Hemoglobin Concent 33.2 g/dl Platelet Count 181 K/uL Mean Platelet Volume 9.6 fL Assessment & Plan Assessment: Wound dehiscence Right Preatellar Area s/p I&D Plan: As per Wound Care team - holding off of reapplying vac to see how the wound does overnight. If darkened area broadens, may need consider further debridement. If better tomorrow, Vac will be reapplied. Inhouse Planning Pain Management: Oxy IR
--- NOTE | 2017-01-26 17:35 | Progress Note ---
Subjective Date of Service: Jan 26, 2017. Subjective pt is doing well, some difference in opinion regarding if he is to return home( his wishes) or not (his daughters request) wound is being irrigated and vac'd Problem List Medical Problems: (1) Cellulitis of right leg Status: Acute (2) CLL (chronic lymphocytic leukemia) Status: Acute (3) Closed head injury Status: Acute (4) GI bleed Status: Acute (5) Supratherapeutic INR Status: Acute (6) Syncope Status: Acute (7) Weakness Status: Acute (8) Wound dehiscence Status: Acute Review of Systems Constitutional: + weakness, No chills, No fatigue, No fever Respiratory: No cough, No shortness of breath Cardiac: No chest pain, No edema Abdomen: No diarrhea, No nausea, No pain, No vomiting Musculoskeletal: + joint pain, + swelling, No muscle pain Neurologic: No memory loss, No weakness Objective Vital Signs Date Time Temp Pulse Resp B/P Pulse Ox O2 Delivery O2 Flow Rate FiO2 01/26/17 16:11 36.5 79 18 125/68 98 Room Air 01/26/17 09:49 Room Air 01/26/17 07:11 36.7 67 16 123/69 97 Room Air 01/26/17 00:05 Room Air 01/25/17 23:59 36.5 83 18 104/68 95 Room Air 01/25/17 21:10 76 123/65 Physical Exam General Appearance: WD/WN, + mild distress Neck: supple, no JVD Respiratory/Chest: chest non-tender, lungs clear, normal breath sounds Cardiovascular: regular rate, rhythm, no murmur Abdomen: normal bowel sounds, non tender, soft Extremities: + pertinent finding (vac on right knee) Neurologic/Psychiatric: alert, oriented x 3 Laboratory Results Last 24 Hours Test 01/26/17 06:11 White Blood Count 44.11 K/uL Red Blood Count 3.70 M/uL Hemoglobin 11.1 g/dL Hematocrit 33.4 % Mean Corpuscular Volume 90.3 fL Mean Corpuscular Hemoglobin 30.0 pg Mean Corpuscular Hemoglobin Concent 33.2 g/dl Platelet Count 181 K/uL Mean Platelet Volume 9.6 fL RDW Standard Deviation 48.8 fL RDW Coefficient of Variation 14.9 % Neutrophils % (Manual) 5.2 % Lymphocytes % (Manual) 41.7 % Prolymphocyte % 3.5 % Variant Lymphocytes % (manual) 49.6 % Neutrophils # (Manual) 2.29 K/uL Total Absolute Neutrophils 2.29 K/uL Lymphocytes # (Manual) 18.39 K/uL Prolymphocyte # 1.54 K/uL Absolute Variant Lymphocytes 21.88 K/uL Total Absolute Lymphocytes 40.27 K/uL Smudge Cells PRESENT Sodium Level 142 mmol/L Potassium Level 3.6 mmol/L Chloride Level 109 mmol/L Carbon Dioxide Level 23 mmol/L Anion Gap 10.0 mmol/L Blood Urea Nitrogen 30 mg/dl Creatinine 1.50 mg/dl Est Creatinine Clear Calc Drug Dose 37.3 ml/min Estimated GFR () 49.2 Estimated GFR (Non- 42.4 BUN/Creatinine Ratio 20.1 Random Glucose 114 mg/dl Calcium Level 8.2 mg/dl Assessment and Plan Pt is a 81 yo male with hx of MSSA septic knee who underwent washout of knee by Dr Go 3 weeks ago, wound dehiscence and also 1 episode of dark tarry stool Wound Dehiscence S/P Washout of R Septic Knee (3 Weeks Ago): - Held Coumadin - vitamin K administered in ED - Orthopedics following - recommend wound VAC, knee immobilizer, and limited ROM , no plans for further surgical intervention - Infectious disease following - Rocephin 2 g IV daily - probable conversion to po Keflex Melena: Hgb Stable at 11, resume Coumadin, feeling melena from high inr, Protonix 40 mg po, as hgb remained stable will consider outpt colo Paroxysmal Atrial Fibrillation/: HTN:Currently NSR resume low dose Coumadin Metoprolol succinate 25 mg daily, pt in sinus rhythm CLL - Leukocytosis remains 50K range DVT Prophylaxis: - TRANG/SCDs disposition, daughters are concerned that the pt is not safe at home ambulating with walker and knee immobilizer will see PT eval
[2017-01-26 20:05] VITALS: O2SAT 98
[2017-01-26] MEDS: METOPROLOL SUCC 25MG EXT REL TAB PO SCH (20:30)
[2017-01-26 23:40] VITALS: BP 122/73; PULSE 90; TEMP 36.7; O2SAT 96
[2017-01-27 07:22] VITALS: BP 105/68; PULSE 77; TEMP 36.7; O2SAT 92
[2017-01-27 08:00] VITALS: BP 125/71; PULSE 78; TEMP 36.5; O2SAT 95; O2SAT 98
[2017-01-27 08:47] LABS: BUN/CREATININE RATIO 24.8 (10-20); CALCIUM 8.1 mg/dl (8.5-10.1); CREATININE 1.3 mg/dl (0.60-1.40); POTASSIUM 4.1 mmol/L (3.5-5.1)
[2017-01-27 08:55] LABS: HEMATOCRIT 33.8 % (42-52); MEAN CELL VOLUME 92.1 fL (80-100); MEAN CORPUSCULAR HEMOGLOBIN 30.5 pg (25-34); MEAN CORPUSCULAR HGB CONC 33.1 g/dl (32-36); MEAN PLATELET VOLUME 10.2 fL (7.4-10.4); PLATELET COUNT 175 K/uL (130-400); RED BLOOD COUNT 3.67 M/uL (4.7-6.1); WHITE BLOOD COUNT 45.65 K/uL (4.8-10.8)
[2017-01-27] MEDS: ARGININE EXTRA NUTRITION DRINK 1 BOX PO SCH ×2 (09:23→21:15)
[2017-01-27 09:45] LABS: COMPLETE YES; EOSINOPHIL % 1.7 %; LYMPH ABS # 10.73 K/uL (1.2-3.4); LYMPHOCYTE % 23.5 %; NEUTROPHILS % 6.7 %; VARIANT LYM ABS # 30.72 K/uL; VARIANT LYMPHOCYTE % 67.3 %
[2017-01-27] MEDS: PANTOprazole SOD 40 MG TAB PO SCH (10:23)
[2017-01-27] MEDS: CEFTRIAXONE SOD INJ 2000 MG in DEXTROSE 5% 50ML IV SCH (12:44)
--- NOTE | 2017-01-27 14:47 | PROGRESS NOTE ---
DATE: 01/27/2017 SUBJECTIVE: The patient is seen today for reevaluation of a postoperative wound dehiscence to the right knee with irrigating of VAC placement. The patient has no complaints at this time. Denies any pain, swelling or fever. OBJECTIVE: The patient's vital signs were reviewed and found to be unremarkable. The patient is afebrile. The wound site today shows no appreciable change in size; however, there is a significant amount of organized clot formation present in the base as compared to yesterday. There is no active drainage, no periwound erythema, no tenderness to palpation. ASSESSMENT: Postoperative wound dehiscence, right knee with hematoma formation. PLAN: At this time, the site required further debridement of the existing hematoma and this was performed with a #5 curette and a digital expression of the hematoma. Bleeding did occur on the medial aspect of the wound site, which was ultimately controlled with a combination of Avitene and pressure. The wound VAC will be held today due to the bleeding, which has occurred. A dressing gauze, ABD and Coban Lite compression wrap was applied. Dressings will be changed tomorrow, and evaluated at that time for further treatment. It is anticipated that over the course of the next 48 hours we will hold the VAC due to this bleeding episode and consider reinstituting the VAC on Monday.
[2017-01-27 15:06] VITALS: BP 111/65; PULSE 84; TEMP 36.7; O2SAT 95
[2017-01-27] MEDS: WARFARIN SOD 3 MG TAB PO SCH (15:41)
--- NOTE | 2017-01-27 17:40 | Progress Note ---
Subjective Date of Service: Jan 27, 2017. Subjective pt is doing well but once again had hematoma removed from knee and now bleeding , will once again hold the coumadin Problem List Medical Problems: (1) Cellulitis of right leg Status: Acute (2) CLL (chronic lymphocytic leukemia) Status: Acute (3) Closed head injury Status: Acute (4) GI bleed Status: Acute (5) Supratherapeutic INR Status: Acute (6) Syncope Status: Acute (7) Weakness Status: Acute (8) Wound dehiscence Status: Acute Review of Systems Constitutional: + fatigue, + weakness, No chills, No fever Respiratory: No cough, No shortness of breath Cardiac: No chest pain, No edema Abdomen: No diarrhea, No nausea, No pain, No vomiting Musculoskeletal: + joint pain, + swelling, No muscle pain Male : No dysuria, No urinary frequency Objective Vital Signs Date Time Temp Pulse Resp B/P Pulse Ox O2 Delivery O2 Flow Rate FiO2 01/26/17 23:47 Room Air 01/26/17 23:40 36.7 90 18 122/73 96 Room Air 01/26/17 20:05 98 Room Air 01/26/17 16:11 36.5 79 18 125/68 98 Room Air 01/26/17 09:49 Room Air Physical Exam General Appearance: WD/WN, + mild distress Neck: supple, no JVD Respiratory/Chest: chest non-tender, lungs clear, normal breath sounds Cardiovascular: no murmur, + irregularly irregular Abdomen: normal bowel sounds, non tender, soft Extremities: + pertinent finding (has swelling around knee, hemoatoma evacuated now pressure dresssing) Laboratory Results Last 24 Hours Test 01/27/17 04:44 Assessment and Plan Pt is a 81 yo male with hx of MSSA septic knee who underwent washout of knee by Dr Go 3 weeks ago, wound dehiscence and also 1 episode of dark tarry stool Wound Dehiscence S/P Washout of R Septic Knee (3 Weeks Ago): - Held Coumadin - vitamin K administered in ED - Orthopedics following - wound care is manipulating wound, bleeding 01/27, knee immobilizer, and limited ROM, no plans for further surgical intervention - Infectious disease following - Rocephin 2 g IV daily - probable conversion to po Keflex Melena: Hgb Stable at 11, resume Coumadin 01/26, but wound bleeding again, feeling melena from high inr, Protonix 40 mg po, as hgb remained stable will consider outpt colo Paroxysmal Atrial Fibrillation/: HTN:Currently NSR resume low dose Coumadin when bleeding is stable, Metoprolol succinate 25 mg daily, pt in sinus rhythm CLL - Leukocytosis remains 50K range DVT Prophylaxis: - TRANG/SCDs disposition, daughters are concerned that the pt is not safe at home ambulating with walker and knee immobilizer pt himself wants to go home
[2017-01-27 21:07] VITALS: BP 129/46; PULSE 80
[2017-01-27] MEDS: METOPROLOL SUCC 25MG EXT REL TAB PO SCH (21:11)
[2017-01-27 23:10] VITALS: BP 103/67; PULSE 89; TEMP 36.7; O2SAT 95
[2017-01-28 07:28] VITALS: BP 122/76; PULSE 78; TEMP 36.8; O2SAT 97
[2017-01-28 07:31] VITALS: O2SAT 97
[2017-01-28] MEDS: PANTOprazole SOD 40 MG TAB PO SCH (07:49)
[2017-01-28 08:00] LABS: INR 1.1 (0.9-1.1); PROTHROMBIN TIME (PATIENT) 11.4 SECONDS (9.0-12.0)
[2017-01-28 08:13] LABS: HEMATOCRIT 34.3 % (42-52); MEAN CORPUSCULAR HEMOGLOBIN 29.9 pg (25-34); MEAN CORPUSCULAR HGB CONC 33.2 g/dl (32-36); MEAN PLATELET VOLUME 10.1 fL (7.4-10.4); PLATELET COUNT 162 K/uL (130-400); RED BLOOD COUNT 3.81 M/uL (4.7-6.1); WHITE BLOOD COUNT 45.81 K/uL (4.8-10.8)
--- NOTE | 2017-01-28 08:19 | Progress Note ---
Subjective Date of Service: Jan 28, 2017. Subjective no complaints, pressure dressing applied to right knee after hematoma stripped by wound care Problem List Medical Problems: (1) Cellulitis of right leg Status: Acute (2) CLL (chronic lymphocytic leukemia) Status: Acute (3) Closed head injury Status: Acute (4) GI bleed Status: Acute (5) Supratherapeutic INR Status: Acute (6) Syncope Status: Acute (7) Weakness Status: Acute (8) Wound dehiscence Status: Acute Review of Systems Constitutional: No chills, No fatigue, No fever, No weakness Respiratory: No cough, No sputum Cardiac: No chest pain, No orthopnea Abdomen: No nausea, No pain Musculoskeletal: + joint pain, + swelling Male : No dysuria, No urinary frequency Psychiatric: No anhedonism, No depression symptoms Objective Vital Signs Date Time Temp Pulse Resp B/P Pulse Ox O2 Delivery O2 Flow Rate FiO2 01/28/17 07:31 97 Room Air 01/28/17 07:28 36.8 78 16 122/76 97 Room Air 01/28/17 01:40 Room Air 01/27/17 23:10 36.7 89 20 103/67 95 Room Air 01/27/17 21:07 80 129/46 01/27/17 15:40 Room Air 01/27/17 15:06 36.7 84 16 111/65 95 Room Air Physical Exam General Appearance: WD/WN, + mild distress Neck: supple, no JVD Respiratory/Chest: chest non-tender, lungs clear, normal breath sounds Cardiovascular: regular rate, rhythm, no murmur Abdomen: normal bowel sounds, non tender, soft Extremities: no pedal edema, no calf tenderness Neurologic/Psychiatric: alert, oriented x 3 Laboratory Results Last 24 Hours Test 01/28/17 07:04 White Blood Count 45.81 K/uL Red Blood Count 3.81 M/uL Hemoglobin 11.4 g/dL Hematocrit 34.3 % Mean Corpuscular Volume 90.0 fL Mean Corpuscular Hemoglobin 29.9 pg Mean Corpuscular Hemoglobin Concent 33.2 g/dl Platelet Count 162 K/uL Mean Platelet Volume 10.1 fL RDW Standard Deviation 50.2 fL RDW Coefficient of Variation 15.4 % Prothrombin Time 11.4 SECONDS Prothromb Time International Ratio 1.1 Assessment and Plan Pt is a 81 yo male with hx of MSSA septic knee who underwent washout of knee by Dr Go weeks ago, wound dehiscence and also 1 episode of dark tarry stool Wound Dehiscence S/P Washout of R Septic Knee (3 Weeks Ago): - Held Coumadin - vitamin K administered in ED - Orthopedics following - wound care is manipulating wound, bleeding 01/27. pressure dressing remains, knee immobilizer, and limited ROM, no plans for further surgical intervention - Infectious disease following - Rocephin 2 g IV daily - probable conversion to po Keflex Melena: Hgb Stable at 11, resume Coumadin 01/26, but wound bleeding again, feeling melena from high inr, Protonix 40 mg po, as hgb remained stable will consider outpt colo Paroxysmal Atrial Fibrillation/: HTN:Currently NSR resume low dose Coumadin when bleeding is stable, Metoprolol succinate 25 mg daily, pt in sinus rhythm CLL - Leukocytosis remains 50K range DVT Prophylaxis: - TRANG/SCDs disposition, daughters are concerned that the pt is not safe at home ambulating with walker and knee immobilizer pt himself wants to go home
[2017-01-28 08:22] LABS: CALCIUM 8.3 mg/dl (8.5-10.1); CREATININE 1.2 mg/dl (0.60-1.40); POTASSIUM 3.9 mmol/L (3.5-5.1)
[2017-01-28 08:28] LABS: COMPLETE YES; LYMPH ABS # 17.87 K/uL (1.2-3.4); VARIANT LYM ABS # 23.82 K/uL
[2017-01-28] MEDS: ARGININE EXTRA NUTRITION DRINK 1 BOX PO SCH ×2 (09:33→21:03)
[2017-01-28] MEDS: CEFTRIAXONE SOD INJ 2000 MG in DEXTROSE 5% 50ML IV SCH (12:15)
[2017-01-28 15:25] VITALS: BP_SYST 104; BP_SYST 112; BP_DIAS 64; BP_DIAS 68; PULSE 83; PULSE 85; TEMP 36.7; TEMP 36.8; O2SAT 94; O2SAT 97
[2017-01-28] MEDS: WARFARIN SOD 3 MG TAB PO SCH (15:51)
[2017-01-28] MEDS: METOPROLOL SUCC 25MG EXT REL TAB PO SCH (21:05)
[2017-01-28 23:10] VITALS: BP 116/68; PULSE 82; TEMP 36.7; O2SAT 97
[2017-01-29 06:41] LABS: INR 1.1 (0.9-1.1); PROTHROMBIN TIME (PATIENT) 11.8 SECONDS (9.0-12.0)
[2017-01-29 06:43] LABS: HEMATOCRIT 33.1 % (42-52); MEAN CELL VOLUME 91.9 fL (80-100); MEAN CORPUSCULAR HEMOGLOBIN 30.8 pg (25-34); MEAN CORPUSCULAR HGB CONC 33.5 g/dl (32-36); PLATELET COUNT 137 K/uL (130-400); WHITE BLOOD COUNT 46.53 K/uL (4.8-10.8)
[2017-01-29 07:03] LABS: BUN/CREATININE RATIO 22.8 (10-20); CALCIUM 8.3 mg/dl (8.5-10.1); CREATININE 1.3 mg/dl (0.60-1.40); POTASSIUM 4.1 mmol/L (3.5-5.1)
[2017-01-29 07:19] LABS: COMPLETE YES; LYMPH ABS # 21.87 K/uL (1.2-3.4); VARIANT LYM ABS # 20.01 K/uL
[2017-01-29] MEDS: PANTOprazole SOD 40 MG TAB PO SCH (07:33)
[2017-01-29] MEDS: ARGININE EXTRA NUTRITION DRINK 1 BOX PO SCH ×2 (07:33→21:00)
[2017-01-29 07:55] VITALS: BP 123/65; PULSE 76; TEMP 36.6; O2SAT 96
--- NOTE | 2017-01-29 11:25 | Progress Note ---
Subjective Date of Service: Jan 29, 2017. Subjective no further bleeding from knee, pressure dressing applied, spoke to daughter, estevan 01/29, agreeable to rehab or [facility] Problem List Medical Problems: (1) Cellulitis of right leg Status: Acute (2) CLL (chronic lymphocytic leukemia) Status: Acute (3) Closed head injury Status: Acute (4) GI bleed Status: Acute (5) Supratherapeutic INR Status: Acute (6) Syncope Status: Acute (7) Weakness Status: Acute (8) Wound dehiscence Status: Acute Review of Systems Constitutional: No chills, No fever Respiratory: No cough, No shortness of breath, No sputum Cardiac: No chest pain, No edema Abdomen: No constipation, No diarrhea, No nausea, No pain Neurologic: No memory loss, No weakness Objective Vital Signs Date Time Temp Pulse Resp B/P Pulse Ox O2 Delivery O2 Flow Rate FiO2 01/29/17 07:55 36.6 76 16 123/65 96 Room Air 01/29/17 07:30 Room Air 01/29/17 00:33 Room Air 01/28/17 23:10 36.7 82 18 116/68 97 Room Air 01/28/17 17:30 Room Air 01/28/17 15:25 36.7 85 16 104/64 97 Room Air Physical Exam General Appearance: WD/WN, no apparent distress Neck: supple, no JVD Respiratory/Chest: chest non-tender, lungs clear, normal breath sounds Cardiovascular: regular rate, rhythm, no murmur Abdomen: normal bowel sounds, non tender, soft Extremities: no pedal edema, no calf tenderness Neurologic/Psychiatric: alert, oriented x 3 Laboratory Results Last 24 Hours Test 01/29/17 05:55 White Blood Count 46.53 K/uL Red Blood Count 3.60 M/uL Hemoglobin 11.1 g/dL Hematocrit 33.1 % Mean Corpuscular Volume 91.9 fL Mean Corpuscular Hemoglobin 30.8 pg Mean Corpuscular Hemoglobin Concent 33.5 g/dl Platelet Count 137 K/uL Mean Platelet Volume 10.0 fL RDW Standard Deviation 51.9 fL RDW Coefficient of Variation 15.4 % Neutrophils % (Manual) 10.0 % Lymphocytes % (Manual) 47.0 % Variant Lymphocytes % (manual) 43.0 % Neutrophils # (Manual) 4.65 K/uL Total Absolute Neutrophils 4.65 K/uL Lymphocytes # (Manual) 21.87 K/uL Absolute Variant Lymphocytes 20.01 K/uL Total Absolute Lymphocytes 41.88 K/uL Red Blood Cell Morphology Unremarkable Prothrombin Time 11.8 SECONDS Prothromb Time International Ratio 1.1 Sodium Level 143 mmol/L Potassium Level 4.1 mmol/L Chloride Level 112 mmol/L Carbon Dioxide Level 23 mmol/L Anion Gap 8.0 mmol/L Blood Urea Nitrogen 30 mg/dl Creatinine 1.30 mg/dl Est Creatinine Clear Calc Drug Dose 43.1 ml/min Estimated GFR () 58.5 Estimated GFR (Non- 50.5 BUN/Creatinine Ratio 22.8 Random Glucose 99 mg/dl Calcium Level 8.3 mg/dl Assessment and Plan Pt is a 81 yo male with hx of MSSA septic knee who underwent washout of knee by Dr Go weeks ago, wound dehiscence and also 1 episode of dark tarry stool Wound Dehiscence S/P Washout of R Septic Knee (3 Weeks Ago): wound inspected very little dry serosanguinous on dressing, no blood expressed, redressed with pressure dressing and knee immobilizer -restarted coumadin cautiously - Wound care is manipulating wound, bleeding 01/27. pressure dressing remains, knee immobilizer, and limited ROM, no plans for further surgical intervention - Infectious disease following - Rocephin 2 g IV daily - probable conversion to po Keflex Melena: Hgb Stable at 11, resume Coumadin 01/26, but wound bleeding again, feeling melena from high inr, Protonix 40 mg po, as hgb remained stable will consider outpt colo Paroxysmal Atrial Fibrillation/: HTN:Currently NSR resume low dose Coumadin when bleeding is stable, Metoprolol succinate 25 mg daily, pt in sinus rhythm CLL - Leukocytosis remains high but stable for him DVT Prophylaxis: - TRANG/SCDs disposition, daughters are concerned that the pt is not safe at home ambulating with walker and knee immobilizer pt now agreeable to rehab
[2017-01-29] MEDS: CEFTRIAXONE SOD INJ 2000 MG in DEXTROSE 5% 50ML IV SCH (12:29)
[2017-01-29 15:05] VITALS: BP 106/62; PULSE 82; TEMP 36.7; O2SAT 96
[2017-01-29] MEDS: WARFARIN SOD 3 MG TAB PO SCH (16:41)
[2017-01-29] MEDS: METOPROLOL SUCC 25MG EXT REL TAB PO SCH (21:38)
[2017-01-29 23:25] VITALS: BP 114/68; PULSE 84; TEMP 36.4; O2SAT 97
[2017-01-30 07:20] LABS: INR 1.1 (0.9-1.1)
[2017-01-30 07:46] LABS: BUN/CREATININE RATIO 23.8 (10-20); CALCIUM 8.4 mg/dl (8.5-10.1); CREATININE 1.2 mg/dl (0.60-1.40); POTASSIUM 4.2 mmol/L (3.5-5.1)
[2017-01-30 07:57] VITALS: BP 124/64; PULSE 73; TEMP 36.4; O2SAT 97
[2017-01-30 07:59] VITALS: O2SAT 97
[2017-01-30 08:10] LABS: HEMATOCRIT 33.1 % (42-52); MEAN CELL VOLUME 89.7 fL (80-100); MEAN CORPUSCULAR HEMOGLOBIN 29.8 pg (25-34); MEAN CORPUSCULAR HGB CONC 33.2 g/dl (32-36); MEAN PLATELET VOLUME 9.5 fL (7.4-10.4); PLATELET COUNT 141 K/uL (130-400); RED BLOOD COUNT 3.69 M/uL (4.7-6.1); WHITE BLOOD COUNT 45.51 K/uL (4.8-10.8)
[2017-01-30 08:47] LABS: COMPLETE YES; LYMPH ABS # 16.84 K/uL (1.2-3.4); VARIANT LYM ABS # 23.67 K/uL
[2017-01-30] MEDS: ARGININE EXTRA NUTRITION DRINK 1 BOX PO SCH ×2 (09:26→19:40)
[2017-01-30] MEDS: PANTOprazole SOD 40 MG TAB PO SCH (09:26)
[2017-01-30 11:30] VITALS: BP 120/70; PULSE 87; TEMP 36.8; O2SAT 96
[2017-01-30] MEDS: CEFTRIAXONE SOD INJ 2000 MG in DEXTROSE 5% 50ML IV SCH (12:45)
--- NOTE | 2017-01-30 14:05 | Family Medicine Progress Note ---
Progress Note Date of Service Jan 30, 2017. Subjective Pt evaluation today including: conversation w/ patient, physical exam, chart review, lab review, review of studies, review of inpatient medication list Pain: 0 PO Intake: good Voiding: no voiding problems Mr Lakhani feels well today. He is keen to go home with homehealth and feels his daughter is able to come round to help him if he calls. Discussed later in the day with Claudine (his daughter) who is very concerned about him going back home. She feels he is unable to cope by himself and she cannot be there for him. She doesn't think he is forgetful, would remove the VAC dressing and walk without aids potentially at risk from falling. I discussed I would be unable to discharge him anywhere without his consent and he is free to make his own poor medical choices as long as he capacity to do so. She will be in later in the day to talk to her father again and would appreciate case management calling her tomorrow. Constitutional: No chills, No fever Respiratory: No cough, No shortness of breath, No sputum Cardiovascular: No chest pain Abdomen: No constipation, No diarrhea, No nausea, No pain, No vomiting Musculoskeletal: + joint pain (right knee) Male : No dysuria All Other Systems: Reviewed and Negative Medications Current Inpatient Medications Medications (Trade) Dose Ordered Sig/Dania Route Start Time Stop Time Status Last Admin Dose Admin Acetaminophen (Tylenol Tab) 650 mg Q4H PRN PO 01/22/17 14:15 02/21/17 14:14 Ondansetron HCl (Zofran Inj) 4 mg Q6H PRN IV 01/22/17 14:15 02/21/17 14:14 Metoprolol Succinate 25 mg 25 mg HS PO 01/22/17 21:00 02/21/17 20:59 01/29/17 21:38 25 MG Ceftriaxone Sodium/Dextrose (Rocephin Inj/D5 50ml) 70 ml @ 140 mls/hr Q24H IV 01/23/17 12:00 03/06/17 11:59 01/30/17 12:45 140 MLS/HR Oxycodone HCl (Roxicodone Immediate Rel Tab) 10 mg Q6H PRN PO 01/24/17 12:00 02/07/17 11:59 Enteral Nutritional Formula (Arginaid Extra) 1 box BID PO 01/25/17 09:00 02/24/17 08:59 01/30/17 09:26 1 BOX Pantoprazole Sodium (Protonix Tab) 40 mg QAM PO 01/27/17 09:00 02/26/17 08:59 01/30/17 09:26 40 MG Warfarin Sodium (Coumadin Tab) 3 mg DAILY@16 PO 01/27/17 16:00 02/26/17 15:59 01/29/17 16:41 3 MG Objective Vital Signs Date Time Temp Pulse Resp B/P Pulse Ox O2 Delivery O2 Flow Rate FiO2 01/30/17 11:30 36.8 87 18 120/70 96 Room Air 01/30/17 07:59 97 Room Air 01/30/17 07:57 36.4 73 16 124/64 97 Room Air 01/30/17 07:45 Room Air 01/29/17 23:32 Room Air 01/29/17 23:25 36.4 84 18 114/68 97 Room Air 01/29/17 20:10 Room Air 01/29/17 15:05 36.7 82 16 106/62 96 Room Air Physical Exam General Appearance: WD/WN, no apparent distress Eyes: normal inspection ENT: normal ENT inspection Neck: supple, no JVD Respiratory/Chest: chest non-tender, lungs clear, normal breath sounds, no respiratory distress, no accessory muscle use Cardiovascular: regular rate, rhythm, no JVD, no murmur Abdomen: normal bowel sounds, non tender, soft Extremities: + pertinent finding (seen VAC dressing being placed minimal erythematous dark change, non cellulitic, NV intact distal to right knee) Neurologic/Psychiatric: alert, normal mood/affect, oriented x 3 Skin: normal color, warm/dry Laboratory Results 01/30/17 06:57 Red Blood Count 3.69, Mean Corpuscular Volume 89.7, Mean Corpuscular Hemoglobin 29.8, Mean Corpuscular Hemoglobin Concent 33.2, Mean Platelet Volume 9.5 01/30/17 06:57 Test 01/30/17 06:57 White Blood Count 45.51 K/uL (4.8-10.8) Red Blood Count 3.69 M/uL (4.7-6.1) Hemoglobin 11.0 g/dL (14.0-18.0) Hematocrit 33.1 % (42-52) Mean Corpuscular Volume 89.7 fL (80-100) Mean Corpuscular Hemoglobin 29.8 pg (25-34) Mean Corpuscular Hemoglobin Concent 33.2 g/dl (32-36) Platelet Count 141 K/uL (130-400) Mean Platelet Volume 9.5 fL (7.4-10.4) RDW Standard Deviation 50.1 fL (36.4-46.3) RDW Coefficient of Variation 15.5 % (11.5-14.5) Neutrophils % (Manual) 11.0 % Lymphocytes % (Manual) 37.0 % Variant Lymphocytes % (manual) 52.0 % Neutrophils # (Manual) 5.01 K/uL (1.4-6.5) Total Absolute Neutrophils 5.01 K/uL (1.4-6.5) Lymphocytes # (Manual) 16.84 K/uL (1.2-3.4) Absolute Variant Lymphocytes 23.67 K/uL Total Absolute Lymphocytes 40.50 K/uL (1.2-3.4) Red Blood Cell Morphology Unremarkable Prothrombin Time 12.0 SECONDS (9.0-12.0) Prothromb Time International Ratio 1.1 (0.9-1.1) Anion Gap 10.0 mmol/L (3-11) Est Creatinine Clear Calc Drug Dose 46.6 ml/min Estimated GFR () 64.4 Estimated GFR (Non- 55.6 BUN/Creatinine Ratio 23.8 (10-20) Calcium Level 8.4 mg/dl (8.5-10.1) Assessment and Plan 81 yo male with hx of MSSA septic knee who underwent washout of knee by Dr Go 01/10/17 presented with wound dehiscence and 1 episode of dark tarry stool. Wound Dehiscence S/P Washout of R Septic Knee (01/10/17) - restarted Coumadin cautiously - Wound care - no more debridement, VAC dressing placed - Infectious disease following - Continue ceftriaxone 2 g IV daily - conversion to po Keflex 500 mg BID on d/c Melena - Hgb Stable, urea stable, resumed Coumadin 01/26, daily INR - Continue pantoprazole 40 mg po daily - consider outpatient EGD/colonoscopy as long as remains stable Paroxysmal Atrial Fibrillation - slowly restarting on warfarin due to melena and wound hematoma HTN - Currently NSR resume low dose Coumadin when bleeding is stable, Metoprolol succinate 25 mg daily, pt in sinus rhythm CLL - Leukocytosis remains high but stable for him - no lymphadenopathy or night sweats VTE Prophylaxis - slowly restarting warfarin due to melena and hematoma - TRANG/SCDs Code - DNR Disposition - initially organized for rehab but patient refusing this currently. He will discuss with daughter tai regarding this as previously patient was for rehabilitation. History Resident Physician Supervision Note: I was present with Dr. Thomas during the history and exam. I discussed the case with the resident and agree with the findings and plan as documented in the note. Any exceptions or clarifications are listed here. Pt seen and examined at bedside. Wound vac dressing in place without suction. Pt reports that he is comfortable and without pain in the right knee. He states that he is looking forward to going home. Reports no sensory changes, other joint pain, fevers/chills, abd pain. General Appearance: WD/WN, no apparent distress Respiratory: chest non-tender, lungs clear, normal breath sounds, no respiratory distress Cardiovascular: normal peripheral pulses, regular rate, rhythm, no edema, no murmur Extremities: non-tender, normal capillary refill, other (right knee with 3cm diameter wound with mild erythema and vac dressing in place) Neurologic/Psychiatric: order administrator II-XII nml as tested, alert, normal mood/affect, oriented x 3 Assessment/Plan 81 y/o male h/o MSSA septic R knee s/p washout and wound dehiscence with melena episode Wound Dehiscence S/P Washout of R Septic Knee (3 Weeks Ago) - vac dressing in place - continue coumadin - close monitoring of INR - ID aware and on board - transition to PO keflex by recommendation - pt refuses rehab and will go home w/ Vac Melena - stable Hgb - continue coumadin w/ close monitoring - protonix 40 mg Paroxysmal Atrial Fibrillation - coumadin, continue metoprolol HTN - continue metoprolol CLL - stable leukocytosis DVT Prophylaxis - TRANG/SCDs Dispo - awaiting clearance for home w/ vac Resident Tracking Resident Involvement: Resident Care Provided Care Provided: Adult [facility] Medicine
[2017-01-30] MEDS: WARFARIN SOD 3 MG TAB PO SCH (15:53)
[2017-01-30 15:56] VITALS: BP 100/62; PULSE 83; TEMP 36.5; O2SAT 99
--- NOTE | 2017-01-30 16:10 | PROGRESS NOTE ---
DATE: 01/30/2017 SUBJECTIVE: The patient is seen today for further reevaluation of a postoperative wound dehiscence to the right knee with prior hematoma evacuation. The patient denies any pain, swelling, or bleeding from the site. The patient has no systemic complaints. OBJECTIVE: The patient's vital signs were reviewed and found to be unremarkable. The patient is afebrile. The wound site today measures 3.5 x 2.4 x 0.8 cm. There is no significant central slough. No presence of hematoma noted, no tenderness to palpation. No fluctuance or periwound erythema noted. There is also some tunneling at 12 o'clock to 1.7 cm and also at 5 o'clock to 1.7 cm. ASSESSMENT: Postoperative wound dehiscence, right knee following hematoma evacuation, stable. PLAN: At this time, no further debridement is indicated. The site will now be managed with a wound VAC, black foam. Will initially start at 100 mm of negative pressure and will escalate up to 125 over the course of 1 week. Wound VAC changed Monday, Monday, Monday. The patient will be reevaluated in the outpatient setting. At this time from my perspective, the patient could be discharged from the hospital with an outpatient wound VAC.
[2017-01-30] MEDS: METOPROLOL SUCC 25MG EXT REL TAB PO SCH (19:41)
[2017-01-30 23:15] VITALS: BP 113/70; PULSE 90; TEMP 36.6; O2SAT 97
[2017-01-31 06:18] LABS: HEMATOCRIT 35.2 % (42-52)
[2017-01-31 06:41] LABS: INR 1.1 (0.9-1.1); PROTHROMBIN TIME (PATIENT) 11.9 SECONDS (9.0-12.0)
[2017-01-31 06:47] LABS: BUN/CREATININE RATIO 23.2 (10-20); CALCIUM 8.3 mg/dl (8.5-10.1); CREATININE 1.3 mg/dl (0.60-1.40); POTASSIUM 3.7 mmol/L (3.5-5.1)
[2017-01-31 07:42] VITALS: BP 105/74; PULSE 77; TEMP 36.6; O2SAT 96
[2017-01-31] MEDS: PANTOprazole SOD 40 MG TAB PO SCH (09:58)
[2017-01-31] MEDS: ARGININE EXTRA NUTRITION DRINK 1 BOX PO SCH ×2 (10:35→20:35)
--- NOTE | 2017-01-31 10:47 | Family Medicine Progress Note ---
Progress Note Date of Service Jan 31, 2017. Subjective Pt evaluation today including: conversation w/ patient, physical exam, chart review, lab review, review of studies, review of inpatient medication list Voiding: no voiding problems No acute issues overnight. He tells me his daughter will be in around 11am. Denies any pain in the knee. No fevers, chills, bleeding. All Other Systems: Reviewed and Negative Medications Current Inpatient Medications Medications (Trade) Dose Ordered Sig/Dania Route Start Time Stop Time Status Last Admin Dose Admin Acetaminophen (Tylenol Tab) 650 mg Q4H PRN PO 01/22/17 14:15 02/21/17 14:14 Ondansetron HCl (Zofran Inj) 4 mg Q6H PRN IV 01/22/17 14:15 02/21/17 14:14 Metoprolol Succinate 25 mg 25 mg HS PO 01/22/17 21:00 02/21/17 20:59 01/30/17 19:41 25 MG Ceftriaxone Sodium/Dextrose (Rocephin Inj/D5 50ml) 70 ml @ 140 mls/hr Q24H IV 01/23/17 12:00 03/06/17 11:59 01/30/17 12:45 140 MLS/HR Oxycodone HCl (Roxicodone Immediate Rel Tab) 10 mg Q6H PRN PO 01/24/17 12:00 02/07/17 11:59 Enteral Nutritional Formula (Arginaid Extra) 1 box BID PO 01/25/17 09:00 02/24/17 08:59 01/31/17 10:35 1 BOX Pantoprazole Sodium (Protonix Tab) 40 mg QAM PO 01/27/17 09:00 02/26/17 08:59 01/31/17 09:58 40 MG Warfarin Sodium (Coumadin Tab) 3 mg DAILY@16 PO 01/27/17 16:00 02/26/17 15:59 01/30/17 15:53 3 MG Objective Vital Signs Date Time Temp Pulse Resp B/P Pulse Ox O2 Delivery O2 Flow Rate FiO2 01/31/17 07:42 36.6 77 16 105/74 96 Room Air 01/31/17 07:40 Room Air 01/30/17 23:52 Room Air 01/30/17 23:15 36.6 90 15 113/70 97 Room Air 01/30/17 15:56 36.5 83 17 100/62 99 Room Air 01/30/17 11:30 36.8 87 18 120/70 96 Room Air Physical Exam General Appearance: WD/WN, no apparent distress Eyes: normal inspection (pupils equal) Neck: supple, no JVD Respiratory/Chest: chest non-tender, lungs clear, normal breath sounds, no respiratory distress, no accessory muscle use Cardiovascular: regular rate, rhythm, no murmur Abdomen: normal bowel sounds, non tender, soft Extremities: no pedal edema, no calf tenderness, normal capillary refill Neurologic/Psychiatric: alert, normal mood/affect, oriented x 3, + pertinent finding (NV intact distal to right knee) Laboratory Results 01/31/17 05:40 01/31/17 05:40 Test 01/31/17 05:40 Prothrombin Time 11.9 SECONDS (9.0-12.0) Prothromb Time International Ratio 1.1 (0.9-1.1) Anion Gap 9.0 mmol/L (3-11) Est Creatinine Clear Calc Drug Dose 43.1 ml/min Estimated GFR () 58.5 Estimated GFR (Non- 50.5 BUN/Creatinine Ratio 23.2 (10-20) Calcium Level 8.3 mg/dl (8.5-10.1) Assessment and Plan 81 yo male with hx of MSSA septic knee who underwent washout of knee by Dr Go 01/10/17 presented with wound dehiscence and 1 episode of dark tarry stool. Wound Dehiscence S/P Washout of R Septic Knee (01/10/17) - restarted Coumadin cautiously. INR 1.1 - Wound care - no more debridement, VAC dressing placed - Infectious disease following - Continue ceftriaxone 2 g IV daily - conversion to po Keflex 500 mg BID on d/c Melena - Hgb Stable, urea stable, resumed Coumadin 01/26, daily INR - Continue pantoprazole 40 mg po daily - consider outpatient EGD/colonoscopy as long as remains stable Paroxysmal Atrial Fibrillation - slowly restarting on warfarin due to melena and wound hematoma - Currently NSR, Metoprolol succinate 25 mg daily, pt in sinus rhythm CLL - Leukocytosis remains high but stable for him - no lymphadenopathy or night sweats VTE Prophylaxis - slowly restarting warfarin due to melena and hematoma - TRANG/SCDs Code - DNR Disposition - not suitable for rehab as per PT/OT assessments. Vac dressing does not qualify for hand zipper trimmer care facility. Medically stable for discharge. He tells me his daughter will be in today and will discuss discharge at that time. Resident Tracking Resident Involvement: Resident Care Provided Care Provided: Adult Hospital Medicine History Resident Physician Supervision Note: I was present with Dr. Thomas during the history and exam. I discussed the case with the resident and agree with the findings and plan as documented in the note. Any exceptions or clarifications are listed here. Pt seen and examined at bedside. Pain is absent in the RLE and tolerated monitored ambulation with PT well. Reports no fever, CP/SOB, palpitations, weakness, sensory changes, other joint pain. General Appearance: WD/WN, no apparent distress Respiratory: chest non-tender, lungs clear, normal breath sounds, no respiratory distress Cardiovascular: normal peripheral pulses, regular rate, rhythm, no edema, no murmur Gastrointestinal: normal bowel sounds, non tender, soft, no organomegaly Neurologic/Psychiatric: alert, normal mood/affect, oriented x 3, other (Clock draw with disorganized number placement and incorrect hand placement (12:25 instead of 2:35); Animal naming 12 in 60 seconds, highest EDU was pre[facility]) Assessment/Plan 81 y/o male h/o MSSA septic R knee s/p washout and wound dehiscence with melena episode Wound Dehiscence S/P Washout of R Septic Knee (3 Weeks Ago) - vac dressing in place - continue coumadin - close monitoring of INR - continue keflex - ID aware and on board - PT reports indicate cleared for home Impaired performance on fluency and mental screening examinations - abnormal clock draw and animal naming of 12 (target 13) - reviewed with patient his activities of daily living - he reports that he is able to self-care (feeding, toileting, dressing, bathing) without issue. For more advanced tasks, such as bills, grocery shopping, cooking and advanced planning, he depends on his two daughters whom he states have distributed the tasks between them. Based on these findings, we will perform a MMSE to further assess his status prior to discharge home as rec'd by PT Melena - stable Hgb - continue coumadin w/ close monitoring, protonix 40 mg Paroxysmal Atrial Fibrillation - coumadin, continue metoprolol HTN - continue metoprolol CLL - stable leukocytosis DVT Prophylaxis - TRANG/SCDs Dispo - MMSE and then discharge home.
[2017-01-31] MEDS: CEFTRIAXONE SOD INJ 2000 MG in DEXTROSE 5% 50ML IV SCH (11:34)
[2017-01-31 15:08] VITALS: BP 123/65; PULSE 77; TEMP 36.5; O2SAT 99
[2017-01-31 15:45] VITALS: O2SAT 99
[2017-01-31] MEDS: WARFARIN SOD 3 MG TAB PO SCH (16:31)
[2017-01-31 20:34] VITALS: BP 114/69; PULSE 81
[2017-01-31] MEDS: METOPROLOL SUCC 25MG EXT REL TAB PO SCH (20:36)
--- NOTE | 2017-01-31 22:19 | Progress Note ---
Progress Note Date of Service Jan 31, 2017. Progress Note Discussed with case with patient's daughter Claudine with the patient's permission. Misunderstanding today as patient mentioned his daughter would be in to speak with us about discharge plans but turns out she was just waiting for us to call her. She is unfortunately not able to transport patient home today and his house is not ready for him to move back in. Discussed his care in detail and tried to answer all her concerns. As I understand there was some talk initially about rehabilitation placement but he was determined not to be a candidate for this by PT and OT which she understands. She mentioned her safety concerns for him at home and over the weekend the possibility of a hydraulic operator care facility was discussed for wound care management with Dr Cloud. However as far as my understanding having a vac dressing does not qualify him for this either but I will check what the criteria for this is with care management in the morning. She is happy to transport him home tomorrow and get him settled into his house however she is still concerned that he will be unable to cope at home. I discussed possibilities of having [facility] come to the house to assess him for rehabilitation if he was not coping or calling the office of aging for a longer term or [place] [facility] placement. She wanted reassurance that insurance would pay for this extra night but I do not know the answer to that. Given he currently has no way of getting into his house and would not be safe doing so by himself we will keep him overnight for discharge tomorrow morning.
[2017-02-01 00:30] VITALS: BP 127/70; PULSE 90; TEMP 36.8; O2SAT 97
[2017-02-01 07:45] VITALS: BP 110/68; PULSE 72; TEMP 36.6; O2SAT 98
[2017-02-01 07:56] LABS: HEMATOCRIT 33.6 % (42-52)
[2017-02-01 08:09] LABS: INR 1.2 (0.9-1.1); PROTHROMBIN TIME (PATIENT) 12.9 SECONDS (9.0-12.0)
[2017-02-01] MEDS: PANTOprazole SOD 40 MG TAB PO SCH (08:41)
[2017-02-01] MEDS: ARGININE EXTRA NUTRITION DRINK 1 BOX PO SCH (08:41)
[2017-02-01 09:35] VITALS: O2SAT 98
[2017-02-01] MEDS: CEFTRIAXONE SOD INJ 2000 MG in DEXTROSE 5% 50ML IV SCH (12:21)
[2017-02-01] MEDS ORDERED: CMD3 PO (12:22)
[2017-02-01] MEDS ORDERED: CEPH500C PO (12:22)
--- NOTE | 2017-02-01 12:43 | Discharge Instructions ---
Discharge Instructions Date of Service Feb 01, 2017. Admission Reason for Admission: Septic bursitis, melena Discharge Discharge Diagnosis / Problem: Wound infection with hematoma Discharge Goals Goal(s): Decrease discomfort, Improve function, Improve disease control Activity Recommendations Activity Limitations: per Instructions/Follow-up section (weight bear as tolerated, use your rolling walker) Exercise/Sports Limitations: gradually increase as tolerated . Instructions / Follow-Up Instructions / Follow-Up You were admitted to [facility] for infection and wound dehiscence from recent infected knee bursa. This was treated by the wound care team with debridement and CAV dressing. Your warfarin was initially held due to hematomas of the wound and black tarry stool before admission, this was restarted on 01/26/17. Homehealth nursing will retake your INR on Monday (03/02/17 ) with further dosing of your warfarin at that time to be determined by the anticoagulation clinic. With regards to the one episode of black tarry stool, your hemoglobin (anemia) has been stable so we recommend following up with your PCP regarding this with a repeat blood test (script given). You have been started on a medication pantoprazole to treat this. You were seen by the infectious disease team and continued treatment with your wound and knee infection with IV antibiotics which were converted to oral antibiotics on discharge. You were evaluated by occupational therapy and physical therapy and were not thought to be a candidate for rehabilitation given your good progress. If you or your daughter feel you are unable to cope at home with the home health agency however we recommend calling the office of aging for assessment for a senior care placement for wound management. Please follow up with your PCP and wound care clinic as previously arranged on . Current Hospital Diet Patient's current hospital diet: AHA Diet (Heart Healthy) Discharge Diet Recommended Diet: AHA Diet (Heart Healthy) Procedures Procedures Performed: Wound debridement Pending Studies Studies pending at discharge: no Laboratory Results Lipid Panel Test 11/04/16 11:15 Range/Units Triglycerides Level 127 0-150 mg/dl Cholesterol Level 171 0-200 mg/dl HDL Cholesterol 31 mg/dl Cholesterol/HDL Ratio 5.5 LDL Cholesterol, Calculated 115 mg/dl Medical Emergencies . Who to Call and When: Medical Emergencies: If at any time you feel your situation is an emergency, please call 911 immediately. . Non-Emergent Contact Non-Emergency issues call your: Primary Care Provider Call Non-Emergent contact if: you have a fever, your pain is not controlled, wound has increased drainage, wound has increased redness, wound has increased pain . . "Provider Documentation" section prepared by Ari Thomas. VTE Core Measure Inpt VTE Proph given/why not?: Warfarin (Coumadin), Contraindicated
[2017-02-01] MEDS ORDERED: PRT40 PO (12:45)
[2017-02-01 12:51] VITALS: BP 110/68; PULSE 72; TEMP 36.6; O2SAT 98
--- NOTE | 2017-02-01 19:30 | Discharge Summary ---
Discharge Summary Date of Service Feb 01, 2017. (Ari Thomas MD) Discharge Summary Admission Date: Jan 22, 2017 at 14:13 Discharge Date: Feb 01, 2017 Discharge Disposition: Home with services Principal Diagnosis: Wound Dehiscence S/P Washout of R Septic Knee (01/10/17) Problems/Secondary Diagnoses: Wound Dehiscence S/P Washout of R Septic Knee (01/10/17) - restarted Coumadin cautiously - Wound care - no more debridement, VAC dressing placed - Infectious disease following - Continue ceftriaxone 2 g IV daily - conversion to po Keflex 500 mg BID on d/c Melena - Hgb Stable, urea stable, resumed Coumadin 01/26, daily INR - Continue pantoprazole 40 mg po daily - consider outpatient EGD/colonoscopy as long as remains stable Immunizations: Have You Had Influenza Vaccine: Unknown History of Tetanus Vaccine?: Unknown History of Pneumococcal: Yes History of Hepatitis B Vaccine: No Procedures: Wound debridement Consultations: Wound care Orthopedics (Ari Thomas MD) Principal Diagnosis: (Fernando Cortez MD) Medication Reconciliation New Medications: Cephalexin Monohydrate (Keflex) 500 Mg Cap 1 CAP PO BID for 8 Days, #16 CAP Pantoprazole (Pantoprazole Sodium) 40 Mg Tab 40 MG PO QAM for 30 Days, #30 TAB Warfarin Sod (Coumadin) 3 Mg Tab 3 MG PO DAILY@16 for 7 Days, TAB Continued Medications: Acetaminophen Tab (Tylenol) 325 Mg Tab 325 MG PO Q6H PRN for Pain, TAB Metoprolol Succ (Toprol Xl) (Toprol-Xl) 25 Mg Tabcr 25 MG PO HS, #30 TAB Oxycodone HCl (Oxycodone HCl) 5 Mg Tab 5-10 MG PO Q6, #40 Discontinued Medications: Warfarin Sodium (Coumadin) 5 Mg Tab 5 MG PO DAILY, TAB COAGULATINO CLINIC PATIENT, CURRENT DIRECTIONS OF 12/20/16 5MG MON, WED, FRI, 2.52MG TUE,THUR,SAT,SUN NEXT APT 01/19/17 Discharge Exam No acute issues overnight. MMSE 24/30. Can understand, weight up, come to a decision and communicate that decision in regards to plans for discharge and he wishes to go home although admits he does rely on his daughter to help him around the house. Discussed getting a life line if he does fall over which he is agreeable to. Plan is to go home with homehealth. Does not qualify for rehab based on PT and OT assessments. However if concerns for safety remain by her daughter then we recommended calling office of ageing for talent development director nursing care assessment. All other systems reviewed and otherwise negative Physical Exam: General Appearance: WD/WN, no apparent distress Neck: supple, no JVD Respiratory/Chest: lungs clear, normal breath sounds, no respiratory distress, no accessory muscle use Cardiovascular: regular rate, rhythm, no murmur Abdomen / GI: normal bowel sounds, non tender, soft Extremities: no calf tenderness, normal capillary refill, no pedal edema, + pertinent finding (seen VAC dressing in place, no cellulitic changes around dressing site) Neurologic/Psychiatric: alert, + pertinent finding (NV intact distal to right knee) (Ari Thomas MD) Hospital Course You were admitted to [facility] for infection and wound dehiscence from recent infected knee bursa. This was treated by the wound care team with debridement and CAV dressing. Your warfarin was initially held due to hematomas of the wound and black tarry stool before admission, this was restarted on 01/26/17. Homehealth nursing will retake your INR on Monday (03/02/17 ) with further dosing of your warfarin at that time to be determined by the anticoagulation clinic. With regards to the one episode of black tarry stool, your hemoglobin (anemia) has been stable so we recommend following up with your PCP regarding this with a repeat blood test (script given). You have been started on a medication pantoprazole to treat this. You were seen by the infectious disease team and continued treatment with your wound and knee infection with IV antibiotics which were converted to oral antibiotics on discharge. You were evaluated by occupational therapy and physical therapy and were not thought to be a candidate for rehabilitation given your good progress. If you or your daughter feel you are unable to cope at home with the home health agency however we recommend calling the office of aging for assessment for a halfway placement for wound management. Total Time Spent: Less than 30 minutes This includes examination of the patient, discharge planning, medication reconciliation, and communication with other providers. (Ari Thomas MD) Total Time Spent: Greater than 30 minutes (Fernando Cortez MD) Discharge Instructions Please refer to the electronic Patient Visit Report (Discharge Instructions) for additional information. (Ari Thomas MD) Follow-Up Follow up with your PCP and wound care clinic as previously arranged on 01/06/17. (Ari Thomas MD) Additional Copies To ,Nilton Rainey M.D.; Akira Go M.D.; Jorje Delong DO; Prasad Encinas M.D. History Resident Physician Supervision Note: I was present with Dr. Thomas during the history and exam. I discussed the case with the resident and agree with the findings and plan as documented in the note. Any exceptions or clarifications are listed here. Pt seen and examined at bedside. No acute events overnight. Pt tolerating vac on the right knee well without pain. Able to ambulate without issue and functioning well. Discussion extensively with patient regarding ADLs - advanced ADLs addressed predominantly by daughters, basic ADLs addressed very well by patient per daughter. Reviewed PT findings of adequate mobility without need for inpatient rehab. MMSE per Dr. Thomas's note. Reviewed concerns of daughter, specifically that the patient has difficulty with some short term memory but, per daughter, is 'set in his ways' and will do the things he wants with little regard for health. I recommended sitting down and discussing this strain with her dad and his primary care in order to offload some of the care responsibilities from her to a professional caregiver or assisted living. She is in agreement and will address in this manner. (Fernando Cortez MD) General Appearance: WD/WN, no apparent distress Respiratory: chest non-tender, lungs clear, normal breath sounds, no respiratory distress Cardiovascular: normal peripheral pulses, regular rate, rhythm, no edema, no murmur Extremities: non-tender, other (vac and dressing in place in the room on exam) (Fernando Cortez MD) Assessment/Plan 81 y/o male h/o MSSA septic R knee s/p washout and wound dehiscence with melena episode Wound Dehiscence S/P Washout of R Septic Knee (3 Weeks Ago) - vac care at home w / home wound care. Complete course of keflex. Home per PT pAF - slowly restart coumadin and monitor closely. Continue metoprolol h/o melena - stable Hgb - continue coumadin w/ close monitoring, protonix 40 mg as outpatient HTN - continue metoprolol CLL - stable leukocytosis (Fernando Cortez MD)
[2017-02-15] MEDS ORDERED: CEPH500C PO (11:03)
== END 2017-02-01 15:45 | disposition home health service (06) | DRG 908 ==
LOC: ENRESERVTM → ENRESERVDT → EDBD 10:46 → C.EDC 10:47 → C.2T 14:13 → C.MSW 01-23 14:20
PROVIDERS: ADMIT Hospitalist; ATTEND Family Medicine
PROC: 0SCC0ZZ Extirpation of Matter from Right Knee Joint, Open Approach (ICD-10-PCS; principal; 2017-01-26)
PROC: 0SCC0ZZ Extirpation of Matter from Right Knee Joint, Open Approach (ICD-10-PCS; 2017-01-27)
DX: T81.32XA Disruption of internal operation (surgical) wound, not elsewhere classified, initial encounter (principal); C91.10 Chronic lymphocytic leukemia of B-cell type not having achieved remission; K92.1 Melena; L76.32 Postprocedural hematoma of skin and subcutaneous tissue following other procedure; Z79.01 Long term (current) use of anticoagulants; I25.10 Atherosclerotic heart disease of native coronary artery without angina pectoris; I12.9 Hypertensive chronic kidney disease with stage 1 through stage 4 chronic kidney disease, or unspecified chronic kidney disease; Z80.9 Family history of malignant neoplasm, unspecified; Z83.3 Family history of diabetes mellitus; Z82.49 Family history of ischemic heart disease and other diseases of the circulatory system; Z83.79 Family history of other diseases of the digestive system; Z84.1 Family history of disorders of kidney and ureter; Z83.6 Family history of other diseases of the respiratory system; Z79.899 Other long term (current) drug therapy; Z66 Do not resuscitate; I48.0 Paroxysmal atrial fibrillation; Z87.891 Personal history of nicotine dependence; Z95.5 Presence of coronary angioplasty implant and graft; Y83.8 Other surgical procedures as the cause of abnormal reaction of the patient, or of later complication, without mention of misadventure at the time of the procedure; D72.829 Elevated white blood cell count, unspecified

== ENCOUNTER → 2017-02-02 | Outpatient (CLI) | payer BC ==
[~2017-02-02] MED LIST changes: +ACET325T96 PO; -CEFT1INJ26 IV; +CEPH500C PO; +CMD3 PO; +PRT40 PO; -WARF5TAB90 PO
[2017-02-02 17:14] LABS: HEMATOCRIT 34.5 % (42-52)
[2017-02-02 17:25] LABS: INR 1.2 (0.9-1.1); PROTHROMBIN TIME (PATIENT) 13.1 SECONDS (9.0-12.0)
== END | disposition home or self-care (01) ==
LOC: C.LABSPEC 15:24
PROVIDERS: ATTEND Family Medicine
DX: Z51.81 Encounter for therapeutic drug level monitoring (principal); Z79.01 Long term (current) use of anticoagulants; D64.9 Anemia, unspecified

== ENCOUNTER → 2017-02-10 | Outpatient (CLI) | payer BC ==
[~2017-02-10] MED LIST changes: -RXC5 PO
[2017-02-10 09:53] LABS: BLOOD UREA NITROGEN 16 mg/dl (7-18); BUN/CREATININE RATIO 13.7 (10-20); CALCIUM 8.1 mg/dl (8.5-10.1); CARBON DIOXIDE 30 mmol/L (21-32); CHLORIDE 108 mmol/L (98-107); GLUCOSE 87 mg/dl (70-99); POTASSIUM 3.9 mmol/L (3.5-5.1); SODIUM 144 mmol/L (136-145)
[2017-02-10 09:56] LABS: INR 1.5 (0.9-1.1); PROTHROMBIN TIME (PATIENT) 15.9 SECONDS (9.0-12.0)
[2017-02-10 09:57] LABS: FERRITIN 374.2 ng/ml (8.0-388.0)
[2017-02-10 10:00] LABS: HEMATOCRIT 32.3 % (42-52); MEAN CELL VOLUME 92.3 fL (80-100); MEAN CORPUSCULAR HEMOGLOBIN 30.3 pg (25-34); MEAN CORPUSCULAR HGB CONC 32.8 g/dl (32-36); MEAN PLATELET VOLUME 9.7 fL (7.4-10.4); PLATELET COUNT 154 K/uL (130-400); WHITE BLOOD COUNT 46.72 K/uL (4.8-10.8)
[2017-02-10 11:21] LABS: COMPLETE YES; LYMPH ABS # 20.56 K/uL (1.2-3.4); SMUDGE CELLS PRESENT; VARIANT LYM ABS # 22.89 K/uL
== END | disposition home or self-care (01) ==
LOC: C.LABSPEC 09:34
PROVIDERS: ATTEND Internal Medicine
DX: I48.0 Paroxysmal atrial fibrillation (principal)

== ENCOUNTER → 2017-02-27 | Outpatient (CLI) | payer BC ==
[2017-02-27 11:42] LABS: PROTHROMBIN TIME (PATIENT) 22.6 SECONDS (9.0-12.0)
== END | disposition home or self-care (01) ==
LOC: C.LABSPEC 10:57
PROVIDERS: ATTEND Internal Medicine Cardiovascular Disease
DX: Z79.01 Long term (current) use of anticoagulants (principal)

== ENCOUNTER → 2017-03-13 | Outpatient (CLI) | payer BC ==
[2017-03-13 14:05] LABS: INR 1.8 (0.9-1.1); PROTHROMBIN TIME (PATIENT) 19.8 SECONDS (9.0-12.0)
--- NOTE | 2017-03-31 13:58 | CODING QUERY NO DIAGNOSIS ---
Valid Physician Order Needed A valid physician order must be submitted in order to properly bill for the service(s) provided, including date of service(s), valid diagnosis, and physician signature. If these tests are done on a recurring basis the original physican order must be submitted in order to code and bill for the service(s) provided. Please fax us the original, signed physician order so that we may expedite billing to [phone] 03/13/2017 PROTHROMBIN TIME Thank you Karina Mathur [facility] Information Management
== END | disposition home or self-care (01) ==
LOC: C.LABSPEC 12:43
PROVIDERS: ATTEND Internal Medicine Cardiovascular Disease
DX: Z79.01 Long term (current) use of anticoagulants (principal)

== ENCOUNTER → 2017-06-01 | Outpatient (CLI) | payer BC ==
[2017-06-01 11:44] LABS: ALT/SGPT 26 U/L (12-78); AST/SGOT 18 U/L (15-37); BLOOD UREA NITROGEN 27 mg/dl (7-18); BUN/CREATININE RATIO 20.6 (10-20); CALCIUM 8.7 mg/dl (8.5-10.1); CARBON DIOXIDE 29 mmol/L (21-32); CHLORIDE 110 mmol/L (98-107); GLUCOSE 96 mg/dl (70-99); POTASSIUM 4.6 mmol/L (3.5-5.1); SODIUM 141 mmol/L (136-145)
[2017-06-01 11:47] LABS: ALB/GLOB RATIO 1.3 (0.9-2); ALKALINE PHOSPHATASE 77 U/L (45-117)
[2017-06-01 11:59] LABS: HEMATOCRIT 40.2 % (42-52); MEAN CELL VOLUME 92.8 fL (80-100); MEAN CORPUSCULAR HGB CONC 32.3 g/dl (32-36); MEAN PLATELET VOLUME 10.1 fL (7.4-10.4); PLATELET COUNT 148 K/uL (130-400); RED BLOOD COUNT 4.33 M/uL (4.7-6.1); WHITE BLOOD COUNT 62.33 K/uL (4.8-10.8)
[2017-06-01 12:01] LABS: COMPLETE YES; LYMPH ABS # 23.19 K/uL (1.2-3.4); LYMPHOCYTE % 37.2 %; NEUTROPHILS % 2.7 %; VARIANT LYM ABS # 37.46 K/uL; VARIANT LYMPHOCYTE % 60.1 %
== END | disposition home or self-care (01) ==
LOC: C.LAB1850 09:32
PROVIDERS: ATTEND Nurse Practitioner
DX: C91.10 Chronic lymphocytic leukemia of B-cell type not having achieved remission (principal)

== ENCOUNTER → 2017-07-03 | Outpatient (CLI) | payer BC ==
[2017-07-03 15:13] LABS: INR 1.7 (0.9-1.1); PROTHROMBIN TIME (PATIENT) 18.3 SECONDS (9.0-12.0)
[2017-07-03 15:20] LABS: HEMATOCRIT 38.7 % (42-52); MEAN CELL VOLUME 91.3 fL (80-100); MEAN CORPUSCULAR HEMOGLOBIN 30.2 pg (25-34); MEAN CORPUSCULAR HGB CONC 33.1 g/dl (32-36); MEAN PLATELET VOLUME 9.6 fL (7.4-10.4); PLATELET COUNT 139 K/uL (130-400); RED BLOOD COUNT 4.24 M/uL (4.7-6.1); WHITE BLOOD COUNT 75.04 K/uL (4.8-10.8)
[2017-07-03 15:23] LABS: ALT/SGPT 21 U/L (12-78); AST/SGOT 23 U/L (15-37); BLOOD UREA NITROGEN 21 mg/dl (7-18); BUN/CREATININE RATIO 17.3 (10-20); CALCIUM 8.7 mg/dl (8.5-10.1); CARBON DIOXIDE 28 mmol/L (21-32); CHLORIDE 107 mmol/L (98-107); GLUCOSE 90 mg/dl (70-99); POTASSIUM 4.3 mmol/L (3.5-5.1); SODIUM 140 mmol/L (136-145)
[2017-07-03 15:34] LABS: CHOLESTEROL 163 mg/dl (0-200); CHOLESTEROL/HDL RATIO 6.5; HDL CHOLESTEROL 25 mg/dl; LDL CHOLESTEROL CALCULATED 109 mg/dl; TRIGLYCERIDES 146 mg/dl (0-150); VERY LOW DENSITY LIPOPROT CALC 29 mg/dl
--- NOTE | 2017-07-12 12:32 | CODING QUERY MEDICAL NECESSITY ---
CQSUPPORTING DIAGNOSIS NEEDED A supporting diagnosis is required for the test/procedure performed on this patient in order for us to be reimbursed by the patient's insurance. Please provide a supporting diagnosis for the following test/procedure listed below next to the test name along with your signature. *If there is no additional diagnosis for this patient that would support the following test/procedure please document that below next to the test/procedure. Test(s)/Procedure(s) that require a supporting diagnosis: DOS 07/03/17 VITAMIN B12 TEST Provider Signature: Date: Thank you Daria Gutierrez Health Information Management Once completed, please kindly fax back to [phone] For questions please call [phone]
== END | disposition home or self-care (01) ==
LOC: C.LAB1850 12:54
PROVIDERS: ATTEND Internal Medicine
DX: I48.0 Paroxysmal atrial fibrillation (principal); E78.5 Hyperlipidemia, unspecified; R42 Dizziness and giddiness

== ENCOUNTER → 2017-10-31 | Outpatient (CLI) | payer BC ==
[2017-10-31 13:46] LABS: HEMATOCRIT 36.9 % (42-52); MEAN CELL VOLUME 94.6 fL (80-100); MEAN CORPUSCULAR HEMOGLOBIN 30.8 pg (25-34); MEAN CORPUSCULAR HGB CONC 32.5 g/dl (32-36); MEAN PLATELET VOLUME 9.9 fL (7.4-10.4); PLATELET COUNT 130 K/uL (130-400)
[2017-10-31 13:55] LABS: ALT/SGPT 21 U/L (12-78); AST/SGOT 20 U/L (15-37); BLOOD UREA NITROGEN 28 mg/dl (7-18); BUN/CREATININE RATIO 19.4 (10-20); CALCIUM 8.3 mg/dl (8.5-10.1); CARBON DIOXIDE 24 mmol/L (21-32); CHLORIDE 110 mmol/L (98-107); CREATININE 1.42 mg/dl (0.60-1.40); GLUCOSE 95 mg/dl (70-99); POTASSIUM 4.1 mmol/L (3.5-5.1); SODIUM 139 mmol/L (136-145)
[2017-10-31 13:58] LABS: ALB/GLOB RATIO 1.3 (0.9-2); ALKALINE PHOSPHATASE 78 U/L (45-117)
[2017-10-31 14:36] LABS: COMPLETE YES; LYMPH ABS # 23.23 K/uL (1.2-3.4); LYMPHOCYTE % 22.6 %; NEUTROPHILS % 1.9 %; SMUDGE CELLS PRESENT; VARIANT LYMPHOCYTE % 75.1 %
== END | disposition home or self-care (01) ==
LOC: C.LAB1850 11:52
PROVIDERS: ATTEND Nurse Practitioner
DX: C91.10 Chronic lymphocytic leukemia of B-cell type not having achieved remission (principal)

== ENCOUNTER → 2018-01-23 | Outpatient (CLI) | payer BC ==
[~2018-01-23] MED LIST changes: +ACET-1693 PO; -ACET325T96 PO
[2018-01-23 13:27] LABS: HEMATOCRIT 36.3 % (42-52); HEMOGLOBIN 11.8 g/dL (14.0-18.0); MEAN CELL VOLUME 95.5 fL (80-100); MEAN CORPUSCULAR HEMOGLOBIN 31.1 pg (25-34); MEAN CORPUSCULAR HGB CONC 32.5 g/dl (32-36); PLATELET COUNT 129 K/uL (130-400); RED CELL DISTRIBUTION WIDTH CV 16.4 % (11.5-14.5); RED CELL DISTRIBUTION WIDTH SD 56.4 fL (36.4-46.3); WHITE BLOOD COUNT 132.51 K/uL (4.8-10.8)
[2018-01-23 14:42] LABS: ALT/SGPT 17 U/L (12-78); BLOOD UREA NITROGEN 20 mg/dl (7-18); CALCIUM 8.7 mg/dl (8.5-10.1); CARBON DIOXIDE 25 mmol/L (21-32); CHOLESTEROL 160 mg/dl (0-200); CREATININE 1.43 mg/dl (0.60-1.40); GLUCOSE 83 mg/dl (70-99); POTASSIUM 4.2 mmol/L (3.5-5.1); SODIUM 140 mmol/L (136-145)
[2018-01-23 14:52] LABS: ALKALINE PHOSPHATASE 76 U/L (45-117); AST/SGOT 20 U/L (15-37); LDL CHOLESTEROL CALCULATED 98 mg/dl; TOTAL PROTEIN 6.7 gm/dl (6.4-8.2)
== END | disposition home or self-care (01) ==
LOC: C.LAB1850 12:26
PROVIDERS: ATTEND Internal Medicine
DX: E78.5 Hyperlipidemia, unspecified (principal); C91.90 Lymphoid leukemia, unspecified not having achieved remission; I47.1 Supraventricular tachycardia

== ENCOUNTER 2018-11-27 19:00 | Inpatient (IN) ==
[2018-11-27] MEDS ORDERED: SODIUM CHLORIDE 0.9% 1000ML 1,000 ML IV SCH (19:30)
[2018-11-27 19:56] LABS: iSTAT Hemoglobin 7.5 g/dl (14.0-18.0); iSTAT Ionized Calcium 1.09 mmol/l (1.12-1.32)
--- NOTE | 2018-11-27 20:08 | XRay Report ---
XR chest 1V portable CLINICAL HISTORY: weakness COMPARISON STUDY: Chest radiograph October 05, 2018. FINDINGS: There is no pneumothorax or pleural effusion. There is mild cardiomegaly without evidence f or pulmonary edema. Minimal bibasilar opacities favor atelectasis. IMPRESSION: 1. Minimal bibasilar opacities which favor atelectasis. 2. Cardiomegaly without evidence for pulmonary edema. Electronically signed by: Tam Keller M.D. 11/27/2018 8:06 PM
[2018-11-27 20:12] LABS: Alanine Aminotransferase 47 U/L (12-78); Albumin Level 2.6 gm/dl (3.4-5.0); Aspartate Aminotransferase 37 U/L (15-37); BUN Creatinine Ratio 19.2 (10-20); Blood Urea Nitrogen 28 mg/dl (7-18); Carbon Dioxide 23 mmol/L (21-32); Chloride 104 mmol/L (98-107); Creatinine Clr Calc Pharmacy 35.3 ml/min; Est GFR (African American) 49.7; Est GFR (Non-African American) 42.9; Glucose 109 mg/dl (70-99); Potassium 4.3 mmol/L (3.5-5.1); Sodium 136 mmol/L (136-145)
[2018-11-27 20:20] LABS: Hematocrit (blood only) 25.2 % (42-52); Hemoglobin 8.1 g/dL (14.0-18.0); Mean Corpuscular Hgb Conc 32.1 g/dL (32-36); Mean Corpuscular Volume 89.4 fL (80-100); Mean Platelet Volume 10.3 fL (7.4-10.4); Platelet Count 160 K/uL (130-400); Prothrombin Time 69.8 Seconds (9.0-12.0); RDW Coefficient of Variation 17.1 % (11.5-14.5); RDW Standard Deviation 55.6 fL (36.4-46.3); Red Blood Count 2.82 M/uL (4.7-6.1); White Blood Count 34.43 K/uL (4.8-10.8)
[2018-11-27 20:22] LABS: Albumin Globulin Ratio 0.8 (0.9-2); Alkaline Phosphatase 73 U/L (45-117); Bilirubin,Total 0.6 mg/dl (0.2-1); Creatine Kinase 20 U/L (39-308); Creatine Kinase MB < 1.0 ng/ml (0.5-3.6); Globulin 3.2 gm/dl (2.5-4.0); Total Protein 5.8 gm/dl (6.4-8.2); Troponin I < 0.015 ng/ml (0-0.045)
[2018-11-27 20:26] LABS: INR 7.8 (0.9-1.1)
[2018-11-27] MEDS ORDERED: PHYTONADIONE 5 MG TAB PO STA (20:30)
[2018-11-27 20:58] LABS: ALC (manual) 33.09 K/uL (1.2-3.4); Hypochromasia Present; Lymphocytes # (manual) 33.09 K/uL (1.2-3.4); Lymphocytes % (manual) 96.1 %; Monocytes # (manual) 0.28 K/uL (0.11-0.59); Monocytes % (manual) 0.8 %; Neutrophils % (manual) 3.1 %; Ovalocytes 1+; Smudge Cells Present
--- NOTE | 2018-11-27 22:22 | History & Physical Report ---
Date of Service November 27, 2018 Assessment & Plan (1) Supratherapeutic INR: Supratherapeutic INR/epistaxis/ anemia-- INR 7.8 upon admission. Hemoglobin is 8.1. Patient received vitamin K 5 mg p.o. by ED staff. Repeat INR in the a.m. No further epistaxis noted since arrival in ED. Patient has been typed and screened while in the ED. Vital signs are stable at this point. We will repeat laboratories in the a.m., and set up on transfusion at that time. He will be admitted to telemetry for close blood pressure follow-up. Present on Admission?: Yes (2) Epistaxis: See above. Patient will need to have an appointment with ENT, which can be performed in the outpatient setting if there is no further epistaxis, when INR is better controlled. Present on Admission?: Yes (3) Anemia: See above Present on Admission?: Yes (4) CAD (coronary artery disease): CAD/hypertension/history of MA/atrial fibrillation-- The patient will be admitted to telemetry for serial cardiac enzymes, serial EKG's, cardiac rhythm monitoring and a 2-D echocardiogram with Dopplers. Hold aspirin. Continue metoprolol succinate 25 mg at bedtime. Hold warfarin and reversed with vitamin K as noted above. Present on Admission?: Yes (5) History of MA (myocardial infarction): See above Present on Admission?: Yes (6) Atrial fibrillation: See above Present on Admission?: Yes (7) Leukemia: Last chemotherapy was 10/31/18. Consults Dr. Chadwick from oncology. Present on Admission?: Yes History of Present Illness Chief Complaint: The patient presents to the emergency department with recent nosebleeds, and progressive fatigue. 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 This prompted laboratory testing in the outpatient setting, which included an INR that was found to be supratherapeutic, for which the patient was referred to the ED for assessment. Allergies Allergy/AdvReac Type Severity Reaction Status Date / Time Pwvuhfu-Hen-[id number] Reductase AdvReac Severe muscle Verified 11/27/18 20:11 Inhibitor aches/weak Home Medications Home Medications Medication Instructions Recorded Confirmed Type acetaminophen [Tylenol] 325 - 650 mg PO Q6H PRN 11/27/18 11/27/18 History allopurinol [Zyloprim] 300 mg PO DAILY 11/27/18 11/27/18 History aspirin 81 mg PO DAILY 11/27/18 11/27/18 History levothyroxine [Synthroid] 25 mcg PO DAILY 11/27/18 11/27/18 History metoprolol succinate [Toprol XL] 25 mg PO HS 11/27/18 11/27/18 History prochlorperazine maleate 10 mg PO Q6 PRN 11/27/18 11/27/18 History [Compazine] sertraline [Zoloft] 50 mg PO DAILY 11/27/18 11/27/18 History warfarin [Coumadin] 2.5 mg PO 4XWK 11/27/18 11/27/18 History warfarin [Coumadin] 5 mg PO 3XWK 11/27/18 11/27/18 History Past Med/Surg History Medical History Leukemia Social History Current Living Situation: Alone Current Living Situation Comment: Currently has daughter staying with him, not permanent. Feels Safe at Home: Yes Safety Concerns: Feels Safe At This Time Smoking Status: Former smoker Do You Dip or Chew Tobacco: No Second Hand Exposure: No Hx Alcohol Use: No Hx Substance Use: No Beliefs That Will Affect Care: None Preferred Language: Welsh Communication Ability: Effective Rn Nicu Required: No Review of Systems The patient denies chest pain, palpitations, shortness of breath, dyspnea on exertion, cough, lower extremity swelling, sore throat, fevers, chills, sweats, nausea, vomiting, diarrhea , constipation, abdominal pain, pelvic pain, blood in urine or stool, dysuria, urinary frequency or urgency, lightheadedness , dizziness, headache, loss of consciousness, rash, imbalance, focal weakness, numbness or tingling in arms or legs, generalized arthralgias or myalgias, back or neck pain, or night sweats. The review of systems is otherwise negative other than for that already noted above, and at least 10 systems have been reviewed. Physical Exam 2 Vital Signs (Past 24 Hours): Last Vital Signs Temp 37.3 C 11/27/18 19:02 Pulse 88 11/27/18 21:59 Resp 18 11/27/18 21:59 BP 106/58 L 11/27/18 21:59 Pulse Ox 98 11/27/18 21:59 Physical Exam: The patient is awake, alert and oriented 3, looks mildly fatigued, normocephalic and atraumatic, lying in bed and in no acute distress. HEENT--PERRL, EOMI, mucous membranes and oropharynx dry. Neck--supple. No JVD. No bruits. Thyroid normal, trachea midline, no adenopathy. Heart--normal S1 and S2. No murmurs, rubs or gallops. Lungs--clear bilaterally, no respiratory distress, no accessory muscle use. Abdomen--normal bowel sounds and soft. Nontender. Nondistended, no hernias or masses, no organomegaly. Extremities--no cyanosis or clubbing. No edema. There are good distal pulses b/ l. Dermatologic--normal skin turgor, normal color, no abnormal lymph nodes, no rash. Neurologic--cranial nerves II through XII grossly intact. Rheumatologic--normal range of motion. Psychiatric--normal affect. Results & Data Laboratory Results Laboratory Results WBC 34.43 K/uL (4.8-10.8) H* 11/27/18: RBC 2.82 M/uL (4.7-6.1) L 11/27/18 19: Hgb 8.1 g/dL (14.0-18.0) L 11/27/18 19: POC Hgb 7.5 g/dl (14.0-18.0) L 11/27/18 19:42 Hct 25.2 % (42-52) L 11/27/18 19: POC Hct 22 % (42-52) L 11/27/18 19: MCV 89.4 fL (80-100) 11/27/18 19: MCH 28.7 pg (25-34) 11/27/18: MCHC 32.1 g/dL (32-36) 11/27/18: RDW Std Deviation 55.6 fL (36.4-46.3) H 11/27/18:25 RDW Coeff of Jacoby 17.1 % (11.5-14.5) H 11/27/18 19:25 Plt Count 160 K/uL (130-400) 11/27/18 19:25 MPV 10.3 fL (7.4-10.4) 11/27/18 19:25 Neutrophils % (Manual) 3.1 % 11/27/18 19:25 Lymphocytes % (Manual) 96.1 % 11/27/18 19: Monocytes % (Manual) 0.8 % 11/27/18 19: Neutrophils # (Manual) 1.07 K/uL (1.4-6.5) L 11/27/18 19:25 Total Absolute Neuts 1.07 K/uL (1.4-6.5) L 11/27/18: Lymphocytes # (Manual) 33.09 K/uL (1.2-3.4) H 11/27/18 19:25 Total Abs Lymphocytes 33.09 K/uL (1.2-3.4) H 11/27/18 19:25 Monocytes # (Manual) 0.28 K/uL (0.11-0.59) 11/27/18 19:25 Smudge Cells Present 11/27/18 19:25 Hypochromasia Present 11/27/18 19: Ovalocytes 1+ 11/27/18 19: PT 69.8 Seconds (9.0-12.0) H 11/27/18 19:25 INR 7.8 (0.9-1.1) H* 11/27/18 19: POC Sodium 136 mEq/L (135-144) 11/27/18 19: Sodium 136 mmol/L (136-145) 11/27/18 19:25 POC Potassium 4.3 mEq/L (3.3-5.0) 11/27/18 19: Potassium 4.3 mmol/L (3.5-5.1) 11/27/18 19:25 POC Chloride 102 mEq/L (101-112) 11/27/18 19:42 Chloride 104 mmol/L (98-107) 11/27/18 19:25 Carbon Dioxide 23 mmol/L (21-32) 11/27/18 19: POC Total CO2 21 mEq/l (24-31) L 11/27/18 19:42 Anion Gap 10.0 (3-11) 11/27/18 19:25 POC Anion Gap 18.0 mmol/L (16-25) 11/27/18 19:42 POC BUN 26 mg/dl (7-18) H 11/27/18 19:42 BUN 28 mg/dl (7-18) H 11/27/18 19:25 Creatinine 1.47 mg/dl (0.6-1.4) H 11/27/18 19: POC Creatinine 1.5 mg/dl (0.6-1.3) H 11/27/18 19:42 Est Cr Clr Drug Dosing 35.3 ml/min 11/27/18 19:25 Est GFR ( Amer) 49.7 11/27/18: Est GFR (Non-Af Amer) 42.9 11/27/18: BUN/Creatinine Ratio 19.2 (10-20) 11/27/18 19:25 Glucose 109 mg/dl (70-99) H 11/27/18: POC Glucose (other) 106 mg/dl (70-99) H 11/27/18 19:42 Calcium 8.0 mg/dl (8.5-10.1) L 11/27/18 19:25 POC Ioniz Calcium Dayana 1.09 mmol/l (1.12-1.32) L 11/27/18 19: Total Bilirubin 0.6 mg/dl (0.2-1) 11/27/18 19:25 AST 37 U/L (15-37) 11/27/18: ALT 47 U/L (12-78) 11/27/18 19:25 Alkaline Phosphatase 73 U/L (45-117) 11/27/18:25 Total Creatine Kinase 20 U/L (39-308) L 11/27/18 19:25 CK-MB (CK-2) < 1.0 ng/ml (0.5-3.6) 11/27/18 19:25 CK/CKMB % Calc TNP 11/27/18 19:25 Troponin I < 0.015 ng/ml (0-0.045) 11/27/18:25 Total Protein 5.8 gm/dl (6.4-8.2) L 11/27/18 19:25 Albumin 2.6 gm/dl (3.4-5.0) L 11/27/18 19:25 Globulin 3.2 gm/dl (2.5-4.0) 11/27/18 19:25 Albumin/Globulin Ratio 0.8 (0.9-2) L 11/27/18 19:25 TSH 4.230 uIu/ml (0.300-4.500) 11/27/18 19:25 Urine Color Dark Yellow 11/27/18 22:20 Urine Appearance Clear (Clear) 11/27/18 22:20 Urine pH 5.0 (4.5-7.5) 11/27/18 22:20 Ur Specific [place] 1.020 (1.000-1.030) 11/27/18 22:20 Urine Protein Negative (Negative) 11/27/18 22:20 Urine Glucose (UA) Negative (Negative) 11/27/18 22:20 Urine Ketones Negative (Negative) 11/27/18 22:20 Urine Blood Negative (Negative) 11/27/18 22:20 Urine Nitrite Negative (Negative) 11/27/18 22:20 Urine Bilirubin Negative (Negative) 11/27/18 22:20 Urine Urobilinogen Negative (Negative) 11/27/18 22:20 Ur Leukocyte Esterase Negative (Negative) 11/27/18 22:20 Blood Type B Positive 11/27/18 20:07 Blood Type Recheck B Positive 11/27/18 20:54 Antibody Screen NEGATIVE 11/27/18 20:07 Crossmatch See Detail 11/27/18 20:07 Diagnostic Findings [place], [place] [phone] XRay Report Patient: MARK LARKIN Date: 11/27/18 MR#: [id number]: [address] Acct ID:[id number]: Date: [address] [place] [address] Zip: [place] [address] Age: 83Location: ED Sex: M Room/Bed: Att Phy: Diagnosis: INR IS 80 [address] Phy: Nilton Sanchez MDService Date: 11/27/18 Fam Phy: Prasad Encinas Jr, MDInterpreting Phy: Tam Keller MD Admit Phy: Ordering Phy: Darrion Rose MD cc: ~ XR chest 1V portable CLINICAL HISTORY: weakness COMPARISON STUDY: Chest radiograph October 05, 2018. FINDINGS: There is no pneumothorax or pleural effusion. There is mild cardiomegaly without evidence for pulmonary edema. Minimal bibasilar opacities favor atelectasis. IMPRESSION: 1. Minimal bibasilar opacities which favor atelectasis. 2. Cardiomegaly without evidence for pulmonary edema. Electronically signed by: Tam Keller M.D. 11/27/2018 8:06 PM Dictated: 11/27/182004 Transcribed: 11/27/182004 Medications Administered acetaminophen [Tylenol] 325 - 650 mg PO Q6H PRN 11/27/18 [History Confirmed ] allopurinol [Zyloprim] 300 mg PO DAILY 11/27/18 [History Confirmed 11/27/18] aspirin 81 mg PO DAILY 11/27/18 [History Confirmed 11/27/18] levothyroxine [Synthroid] 25 mcg PO DAILY 11/27/18 [History Confirmed 11/27/18] metoprolol succinate [Toprol XL] 25 mg PO HS 11/27/18 [History Confirmed ] prochlorperazine maleate [Compazine] 10 mg PO Q6 PRN 11/27/18 [History Confirmed 11/27/18] sertraline [Zoloft] 50 mg PO DAILY 11/27/18 [History Confirmed 11/27/18] warfarin [Coumadin] 2.5 mg PO 4XWK 11/27/18 [History Confirmed 11/27/18] warfarin [Coumadin] 5 mg PO 3XWK 11/27/18 [History Confirmed 11/27/18] Home Medications Acetaminophen (Ofirmev) 1,000 mg IV Q8H PRN PRN Reason: Pain or Fever Stop: 12/27/18 23:30 Acetaminophen (Tylenol) 650 mg PO Q4H PRN PRN Reason: Pain or Fever Stop: 12/27/18 23:30 Al Hydrox/Mg Hydrox/Simethicone (Maalox) 15 ml PO Q4H PRN PRN Reason: Dyspepsia Stop: 12/27/18 23:30 Allopurinol (Zyloprim) 300 mg PO DAILY [facility] Stop: 12/28/18 08:59 Sodium Chloride (Nss 1000ml) 1,000 mls @ 80 mls/hr IV .[id number] [facility] Stop: 12/27/18 23:30 Last Admin: 11/27/18 23:52 Dose: 80 mls/hr Levothyroxine Sodium (Synthroid) 25 mcg PO DAILYBB [facility] Stop: 12/28/18 06:29 Magnesium Hydroxide (Milk Of Magnesia) 30 ml PO Q12H PRN PRN Reason: Constipation Stop: 12/27/18 23:30 Metoprolol Succinate (Toprol Xl) 25 mg PO HS [facility] Stop: 12/28/18 20:59 Ondansetron HCl (Zofran) 4 mg IV Q6H PRN PRN Reason: NAUSEA/VOMITING Stop: 12/27/18 23:30 Polyethylene Glycol (Miralax Powder Packet) 17 gm PO DAILY PRN PRN Reason: Constipation Stop: 12/27/18 23:30 Prochlorperazine (Compazine) 10 mg PO Q6 PRN PRN Reason: Nausea Stop: 12/27/18 23:30 Sertraline HCl (Zoloft) 50 mg PO DAILY [facility] Stop: 12/28/18 08:59 Code Status & VTE Plan Code Status DO NOT RESUSCITATE VTE Prophylaxis Plan VTE Prophylaxis will be ordered: Yes _ (1) Anemia Anemia type: Bone marrow failure anemia type: Chronic kidney disease stage : Folate deficiency anemia type: Hemolytic anemia type: Iron deficiency anemia type: Other causes of anemia: Vitamin B12 deficiency anemia type:
[2018-11-27 22:28] LABS: Appearance Urine Clear (Clear); Bilirubin Urine Negative (Negative); Color Urine Dark Yellow; Glucose Urine UA Negative (Negative); Ketones Urine Negative (Negative); Leukocyte Esterase Urine Negative (Negative); Nitrite Urine Negative (Negative); Protein Urine Negative (Negative); Urobilinogen Urine Negative (Negative)
[2018-11-27] MEDS ORDERED: ALUMINUM/MAGNESIUM SUSP 30 ML UDC PO PRN (23:31)
[2018-11-27] MEDS ORDERED: PROCHLORPERAZINE MALEATE 10 MG TAB PO PRN (23:31)
[2018-11-27] MEDS ORDERED: MAGNESIUM HYDROXIDE SUSP 30 ML UDC PO PRN (23:31)
[2018-11-27] MEDS ORDERED: ACETAMINOPHEN 1000 MG/100 ML IV IV PRN (23:31)
[2018-11-27] MEDS: SODIUM CHLORIDE 0.9% 1000ML 1,000 ML IV SCH (23:52)
[2018-11-28] MEDS: LEVOTHYROXINE SODIUM 25 MCG TABLET PO SCH (05:33)
[2018-11-28 06:05] LABS: Mean Corpuscular Hgb Conc 32.3 g/dL (32-36); Platelet Count 146 K/uL (130-400)
[2018-11-28 06:27] LABS: Partial Thromboplastin Ratio 3.2; Prothrombin Time 41.3 Seconds (9.0-12.0)
[2018-11-28 06:28] LABS: Partial Thromboplastin Time 83.3 Seconds (21.0-31.0)
[2018-11-28 06:36] LABS: Albumin Level 2.3 gm/dl (3.4-5.0); BUN Creatinine Ratio 20.3 (10-20); Calcium 7.4 mg/dl (8.5-10.1); Creatinine Clr Calc Pharmacy 43.1 ml/min; Est GFR (African American) 64.2; Est GFR (Non-African American) 55.4; Potassium 3.9 mmol/L (3.5-5.1)
[2018-11-28 06:39] LABS: Albumin Globulin Ratio 0.8 (0.9-2); Bilirubin,Total 0.7 mg/dl (0.2-1); Globulin 2.8 gm/dl (2.5-4.0); Total Protein 5.1 gm/dl (6.4-8.2)
[2018-11-28 06:53] LABS: Hematocrit (blood only) 23.2 % (42-52); Hemoglobin 7.5 g/dL (14.0-18.0); Mean Corpuscular Volume 89.2 fL (80-100); RDW Coefficient of Variation 17.1 % (11.5-14.5); RDW Standard Deviation 56.1 fL (36.4-46.3); White Blood Count 27.19 K/uL (4.8-10.8)
[2018-11-28 07:02] LABS: Smudge Cells Present
[2018-11-28] MEDS: SERTRALINE HCL 50 MG TABLET PO SCH (08:06)
[2018-11-28] MEDS: ALLOPURINOL 300 MG TAB PO SCH (08:06)
--- NOTE | 2018-11-28 08:49 | Consultation Report ---
DATE OF CONSULTATION: 11/28/2018 REASON FOR CONSULTATION: Supratherapeutic INR in this pleasant 83-year-old gentleman with CLL. HISTORY OF PRESENT ILLNESS: Carlos Lakhani is a pleasant 83-year-old gentleman with a longstanding history of chronic lymphocytic leukemia, currently under my care. Carlos actually was just in my office yesterday. He was scheduled to receive his second cycle of modified bendamustine and rituximab. In the office yesterday, Carlos did not look well. It was decided to have him return the very next day for IV fluids and antiemetics as he has been struggling with asthenia, poor appetite, weight loss, and just general poor wellbeing. I was very pleased to see his renal function that remained intact as I was concerned with the possibility of tumor lysis considering his white count at the beginning of therapy. Apparently, after he left the office yesterday, he was contacted by his primary care physician because of supratherapeutic INR. Carlos admits to occasionally suffering from epistaxis. He also continues to so with coughing and gagging, which he did complain of in the office yesterday and I had recommended over the counter Delsym to alleviate his cough. Patient denies any overt fever, chills, or rigors. PAST MEDICAL HISTORY: Significant for chronic lymphocytic leukemia, aortic regurgitation, intermittent atrial fibrillation, coronary artery disease, hypertension, hyperlipidemia. PAST SURGICAL HISTORY: Stent replacement in 2001. MEDICATIONS: Home medications include Compazine 10 mg p.o. q.6 h. p.r.n., Zyrtec 10 mg p.o. daily, allopurinol 300 mg p.o. daily, aspirin 81 mg p.o. daily, Coumadin 5 mg p.o. daily in alternate dosing, levothyroxine 25 mcg p.o. daily, metoprolol 25 mg p.o. daily, zolpidem oral p.r.n., and Zofran 8 mg p.o. q.8 h. p.r.n. for nausea. ALLERGIES: STATINS. SOCIAL HISTORY: Patient staying with his daughter. He is a reformed smoker. Negative for alcohol or illicit drugs. FAMILY HISTORY: Noncontributory. REVIEW OF SYSTEMS: As per HPI. CONSTITUTIONAL: Negative for fevers, chills, or sweats. Positive for asthenia, generalized weakness, and feeling poorly. SKIN: No rashes or lesions. No history of dermatoses. HEENT: He denies headaches, lightheadedness, or dizziness. No visual or hearing difficulties. Negative for sinus symptoms, negative for dysphagia or sore throat. LYMPHATICS: Positive for adenopathy associated with his lymphoproliferative disorder. CARDIAC: Positive history of coronary artery disease. He is not experiencing angina or palpitations. PULMONARY: Negative for COPD. He is not acutely short of breath or dyspneic on exertion. He has had this semi-productive cough, no hemoptysis reported. GASTROINTESTINAL: Occasional nausea. No overt emesis, no diarrhea. Positive for constipation. No hematochezia or melena stools. GENITOURINARY: No hematuria, dysuria, urinary incontinence. PSYCHIATRIC: Negative for anxiety, depression, or psychoses. ENDOCRINE: Positive for hypothyroidism. MUSCULOSKELETAL: Generalized weakness but no focal arthralgias or myalgias. NEUROLOGIC: Negative for seizure, stroke, or migraine headache. HEMATOLOGIC: Positive for cytopenias. PHYSICAL EXAMINATION: GENERAL: Very pleasant 83-year-old gentleman, in no acute distress. VITAL SIGNS: Temperature 37.3, pulse 88, respiratory rate 16, blood pressure 114/66. SKIN: Warm, dry, noncyanotic, without petechiae, rash, or ecchymosis. HEENT: Atraumatic, normocephalic. Eyes: PERRLA, EOMI. Sclerae are nonicteric. No conjunctival injection. Nares are patent, without rhinorrhea or discharge. Throat clear. Tongue midline. Mucous membranes are moist. NECK: Supple, without JVD or thyromegaly. LYMPHATICS: No cervical, supraclavicular, or axillary palpable nodes. HEART: Regular rate and rhythm. No clicks, rubs, murmurs, or gallops. LUNGS: Clear to auscultation bilaterally. ABDOMEN: Soft, nontender, nondistended. EXTREMITIES: No clubbing, cyanosis, or edema. NEUROLOGICAL: He is awake, alert, and oriented x3. Cranial nerves II through XII are grossly intact. LABORATORY DATA: WBC count 27,190, hemoglobin 7.5, platelet count 146,000, his absolute neutrophil count is over 1000. PT 41.3 seconds, INR is pending, probably right around 4, PTT 83.3 seconds. Sodium 137, potassium 3.9, chloride 106, BUN 24, creatinine 1.5, albumin 2.3. IMPRESSION: 1. Coagulopathy, attributable to Coumadin. 2. Asthenia, attributable to previous chemotherapy. 3. Hypoalbuminemia. 4. History of atrial fibrillation. 5. History of coronary artery disease. PLAN: Carlos Lakhani is a pleasant 83-year-old gentleman, well known to [facility], currently under my management for progressing chronic lymphocytic leukemia. Cralos received his first course of modified bendamustine and rituximab about 4 weeks ago. I anticipated difficulties, and therefore, started his dosing at 50% of prescribed dose based on his body surface area at that time. Nonetheless, when he presented to the office yesterday, he was not looking well, and I had made arrangements for Carlos to return to the office this morning for IV fluids, antiemetics, and corticosteroids. Unfortunately, his INR was supratherapeutic, and appropriately, he was summoned to the Emergency Room. Vitamin K has been administered based on this morning's PT and INR. I would hold off and allow him to drop down on his own as further aggressive correction may cause difficulty establishing a therapeutic INR moving forward. Carlos obviously needs to work on his nutrition, his albumin is dreadfully low, and increased protein intake imperative. My plan was to delay his chemotherapy an additional week. Obviously, even at 50% dose reduction, he is still having difficulties tolerating, will consider further reduction moving forward. Again, his renal function needs to be monitored carefully as there was considerable tumor lysis after his initial course. Perhaps transfusing 1 unit of blood may be helpful in getting Carlos back on his feet. Obviously, he should be transfused carefully as to not cause a subsequent flash pulmonary edema. Tentatively, he is scheduled to resume chemotherapy on the ; however, I will examine him prior to reinitiation of treatment. Thank you very much for assisting us in the care of this very pleasant gentleman.
[2018-11-28 10:56] LABS: INR 4.4 (0.9-1.1)
[2018-11-28] MEDS: SODIUM CHLORIDE 0.9% 1000ML 1,000 ML IV SCH (11:15)
[2018-11-28] MEDS ORDERED: SODIUM CHLORIDE 0.9% 1000ML 1,000 ML IV PRN (11:43)
--- NOTE | 2018-11-28 15:50 | Hospitalist Progress Note ---
Date of Service November 28, 2018 Assessment & Plan (1) Supratherapeutic INR: INR 7.8 upon admission was given vitamin K in the ED good response with INR down to 4.[address] Chadwick, would not give any further vitamin K, allow INR to drift down repeat tomorrow (2) Epistaxis: no further bleeding keep nose moist with saline, ordered oxygen to be removed unless patient actually hypoxic if there are any further issues he can follow up with ENT outpatient (3) Anemia: Hb down to 7.5 this morning likely combination of some blood loss with epistaxis but also bone marrow suppression from chemotherapy will transfuse one unit of PRBC today repeat H/H tomorrow (4) CAD (coronary artery disease): Hold aspirin. Continue metoprolol succinate 25 mg at bedtime. no chest pain, no signs of ischemia (5) History of AL (myocardial infarction): hold aspirin due to epistaxis likely resume tomorrow if no further bleeding no chest pain (6) Atrial fibrillation: rates controlled on metoprolol can transfer off of tele today INR is 4.4, hold Coumadin today (7) Leukemia: Last chemotherapy was 10/31/18. appreciate consult from Dr. Chadwick (8) Protein malnutrition: (9) NANCY (acute kidney injury): resolved, Cr down to 1.1 with IV fluids, will stop fluids since he is eating and drinking better no signs of tumor lysis syndrome but would continue to monitor transfer to medical floor today (10) Positive blood culture: one set, gram positive bacilli, likely a contaminant, will follow up Subjective patient says he is feeling better after some IV fluids and rest appreciate Dr. Chadwick's consultation, discussed case with his this morning reviewed labs, Hb down to 7.5, will transfuse one unit INR down to 4.4 no further epistaxis, asked RN to remove oxygen since it wasn't needed no chest pain, no dyspnea patient's appetite has been okay, intermittently loses it due to chemo has been staying with his daughter daughter updated at the bedside Review of Systems All systems reviewed & are unremarkable except as noted in HPI & below Constitutional: + fatigue and + weakness Ear, Nose, Mouth, Throat: no epistaxis Respiratory: + dyspnea on exertion Physical Exam 2 Vital Signs (Past 24 Hours): Last Vital Signs Temp 36.7 C 11/28/18 14:24 Pulse 101 H 01/23/19 14:24 Resp 18 11/28/18 14:24 BP 114/56 L 11/28/18 14:24 Pulse Ox 95 11/28/18 14:24 Constitutional: WD/WN, vitals as above Eyes: PERRL, conjunctivae normal, anicteric sclerae ENMT: external ear and nose normal, oropharynx normal (scant dry blood in nasal mucosa) Neck: trachea midline, no thyromegaly Respiratory: normal respiratory effort, lungs clear to auscultation Cardiovascular: Rate/Rhythm: regular rate; + abnormal rhythm Heart Sounds: normal S1 and normal S2; no murmur Vessels: normal peripheral pulses Gastrointestinal (Abdomen): normal bowel sounds, soft, nontender, no hepatosplenomegaly Musculoskeletal: no cyanosis or clubbing, extremities motor strength 5/5 Skin: no rashes, warm and dry Neurologic: patellar DTR's 2+ bilat, sensation intact and PERRL, EOMI, accommodation nl, no face palsy, no dysarthria Psychiatric: A+Ox3, euthymic affect Lymphatic: no cervical or axillary lymphadenopathy Results & Data Laboratory Results Laboratory Results - last 24 hr 11/27/18 11/27/18 11/27/18 19:25 19:25 19:25 WBC 34.43 H* RBC 2.82 L Hgb 8.1 L POC Hgb Hct 25.2 L POC Hct MCV 89.4 MCH 28.7 MCHC 32.1 RDW Std Deviation 55.6 H RDW Coeff of Jacoby 17.1 H Plt Count 160 MPV 10.3 Neutrophils % (Manual) 3.1 Lymphocytes % (Manual) 96.1 Monocytes % (Manual) 0.8 Neutrophils # (Manual) 1.07 L Total Absolute Neuts 1.07 L Lymphocytes # (Manual) 33.09 H Total Abs Lymphocytes 33.09 H Monocytes # (Manual) 0.28 Smudge Cells Present Hypochromasia Present Ovalocytes 1+ PT 69.8 H INR 7.8 H* APTT PTT Ratio POC Sodium Sodium 136 POC Potassium Potassium 4.3 POC Chloride Chloride 104 Carbon Dioxide 23 POC Total CO2 Anion Gap 10.0 POC Anion Gap POC BUN BUN 28 H Creatinine 1.47 H POC Creatinine Est Cr Clr Drug Dosing 35.3 Est GFR ( Amer) 49.7 Est GFR (Non-Af Amer) 42.9 BUN/Creatinine Ratio 19.2 Glucose 109 H POC Glucose (other) Calcium 8.0 L POC Ioniz Calcium Dayana Total Bilirubin 0.6 AST 37 ALT 47 Alkaline Phosphatase 73 Total Creatine Kinase 20 L CK-MB (CK-2) < 1.0 CK/CKMB % Calc TNP Troponin I < 0.015 Total Protein 5.8 L Albumin 2.6 L Globulin 3.2 Albumin/Globulin Ratio 0.8 L TSH 4.230 Urine Color Urine Appearance Urine pH Ur Specific Pitts Urine Protein Urine Glucose (UA) Urine Ketones Urine Blood Urine Nitrite Urine Bilirubin Urine Urobilinogen Ur Leukocyte Esterase Blood Type Blood Type Recheck Antibody Screen Crossmatch 11/27/18 11/27/18 11/27/18 19:42 20:07 20:54 WBC RBC Hgb POC Hgb 7.5 L Hct POC Hct 22 L MCV MCH MCHC RDW Std Deviation RDW Coeff of Jacoby Plt Count MPV Neutrophils % (Manual) Lymphocytes % (Manual) Monocytes % (Manual) Neutrophils # (Manual) Total Absolute Neuts Lymphocytes # (Manual) Total Abs Lymphocytes Monocytes # (Manual) Smudge Cells Hypochromasia Ovalocytes PT INR APTT PTT Ratio POC Sodium 136 Sodium POC Potassium 4.3 Potassium POC Chloride 102 Chloride Carbon Dioxide POC Total CO2 21 L Anion Gap POC Anion Gap 18.0 POC BUN 26 H BUN Creatinine POC Creatinine 1.5 H Est Cr Clr Drug Dosing Est GFR ( Amer) Est GFR (Non-Af Amer) BUN/Creatinine Ratio Glucose POC Glucose (other) 106 H Calcium POC Ioniz Calcium Dayana 1.09 L Total Bilirubin AST ALT Alkaline Phosphatase Total Creatine Kinase CK-MB (CK-2) CK/CKMB % Calc Troponin I Total Protein Albumin Globulin Albumin/Globulin Ratio TSH Urine Color Urine Appearance Urine pH Ur Specific Pitts Urine Protein Urine Glucose (UA) Urine Ketones Urine Blood Urine Nitrite Urine Bilirubin Urine Urobilinogen Ur Leukocyte Esterase Blood Type B Positive Blood Type Recheck B Positive Antibody Screen NEGATIVE Crossmatch See Detail 11/27/18 11/28/18 11/28/18 22:20 05:44 05:44 WBC 27.19 H RBC 2.60 L Hgb 7.5 L POC Hgb Hct 23.2 L POC Hct MCV 89.2 MCH 28.8 MCHC 32.3 RDW Std Deviation 56.1 H RDW Coeff of Jacoby 17.1 H Plt Count 146 MPV 10.0 Neutrophils % (Manual) 4.0 Lymphocytes % (Manual) 96.0 Monocytes % (Manual) Neutrophils # (Manual) 1.09 L Total Absolute Neuts 1.09 L Lymphocytes # (Manual) 26.10 H Total Abs Lymphocytes 26.10 H Monocytes # (Manual) Smudge Cells Present Hypochromasia Ovalocytes PT 41.3 H INR 4.4 H APTT 83.3 H* PTT Ratio 3.2 POC Sodium Sodium POC Potassium Potassium POC Chloride Chloride Carbon Dioxide POC Total CO2 Anion Gap POC Anion Gap POC BUN BUN Creatinine POC Creatinine Est Cr Clr Drug Dosing Est GFR ( Amer) Est GFR (Non-Af Amer) BUN/Creatinine Ratio Glucose POC Glucose (other) Calcium POC Ioniz Calcium Dayana Total Bilirubin AST ALT Alkaline Phosphatase Total Creatine Kinase CK-MB (CK-2) CK/CKMB % Calc Troponin I Total Protein Albumin Globulin Albumin/Globulin Ratio TSH Urine Color Dark Yellow Urine Appearance Clear Urine pH 5.0 Ur Specific Pitts 1.020 Urine Protein Negative Urine Glucose (UA) Negative Urine Ketones Negative Urine Blood Negative Urine Nitrite Negative Urine Bilirubin Negative Urine Urobilinogen Negative Ur Leukocyte Esterase Negative Blood Type Blood Type Recheck Antibody Screen Crossmatch 11/28/18 05:44 WBC RBC Hgb POC Hgb Hct POC Hct MCV MCH MCHC RDW Std Deviation RDW Coeff of Jacoby Plt Count MPV Neutrophils % (Manual) Lymphocytes % (Manual) Monocytes % (Manual) Neutrophils # (Manual) Total Absolute Neuts Lymphocytes # (Manual) Total Abs Lymphocytes Monocytes # (Manual) Smudge Cells Hypochromasia Ovalocytes PT INR APTT PTT Ratio POC Sodium Sodium 137 POC Potassium Potassium 3.9 POC Chloride Chloride 106 Carbon Dioxide 22 POC Total CO2 Anion Gap 9.0 POC Anion Gap POC BUN BUN 24 H Creatinine 1.19 POC Creatinine Est Cr Clr Drug Dosing 43.1 Est GFR ( Amer) 64.2 Est GFR (Non-Af Amer) 55.4 BUN/Creatinine Ratio 20.3 H Glucose 93 POC Glucose (other) Calcium 7.4 L POC Ioniz Calcium Dayana Total Bilirubin 0.7 AST 27 ALT 38 Alkaline Phosphatase 63 Total Creatine Kinase CK-MB (CK-2) CK/CKMB % Calc Troponin I Total Protein 5.1 L Albumin 2.3 L Globulin 2.8 Albumin/Globulin Ratio 0.8 L TSH Urine Color Urine Appearance Urine pH Ur Specific Pitts Urine Protein Urine Glucose (UA) Urine Ketones Urine Blood Urine Nitrite Urine Bilirubin Urine Urobilinogen Ur Leukocyte Esterase Blood Type Blood Type Recheck Antibody Screen Crossmatch Medications Administered Current Inpatient Medications Acetaminophen (Ofirmev) 1,000 mg IV Q8H PRN PRN Reason: Pain or Fever Stop: 12/27/18 23:30 Acetaminophen (Tylenol) 650 mg PO Q4H PRN PRN Reason: Pain or Fever Stop: 12/27/18 23:30 Al Hydrox/Mg Hydrox/Simethicone (Maalox) 15 ml PO Q4H PRN PRN Reason: Dyspepsia Stop: 12/27/18 23:30 Allopurinol (Zyloprim) 300 mg PO DAILY [facility] Stop: 12/28/18 08:59 Last Admin: 11/28/18 08:06 Dose: 300 mg Sodium Chloride (Nss 1000ml) 1,000 mls @ 15 mls/hr IV .Q24H PRN PRN Reason: For Transfusion Stop: 11/28/18 23:59 [facility]: 12/28/18 06:29 Last Admin: 11/28/18 05:33 Dose: 25 mcg Magnesium Hydroxide (Milk Of Magnesia) 30 ml PO Q12H PRN PRN Reason: Constipation Stop: 12/27/18 23:30 Metoprolol Succinate (Toprol Xl) 25 mg PO HS [facility] Stop: 12/28/18 20:59 Ondansetron HCl (Zofran) 4 mg IV Q6H PRN PRN Reason: NAUSEA/VOMITING Stop: 12/27/18 23:30 Polyethylene Glycol (Miralax Powder Packet) 17 gm PO DAILY PRN PRN Reason: Constipation Stop: 12/27/18 23:30 Prochlorperazine (Compazine) 10 mg PO Q6 PRN PRN Reason: Nausea Stop: 12/27/18 23:30 Sertraline HCl (Zoloft) 50 mg PO DAILY [facility] Stop: 12/28/18 08:59 Last Admin: 11/28/18 08:06 Dose: 50 mg _ (1) Anemia Anemia type: Bone marrow failure anemia type: Chronic kidney disease stage : Folate deficiency anemia type: Hemolytic anemia type: Iron deficiency anemia type: Other causes of anemia: Vitamin B12 deficiency anemia type:
[2018-11-28] MEDS: GUAIFENESIN/CODEINE 200MG/20MG 10ML UDC PO PRN ×2 (17:19→23:25)
[2018-11-28] MEDS: ONDANSETRON INJ 2 MG/ML 2 ML VIAL IV PRN (18:24)
[2018-11-28] MEDS: METOPROLOL SUCC 25MG EXT REL TAB PO SCH (20:31)
--- NOTE | 2018-11-29 04:20 | Emergency Department Note ---
Entered by Delia Nelson acting as a scribe for History of Present Illness General Chief complaint: Abnormal Labs/Diagnostic Testing Stated complaint: INR IS 80 Time Seen by Provider: 11/27/18 19:09 Source: patient and family Mode of arrival: ambulatory Limitations: no limitations History of Present Illness Onset (ago): day(s) 1 Radiation: non-radiation Pain Consistency: + constant Relieved By: + none Exacerbated By: + none Associated symptoms: + cough, + nausea/vomiting (+nausea, -vomiting) and + weakness; no fever/chills Treatments prior to arrival: none The patient is an 83 year old male who presents to the Emergency Room with complaints of abnormal lab results and weakness. He is accompanied by his daughter. 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 He had labs drawn today and his INR was greater than 8. The patient complains of nausea, the chills and nosebleeds. His daughter denies any recent fevers. The patient is on blood thinners for a history of heart disease and multiple cardiac stents. He has used a walker for the past 2 weeks since starting the chemotherapy. Home Medications Home Medications Medication Instructions Recorded Confirmed Type acetaminophen [Tylenol] 325 - 650 mg PO Q6H PRN 11/27/18 11/27/18 History allopurinol [Zyloprim] 300 mg PO DAILY 11/27/18 11/27/18 History aspirin 81 mg PO DAILY 11/27/18 11/27/18 History levothyroxine [Synthroid] 25 mcg PO DAILY 11/27/18 11/27/18 History metoprolol succinate [Toprol XL] 25 mg PO HS 11/27/18 11/27/18 History prochlorperazine maleate 10 mg PO Q6 PRN 11/27/18 11/27/18 History [Compazine] sertraline [Zoloft] 50 mg PO DAILY 11/27/18 11/27/18 History warfarin [Coumadin] 2.5 mg PO 4XWK 11/27/18 11/27/18 History warfarin [Coumadin] 5 mg PO 3XWK 11/27/18 11/27/18 History Allergies Allergy/AdvReac Type Severity Reaction Status Date / Time [id number] Reductase AdvReac Severe muscle Verified 01/22/19 20:11 Inhibitor aches/weak Past Med/Surg History Medical History Leukemia Family History Other Coronary artery disease Social History marital status: / Current Living Situation: Alone Current Living Situation Comment: Currently has daughter staying with him, not permanent. Feels Safe at Home: Yes Safety Concerns: Feels Safe At This Time Smoking Status: Former smoker Do You Dip or Chew Tobacco: No Second Hand Exposure: No Hx Alcohol Use: No Hx Substance Use: No Beliefs That Will Affect Care: None Communication Ability: Effective Review of Systems See HPI for pertinent positives & negatives. and A total of 10 systems reviewed and were otherwise negative Physical Exam Vital Signs Vital Signs - 24 hr 11/28/18 07:00 11/28/18 11:27 11/28/18 12:23 Temperature 37.3 C 37.4 C 36.8 C Temperature Source Oral Oral Oral Pulse Rate 96 H Pulse Rate [Left Finger] Pulse Rate [Right Finger] 88 94 H Respiratory Rate 16 16 18 Respiratory Effort / Characteristics Respiratory Depth Normal Normal Respiratory Pattern Blood Pressure 105/54 L Blood Pressure [Left Arm] 114/66 99/61 L Blood Pressure Mean 71 Blood Pressure Mean [Left Arm] 82 73 Blood Pressure Position Blood Pressure Position [Left Arm] Lying Lying Pulse Oximetry 94 93 95 Oxygen Delivery Method Nasal Cannula Nasal Cannula Oxygen Flow Rate 1 1 1 11/28/18 12:39 11/28/18 12:54 11/28/18 13:24 Temperature 36.8 C 36.8 C 36.7 C Temperature Source Oral Oral Oral Pulse Rate 96 H 88 93 H Pulse Rate [Left Finger] Pulse Rate [Right Finger] Respiratory Rate 18 18 18 Respiratory Effort / Characteristics Respiratory Depth Respiratory Pattern Blood Pressure 126/53 L 111/60 112/66 Blood Pressure [Left Arm] Blood Pressure Mean 77 77 81 Blood Pressure Mean [Left Arm] Blood Pressure Position Sitting Sitting Sitting Blood Pressure Position [Left Arm] Pulse Oximetry 95 95 95 Oxygen Delivery Method Oxygen Flow Rate 1 1 1 11/28/18 14:24 11/28/18 15:24 11/28/18 20:28 Temperature 36.7 C 36.7 C Temperature Source Oral Oral Pulse Rate 101 H 98 H Pulse Rate [Left Finger] Pulse Rate [Right Finger] 101 H Respiratory Rate 18 18 Respiratory Effort / Characteristics Respiratory Depth Respiratory Pattern Blood Pressure 114/56 L 107/75 Blood Pressure [Left Arm] 120/56 L Blood Pressure Mean 75 85 Blood Pressure Mean [Left Arm] 77 Blood Pressure Position Sitting Sitting Blood Pressure Position [Left Arm] Pulse Oximetry 95 95 90 Oxygen Delivery Method Oxygen Flow Rate 1 1 11/28/18 22:55 11/28/18 23:51 Temperature 37.2 C Temperature Source Oral Pulse Rate Pulse Rate [Left Finger] 92 H Pulse Rate [Right Finger] Respiratory Rate 20 Respiratory Effort / Characteristics Non-Labored Spontaneous Respiratory Depth Normal Respiratory Pattern Regular Blood Pressure Blood Pressure [Left Arm] 119/64 Blood Pressure Mean Blood Pressure Mean [Left Arm] 82 Blood Pressure Position Blood Pressure Position [Left Arm] Pulse Oximetry 91 Oxygen Delivery Method Room Air Oxygen Flow Rate GENERAL: Awake, alert, well-appearing, in no distress HENT: Normocephalic, atraumatic. Oropharynx unremarkable. EYES: Normal conjunctiva. Sclera non-icteric. NECK: Supple. No nuchal rigidity. FROM. No masses. RESPIRATORY: Clear to auscultation. No wheezes. No rales. Normal respiratory effort. CARDIAC: Normal rate. Normal rhythm. No murmurs. No rubs. Extremities warm and well perfused. Pulses equal. No JVD. GI: Soft, non-distended. No tenderness to palpation. No rebound or guarding. No masses. RECTAL: Deferred. MUSCULOSKELETAL: Atraumatic. Chest examination reveals no tenderness. The back is symmetrical on inspection without obvious abnormality. There is no CVA tenderness to palpation. No joint edema. LOWER EXTREMITIES: Calves are equal size bilaterally and non-tender. No edema. No discoloration. NEURO: Normal sensorium. No sensory or motor deficits noted. Course 1910: Past medical records reviewed. The patient was evaluated in room B6, and a complete history and physical examination were performed. 2020: [place] [id number]. 2039: I reevaluated the patient. He is resting comfortably. I discussed his results and my recommendation he remain in the hospital for further evaluation and management and he verbalized complete understanding and agreement. 2044: I discussed the patients case with Dr. Chicas, [facility] Hospitalist. The patient will be further evaluated. 2054: I discussed the patients case with the on-call nursing unit coordinator and he is aware of the patients hospitalization and agreeable with the plan. Consultations Consultation #1: I discussed the patients case with Dr. Chicas, [facility] Hospitalist. The patient will be further evaluated. Time: 20:45 Consultation #2: I discussed the patients case with the on-call nursing unit coordinator and he is aware of the patients hospitalization and agreeable with the plan. Time: 20:55 Administered Medications Allopurinol (Zyloprim) 300 mg PO DAILY MONICA Stop: 12/28/18 08:59 Last Admin: 11/28/18 08:06 Dose: 300 mg Guaifenesin/Codeine Phosphate (Robitussin-Ac Sugar Free) 10 ml PO Q6H PRN PRN Reason: Cough Stop: 12/28/18 16:41 Last Admin: 11/28/18 23:25 Dose: 10 ml Admin: 11/28/18 17:19 Dose: 10 ml Levothyroxine Sodium (Synthroid) 25 mcg PO DAILYBB MONICA Stop: 12/28/18 06:29 Last Admin: 11/28/18 05:33 Dose: 25 mcg Metoprolol Succinate (Toprol Xl) 25 mg PO HS MONICA Stop: 12/28/18 20:59 Last Admin: 11/28/18 20:31 Dose: 25 mg Ondansetron HCl (Zofran) 4 mg IV Q6H PRN PRN Reason: NAUSEA/VOMITING Stop: 12/27/18 23:30 Last Admin: 11/28/18 18:24 Dose: 4 mg Sertraline HCl (Zoloft) 50 mg PO DAILY MONICA Stop: 12/28/18 08:59 Last Admin: 11/28/18 08:06 Dose: 50 mg Discontinued Medications Sodium Chloride (Nss 1000ml) 1,000 mls @ 999 mls/hr IV .[id number] MONICA Stop: 11/27/18 20:30 Last Infusion: 11/27/18 20:53 Dose: 0 mls/hr Admin: 11/27/18 19:53 Dose: 999 mls/hr Sodium Chloride (Nss 1000ml) 1,000 mls @ 80 mls/hr IV .[id number] MONICA Stop: 12/27/18 23:30 Last Infusion: 11/28/18 11:49 Dose: Admin: 11/28/18 11:15 Dose: 80 mls/hr Infusion: 11/28/18 11:15 Dose: 80 mls/hr Admin: 11/27/18 23:52 Dose: 80 mls/hr Phytonadione (Mephyton) 5 mg PO NOW STA Stop: 11/27/18 20:31 Last Admin: 11/27/18 20:37 Dose: 5 mg Medical Decision Making Differential Diagnosis Differential Diagnosis includes but is not limited to dehydration, stroke, anemia, hypoglycemia, hyponatremia, hypernatremia, urinary tract infection, pneumonia, bronchitis, sepsis, gastroenteritis, additional abdominal pathology, metabolic abnormalities and infections. Medical Records Attestation: I reviewed the patient's medical records. Home Medications Current Medication List: was personally reviewed by me Laboratory Data Attestation: I reviewed the patient's lab results. Result diagrams: 11/28/18 05:44 11/28/18 05:44 Lab Results 11/27/18 11/27/18 11/27/18 Range/Units 19:25 19:25 19:25 WBC 34.43 H* (4.8-10.8) K/uL RBC 2.82 L (4.7-6.1) M/uL Hgb 8.1 L (14.0-18.0) g/dL POC Hgb (14.0-18.0) g/dl Hct 25.2 L (42-52) % POC Hct (42-52) % MCV 89.4 (80-100) fL MCH 28.7 (25-34) pg MCHC 32.1 (32-36) g/dL RDW Std Deviation 55.6 H (36.4-46.3) fL RDW Coeff of Jacoby 17.1 H (11.5-14.5) % Plt Count 160 (130-400) K/uL MPV 10.3 (7.4-10.4) fL Neutrophils % (Manual) 3.1 % Lymphocytes % (Manual) 96.1 % Monocytes % (Manual) 0.8 % Neutrophils # (Manual) 1.07 L (1.4-6.5) K/uL Total Absolute Neuts 1.07 L (1.4-6.5) K/uL Lymphocytes # (Manual) 33.09 H (1.2-3.4) K/uL Total Abs Lymphocytes 33.09 H (1.2-3.4) K/uL Monocytes # (Manual) 0.28 (0.11-0.59) K/uL Smudge Cells Present Hypochromasia Present Ovalocytes 1+ PT 69.8 H (9.0-12.0) Seconds INR 7.8 H* (0.9-1.1) APTT (21.0-31.0) Seconds PTT Ratio POC Sodium (135-144) mEq/L Sodium 136 (136-145) mmol/L POC Potassium (3.3-5.0) mEq/L Potassium 4.3 (3.5-5.1) mmol/L POC Chloride (101-112) mEq/L Chloride 104 (98-107) mmol/L Carbon Dioxide 23 (21-32) mmol/L POC Total CO2 (24-31) mEq/l Anion Gap 10.0 (3-11) POC Anion Gap (16-25) mmol/L POC BUN (7-18) mg/dl BUN 28 H (7-18) mg/dl Creatinine 1.47 H (0.6-1.4) mg/dl POC Creatinine (0.6-1.3) mg/dl Est Cr Clr Drug Dosing 35.3 ml/min Est GFR ( Amer) 49.7 Est GFR (Non-Af Amer) 42.9 BUN/Creatinine Ratio 19.2 (10-20) Glucose 109 H (70-99) mg/dl POC Glucose (other) (70-99) mg/dl Calcium 8.0 L (8.5-10.1) mg/dl POC Ioniz Calcium Dayana (1.12-1.32) mmol/l Total Bilirubin 0.6 (0.2-1) mg/dl AST 37 (15-37) U/L ALT 47 (12-78) U/L Alkaline Phosphatase 73 (45-117) U/L Total Creatine Kinase 20 L (39-308) U/L CK-MB (CK-2) < 1.0 (0.5-3.6) ng/ml CK/CKMB % Calc TNP Troponin I < 0.015 (0-0.045) ng/ml Total Protein 5.8 L (6.4-8.2) gm/dl Albumin 2.6 L (3.4-5.0) gm/dl Globulin 3.2 (2.5-4.0) gm/dl Albumin/Globulin Ratio 0.8 L (0.9-2) TSH 4.230 (0.300-4.500) uIu/ml Urine Color Urine Appearance (Clear) Urine pH (4.5-7.5) Ur Specific Malone (1.000-1.030) Urine Protein (Negative) Urine Glucose (UA) (Negative) Urine Ketones (Negative) Urine Blood (Negative) Urine Nitrite (Negative) Urine Bilirubin (Negative) Urine Urobilinogen (Negative) Ur Leukocyte Esterase (Negative) Blood Type Blood Type Recheck Antibody Screen Crossmatch 11/27/18 11/27/18 11/27/18 Range/Units 19:42 20:07 20:54 WBC (4.8-10.8) K/uL RBC (4.7-6.1) M/uL Hgb (14.0-18.0) g/dL POC Hgb 7.5 L (14.0-18.0) g/dl Hct (42-52) % POC Hct 22 L (42-52) % MCV (80-100) fL MCH (25-34) pg MCHC (32-36) g/dL RDW Std Deviation (36.4-46.3) fL RDW Coeff of Jacoby (11.5-14.5) % Plt Count (130-400) K/uL MPV (7.4-10.4) fL Neutrophils % (Manual) % Lymphocytes % (Manual) % Monocytes % (Manual) % Neutrophils # (Manual) (1.4-6.5) K/uL Total Absolute Neuts (1.4-6.5) K/uL Lymphocytes # (Manual) (1.2-3.4) K/uL Total Abs Lymphocytes (1.2-3.4) K/uL Monocytes # (Manual) (0.11-0.59) K/uL Smudge Cells Hypochromasia Ovalocytes PT (9.0-12.0) Seconds INR (0.9-1.1) APTT (21.0-31.0) Seconds PTT Ratio POC Sodium 136 (135-144) mEq/L Sodium (136-145) mmol/L POC Potassium 4.3 (3.3-5.0) mEq/L Potassium (3.5-5.1) mmol/L POC Chloride 102 (101-112) mEq/L Chloride (98-107) mmol/L Carbon Dioxide (21-32) mmol/L POC Total CO2 21 L (24-31) mEq/l Anion Gap (3-11) POC Anion Gap 18.0 (16-25) mmol/L POC BUN 26 H (7-18) mg/dl BUN (7-18) mg/dl Creatinine (0.6-1.4) mg/dl POC Creatinine 1.5 H (0.6-1.3) mg/dl Est Cr Clr Drug Dosing ml/min Est GFR ( Amer) Est GFR (Non-Af Amer) BUN/Creatinine Ratio (10-20) Glucose (70-99) mg/dl POC Glucose (other) 106 H (70-99) mg/dl Calcium (8.5-10.1) mg/dl POC Ioniz Calcium Dayana 1.09 L (1.12-1.32) mmol/l Total Bilirubin (0.2-1) mg/dl AST (15-37) U/L ALT (12-78) U/L Alkaline Phosphatase (45-117) U/L Total Creatine Kinase (39-308) U/L CK-MB (CK-2) (0.5-3.6) ng/ml CK/CKMB % Calc Troponin I (0-0.045) ng/ml Total Protein (6.4-8.2) gm/dl Albumin (3.4-5.0) gm/dl Globulin (2.5-4.0) gm/dl Albumin/Globulin Ratio (0.9-2) TSH (0.300-4.500) uIu/ml Urine Color Urine Appearance (Clear) Urine pH (4.5-7.5) Ur Specific Malone (1.000-1.030) Urine Protein (Negative) Urine Glucose (UA) (Negative) Urine Ketones (Negative) Urine Blood (Negative) Urine Nitrite (Negative) Urine Bilirubin (Negative) Urine Urobilinogen (Negative) Ur Leukocyte Esterase (Negative) Blood Type B Positive Blood Type Recheck B Positive Antibody Screen NEGATIVE Crossmatch See Detail 11/27/18 11/28/18 11/28/18 Range/Units 22:20 05:44 05:44 WBC 27.19 H (4.8-10.8) K/uL RBC 2.60 L (4.7-6.1) M/uL Hgb 7.5 L (14.0-18.0) g/dL POC Hgb (14.0-18.0) g/dl Hct 23.2 L (42-52) % POC Hct (42-52) % MCV 89.2 (80-100) fL MCH 28.8 (25-34) pg MCHC 32.3 (32-36) g/dL RDW Std Deviation 56.1 H (36.4-46.3) fL RDW Coeff of Jacoby 17.1 H (11.5-14.5) % Plt Count 146 (130-400) K/uL MPV 10.0 (7.4-10.4) fL Neutrophils % (Manual) 4.0 % Lymphocytes % (Manual) 96.0 % Monocytes % (Manual) % Neutrophils # (Manual) 1.09 L (1.4-6.5) K/uL Total Absolute Neuts 1.09 L (1.4-6.5) K/uL Lymphocytes # (Manual) 26.10 H (1.2-3.4) K/uL Total Abs Lymphocytes 26.10 H (1.2-3.4) K/uL Monocytes # (Manual) (0.11-0.59) K/uL Smudge Cells Present Hypochromasia Ovalocytes PT 41.3 H (9.0-12.0) Seconds INR 4.4 H (0.9-1.1) APTT 83.3 H* (21.0-31.0) Seconds PTT Ratio 3.2 POC Sodium (135-144) mEq/L Sodium (136-145) mmol/L POC Potassium (3.3-5.0) mEq/L Potassium (3.5-5.1) mmol/L POC Chloride (101-112) mEq/L Chloride (98-107) mmol/L Carbon Dioxide (21-32) mmol/L POC Total CO2 (24-31) mEq/l Anion Gap (3-11) POC Anion Gap (16-25) mmol/L POC BUN (7-18) mg/dl BUN (7-18) mg/dl Creatinine (0.6-1.4) mg/dl POC Creatinine (0.6-1.3) mg/dl Est Cr Clr Drug Dosing ml/min Est GFR ( Amer) Est GFR (Non-Af Amer) BUN/Creatinine Ratio (10-20) Glucose (70-99) mg/dl POC Glucose (other) (70-99) mg/dl Calcium (8.5-10.1) mg/dl POC Ioniz Calcium Dayana (1.12-1.32) mmol/l Total Bilirubin (0.2-1) mg/dl AST (15-37) U/L ALT (12-78) U/L Alkaline Phosphatase (45-117) U/L Total Creatine Kinase (39-308) U/L CK-MB (CK-2) (0.5-3.6) ng/ml CK/CKMB % Calc Troponin I (0-0.045) ng/ml Total Protein (6.4-8.2) gm/dl Albumin (3.4-5.0) gm/dl Globulin (2.5-4.0) gm/dl Albumin/Globulin Ratio (0.9-2) TSH (0.300-4.500) uIu/ml Urine Color Dark Yellow Urine Appearance Clear (Clear) Urine pH 5.0 (4.5-7.5) Ur Specific Malone 1.020 (1.000-1.030) Urine Protein Negative (Negative) Urine Glucose (UA) Negative (Negative) Urine Ketones Negative (Negative) Urine Blood Negative (Negative) Urine Nitrite Negative (Negative) Urine Bilirubin Negative (Negative) Urine Urobilinogen Negative (Negative) Ur Leukocyte Esterase Negative (Negative) Blood Type Blood Type Recheck Antibody Screen Crossmatch 11/28/18 Range/Units 05:44 WBC (4.8-10.8) K/uL RBC (4.7-6.1) M/uL Hgb (14.0-18.0) g/dL POC Hgb (14.0-18.0) g/dl Hct (42-52) % POC Hct (42-52) % MCV (80-100) fL MCH (25-34) pg MCHC (32-36) g/dL RDW Std Deviation (36.4-46.3) fL RDW Coeff of Jacoby (11.5-14.5) % Plt Count (130-400) K/uL MPV (7.4-10.4) fL Neutrophils % (Manual) % Lymphocytes % (Manual) % Monocytes % (Manual) % Neutrophils # (Manual) (1.4-6.5) K/uL Total Absolute Neuts (1.4-6.5) K/uL Lymphocytes # (Manual) (1.2-3.4) K/uL Total Abs Lymphocytes (1.2-3.4) K/uL Monocytes # (Manual) (0.11-0.59) K/uL Smudge Cells Hypochromasia Ovalocytes PT (9.0-12.0) Seconds INR (0.9-1.1) APTT (21.0-31.0) Seconds PTT Ratio POC Sodium (135-144) mEq/L Sodium 137 (136-145) mmol/L POC Potassium (3.3-5.0) mEq/L Potassium 3.9 (3.5-5.1) mmol/L POC Chloride (101-112) mEq/L Chloride 106 (98-107) mmol/L Carbon Dioxide 22 (21-32) mmol/L POC Total CO2 (24-31) mEq/l Anion Gap 9.0 (3-11) POC Anion Gap (16-25) mmol/L POC BUN (7-18) mg/dl BUN 24 H (7-18) mg/dl Creatinine 1.19 (0.6-1.4) mg/dl POC Creatinine (0.6-1.3) mg/dl Est Cr Clr Drug Dosing 43.1 ml/min Est GFR ( Amer) 64.2 Est GFR (Non-Af Amer) 55.4 BUN/Creatinine Ratio 20.3 H (10-20) Glucose 93 (70-99) mg/dl POC Glucose (other) (70-99) mg/dl Calcium 7.4 L (8.5-10.1) mg/dl POC Ioniz Calcium Dayana (1.12-1.32) mmol/l Total Bilirubin 0.7 (0.2-1) mg/dl AST 27 (15-37) U/L ALT 38 (12-78) U/L Alkaline Phosphatase 63 (45-117) U/L Total Creatine Kinase (39-308) U/L CK-MB (CK-2) (0.5-3.6) ng/ml CK/CKMB % Calc Troponin I (0-0.045) ng/ml Total Protein 5.1 L (6.4-8.2) gm/dl Albumin 2.3 L (3.4-5.0) gm/dl Globulin 2.8 (2.5-4.0) gm/dl Albumin/Globulin Ratio 0.8 L (0.9-2) TSH (0.300-4.500) uIu/ml Urine Color Urine Appearance (Clear) Urine pH (4.5-7.5) Ur Specific Malone (1.000-1.030) Urine Protein (Negative) Urine Glucose (UA) (Negative) Urine Ketones (Negative) Urine Blood (Negative) Urine Nitrite (Negative) Urine Bilirubin (Negative) Urine Urobilinogen (Negative) Ur Leukocyte Esterase (Negative) Blood Type Blood Type Recheck Antibody Screen Crossmatch Imaging Data Radiologist's Impression: Radiology results as stated below per my review and the radiologist's interpretation: XR chest 1V portable CLINICAL HISTORY: weakness COMPARISON STUDY: Chest radiograph October 05, 2018. FINDINGS: There is no pneumothorax or pleural effusion. There is mild cardiomegaly without evidence for pulmonary edema. Minimal bibasilar opacities favor atelectasis. IMPRESSION: 1. Minimal bibasilar opacities which favor atelectasis. 2. Cardiomegaly without evidence for pulmonary edema. Electronically signed by: Tam Keller M.D. 11/27/2018 8:06 PM ECG Data Attestation: I personally reviewed and interpreted this ECG as follows: Indication: weakness Rate (beats per minute): 103 Rhythm: normal sinus Findings: + other (old septal infarct); no ST depression and no ST elevation Blood Pressure Blood Pressure Findings: Low blood pressure MDM Narrative This is an 83-year-old male who presents emergency department complaining of nosebleed along with a supratherapeutic INR. The patient was given 5 mg of vitamin K here. I do believe that the patient needs 1 unit of packed red blood cells. He was typed and screened and willingly consign the consent. I did discuss the case with the hospitalist service who agreed to admit the patient. Patient and family were in agreement with the treatment plan. Impression & Plan Anemia, Supratherapeutic INR, Epistaxis Critical Care Time I have personally spent greater than 30 minutes of critical care time in the direct management of this patient. This includes bedside care, interpretation of diagnostic studies, and testing, discussion with consultants, patient, and family members, and other required patient management activities. This 30 minutes is in excess of all separately billable procedures. Discharge Plan Visit Data *Final* Discharge Date/Time: 11/27/18 23:01 Chief Complaint: Abnormal Labs/Diagnostic Testing Stated Complaint: INR IS 80 ED Provider: Darrion Rose Discharge Problem: Anemia, Supratherapeutic INR, Epistaxis Patient Disposition: Admitted As Inpatient Discharge Instructions Interventions: ED Discharge Assessment Last Done: 11/27/18 23:01 The scribe's documentation has been prepared under my direction and personally reviewed by me in its entirety. I confirm that the note above accurately reflects all work, treatment, procedures, and medical decision making performed by me.
[2018-11-29 05:46] LABS: INR 1.8 (0.9-1.1); Prothrombin Time 17.7 Seconds (9.0-12.0)
[2018-11-29 05:51] LABS: Hematocrit (blood only) 27.1 % (42-52); Hemoglobin 8.7 g/dL (14.0-18.0); Mean Corpuscular Hgb Conc 32.1 g/dL (32-36); Mean Corpuscular Volume 89.1 fL (80-100); Platelet Count 154 K/uL (130-400); RDW Coefficient of Variation 16.8 % (11.5-14.5); RDW Standard Deviation 54.7 fL (36.4-46.3); Red Blood Count 3.04 M/uL (4.7-6.1); White Blood Count 31.42 K/uL (4.8-10.8)
[2018-11-29] MEDS: ONDANSETRON INJ 2 MG/ML 2 ML VIAL IV PRN ×2 (05:59→17:30)
[2018-11-29 06:08] LABS: Albumin Level 2.4 gm/dl (3.4-5.0); BUN Creatinine Ratio 21.9 (10-20); Calcium 7.8 mg/dl (8.5-10.1); Est GFR (African American) 67.6; Est GFR (Non-African American) 58.3; Potassium 4.4 mmol/L (3.5-5.1)
[2018-11-29 06:10] LABS: Albumin Globulin Ratio 0.9 (0.9-2); Bilirubin,Total 0.8 mg/dl (0.2-1); Globulin 2.8 gm/dl (2.5-4.0); Total Protein 5.2 gm/dl (6.4-8.2)
[2018-11-29 06:20] LABS: ALC (manual) 29.79 K/uL (1.2-3.4); Basophils # (manual) 0.28 K/uL (0-0.2); Basophils % (manual) 0.9 %; Lymphocytes # (manual) 29.79 K/uL (1.2-3.4); Lymphocytes % (manual) 94.8 %; Neutrophils % (manual) 4.3 %; Smudge Cells Present
[2018-11-29] MEDS: LEVOTHYROXINE SODIUM 25 MCG TABLET PO SCH (06:31)
[2018-11-29] MEDS: GUAIFENESIN/CODEINE 200MG/20MG 10ML UDC PO PRN ×3 (06:31→20:29)
[2018-11-29] MEDS: ALLOPURINOL 300 MG TAB PO SCH (09:23)
[2018-11-29] MEDS: SERTRALINE HCL 50 MG TABLET PO SCH (09:23)
[2018-11-29] MEDS ORDERED: VANCOMYCIN CONSULT ACTIVE PRN (12:10)
[2018-11-29] MEDS ORDERED: VANCOMYCIN HCL 1,000 MG in SODIUM CHLORIDE 0.9% 250 ML IV SCH (12:15)
[2018-11-29] MEDS ORDERED: cefTRIAXone SODIUM 1,000 MG in DEXTROSE 5% 50 ML IV SCH (14:00)
--- NOTE | 2018-11-29 16:17 | Hospitalist Progress Note ---
Date of Service November 29, 2018 Assessment & Plan (1) Positive blood culture: one set growing Streptococcus species, other set negative will start on Rocephin empirically no fever/chills prior to admission, leaning toward this being contaminant will wait for final result, likely provide prophylactic antibiotics on discharge due to immunosuppression (2) Supratherapeutic INR: INR 7.8 upon admission was given vitamin K in the ED good response with INR down to 4.4 yesterday, down to 1.8 today will resume Coumadin at 2.5mg daily (lower dose) repeat INR tomorrow (3) Epistaxis: no further bleeding for two days keep nose moist with saline, ordered oxygen to be removed unless patient actually hypoxic if there are any further issues he can follow up with ENT outpatient (4) Anemia: Hb down to 7.5 yesterday transfused one unit, up to 8.7 today, patient has more energy likely combination of some blood loss with epistaxis but also bone marrow suppression from chemotherapy repeat H/H tomorrow (5) CAD (coronary artery disease): hold aspirin for now, resume on discharge Continue metoprolol succinate 25 mg at bedtime. no chest pain, no signs of ischemia (6) History of VT (myocardial infarction): hold aspirin due to epistaxis likely resume tomorrow if no further bleeding no chest pain (7) Atrial fibrillation: rates controlled on metoprolol INR is 1.8, resume Coumadin today (8) Leukemia: Last chemotherapy was 10/31/18. appreciate consult from Dr. Chadwick patient will follow up in the office (9) Protein malnutrition: regular diet, supplements as tolerated (10) NANCY (acute kidney injury): resolved, Cr stable at 1.1 no signs of tumor lysis syndrome but would continue to monitor Subjective patient feeling a lot better today, actually joking around more energy today, eating better reviewed labs, Hb up to 8.7, INR 1.8, Cr 1.1 one set of blood cultures growing Streptococcus species, final result pending no recent signs of infection, no fever/chills he has a history of septic infection of right knee years ago that required surgery and prolonged antibiotics right knee is fine, no pain or swelling Review of Systems All systems reviewed & are unremarkable except as noted in HPI & below Constitutional: + weakness; no fatigue Respiratory: no dyspnea and no dyspnea on exertion Gastrointestinal: no nausea, no vomiting, no constipation and no diarrhea/loose stools Physical Exam 2 Vital Signs (Past 24 Hours): Last Vital Signs Temp 37.0 C 11/29/18 14:18 Pulse 84 11/29/18 14:18 Resp 20 11/29/18 14:18 BP 96/55 L 11/29/18 14:18 Pulse Ox 92 11/29/18 14:18 Constitutional: WD/WN, vitals as above Eyes: PERRL, conjunctivae normal, anicteric sclerae ENMT: external ear and nose normal, oropharynx normal Neck: trachea midline, no thyromegaly Respiratory: normal respiratory effort, lungs clear to auscultation Cardiovascular: Rate/Rhythm: regular rate; + abnormal rhythm Heart Sounds: normal S1 and normal S2; no murmur Vessels: normal peripheral pulses Gastrointestinal (Abdomen): normal bowel sounds, soft, nontender, no hepatosplenomegaly Musculoskeletal: no cyanosis or clubbing, extremities motor strength 5/5 Skin: no rashes, warm and dry Neurologic: patellar DTR's 2+ bilat, sensation intact and PERRL, EOMI, accommodation nl, no face palsy, no dysarthria Psychiatric: A+Ox3, euthymic affect Lymphatic: no cervical or axillary lymphadenopathy Results & Data Laboratory Results Abnormal lab results 11/29/18 11/29/18 11/29/18 Range/Units 05:22 05:22 05:22 WBC 31.42 H* (4.8-10.8) K/uL RBC 3.04 L (4.7-6.1) M/uL Hgb 8.7 L (14.0-18.0) g/dL Hct 27.1 L (42-52) % RDW Std Deviation 54.7 H (36.4-46.3) fL RDW Coeff of Jacoby 16.8 H (11.5-14.5) % Neutrophils # (Manual) 1.35 L (1.4-6.5) K/uL Total Absolute Neuts 1.35 L (1.4-6.5) K/uL Lymphocytes # (Manual) 29.79 H (1.2-3.4) K/uL Total Abs Lymphocytes 29.79 H (1.2-3.4) K/uL Basophils # (Manual) 0.28 H (0-0.2) K/uL PT 17.7 H (9.0-12.0) Seconds INR 1.8 H (0.9-1.1) Chloride 109 H (98-107) mmol/L BUN 25 H (7-18) mg/dl BUN/Creatinine Ratio 21.9 H (10-20) Calcium 7.8 L (8.5-10.1) mg/dl Total Protein 5.2 L (6.4-8.2) gm/dl Albumin 2.4 L (3.4-5.0) gm/dl Microbiology 11/27/18 19:25 Blood Blood Culture - Preliminary Streptococcus species 11/27/18 19:30 Blood Blood Culture - Preliminary No growth to date. Medications Administered Current Inpatient Medications Acetaminophen (Ofirmev) 1,000 mg IV Q8H PRN PRN Reason: Pain or Fever Stop: 12/27/18 23:30 Acetaminophen (Tylenol) 650 mg PO Q4H PRN PRN Reason: Pain or Fever Stop: 12/27/18 23:30 Al Hydrox/Mg Hydrox/Simethicone (Maalox) 15 ml PO Q4H PRN PRN Reason: Dyspepsia Stop: 12/27/18 23:30 Allopurinol (Zyloprim) 300 mg PO DAILY [facility] Stop: 12/28/18 08:59 Last Admin: 11/29/18 09:23 Dose: 300 mg Guaifenesin/Codeine Phosphate (Robitussin-Ac Sugar Free) 10 ml PO Q6H PRN PRN Reason: Cough Stop: 12/28/18 16:41 Last Admin: 11/29/18 14:29 Dose: 10 ml Ceftriaxone Sodium 1,000 mg/ (Dextrose) 50 mls @ 100 mls/hr IV Q24H [facility] Stop: 12/01/18 13:59 Last Infusion: 11/29/18 15:11 Dose: Infused Levothyroxine Sodium (Synthroid) 25 mcg PO DAILYBB [facility] Stop: 12/28/18 06:29 Last Admin: 11/29/18 06:31 Dose: 25 mcg Magnesium Hydroxide (Milk Of Magnesia) 30 ml PO Q12H PRN PRN Reason: Constipation Stop: 12/27/18 23:30 Last Admin: 11/29/18 14:39 Dose: 30 ml Metoprolol Succinate (Toprol Xl) 25 mg PO HS [facility] Stop: 12/28/18 20:59 Last Admin: 11/28/18 20:31 Dose: 25 mg Ondansetron HCl (Zofran) 4 mg IV Q6H PRN PRN Reason: NAUSEA/VOMITING Stop: 12/27/18 23:30 Last Admin: 11/29/18 05:59 Dose: 4 mg Polyethylene Glycol (Miralax Powder Packet) 17 gm PO DAILY PRN PRN Reason: Constipation Stop: 12/27/18 23:30 Prochlorperazine (Compazine) 10 mg PO Q6 PRN PRN Reason: Nausea Stop: 12/27/18 23:30 Sertraline HCl (Zoloft) 50 mg PO DAILY [facility] Stop: 12/28/18 08:59 Last Admin: 11/29/18 09:23 Dose: 50 mg Warfarin Sodium (Coumadin) 2.5 mg PO DAILY@1600 [facility] Stop: 12/29/18 15:59 _ (1) Anemia Anemia type: Bone marrow failure anemia type: Chronic kidney disease stage : Folate deficiency anemia type: Hemolytic anemia type: Iron deficiency anemia type: Other causes of anemia: Vitamin B12 deficiency anemia type:
[2018-11-29] MEDS: WARFARIN SOD 2.5 MG TAB PO SCH (17:25)
[2018-11-29] MEDS: METOPROLOL SUCC 25MG EXT REL TAB PO SCH (20:26)
[2018-11-30] MEDS: LEVOTHYROXINE SODIUM 25 MCG TABLET PO SCH (05:55)
[2018-11-30 07:16] LABS: Hematocrit (blood only) 26.6 % (42-52); Hemoglobin 8.5 g/dL (14.0-18.0); Mean Corpuscular Volume 88.7 fL (80-100); Mean Platelet Volume 10.5 fL (7.4-10.4); Platelet Count 171 K/uL (130-400); RDW Coefficient of Variation 17.1 % (11.5-14.5); RDW Standard Deviation 55.8 fL (36.4-46.3)
[2018-11-30 07:28] LABS: INR 1.7 (0.9-1.1); Prothrombin Time 16.3 Seconds (9.0-12.0)
[2018-11-30 07:42] LABS: Albumin Level 2.2 gm/dl (3.4-5.0); BUN Creatinine Ratio 24.7 (10-20); Calcium 7.7 mg/dl (8.5-10.1); Est GFR (African American) 67.6; Est GFR (Non-African American) 58.3; Magnesium 2.2 mg/dl (1.8-2.4); Potassium 4.3 mmol/L (3.5-5.1)
[2018-11-30 07:45] LABS: Albumin Globulin Ratio 0.8 (0.9-2); Bilirubin,Total 0.5 mg/dl (0.2-1); Globulin 2.9 gm/dl (2.5-4.0); Total Protein 5.1 gm/dl (6.4-8.2)
[2018-11-30 08:09] LABS: Basophils # (auto) 0.02 K/uL (0-0.2); Basophils % (auto) 0.1 %; Eosinophils # (auto) 0.01 K/uL (0-0.5); Immature Granulocytes # (auto) 0.21 K/uL (0.00-0.02); Immature Granulocytes % (auto) 0.7 %; Lymphocytes # (auto) 26.74 K/uL (1.2-3.4); Monocytes # (auto) 0.43 K/uL (0.11-0.59); Monocytes % (auto) 1.5 %; Neutrophils # (auto) 1.99 K/uL (1.4-6.5); Neutrophils % (auto) 6.7 %; Smudge Cells Present
[2018-11-30] MEDS: ALLOPURINOL 300 MG TAB PO SCH (08:19)
[2018-11-30] MEDS: SERTRALINE HCL 50 MG TABLET PO SCH (08:19)
[2018-11-30] MEDS: GUAIFENESIN/CODEINE 200MG/20MG 10ML UDC PO PRN ×3 (08:23→23:33)
[2018-11-30] MEDS: POLYETHYLENE (MIRALAX) 17 GM PACK PO PRN (08:36)
--- NOTE | 2018-11-30 11:11 | Progress Note ---
DATE: 11/30/2018 DIAGNOSES: 1. Streptococcal bacteremia. 2. Coagulopathy attributable to Coumadin. 3. Asthenia attributable to chemotherapy. 4. Hypoalbuminemia. SUBJECTIVE: Carlos was seen and examined at bedside today. I briefly spoke to Dr. Nuñez about his progress. Clinically, he seems to be improving, but remains profoundly weak. His diet has been well tolerated. He denies any GI symptoms at this time with the exception of constipation. Nursing is working on his bowel function. His PT and INR are retreating towards normal and agreed with resumption of an adjusted dose of Coumadin. Nursing reports no overnight difficulties. OBJECTIVE: GENERAL: Mr. Lakhani is in no acute distress, awake, alert and appropriate. VITAL SIGNS: Temperature is 36.8, pulse 91, respiratory rate 18, blood pressure 116/61. SKIN: Without rash or lesion. HEENT: Oral mucosa without erythema or ulceration. No evidence of thrush. HEART: Regular rate and rhythm. LUNGS: Clear to auscultation bilaterally. ABDOMEN: Soft, nontender, nondistended. EXTREMITIES: No clubbing, cyanosis, or edema. NEUROLOGIC: Grossly intact. LABORATORY DATA: WBC count 29,400, hemoglobin 8.5, platelet count 171,000, absolute neutrophil count 2000. PT 16.3 seconds, INR 1.7, albumin 2.2. IMPRESSION: 1. Streptococcal bacteremia. 2. Coagulopathy attributable to Coumadin. 3. Asthenia. 4. Hypoalbuminemia. 5. Chronic lymphocytic leukemia. PLAN: Carlos is a pleasant 83-year-old gentleman well known to [facility], currently under my care for progressing chronic lymphocytic leukemia. He received his first course of modified bendamustine and rituximab approximately 4 weeks ago. Unfortunately, as somewhat expected, experienced difficulties directly attributable to chemotherapy. He presented with a supratherapeutic Coumadin level, which has corrected with vitamin K. Agreed with the hospitalist service to proceed with a low dose Coumadin as he is now subtherapeutic. Also, agreed with empiric antibiotics for bacteremia with the hopes of converting him to orals preparing him for discharge. Will visit with Carlos next week, at which time we will decide whether we should proceed with further chemo depending on his clinical status. I thank the hospitalist for further support in caring for this very pleasant gentleman. We will continue to follow him periodically during his hospital stay.
--- NOTE | 2018-11-30 12:04 | XRay Report ---
XR chest 2V routine CLINICAL HISTORY: Hypoxia COMPARISON STUDY: 11/27/2018 FINDINGS: The heart is mildly enlarged. There is aortic tortuosity/ectasia. There is elevation of the interstitium with septal lines. Mild interstitial edema is suspected. There are bibasal airspace opa cities, atelectatic versus infectious/inflammatory. There are small pleural effusions.[ IMPRESSION: 1. Mild cardiomegaly with interval development of mild interstitial edema and small bilateral pleural effusions 2. Slight progression in the nonspecific basilar opacities Electronically signed by: Mariusz Ordonez M.D. 11/30/2018 12:03 PM
[2018-11-30] MEDS ORDERED: PIPERACILL/TAZOBAC CONSULT ACTIVE PRN (13:45)
[2018-11-30] MEDS ORDERED: PIPERACILLIN/TAZOBACTAM 3.375 GM in DEXTROSE 5% 100 ML IV ONE (14:45)
[2018-11-30] MEDS: ALBUT/IPRATROP 3MG/0.5MG NEB 3 ML VIAL NEB SCH ×2 (15:28→19:29)
[2018-11-30] MEDS: WARFARIN SOD 2.5 MG TAB PO SCH (15:37)
--- NOTE | 2018-11-30 16:01 | Hospitalist Progress Note ---
Date of Service November 30, 2018 Assessment & Plan (1) HCAP (healthcare-associated pneumonia): treat with Zosyn for 2 days to see some type of clinical improvement has a wet sounding cough, bibasilar infiltrates on CXR low grade temperature earliers this morning, now with true fever of 38.8 (2) Positive blood culture: grew out Enterococcus today, all other cultures negative will be covered by Zosyn for the time being (3) Acute blood loss anemia: Supratherapeutic INR while on Coumadin leading to epistaxis and acute blood loss anemia transufed one unit on 11/28, tolerated well, Hb up to 8.5 today (4) Supratherapeutic INR: INR 7.8 upon admission was given vitamin K in the ED good response with INR down to 4.4 yesterday, down to 1.8 today will resume Coumadin at 2.5mg daily (lower dose) repeat INR tomorrow (5) Epistaxis: no further bleeding for three days keep nose moist with saline, ordered oxygen to be removed unless patient actually hypoxic if there are any further issues he can follow up with ENT outpatient (6) Anemia: Hb stable at 8.5 today likely combination of some blood loss with epistaxis but also bone marrow suppression from chemotherapy repeat H/H tomorrow (7) CAD (coronary artery disease): hold aspirin for now, resume on discharge Continue metoprolol succinate 25 mg at bedtime. no chest pain, no signs of ischemia (8) History of ME (myocardial infarction): hold aspirin due to epistaxis likely resume tomorrow if no further bleeding no chest pain (9) Atrial fibrillation: rates controlled on metoprolol INR is 1.8, resume Coumadin today (10) Leukemia: Last chemotherapy was 10/31/18. appreciate consult from Dr. Chadwick patient will follow up in the office (11) Protein malnutrition: regular diet, supplements as tolerated (12) NANCY (acute kidney injury): resolved, Cr stable at 1.1 no signs of tumor lysis syndrome but would continue to monitor Subjective patient's oxygen requirements increased today, required 2L at rest and 5L on exertion still has a wet sounding cough, but claims he is not bringing up any sputum low grade temperature CXR with increased bibasilar infiltrates reviewed labs, Hb stable at 8.5, WBC trending back up Cr stable at 1.14, INR still too low at 1.7 Review of Systems All systems reviewed & are unremarkable except as noted in HPI & below Constitutional: + fever and + body aches Respiratory: + cough, + dyspnea and + dyspnea on exertion Physical Exam 2 Vital Signs (Past 24 Hours): Last Vital Signs Temp 36.7 C 11/30/18 14:34 Pulse 89 11/30/18 15:33 Resp 15 11/30/18 15:33 BP 112/54 L 11/30/18 14:34 Pulse Ox 94 11/30/18 15:33 Constitutional: WD/WN, vitals as above Eyes: PERRL, conjunctivae normal, anicteric sclerae ENMT: external ear and nose normal, oropharynx normal Neck: trachea midline, no thyromegaly Respiratory: normal respiratory effort; no respiratory distress Cardiovascular: Rate/Rhythm: regular rate; + abnormal rhythm Heart Sounds: normal S1 and normal S2; no murmur Vessels: normal peripheral pulses Gastrointestinal (Abdomen): normal bowel sounds, soft, nontender, no hepatosplenomegaly Musculoskeletal: no cyanosis or clubbing, extremities motor strength 5/5 Skin: no rashes, warm and dry Neurologic: patellar DTR's 2+ bilat, sensation intact and PERRL, EOMI, accommodation nl, no face palsy, no dysarthria Psychiatric: A+Ox3, euthymic affect Lymphatic: no cervical or axillary lymphadenopathy Results & Data Laboratory Results Laboratory Results - last 24 hr 11/30/18 11/30/18 11/30/18 06:50 06:50 06:50 WBC 29.40 H RBC 3.00 L Hgb 8.5 L Hct 26.6 L MCV 88.7 MCH 28.3 MCHC 32.0 RDW Std Deviation 55.8 H RDW Coeff of Jacoby 17.1 H Plt Count 171 MPV 10.5 H Immature Gran % (Auto) 0.7 Neut % (Auto) 6.7 Lymph % (Auto) 91.0 [place] % (Auto) 1.5 Eos % (Auto) 0.0 Baso % (Auto) 0.1 Immature Gran # (Auto) 0.21 H Neut # (Auto) 1.99 Lymph # (Auto) 26.74 H [place] # (Auto) 0.43 Eos # (Auto) 0.01 Baso # (Auto) 0.02 Smudge Cells Present PT 16.3 H INR 1.7 H Sodium 138 Potassium 4.3 Chloride 107 Carbon Dioxide 23 Anion Gap 8.0 BUN 28 H Creatinine 1.14 Est Cr Clr Drug Dosing 45.0 Est GFR ( Amer) 67.6 Est GFR (Non-Af Amer) 58.3 BUN/Creatinine Ratio 24.7 H Glucose 103 H Calcium 7.7 L Magnesium 2.2 Total Bilirubin 0.5 AST 35 ALT 39 Alkaline Phosphatase 64 Total Protein 5.1 L Albumin 2.2 L Globulin 2.9 Albumin/Globulin Ratio 0.8 L Microbiology 11/27/18 19:25 Blood Blood Culture - Preliminary Enterococcus faecalis 11/27/18 19:30 Blood Blood Culture - Preliminary No growth to date. Diagnostic Findings XR chest 2V routine CLINICAL HISTORY: Hypoxia COMPARISON STUDY: 11/27/2018 FINDINGS: The heart is mildly enlarged. There is aortic tortuosity/ectasia. There is elevation of the interstitium with septal lines. Mild interstitial edema is suspected. There are bibasal airspace opacities, atelectatic versus infectious/inflammatory. There are small pleural effusions.[ IMPRESSION: 1. Mild cardiomegaly with interval development of mild interstitial edema and small bilateral pleural effusions 2. Slight progression in the nonspecific basilar opacities Medications Administered Current Inpatient Medications Acetaminophen (Ofirmev) 1,000 mg IV Q8H PRN PRN Reason: Pain or Fever Stop: 12/27/18 23:30 Acetaminophen (Tylenol) 650 mg PO Q4H PRN PRN Reason: Pain or Fever Stop: 12/27/18 23:30 Al Hydrox/Mg Hydrox/Simethicone (Maalox) 15 ml PO Q4H PRN PRN Reason: Dyspepsia Stop: 12/27/18 23:30 Albuterol (Duoneb) 3 ml NEB QIDR [facility] Stop: 12/30/18 15:59 Last Admin: 11/30/18 15:28 Dose: 3 ml Allopurinol (Zyloprim) 300 mg PO DAILY [facility] Stop: 12/28/18 08:59 Last Admin: 11/30/18 08:19 Dose: 300 mg Guaifenesin/Codeine Phosphate (Robitussin-Ac Sugar Free) 10 ml PO Q6H PRN PRN Reason: Cough Stop: 12/28/18 16:41 Last Admin: 11/30/18 08:23 Dose: 10 ml Piperacillin Sod/Tazobactam (Sod 3.375 gm/ Dextrose) 115 mls @ 28.75 mls/hr IV Q8H [facility]; Protocol Stop: 12/07/18 07:59 Levothyroxine Sodium (Synthroid) 25 mcg PO DAILYBB [facility] Stop: 12/28/18 06:29 Last Admin: 11/30/18 05:55 Dose: 25 mcg Magnesium Hydroxide (Milk Of Magnesia) 30 ml PO Q12H PRN PRN Reason: Constipation Stop: 12/27/18 23:30 Last Admin: 11/29/18 14:39 Dose: 30 ml Metoprolol Succinate (Toprol Xl) 25 mg PO HS [facility] Stop: 12/28/18 20:59 Last Admin: 11/29/18 20:26 Dose: 25 mg Miscellaneous Information (Consult) 1 ea N/A UD PRN PRN Reason: Consult Stop: 12/30/18 13:44 Ondansetron HCl (Zofran) 4 mg IV Q6H PRN PRN Reason: NAUSEA/VOMITING Stop: 12/27/18 23:30 Last Admin: 11/29/18 17:30 Dose: 4 mg Polyethylene Glycol (Miralax Powder Packet) 17 gm PO DAILY PRN PRN Reason: Constipation Stop: 12/27/18 23:30 Last Admin: 11/30/18 08:36 Dose: 17 gm Prochlorperazine (Compazine) 10 mg PO Q6 PRN PRN Reason: Nausea Stop: 12/27/18 23:30 Sertraline HCl (Zoloft) 50 mg PO DAILY [facility] Stop: 12/28/18 08:59 Last Admin: 11/30/18 08:19 Dose: 50 mg Warfarin Sodium (Coumadin) 2.5 mg PO DAILY@1600 [facility] Stop: 12/29/18 15:59 Last Admin: 11/30/18 15:37 Dose: 2.5 mg _ (1) Anemia Anemia type: Bone marrow failure anemia type: Chronic kidney disease stage : Folate deficiency anemia type: Hemolytic anemia type: Iron deficiency anemia type: Other causes of anemia: Vitamin B12 deficiency anemia type:
[2018-11-30] MEDS: METOPROLOL SUCC 25MG EXT REL TAB PO SCH (22:01)
[2018-11-30] MEDS: PIPERACILLIN/TAZOBACTAM 3.375 GM in DEXTROSE 5% 100 ML IV SCH (22:03)
[2018-11-30] MEDS: ACETAMINOPHEN 325 MG TAB PO PRN (23:28)
[2018-12-01] MEDS: PIPERACILLIN/TAZOBACTAM 3.375 GM in DEXTROSE 5% 100 ML IV SCH ×3 (04:19→20:08)
[2018-12-01] MEDS: LEVOTHYROXINE SODIUM 25 MCG TABLET PO SCH (05:47)
[2018-12-01 06:07] LABS: Hematocrit (blood only) 25.9 % (42-52); Hemoglobin 8.2 g/dL (14.0-18.0); Mean Corpuscular Hgb Conc 31.7 g/dL (32-36); Mean Corpuscular Volume 88.4 fL (80-100); Mean Platelet Volume 11.3 fL (7.4-10.4); Platelet Count 173 K/uL (130-400); RDW Coefficient of Variation 17.2 % (11.5-14.5); RDW Standard Deviation 55.3 fL (36.4-46.3); Red Blood Count 2.93 M/uL (4.7-6.1); White Blood Count 25.82 K/uL (4.8-10.8)
[2018-12-01 06:14] LABS: INR 2.1 (0.9-1.1); Prothrombin Time 19.9 Seconds (9.0-12.0)
[2018-12-01 06:39] LABS: BUN Creatinine Ratio 24.2 (10-20); Calcium 7.5 mg/dl (8.5-10.1); Creatinine Clr Calc Pharmacy 45.4 ml/min; Est GFR (African American) 68.3; Est GFR (Non-African American) 58.9; Magnesium 2.1 mg/dl (1.8-2.4); Potassium 4.1 mmol/L (3.5-5.1)
[2018-12-01 07:36] LABS: Basophils # (auto) 0.02 K/uL (0-0.2); Basophils % (auto) 0.1 %; Eosinophils # (auto) 0.01 K/uL (0-0.5); Immature Granulocytes # (auto) 0.15 K/uL (0.00-0.02); Immature Granulocytes % (auto) 0.6 %; Lymphocytes % (auto) 89.9 %; Monocytes # (auto) 0.32 K/uL (0.11-0.59); Monocytes % (auto) 1.2 %; Neutrophils # (auto) 2.12 K/uL (1.4-6.5); Neutrophils % (auto) 8.2 %
[2018-12-01] MEDS: ALBUT/IPRATROP 3MG/0.5MG NEB 3 ML VIAL NEB SCH ×4 (07:36→18:57)
[2018-12-01] MEDS: SERTRALINE HCL 50 MG TABLET PO SCH (08:31)
[2018-12-01] MEDS: ALLOPURINOL 300 MG TAB PO SCH (08:31)
[2018-12-01] MEDS: POLYETHYLENE (MIRALAX) 17 GM PACK PO PRN (08:36)
[2018-12-01] MEDS ORDERED: SODIUM CHLORIDE 0.65% NA SOLN 45 ML (OCEAN) PRN (09:29)
[2018-12-01] MEDS ORDERED: BISACODYL 10 MG SUPP PR PRN (09:30)
[2018-12-01] MEDS: GUAIFENESIN/CODEINE 200MG/20MG 10ML UDC PO PRN ×2 (09:31→20:10)
[2018-12-01] MEDS: ACETAMINOPHEN 325 MG TAB PO PRN ×2 (11:45→22:22)
--- NOTE | 2018-12-01 14:48 | Hospitalist Progress Note ---
Date of Service December 01, 2018 Assessment & Plan (1) HCAP (healthcare-associated pneumonia): treat with Zosyn still spiking fevers, will add Cefepime twice a day has a wet sounding cough, bibasilar infiltrates on CXR true fever of 38.8 last evening and then 38.1 today (2) Positive blood culture: grew out Enterococcus 11/30, all other cultures negative will be covered by Zosyn for the time being (3) Acute blood loss anemia: Supratherapeutic INR while on Coumadin leading to epistaxis and acute blood loss anemia transufed one unit on 11/28, tolerated well, Hb down slightly to 8.2 today (4) Supratherapeutic INR: INR 7.8 upon admission was given vitamin K in the ED good response with INR low at 1.7 today will resume Coumadin at 2.5mg daily (lower dose) repeat INR tomorrow (5) Epistaxis: no further bleeding for three days keep nose moist with saline, ordered oxygen to be removed unless patient actually hypoxic if there are any further issues he can follow up with ENT outpatient (6) Anemia: Hb stable at 8.3 today likely combination of some blood loss with epistaxis but also bone marrow suppression from chemotherapy repeat H/H tomorrow (7) CAD (coronary artery disease): hold aspirin for now, resume on discharge Continue metoprolol succinate 25 mg at bedtime. no chest pain, no signs of ischemia (8) History of AR (myocardial infarction): hold aspirin due to epistaxis likely resume tomorrow if no further bleeding no chest pain (9) Atrial fibrillation: rates controlled on metoprolol INR is 1.8, resume Coumadin today (10) Leukemia: Last chemotherapy was 10/31/18. appreciate consult from Dr. Chadwick patient will follow up in the office (11) Protein malnutrition: regular diet, supplements as tolerated (12) NANCY (acute kidney injury): resolved, Cr stable at 1.1 no signs of tumor lysis syndrome but would continue to monitor (13) Constipation: resolved with Miralax and Suppostory make the Miralax daily Subjective patient was feeling really weak and short of breath in the morning not much of an appetite c/o constipation later in the day he received an extra dose of Miralax and a suppository patient moved his bowels and felt a lot better + cough with yellow phlegm eating well updated daughter at the bedside Review of Systems All systems reviewed & are unremarkable except as noted in HPI & below Constitutional: + fatigue and + weakness Gastrointestinal: + constipation (relieved now) Physical Exam 2 Vital Signs (Past 24 Hours): Last Vital Signs Temp 37.2 C 12/01/18 13:14 Pulse 102 H 12/01/18 11:33 Resp 13 12/01/18 11:33 BP 94/54 L 12/01/18 12:28 Pulse Ox 93 12/01/18 11:33 Constitutional: WD/WN, vitals as above Eyes: PERRL, conjunctivae normal, anicteric sclerae ENMT: external ear and nose normal, oropharynx normal Neck: trachea midline, no thyromegaly Respiratory: normal respiratory effort, lungs clear to auscultation normal respiratory effort; no respiratory distress Cardiovascular: Rate/Rhythm: + tachycardic; + abnormal rhythm Heart Sounds : normal S1 and normal S2; no murmur Vessels: normal peripheral pulses Gastrointestinal (Abdomen): normal bowel sounds, soft, nontender, no hepatosplenomegaly Musculoskeletal: no cyanosis or clubbing, extremities motor strength 5/5 Skin: no rashes, warm and dry Neurologic: patellar DTR's 2+ bilat, sensation intact and PERRL, EOMI, accommodation nl, no face palsy, no dysarthria Psychiatric: A+Ox3, euthymic affect Lymphatic: no cervical or axillary lymphadenopathy Results & Data Laboratory Results Laboratory Results - last 24 hr 11/30/18 12/01/18 12/01/18 06:50 05:41 05:41 WBC RBC Hgb Hct MCV MCH MCHC RDW Std Deviation RDW Coeff of Jacoby Plt Count MPV Immature Gran % (Auto) Neut % (Auto) Lymph % (Auto) 91.0 [place] % (Auto) Eos % (Auto) Baso % (Auto) Immature Gran # (Auto) Neut # (Auto) Lymph # (Auto) [place] # (Auto) Eos # (Auto) Baso # (Auto) PT 19.9 H INR 2.1 H Sodium 136 Potassium 4.1 Chloride 104 Carbon Dioxide 24 Anion Gap 8.0 BUN 27 H Creatinine 1.13 Est Cr Clr Drug Dosing 45.4 Est GFR ( Amer) 68.3 Est GFR (Non-Af Amer) 58.9 BUN/Creatinine Ratio 24.2 H Glucose 103 H Calcium 7.5 L Magnesium 2.1 12/01/18 05:41 WBC 25.82 H RBC 2.93 L Hgb 8.2 L Hct 25.9 L MCV 88.4 MCH 28.0 MCHC 31.7 L RDW Std Deviation 55.3 H RDW Coeff of Jacoby 17.2 H Plt Count 173 MPV 11.3 H Immature Gran % (Auto) 0.6 Neut % (Auto) 8.2 Lymph % (Auto) 89.9 [place] % (Auto) 1.2 Eos % (Auto) 0.0 Baso % (Auto) 0.1 Immature Gran # (Auto) 0.15 H Neut # (Auto) 2.12 Lymph # (Auto) 23.20 H [place] # (Auto) 0.32 Eos # (Auto) 0.01 Baso # (Auto) 0.02 PT INR Sodium Potassium Chloride Carbon Dioxide Anion Gap BUN Creatinine Est Cr Clr Drug Dosing Est GFR ( Amer) Est GFR (Non-Af Amer) BUN/Creatinine Ratio Glucose Calcium Magnesium Medications Administered Current Inpatient Medications Acetaminophen (Ofirmev) 1,000 mg IV Q8H PRN PRN Reason: Pain or Fever Stop: 12/27/18 23:30 Acetaminophen (Tylenol) 650 mg PO Q4H PRN PRN Reason: Pain or Fever Stop: 12/27/18 23:30 Last Admin: 12/01/18 11:45 Dose: 650 mg Al Hydrox/Mg Hydrox/Simethicone (Maalox) 15 ml PO Q4H PRN PRN Reason: Dyspepsia Stop: 12/27/18 23:30 Albuterol (Duoneb) 3 ml NEB QIDR [facility] Stop: 12/01/18 23:59 Last Admin: 12/01/18 11:01 Dose: 3 ml Allopurinol (Zyloprim) 300 mg PO DAILY [facility] Stop: 12/28/18 08:59 Last Admin: 12/01/18 08:31 Dose: 300 mg Bisacodyl (Dulcolax) 10 mg AR DAILY PRN PRN Reason: Constipation Stop: 12/31/18 09:29 Guaifenesin/Codeine Phosphate (Robitussin-Ac Sugar Free) 10 ml PO Q6H PRN PRN Reason: Cough Stop: 12/28/18 16:41 Last Admin: 12/01/18 09:31 Dose: 10 ml Piperacillin Sod/Tazobactam (Sod 3.375 gm/ Dextrose) 115 mls @ 28.75 mls/hr IV Q8H [facility]; Protocol Stop: 12/07/18 07:59 Last Admin: 12/01/18 11:48 Dose: 28.8 mls/hr Levothyroxine Sodium (Synthroid) 25 mcg PO DAILYBB [facility] Stop: 12/28/18 06:29 Last Admin: 12/01/18 05:47 Dose: 25 mcg Magnesium Hydroxide (Milk Of Magnesia) 30 ml PO Q12H PRN PRN Reason: Constipation Stop: 12/27/18 23:30 Last Admin: 11/29/18 14:39 Dose: 30 ml Metoprolol Succinate (Toprol Xl) 25 mg PO HS [facility] Stop: 12/28/18 20:59 Last Admin: 11/30/18 22:01 Dose: 25 mg Miscellaneous Information (Consult) 1 ea N/A UD PRN PRN Reason: Consult Stop: 12/30/18 13:44 Ondansetron HCl (Zofran) 4 mg IV Q6H PRN PRN Reason: NAUSEA/VOMITING Stop: 12/27/18 23:30 Last Admin: 11/29/18 17:30 Dose: 4 mg Polyethylene Glycol (Miralax Powder Packet) 17 gm PO DAILY [facility] Stop: 01/01/19 08:59 Prochlorperazine (Compazine) 10 mg PO Q6 PRN PRN Reason: Nausea Stop: 12/27/18 23:30 Sertraline HCl (Zoloft) 50 mg PO DAILY [facility] Stop: 12/28/18 08:59 Last Admin: 12/01/18 08:31 Dose: 50 mg Sodium Chloride ([place] Nasal) 2 sprays NA Q2H PRN PRN Reason: Dryness Stop: 12/31/18 09:28 Last Admin: 12/01/18 11:48 Dose: 2 sprays Warfarin Sodium (Coumadin) 2.5 mg PO DAILY@1600 [facility] Stop: 12/29/18 15:59 Last Admin: 11/30/18 15:37 Dose: 2.5 mg _ (1) Anemia Anemia type: Bone marrow failure anemia type: Chronic kidney disease stage : Folate deficiency anemia type: Hemolytic anemia type: Iron deficiency anemia type: Other causes of anemia: Vitamin B12 deficiency anemia type:
[2018-12-01] MEDS: WARFARIN SOD 2.5 MG TAB PO SCH (16:11)
[2018-12-01] MEDS: METOPROLOL SUCC 25MG EXT REL TAB PO SCH (20:07)
[2018-12-01] MEDS ORDERED: POLYETHYLENE (MIRALAX) 17 GM PACK PO SCH (21:00)
[2018-12-02] MEDS: GUAIFENESIN/CODEINE 200MG/20MG 10ML UDC PO PRN ×2 (03:40→15:26)
[2018-12-02] MEDS: PIPERACILLIN/TAZOBACTAM 3.375 GM in DEXTROSE 5% 100 ML IV SCH ×3 (03:40→20:02)
[2018-12-02] MEDS: LEVOTHYROXINE SODIUM 25 MCG TABLET PO SCH (05:37)
[2018-12-02 06:16] LABS: Echinocytes 1+; Hematocrit (blood only) 30.9 % (42-52); Hemoglobin 9.9 g/dL (14.0-18.0); Lymphocytes % (manual) 92.9 %; Mean Corpuscular Volume 89.6 fL (80-100); Mean Platelet Volume 9.9 fL (7.4-10.4); Neutrophils % (manual) 7.1 %; Platelet Count 196 K/uL (130-400); RDW Coefficient of Variation 17.2 % (11.5-14.5); RDW Standard Deviation 55.8 fL (36.4-46.3); Red Blood Count 3.45 M/uL (4.7-6.1)
[2018-12-02 06:21] LABS: White Blood Count 41.01 K/uL (4.8-10.8)
[2018-12-02 06:25] LABS: BUN Creatinine Ratio 19.8 (10-20); Creatinine Clr Calc Pharmacy 39.4 ml/min; Est GFR (African American) 57.7; Est GFR (Non-African American) 49.8; Potassium 4.5 mmol/L (3.5-5.1)
[2018-12-02 06:27] LABS: INR 2.2 (0.9-1.1); Prothrombin Time 20.8 Seconds (9.0-12.0)
[2018-12-02] MEDS: ALLOPURINOL 300 MG TAB PO SCH (08:45)
[2018-12-02] MEDS: POLYETHYLENE (MIRALAX) 17 GM PACK PO SCH (08:45)
[2018-12-02] MEDS: SERTRALINE HCL 50 MG TABLET PO SCH (08:45)
[2018-12-02] MEDS: CEFEPIME 1,000 MG in SYRINGE 0 ML IV SCH ×2 (08:45→20:02)
[2018-12-02] MEDS: WARFARIN SOD 2.5 MG TAB PO SCH (15:23)
--- NOTE | 2018-12-02 16:24 | Hospitalist Progress Note ---
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, is immunocompromised and further chemo planned in near future (2) Positive blood culture: grew out Enterococcus 11/30, all other cultures negative will be covered by Zosyn for the time being can cover with Augmentin on discharge would need 14 days from negative blood culture, last day would be 12/14 (3) Acute blood loss anemia: Supratherapeutic INR while on Coumadin leading to epistaxis and acute blood loss anemia transufed one unit on 11/28, tolerated well, Hb up to 9.9 today (4) Supratherapeutic INR: INR 7.8 upon admission was given vitamin K in the ED will resume Coumadin at 2.5mg daily (lower dose) INR therapeutic at 2.2 repeat INR tomorrow (5) Epistaxis: no further bleeding for three days keep nose moist with saline, ordered oxygen to be removed unless patient actually hypoxic if there are any further issues he can follow up with ENT outpatient (6) Anemia: Hb stable at 9.9 today likely combination of some blood loss with epistaxis but also bone marrow suppression from chemotherapy repeat H/H tomorrow (7) CAD (coronary artery disease): hold aspirin for now, resume on discharge Continue metoprolol succinate 25 mg at bedtime. no chest pain, no signs of ischemia (8) History of MD (myocardial infarction): hold aspirin due to epistaxis likely resume tomorrow if no further bleeding no chest pain (9) Atrial fibrillation: rates controlled on metoprolol INR is 1.8, resume Coumadin today (10) Leukemia: Last chemotherapy was 10/31/18. appreciate consult from Dr. Chadwick patient will follow up in the office (11) Protein malnutrition: regular diet, supplements as tolerated (12) NANCY (acute kidney injury): resolved, Cr stable at 1.1 no signs of tumor lysis syndrome but would continue to monitor (13) Constipation: resolved with Miralax and Suppostory on 12/01 make the Miralax daily Plan: likely here until Monday to adequate treat pneumonia with IV antibiotics lives with his daughter likely benefit from home health and claudy therapy Subjective patient had a decent day, was tired in the morning but perked up throughout the day breathing is stable, minimal cough no fever since last night, started on Cefepime in addition to the Zosyn for pneumonia reviewed labs, Hb 9.9, INR 2.2 patient happy because the kitchen staff found his dentures, can eat better today Review of Systems All systems reviewed & are unremarkable except as noted in HPI & below Constitutional: + fatigue and + weakness Respiratory: + cough Gastrointestinal: no abdominal pain, no nausea, no vomiting, no constipation and no diarrhea/loose stools Physical Exam 2 Vital Signs (Past 24 Hours): Last Vital Signs Temp 37.4 C 12/02/18 14:32 Pulse 94 H 12/02/18 14:32 Resp 16 12/02/18 14:32 BP 120/60 12/02/18 14:32 Pulse Ox 94 12/02/18 14:32 Constitutional: WD/WN, vitals as above Eyes: PERRL, conjunctivae normal, anicteric sclerae ENMT: external ear and nose normal, oropharynx normal Neck: trachea midline, no thyromegaly Respiratory: normal respiratory effort, lungs clear to auscultation normal respiratory effort; no respiratory distress Cardiovascular: Rate/Rhythm: regular rate; + abnormal rhythm Heart Sounds: normal S1 and normal S2; no murmur Vessels: normal peripheral pulses Gastrointestinal (Abdomen): normal bowel sounds, soft, nontender, no hepatosplenomegaly Musculoskeletal: no cyanosis or clubbing, extremities motor strength 5/5 Skin: no rashes, warm and dry Neurologic: patellar DTR's 2+ bilat, sensation intact and PERRL, EOMI, accommodation nl, no face palsy, no dysarthria Psychiatric: A+Ox3, euthymic affect Lymphatic: no cervical or axillary lymphadenopathy Results & Data Laboratory Results Laboratory Results - last 24 hr 12/02/18 12/02/18 12/02/18 05:37 05:37 05:37 WBC 41.01 H* D RBC 3.45 L Hgb 9.9 L Hct 30.9 L MCV 89.6 MCH 28.7 MCHC 32.0 RDW Std Deviation 55.8 H RDW Coeff of Jacoby 17.2 H Plt Count 196 MPV 9.9 Neutrophils % (Manual) 7.1 Lymphocytes % (Manual) 92.9 Neutrophils # (Manual) 2.91 Total Absolute Neuts 2.91 Lymphocytes # (Manual) 38.10 H Total Abs Lymphocytes 38.10 H Echinocytes 1+ PT 20.8 H INR 2.2 H Sodium 133 L Potassium 4.5 Chloride 103 Carbon Dioxide 23 Anion Gap 7.0 BUN 26 H Creatinine 1.30 Est Cr Clr Drug Dosing 39.4 Est GFR ( Amer) 57.7 Est GFR (Non-Af Amer) 49.8 BUN/Creatinine Ratio 19.8 Glucose 92 Calcium 8.0 L Medications Administered Current Inpatient Medications Acetaminophen (Ofirmev) 1,000 mg IV Q8H PRN PRN Reason: Pain or Fever Stop: 12/27/18 23:30 Acetaminophen (Tylenol) 650 mg PO Q4H PRN PRN Reason: Pain or Fever Stop: 12/27/18 23:30 Last Admin: 12/01/18 22:22 Dose: 650 mg Al Hydrox/Mg Hydrox/Simethicone (Maalox) 15 ml PO Q4H PRN PRN Reason: Dyspepsia Stop: 12/27/18 23:30 Allopurinol (Zyloprim) 300 mg PO DAILY MONICA Stop: 12/28/18 08:59 Last Admin: 12/02/18 08:45 Dose: 300 mg Bisacodyl (Dulcolax) 10 mg OR DAILY PRN PRN Reason: Constipation Stop: 12/31/18 09:29 Guaifenesin/Codeine Phosphate (Robitussin-Ac Sugar Free) 10 ml PO Q6H PRN PRN Reason: Cough Stop: 12/28/18 16:41 Last Admin: 12/02/18 15:26 Dose: 10 ml Piperacillin Sod/Tazobactam (Sod 3.375 gm/ Dextrose) 115 mls @ 28.75 mls/hr IV Q8H MONICA; Protocol Stop: 12/07/18 07:59 Last Admin: 12/02/18 12:24 Dose: 28.8 mls/hr Cefepime HCl 1,000 mg/ Syringe 11.3 mls @ 5.5 mls/min IV Q12H MONICA Stop: 12/09/18 07:59 Last Admin: 12/02/18 08:45 Dose: 5.5 mls/min Levothyroxine Sodium (Synthroid) 25 mcg PO DAILYBB [facility] Stop: 12/28/18 06:29 Last Admin: 12/02/18 05:37 Dose: 25 mcg Magnesium Hydroxide (Milk Of Magnesia) 30 ml PO Q12H PRN PRN Reason: Constipation Stop: 12/27/18 23:30 Last Admin: 11/29/18 14:39 Dose: 30 ml Metoprolol Succinate (Toprol Xl) 25 mg PO HS [facility] Stop: 12/28/18 20:59 Last Admin: 12/01/18 20:07 Dose: 25 mg Miscellaneous Information (Consult) 1 ea N/A UD PRN PRN Reason: Consult Stop: 12/30/18 13:44 Ondansetron HCl (Zofran) 4 mg IV Q6H PRN PRN Reason: NAUSEA/VOMITING Stop: 12/27/18 23:30 Last Admin: 11/29/18 17:30 Dose: 4 mg Polyethylene Glycol (Miralax Powder Packet) 17 gm PO DAILY [facility] Stop: 01/01/19 08:59 Last Admin: 12/02/18 08:45 Dose: 17 gm Prochlorperazine (Compazine) 10 mg PO Q6 PRN PRN Reason: Nausea Stop: 12/27/18 23:30 Sertraline HCl (Zoloft) 50 mg PO DAILY [facility] Stop: 12/28/18 08:59 Last Admin: 12/02/18 08:45 Dose: 50 mg Sodium Chloride (Garden Nasal) 2 sprays NA Q2H PRN PRN Reason: Dryness Stop: 12/31/18 09:28 Last Admin: 12/01/18 11:48 Dose: 2 sprays Warfarin Sodium (Coumadin) 2.5 mg PO DAILY@1600 [facility] Stop: 12/29/18 15:59 Last Admin: 12/02/18 15:23 Dose: 2.5 mg _ (1) Anemia Anemia type: Bone marrow failure anemia type: Chronic kidney disease stage : Folate deficiency anemia type: Hemolytic anemia type: Iron deficiency anemia type: Other causes of anemia: Vitamin B12 deficiency anemia type:
[2018-12-02] MEDS: METOPROLOL SUCC 25MG EXT REL TAB PO SCH (20:09)
[2018-12-03] MEDS: GUAIFENESIN/CODEINE 200MG/20MG 10ML UDC PO PRN ×3 (00:01→18:34)
[2018-12-03] MEDS: PIPERACILLIN/TAZOBACTAM 3.375 GM in DEXTROSE 5% 100 ML IV SCH ×2 (03:54→12:00)
[2018-12-03] MEDS: LEVOTHYROXINE SODIUM 25 MCG TABLET PO SCH (05:55)
[2018-12-03 06:39] LABS: Mean Corpuscular Hgb Conc 32.7 g/dL (32-36); Mean Platelet Volume 10.5 fL (7.4-10.4); Platelet Count 178 K/uL (130-400)
[2018-12-03 06:47] LABS: INR 2.6 (0.9-1.1); Prothrombin Time 24.7 Seconds (9.0-12.0)
[2018-12-03 07:13] LABS: BUN Creatinine Ratio 22.3 (10-20); Calcium 7.5 mg/dl (8.5-10.1); Creatinine Clr Calc Pharmacy 47.5 ml/min; Est GFR (African American) 72.2; Est GFR (Non-African American) 62.3; Potassium 4.2 mmol/L (3.5-5.1)
[2018-12-03 07:31] LABS: Hematocrit (blood only) 25.7 % (42-52); Hemoglobin 8.4 g/dL (14.0-18.0); Mean Corpuscular Volume 86.5 fL (80-100); RDW Coefficient of Variation 17.1 % (11.5-14.5); RDW Standard Deviation 54.2 fL (36.4-46.3); Red Blood Count 2.97 M/uL (4.7-6.1); White Blood Count 27.46 K/uL (4.8-10.8)
[2018-12-03] MEDS: ALLOPURINOL 300 MG TAB PO SCH (08:18)
[2018-12-03] MEDS: POLYETHYLENE (MIRALAX) 17 GM PACK PO SCH (08:18)
[2018-12-03] MEDS: SERTRALINE HCL 50 MG TABLET PO SCH (08:18)
[2018-12-03] MEDS: CEFEPIME 1,000 MG in SYRINGE 0 ML IV SCH ×2 (08:23→20:21)
[2018-12-03 09:08] LABS: ALC (manual) 24.44 K/uL (1.2-3.4); Lymphocytes # (manual) 24.44 K/uL (1.2-3.4); Smudge Cells Present
[2018-12-03] MEDS: ONDANSETRON INJ 2 MG/ML 2 ML VIAL IV PRN (12:00)
--- NOTE | 2018-12-03 12:40 | Progress Note ---
DATE: 12/03/2018 HEMATOLOGY PROGRESS NOTE DIAGNOSES: 1. Hospital-acquired pneumonia. 2. Vancomycin-resistant enterococcal bacteremia. 3. Coagulopathy attributable to Coumadin. 4. Asthenia attributable to chemotherapy. 5. Hypoalbuminemia. SUBJECTIVE: Carlos was seen and examined at bedside today. He continues to have struggles specifically with phlegm and sputum production. The patient continues on broad-spectrum antimicrobials. His absolute neutrophil count is adequate at this juncture. Hemoglobin is a bit low today and discussed providing a unit of blood through the hospitalist service today. PT and INR have completely normalized and he continues on low doses of Coumadin. Carlos reports no complaints of pain, has tolerated his diet for the most point, but does complain of dysgeusia, I believe it is most likely chemo related. OBJECTIVE: GENERAL: He is in no acute distress, awake, alert and appropriate. VITAL SIGNS: Temperature 36.9, pulse 75, respiratory rate 16, blood pressure 151/74. SKIN: Without rash or lesion. HEENT: Edentulous. Oral mucosa otherwise clear. HEART: Regular rate and rhythm. LUNGS: Clear to auscultation bilaterally. ABDOMEN: Soft, nontender, nondistended. EXTREMITIES: No clubbing, cyanosis or edema. NEUROLOGIC: Grossly intact. LABORATORY DATA: WBC count 27,460, hemoglobin 8.4, platelet count 178,000. PT 24.7 seconds, INR 2.6. Sodium 133, potassium 4.2, chloride 101, carbon dioxide 26, creatinine 1.08, BUN 24. Last chest x-ray was performed on the revealing slight progression of nonspecific basilar opacities. IMPRESSION: 1. Pneumonia (thought to be hospital related). 2. Coagulopathy attributable to Coumadin. 3. Enterococcal bacteremia. 4. Asthenia. 5. Hypoalbuminemia. 6. Chronic lymphocytic leukemia. PLAN: Carlos is a pleasant 83-year-old gentleman well known to my service, recently received a modified bendamustine and rituximab. The patient originally presented with supratherapeutic Coumadin which has since been corrected. Along the way, he has been complaining of increased phlegm production. Primary service has placed him on antibiotics for pneumonia. He also suffers from enterococcal bacteremia. Carlos seems to be making slow but steady progress. I am contemplating options moving forward, so I do not want to stop treatment totally, but may omit bendamustine moving forward and proceed with single agent rituximab which is not optimal treatment, but again considering his advanced age and comorbid issues, may be the prudent way to proceed. I have asked Dr. Ca who is taking over the hospitalist service to transfuse Mr. Lakhani 1 unit of blood. Continue to work on ambulation, dietary intake and other supportive measures to expedite Mr. Lakhani's discharge. Thank you again for assisting me in the care of this very pleasant gentleman.
--- NOTE | 2018-12-03 12:43 | Hospitalist Progress Note ---
Date of Service December 03, 2018 Assessment & Plan (1) HCAP (healthcare-associated pneumonia): Began spiking fevers and became hypoxic with productive cough on 11/30 Started on Zosyn on 11/30 Was still spiking fevers on 12/01 and then Cefepime was added With bibasilar infiltrates on CXR Fevers now resolved Repeat BCxs 11/30 NGTD -remains hypoxic -want to make sure pneumonia adequately treated prior to discharge -prone to infection with CLL, is immunocompromised and further chemo planned in near future -now on Cefepime day #3, (did have Zosyn for 2 days, now Ampicillin for Enterococcus as below) -follow CXR to resolution (2) Positive blood culture: Grew out Enterococcus faecalis in 1/2 bottles on 11/27, repeat BCxs on remain NGTD -unclear source of Enterococcus in the blood -no abd pain, no UTI, UA normal -was on Zosyn, now convert to Ampicillin to deescalate as per d/w Pharmacy - day #3 since last negative BCx -check ECHO for valvular vegetation -will need continued abx x 14 day course (3) Acute blood loss anemia: Supratherapeutic INR while on Coumadin leading to epistaxis and acute blood loss anemia transfesd one unit on 11/28,and will give one more unit PRBCs on 12/02 (4) Supratherapeutic INR: INR 7.8 upon admission was given vitamin K in the ED -now back to therapeutic levels on coumadin and had epistaxis and hypotension, has required PRBC transfusion (5) Epistaxis: no further bleeding for 4 days keep nose moist with saline, remains on O2 via NC likely contributing if there are any further issues he can follow up with ENT outpatient (6) Anemia: Acute blood loss anemia plus some anemia from antineoplastic therapy. Hgb dropped today to 8.4 (from 9.9) although hgb was in the 8s the day prior to that so may be lab error -either way, he has severe fatigue and after d/w Oncology, will give 1 unit PRBCs, irradiated today (7) CAD (coronary artery disease): With h/o 3 heparin-coated stents placed in 1999 after STEMI -continue to hold aspirin due to drop in hemoglobin today although no overt bleeding any more -likely resume tomorrow if no further bleeding and hgb stable -continue Toprol -intolerant of statins (8) Atrial fibrillation: Had Afib on admission, then some NSR with PACs on monitor strips rates controlled on metoprolol INR therapeutic now at 2.6 -continue Coumadin 2.5mg daily (previous dose 2.5mg 4x/week and 5mg 3x/week) -follow INR in AM (9) Leukemia: With CLL Last chemotherapy was 10/31/18. with bendamustine and rituximab WBC was apparently 300k prior to starting therapy appreciate consult from Dr. Chadwick -transfusional support with PRBCs today -f/u with Oncology as outpt (10) Protein malnutrition: regular diet, supplements as tolerated Alb 2.1 (11) NANCY (acute kidney injury): resolved, Cr stable at 1.08 no signs of tumor lysis syndrome but would continue to monitor (12) Constipation: resolved with Miralax and Suppostory on 12/01 -continue Miralax daily (13) Hypothyroidism: TSH normal at 4.2 this admission -continue home synthroid 25 mcg daily (14) Major depressive disorder: -continue sertraline (15) Hyponatremia: mild at 133, could be secondary to mild dehydration or pulmonary process -follow BMP in AM (16) DVT prophylaxis: COumadin Dispo-remain hospitalized Subjective Pt feels very tired today. Fevers are subsiding. Still w/ productive cough, not really SOB but still on O2. No chest pain, no abd pain, no diarrhea. He is eating today. I discussed the case with Dr. Chadwick and I will transfuse him one unit PRBCs today. He has not had any overt bleeding. Review of Systems All systems reviewed & are unremarkable except as noted in HPI & below Physical Exam 2 Vital Signs (Past 24 Hours): Last Vital Signs Temp 36.9 C 12/03/18 07:47 Pulse 75 12/03/18 07:47 Resp 16 12/03/18 07:47 BP 151/74 H 12/03/18 07:47 Pulse Ox 98 12/03/18 09:28 Constitutional: WD/WN, vitals as above Eyes: PERRL, conjunctivae normal, anicteric sclerae ENMT: external ear and nose normal, oropharynx normal Neck: trachea midline, no thyromegaly Respiratory: normal respiratory effort Auscultation: + crackles (at bases bilat); no wheezes Cardiovascular: Rate/Rhythm: regular rate and regular rhythm (with ectopy ) Heart Sounds: no murmur Gastrointestinal (Abdomen): normal bowel sounds, soft, nontender, no hepatosplenomegaly Musculoskeletal: Extremities: extremities normal to inspection; no cyanosis and no clubbing Skin: no rashes, warm and dry Neurologic: moves all extremities and awake; no focal motor deficits Psychiatric: A+Ox3, euthymic affect Results & Data Laboratory Results 12/03/18 12/03/18 12/03/18 Range/Units 13:33 06:30 06:30 WBC (4.8-10.8) K/uL RBC (4.7-6.1) M/uL Hgb (14.0-18.0) g/dL Hct (42-52) % MCV (80-100) fL MCH (25-34) pg MCHC (32-36) g/dL RDW Std Deviation (36.4-46.3) fL RDW Coeff of Jacoby (11.5-14.5) % Plt Count (130-400) K/uL MPV (7.4-10.4) fL Neutrophils % (Manual) % Lymphocytes % (Manual) % Neutrophils # (Manual) (1.4-6.5) K/uL Total Absolute Neuts (1.4-6.5) K/uL Lymphocytes # (Manual) (1.2-3.4) K/uL Total Abs Lymphocytes (1.2-3.4) K/uL Smudge Cells Blood Smear Review PT 24.7 H (9.0-12.0) Seconds INR 2.6 H (0.9-1.1) Sodium 133 L (136-145) mmol/L Potassium 4.2 (3.5-5.1) mmol/L Chloride 101 (98-107) mmol/L Carbon Dioxide 26 (21-32) mmol/L Anion Gap 6.0 (3-11) BUN 24 H (7-18) mg/dl Creatinine 1.08 (0.6-1.4) mg/dl Est Cr Clr Drug Dosing 47.5 ml/min Est GFR ( Amer) 72.2 Est GFR (Non-Af Amer) 62.3 BUN/Creatinine Ratio 22.3 H (10-20) Glucose 98 (70-99) mg/dl Calcium 7.5 L (8.5-10.1) mg/dl Blood Type B Positive Antibody Screen NEGATIVE Crossmatch See Detail 12/03/18 11/27/18 Range/Units 06:30 20:07 WBC 27.46 H (4.8-10.8) K/uL RBC 2.97 L (4.7-6.1) M/uL Hgb 8.4 L (14.0-18.0) g/dL Hct 25.7 L (42-52) % MCV 86.5 (80-100) fL MCH 28.3 (25-34) pg MCHC 32.7 (32-36) g/dL RDW Std Deviation 54.2 H (36.4-46.3) fL RDW Coeff of Jacoby 17.1 H (11.5-14.5) % Plt Count 178 (130-400) K/uL MPV 10.5 H (7.4-10.4) fL Neutrophils % (Manual) 11.0 % Lymphocytes % (Manual) 89.0 % Neutrophils # (Manual) 3.02 (1.4-6.5) K/uL Total Absolute Neuts 3.02 (1.4-6.5) K/uL Lymphocytes # (Manual) 24.44 H (1.2-3.4) K/uL Total Abs Lymphocytes 24.44 H (1.2-3.4) K/uL Smudge Cells Present Blood Smear Review PT (9.0-12.0) Seconds INR (0.9-1.1) Sodium (136-145) mmol/L Potassium (3.5-5.1) mmol/L Chloride (98-107) mmol/L Carbon Dioxide (21-32) mmol/L Anion Gap (3-11) BUN (7-18) mg/dl Creatinine (0.6-1.4) mg/dl Est Cr Clr Drug Dosing ml/min Est GFR ( Amer) Est GFR (Non-Af Amer) BUN/Creatinine Ratio (10-20) Glucose (70-99) mg/dl Calcium (8.5-10.1) mg/dl Blood Type Antibody Screen Crossmatch See Detail _ (1) CAD (coronary artery disease) Coronary Disease-Associated Artery/Lesion type: [place] artery [place] vs. transplanted heart: [place] heart Associated angina: without angina Qualified Code(s): I25.10 - Atherosclerotic heart disease of [place] coronary artery without angina pectoris (2) Anemia Anemia type: other cause Other causes of anemia: acute posthemorrhagic Qualified Code(s): D62 - Acute posthemorrhagic anemia (3) Atrial fibrillation Atrial fibrillation type: paroxysmal Qualified Code(s): I48.0 - Paroxysmal atrial fibrillation (4) Leukemia Leukemia type: lymphoid Lymphoid leukemia type: other lymphocytic type Leukemia Active/Remission status: without remission Qualified Code(s): C91.Z0 - Other lymphoid leukemia not having achieved remission (5) Constipation Constipation type: unspecified constipation type Qualified Code(s): K59.00 - Constipation, unspecified (6) Hypothyroidism Hypothyroidism type: acquired Qualified Code(s): E03.9 - Hypothyroidism, unspecified (7) Major depressive disorder Major depression recurrence: unspecified whether recurrent Active/Remission status: remission status unspecified Qualified Code(s): F32.9 - Major depressive disorder, single episode, unspecified
[2018-12-03] MEDS: WARFARIN SOD 2.5 MG TAB PO SCH (17:07)
[2018-12-03] MEDS ORDERED: AMPICILLIN 2,000 MG in SODIUM CHLOR 0.9% AD-VAN 100 ML IV SCH (20:00)
[2018-12-03] MEDS: METOPROLOL SUCC 25MG EXT REL TAB PO SCH (20:21)
[2018-12-03] MEDS: AMPICILLIN 2,000 MG in SODIUM CHLOR 0.9% AD-VAN 100 ML IV SCH (20:23)
[2018-12-04] MEDS: AMPICILLIN 2,000 MG in SODIUM CHLOR 0.9% AD-VAN 100 ML IV SCH ×4 (01:42→20:54)
[2018-12-04] MEDS: LEVOTHYROXINE SODIUM 25 MCG TABLET PO SCH (06:00)
[2018-12-04 06:47] LABS: Mean Corpuscular Hgb Conc 32.5 g/dL (32-36); Mean Platelet Volume 11.2 fL (7.4-10.4); Platelet Count 200 K/uL (130-400)
[2018-12-04 07:22] LABS: BUN Creatinine Ratio 24.7 (10-20); Calcium 7.6 mg/dl (8.5-10.1); Creatinine Clr Calc Pharmacy 52.8 ml/min; Est GFR (African American) 80.2; Est GFR (Non-African American) 69.2; Potassium 3.9 mmol/L (3.5-5.1)
[2018-12-04] MEDS: ALLOPURINOL 300 MG TAB PO SCH (08:02)
[2018-12-04] MEDS: SERTRALINE HCL 50 MG TABLET PO SCH (08:02)
[2018-12-04] MEDS: CEFEPIME 1,000 MG in SYRINGE 0 ML IV SCH ×2 (08:03→20:52)
[2018-12-04] MEDS: POLYETHYLENE (MIRALAX) 17 GM PACK PO SCH (08:03)
[2018-12-04 08:29] LABS: Hematocrit (blood only) 27.4 % (42-52); Hemoglobin 8.9 g/dL (14.0-18.0); Mean Corpuscular Volume 85.4 fL (80-100); RDW Coefficient of Variation 17.8 % (11.5-14.5); RDW Standard Deviation 55.5 fL (36.4-46.3); Red Blood Count 3.21 M/uL (4.7-6.1); White Blood Count 25.04 K/uL (4.8-10.8)
[2018-12-04 08:32] LABS: ALC (manual) 20.76 K/uL (1.2-3.4); Echinocytes 1+; Hypochromasia Present; Lymphocytes # (manual) 20.76 K/uL (1.2-3.4); Lymphocytes % (manual) 82.9 %; Monocytes # (manual) 1.63 K/uL (0.11-0.59); Monocytes % (manual) 6.5 %; Neutrophils % (manual) 10.6 %; Poikilocytosis Present
--- NOTE | 2018-12-04 09:32 | Progress Note ---
DATE: 12/04/2018 DIAGNOSES: 1. Hospital acquired pneumonia. 2. Vancomycin-resistant enterococcal bacteremia. 3. Coagulopathy attributable to Coumadin. 4. Asthenia attributable to chemotherapy. 5. Hypoalbuminemia. SUBJECTIVE: Carlos was seen and examined at bedside today. Seems like phlegm and sputum production have lessened. He still continues to struggle with the general asthenia/weakness and difficult ambulation. His PT and INR have completely returned to therapeutic levels of Coumadin. He seems to be tolerating his diet; however, he does report several loose bowel movements over the past 24 hours. Nursing reports no overnight difficulties otherwise. OBJECTIVE: GENERAL: A brighter 83-year-old elderly gentleman, in no acute distress. VITAL SIGNS: Temperature 36.6, pulse 79, respiratory rate 18, blood pressure 106/56. SKIN: Without rash or lesion. HEENT: Patient is edentulous. Oral mucosa without erythema or ulceration. HEART: Regular rate and rhythm. LUNGS: Some diminished basilar breath sounds, otherwise no coarse rales or rhonchi appreciated. GASTROINTESTINAL: The abdomen is soft, nontender, nondistended. EXTREMITIES: No clubbing, cyanosis, or edema. NEUROLOGIC: Grossly intact. LABORATORY DATA: WBC count 25,040, hemoglobin 8.9, platelet count 200,000, his absolute neutrophil count 2650. Sodium 132, potassium 3.9, chloride 102, carbon dioxide 24, creatinine 0.99, BUN 24. IMPRESSION: 1. Pneumonia (hospital related). 2. Coagulopathy attributable to Coumadin. 3. Enterococcal bacteremia. 4. Asthenia. 5. Hypoalbuminemia. 6. Chronic lymphocytic leukemia. PLAN: Carlos seems to be making some progress. He appears much brighter than when I saw him yesterday morning. Nursing staff is beginning to ambulate Carlos a bit more and stressed the importance of getting out of bed and gaining strength. Again, his diet seems to be going well. He continues antibiotics for both pneumonia and bacteremia. I have nothing further to add. I appreciate transfusing him a unit of blood, which I think will go a long way in progressing Mr. Lakhani toward discharge. I will ensure Carlos is followed up closely upon discharge and will not resume chemotherapy until he is absolutely able to do so. Thank you again for assisting me in the care of this very pleasant gentleman. [facility]PITALSQuin
[2018-12-04] MEDS: GUAIFENESIN/CODEINE 200MG/20MG 10ML UDC PO PRN (14:08)
--- NOTE | 2018-12-04 16:40 | XRay Report ---
XR chest 2V routine HISTORY: Abnormal chest x-ray. ?pneumonia COMPARISON: Chest 11/30/2018. FINDINGS: No pneumothorax. The lungs are hyperexpanded with apical predominant emphysematous changes. The heart remains top normal in size. Small bilateral pleural effusions persist. Old mild anterior w edge-shaped compression deformity within the upper thoracic spine remains unchanged. The upper lung z ones remain clear. Patchy bibasilar densities have slightly progressed. No evidence for pulmonary philip ma. Tortuous thoracic aorta, unchanged. IMPRESSION: Slight progression of the patchy bibasilar densities. This may represent a pneumonia. One month chest x-ray follow-up recommended to ensure resolution. Small bilateral pleural effusions persist. Electronically signed by: Johnny Russell M.D. 12/04/2018 4:39 PM
[2018-12-04] MEDS: WARFARIN SOD 2.5 MG TAB PO SCH (16:47)
--- NOTE | 2018-12-04 20:40 | Hospitalist Progress Note ---
Date of Service December 04, 2018 Assessment & Plan (1) Enterococcal bacteremia: source - suspect the skin (either from rash on back, or a small ulceration (now healed) on the anterior aspect of the right knee. repeat blood cx's negative. he remains on ampicillin for the enterococcus. doubt GI source for bacteremia. doubt source for bacteremia. echo w/o obvious valvular vegetations. (2) HCAP (healthcare-associated pneumonia): day #5 of broad-spectrum IV antibiotics (was started on IV zosyn on 11/[address] Nuñez, and then changed to cefepime a couple of days ago). continue IV cefepime. no fever now in over 2 days. repeat cxr today to re-eval his pneumonia - appears to be bibasilar in location based on prior imaging. no h/o dysphagia to suggest aspiration. deferring on MRSA coverage for now. try tessalon TID and mucinex BID for cough. d/c robittusin ac. (3) Atrial fibrillation: rates are borderline high. he is on metoprolol xl. adjust if needed. cont coumadin for anticoagulation. (4) CLL (chronic lymphocytic leukemia): s/p initial chemo treatment recently. followed by Dr. Chadwick. (5) CAD (coronary artery disease): no ischemic sx's at this time (6) Hyponatremia: check serum osm in am. appears euvolemic. could he be developing SIADH in setting of pneumonia? (7) Hypothyroidism: cont synthroid (8) Supratherapeutic INR: resolved (9) Dermatitis: rash on back - uncertain etiology contact dermatitis? try triamcinolone cream TID (0.1% strength). follow. (10) Chronic kidney disease, stage 3a: creatinine is stable at this time (11) DVT prophylaxis: coumadin PT, OT daughter updated at bedside Subjective pt reports he feels ok today appetite improved cough continues but not as productive still with O2 requirement daughter at bedside daughter mentions a chronic rash on back, as well as a recent open sore on the right knee Constitutional: + fatigue; no fever and no chills Respiratory: no dyspnea Cardiovascular: no chest pain Gastrointestinal: no abdominal pain Physical Exam 2 Vital Signs (Past 24 Hours): Last Vital Signs Temp 36.9 C 12/04/18 15:34 Pulse 94 H 12/04/18 15:34 Resp 20 12/04/18 15:34 BP 105/64 12/04/18 15:34 Pulse Ox 96 12/04/18 15:34 Constitutional: average body habitus; no acute distress ENMT: external ear and nose normal, oropharynx normal Respiratory: normal respiratory effort, lungs clear to auscultation Cardiovascular: Rate/Rhythm: + tachycardic; + abnormal rhythm (irregular) Heart Sounds: normal S1 and normal S2; no murmur Vessels: posterior tibial pulses present and dorsalis pedis pulses present; no JVD Gastrointestinal (Abdomen): normal bowel sounds, soft, nontender, no hepatosplenomegaly Skin: erythematous papules on back; right knee - 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, well-healed; there is a tiny scab on the anterior aspect of knee joint Psychiatric: A+Ox3, euthymic affect Results & Data Laboratory Results Laboratory Results - last 24 hr 12/04/18 12/04/18 06:10 06:10 WBC 25.04 H RBC 3.21 L Hgb 8.9 L Hct 27.4 L MCV 85.4 MCH 27.7 MCHC 32.5 RDW Std Deviation 55.5 H RDW Coeff of Jacoby 17.8 H Plt Count 200 MPV 11.2 H Neutrophils % (Manual) 10.6 Lymphocytes % (Manual) 82.9 Monocytes % (Manual) 6.5 Neutrophils # (Manual) 2.65 Total Absolute Neuts 2.65 Lymphocytes # (Manual) 20.76 H Total Abs Lymphocytes 20.76 H Monocytes # (Manual) 1.63 H Hypochromasia Present Poikilocytosis Present Echinocytes 1+ Sodium 132 L Potassium 3.9 Chloride 102 Carbon Dioxide 24 Anion Gap 6.0 BUN 24 H Creatinine 0.99 Est Cr Clr Drug Dosing 52.8 Est GFR ( Amer) 80.2 Est GFR (Non-Af Amer) 69.2 BUN/Creatinine Ratio 24.7 H Glucose 97 Calcium 7.6 L _ (1) Atrial fibrillation Atrial fibrillation type: paroxysmal Qualified Code(s): I48.0 - Paroxysmal atrial fibrillation (2) CAD (coronary artery disease) Coronary Disease-Associated Artery/Lesion type: [place] artery [place] vs. transplanted heart: [place] heart Associated angina: without angina Qualified Code(s): I25.10 - Atherosclerotic heart disease of [place] coronary artery without angina pectoris (3) Hypothyroidism Hypothyroidism type: acquired Qualified Code(s): E03.9 - Hypothyroidism, unspecified
[2018-12-04] MEDS: BENZONATATE 100 MG CAPSULE PO SCH (21:51)
[2018-12-04] MEDS: TRIAMCINOLONE ACET 0.1% CR 80 GM TUBE EXT SCH (22:07)
[2018-12-04] MEDS: guaiFENesin 600 MG TABCR PO SCH (22:09)
[2018-12-04] MEDS: METOPROLOL SUCC 25MG EXT REL TAB PO SCH (22:09)
[2018-12-05] MEDS: AMPICILLIN 2,000 MG in SODIUM CHLOR 0.9% AD-VAN 100 ML IV SCH ×4 (02:10→19:57)
[2018-12-05] MEDS: LEVOTHYROXINE SODIUM 25 MCG TABLET PO SCH (05:58)
[2018-12-05 06:44] LABS: Hematocrit (blood only) 30.1 % (42-52); Hemoglobin 9.7 g/dL (14.0-18.0); Mean Corpuscular Hgb Conc 32.2 g/dL (32-36); Mean Corpuscular Volume 86.2 fL (80-100); Mean Platelet Volume 11.3 fL (7.4-10.4); Platelet Count 231 K/uL (130-400); RDW Coefficient of Variation 17.8 % (11.5-14.5); RDW Standard Deviation 55.4 fL (36.4-46.3); Red Blood Count 3.49 M/uL (4.7-6.1); White Blood Count 31.36 K/uL (4.8-10.8)
[2018-12-05 06:57] LABS: Calcium 7.8 mg/dl (8.5-10.1); Creatinine Clr Calc Pharmacy 52.8 ml/min; Est GFR (African American) 80.2; Est GFR (Non-African American) 69.2; Potassium 4.2 mmol/L (3.5-5.1)
[2018-12-05 07:58] LABS: ALC (manual) 28.63 K/uL (1.2-3.4); Anisocytosis Present; Hypochromasia Present; Lymphocytes # (manual) 28.63 K/uL (1.2-3.4); Lymphocytes % (manual) 91.3 %; Monocytes % (manual) 1.6 %; Neutrophils % (manual) 7.1 %; Smudge Cells Present
[2018-12-05] MEDS: CEFEPIME 1,000 MG in SYRINGE 0 ML IV SCH ×2 (08:55→19:57)
[2018-12-05] MEDS: BENZONATATE 100 MG CAPSULE PO SCH ×3 (08:56→20:00)
[2018-12-05] MEDS: TRIAMCINOLONE ACET 0.1% CR 80 GM TUBE EXT SCH ×3 (08:56→19:58)
[2018-12-05] MEDS: SERTRALINE HCL 50 MG TABLET PO SCH (08:57)
[2018-12-05] MEDS: ALLOPURINOL 300 MG TAB PO SCH (08:57)
[2018-12-05] MEDS: guaiFENesin 600 MG TABCR PO SCH ×2 (08:57→19:59)
[2018-12-05] MEDS: POLYETHYLENE (MIRALAX) 17 GM PACK PO SCH (08:58)
[2018-12-05] MEDS: ACETAMINOPHEN 325 MG TAB PO PRN (09:02)
--- NOTE | 2018-12-05 10:01 | Progress Note ---
DATE: 12/05/2018 DIAGNOSES: 1. Hospital acquired pneumonia. 2. Vancomycin-resistant enterococcal bacteremia. 3. Coagulopathy, attributable to Coumadin. 4. Asthenia, attributable to chemotherapy. 5. Hypoalbuminemia. SUBJECTIVE: Carlos was seen again this morning at bedside. He seems to be in very good spirits. Both phlegm and sputum production have lessened. Nursing staff is working with him a little closer to correct generalized weakness and difficulty ambulation. His PT and INR have stabilized. Carlos is tolerating his diet. Continues to report intermittent loose stools but overall seems to be slowly improving. Nursing reports no overnight difficulties otherwise. OBJECTIVE: GENERAL: Very pleasant 83-year-old gentleman, in no acute distress. VITAL SIGNS: Temperature 37.6, pulse 84, respiratory rate 20, blood pressure 108/68. SKIN: Warm, dry, noncyanotic, without petechiae or rash. HEENT: Oral mucosa without erythema or ulceration. HEART: Regular rate and rhythm. LUNGS: Clear to auscultation bilaterally. ABDOMEN: Soft, nontender, nondistended. EXTREMITIES: No clubbing, cyanosis, or edema. NEUROLOGIC: Grossly intact. LABORATORY DATA: WBC count 31,360, hemoglobin 9.7, platelet count 231,000. Sodium 133, potassium 4.2, chloride 103, carbon dioxide 25, BUN 23, creatinine 0.99. RADIOGRAPHIC DATA: Chest x-ray done on 12/04/2018, slight progression of patchy bibasilar infiltrates thought to represent pneumonia. IMPRESSION: 1. Bibasilar infiltrates (pneumonia). 2. Coagulopathy, attributable to Coumadin. 3. Enterococcal bacteremia. 4. Asthenia. 5. Hypoalbuminemia. 6. Chronic lymphocytic leukemia. PLAN: Again, I believe Carlos is making slow but steady progress. Need to work on ambulation, strengthening, and performance of activities of daily living. He seems to be tolerating his diet. Occasionally has loose stools but overall I believe he is heading in the right direction. I would hold off on further transfusional support. His lymphocyte fraction is starting to rise again, and we will plan to modify his regimen moving forward to control his disease while minimizing toxicities. Thank you again for assisting me in the care of this very pleasant gentleman. Hopefully, we can work toward this possibly in the end of this week to send him home if medically stable.
[2018-12-05] MEDS: WARFARIN SOD 2.5 MG TAB PO SCH (16:30)
--- NOTE | 2018-12-05 18:09 | CT Scan Report ---
CT chest wo con CT DOSE: 467.80 mGycm CLINICAL HISTORY: 83 years-old Male with leukemia, b/l pneumonia, ongoing hypoxia . Acute leukemia w ith acute shortness of breath and cough TECHNIQUE: Multiaxial CT images of the chest were performed without contrast. A dose lowering techni que was utilized adhering to the principles of ALARA. COMPARISON: Chest radiographs of same day. FINDINGS: No dominant thyroid nodule. Enlarged supraclavicular, axillary chain, prevascular, paratracheal, marvin r and subcarinal lymph nodes are seen. For example, subcarinal lymph nodes measure up to 1.5 x 3.2 cm . Paratracheal lymph nodes measure up to 1.3 cm in short axis. Prominent retrocrural lymph nodes and enlarged lymph nodes about the upper abdomen are also present. Small pericardial effusion. Heart is u pper limits of normal in size. Coronary arterial calcifications are noted. Fusiform dilation about th e ascending thoracic aorta measures 4.1 x 4.1 cm. Moderate associated calcified plaque formation with tortuosity of the descending thoracic aorta. Unopacified pulmonary artery appears unremarkable. Small bilateral pleural effusions. No pneumothorax. Thickening of the bronchovascular bundles with br onchovascular distribution of groundglass and patchy consolidative opacities. Mild associated intralo bular septal thickening, greatest at the level of the lung bases. Linear subsegmental pleural based c onsolidative opacities of the lung bases suggest atelectasis. Central airways appear patent. No acute process of the imaged upper abdomen identified. Thickening noted about the bilateral adrenal glands. Soft tissues appear to be within normal limits. There are no suspicious lytic or blastic bon y lesions. Degenerative changes are seen about the shoulders and spine. There are no suspicious lytic or blastic bony lesions. IMPRESSION: 1. Thickening of the bronchovascular bundles with bronchovascular distribution of groundglass and pat lia consolidative opacities and mild intralobular septal thickening is suggestive of pulmonary edema. Considering patient history of leukemia, pulmonary leukemic infiltration is an additional differenti al consideration. A superimposed infectious or inflammatory pneumonitis would be difficult to exclude . 2. Small bilateral pleural effusions with bibasilar atelectasis. 3. Enlarged supraclavicular, axillary chain, prevascular, paratracheal, subcarinal, hilar and upper a bdominal adenopathy compatible with lymphoproliferative disorder. 4. Small pericardial effusion. Electronically signed by: Norbert Green M.D. 12/05/2018 6:07 PM
[2018-12-05] MEDS ORDERED: FUROSEMIDE 20 MG TAB PO ONE (18:30)
[2018-12-05 18:45] LABS: Base Excess VBG 0.8 mEq/L; Oxygen Saturation VBG 83.5 %; pH VBG 7.46 (7.36-7.41)
[2018-12-05] MEDS: METOPROLOL SUCC 25MG EXT REL TAB PO SCH (19:59)
--- NOTE | 2018-12-05 20:30 | Hospitalist Progress Note ---
Date of Service December 05, 2018 Assessment & Plan (1) Enterococcal bacteremia: source - suspect the skin (either from rash on back, or a small ulceration (now healed) on the anterior aspect of the right knee. repeat blood cx's negative. he remains on ampicillin for the enterococcus. doubt GI source for bacteremia. doubt source for bacteremia. echo w/o obvious valvular vegetations. he still has no GI symptoms to suggest a GI source. day #6 of IV amp. (2) HCAP (healthcare-associated pneumonia): day #6 of broad-spectrum IV antibiotics (was started on IV zosyn on 11/[address] Nuñez, and then changed to cefepime a few days later). continue IV cefepime. no fever now in over 2 days but he looks worse today. to me his lung exam is fairly normal and seems out of proportion to his clinical picture. will obtain chest CT to ensure no complications of pneumonia (empyema, etc) or other pulmonary issues. check MRSA swab and if + consider MRSA coverage in light of poor response to Rx thus far. cont tessalon TID and mucinex BID for cough. (3) Atrial fibrillation: rates are borderline high. he is on metoprolol xl. adjust if needed. cont coumadin for anticoagulation. INR am (4) CLL (chronic lymphocytic leukemia): s/p initial chemo treatment recently. followed by Dr. Chadwick. I spoke with Dr. Chadwick today by phone. CBC in am (5) CAD (coronary artery disease): no ischemic sx's at this time (6) Hyponatremia: check urine Na and urine osm. could he be developing SIADH in setting of pneumonia? (7) Hypothyroidism: cont synthroid recent TSH was 4 (8) Supratherapeutic INR: resolved (9) Dermatitis: rash on back - uncertain etiology contact dermatitis? try triamcinolone cream TID (0.1% strength). disseminated shinges in light of immunocompromised status? staph or strep infection? but cefepime should cover such consider viral culture from a lesion (10) Chronic kidney disease, stage 3a: creatinine is stable at this time BMP am (11) DVT prophylaxis: coumadin PT, OT grand daughter updated at bedside I am concerned that we are now 8 days into his stay and he is poorly progressing remains DNR Subjective during my visit the patient was sitting in his chair he looked exhausted he reported not feeling well it was hard to understand him when he was speaking but he was indeed oriented he ate 100% of breakfast and same for lunch but had no appetite for dinner cont with cough and "stringy" sputum and gets choked/gagged from it rash on back no better no worse grand-daughter at bedside Constitutional: + fatigue and + malaise; no fever Respiratory: + cough, + dyspnea and + sputum production; no change in sputum, no hemoptysis and no wheezing Cardiovascular: no chest pain Gastrointestinal: + diarrhea/loose stools; no abdominal pain Physical Exam 2 Vital Signs (Past 24 Hours): Last Vital Signs Temp 36.6 C 12/05/18 18:30 Pulse 89 12/05/18 18:30 Resp 18 12/05/18 18:30 BP 106/72 12/05/18 18:30 Pulse Ox 100 12/05/18 18:30 Constitutional: + ill appearing and average body habitus; no acute distress doesn't look as good today ENMT: external ear and nose normal, oropharynx normal Respiratory: normal respiratory effort, lungs clear to auscultation Cardiovascular: Rate/Rhythm: regular rate; + abnormal rhythm (irregular) Heart Sounds: normal S1 and normal S2; no murmur Vessels: posterior tibial pulses present and dorsalis pedis pulses present; no JVD Gastrointestinal (Abdomen): normal bowel sounds, soft, nontender, no hepatosplenomegaly Skin: diffuse rash on back only; other skin areas spared; in the center of each lesion is an ulceration, almost as if he had blisters that have since popped; no change in appearance in comparison to yesterday Psychiatric: A+Ox3, euthymic affect Results & Data Laboratory Results Laboratory Results - last 24 hr 12/05/18 12/05/18 12/05/18 06:16 06:16 06:16 WBC 31.36 H* RBC 3.49 L Hgb 9.7 L Hct 30.1 L MCV 86.2 MCH 27.8 MCHC 32.2 RDW Std Deviation 55.4 H RDW Coeff of Jacoby 17.8 H Plt Count 231 MPV 11.3 H Neutrophils % (Manual) 7.1 Lymphocytes % (Manual) 91.3 Monocytes % (Manual) 1.6 Neutrophils # (Manual) 2.23 Total Absolute Neuts 2.23 Lymphocytes # (Manual) 28.63 H Total Abs Lymphocytes 28.63 H Monocytes # (Manual) 0.50 Smudge Cells Present Hypochromasia Present Anisocytosis Present VBG pH VBG pCO2 VBG pO2 VBG HCO3 VBG O2 Saturation VBG Base Excess Barometric Pressure Sodium 133 L Potassium 4.2 Chloride 103 Carbon Dioxide 25 Anion Gap 5.0 BUN 23 H Creatinine 0.99 Est Cr Clr Drug Dosing 52.8 Est GFR ( Amer) 80.2 Est GFR (Non-Af Amer) 69.2 BUN/Creatinine Ratio 23.0 H Glucose 97 Osmolality 279 L Lactate Calcium 7.8 L Ammonia 12/05/18 12/05/18 12/05/18 18:26 18:26 18:26 WBC RBC Hgb Hct MCV MCH MCHC RDW Std Deviation RDW Coeff of Jacoby Plt Count MPV Neutrophils % (Manual) Lymphocytes % (Manual) Monocytes % (Manual) Neutrophils # (Manual) Total Absolute Neuts Lymphocytes # (Manual) Total Abs Lymphocytes Monocytes # (Manual) Smudge Cells Hypochromasia Anisocytosis VBG pH 7.46 H VBG pCO2 35 L VBG pO2 48 VBG HCO3 24 VBG O2 Saturation 83.5 VBG Base Excess 0.8 Barometric Pressure 735.2 Sodium Potassium Chloride Carbon Dioxide Anion Gap BUN Creatinine Est Cr Clr Drug Dosing Est GFR ( Amer) Est GFR (Non-Af Amer) BUN/Creatinine Ratio Glucose Osmolality Lactate 1.2 Calcium Ammonia 23.5 _ (1) CAD (coronary artery disease) Associated angina: without angina Coronary Disease-Associated Artery/Lesion type: [place] artery [place] vs. transplanted heart: [place] heart Qualified Code (s): I25.10 - Atherosclerotic heart disease of [place] coronary artery without angina pectoris (2) Atrial fibrillation Atrial fibrillation type: paroxysmal Qualified Code(s): I48.0 - Paroxysmal atrial fibrillation (3) Hypothyroidism Hypothyroidism type: acquired Qualified Code(s): E03.9 - Hypothyroidism, unspecified
[2018-12-06] MEDS: AMPICILLIN 2,000 MG in SODIUM CHLOR 0.9% AD-VAN 100 ML IV SCH ×4 (01:34→20:39)
[2018-12-06] MEDS: LEVOTHYROXINE SODIUM 25 MCG TABLET PO SCH (06:15)
[2018-12-06 07:38] LABS: Mean Corpuscular Hgb Conc 32.5 g/dL (32-36); Mean Platelet Volume 9.8 fL (7.4-10.4); Platelet Count 192 K/uL (130-400)
[2018-12-06] MEDS: guaiFENesin 600 MG TABCR PO SCH ×2 (07:46→21:39)
[2018-12-06] MEDS: SERTRALINE HCL 50 MG TABLET PO SCH (07:46)
[2018-12-06] MEDS: TRIAMCINOLONE ACET 0.1% CR 80 GM TUBE EXT SCH ×3 (07:46→20:42)
[2018-12-06] MEDS: POLYETHYLENE (MIRALAX) 17 GM PACK PO SCH (07:47)
[2018-12-06] MEDS: ALLOPURINOL 300 MG TAB PO SCH (07:47)
[2018-12-06] MEDS: BENZONATATE 100 MG CAPSULE PO SCH ×3 (07:47→21:39)
[2018-12-06 08:13] LABS: BUN Creatinine Ratio 26.3 (10-20); Calcium 7.6 mg/dl (8.5-10.1); Est GFR (Non-African American) 80.2; Potassium 3.5 mmol/L (3.5-5.1)
[2018-12-06 08:31] LABS: Hematocrit (blood only) 27.4 % (42-52); Hemoglobin 8.9 g/dL (14.0-18.0); Mean Corpuscular Volume 85.6 fL (80-100); RDW Coefficient of Variation 17.4 % (11.5-14.5); RDW Standard Deviation 54.6 fL (36.4-46.3); White Blood Count 23.17 K/uL (4.8-10.8)
[2018-12-06 08:36] LABS: ALC (manual) 19.69 K/uL (1.2-3.4); Lymphocytes # (manual) 19.69 K/uL (1.2-3.4); Poikilocytosis Present
[2018-12-06] MEDS: CEFEPIME 1,000 MG in SYRINGE 0 ML IV SCH ×2 (08:58→20:38)
[2018-12-06 09:48] LABS: Influenza A virus by PCR Neg for Influ A (Neg); Influenza B virus by PCR Neg for Influ B (Neg)
[2018-12-06 10:03] LABS: INR 4.5 (0.9-1.1)
--- NOTE | 2018-12-06 10:08 | Progress Note ---
DATE: 12/06/2018 HEMATOLOGY PROGRESS NOTE DIAGNOSES: 1. Hospital-acquired pneumonia. 2. Vancomycin-resistant enterococcal bacteremia. 3. Coagulopathy, attributable to Coumadin. 4. Asthenia, attributable to chemotherapy. 5. Hypoalbuminemia. SUBJECTIVE: I visited Carlos at bedside again this morning. He was a bit more lethargic when I am used to in his case, and did answer direct questions. Maintains supplemental oxygen via nasal cannula. I was contacted by hospitalist service last night about CT chest findings and the possibility of an underlying pneumonitis. Nursing reported no overnight difficulties. Carlos seems to be progressing with his diet. Activity levels per se are a bit more questionable. PHYSICAL EXAMINATION: GENERAL: An 83-year-old gentleman lying supine, in no acute distress. VITAL SIGNS: Temperature 37.1, pulse 88, respiratory rate 18, blood pressure 114/62. SKIN: Without rash or lesion. HEENT: Oral mucosa without erythema or ulceration. NECK: Supple. Trachea is midline. HEART: Regular rate and rhythm. LUNGS: Clear to auscultation bilaterally. ABDOMEN: Soft, nontender, nondistended. EXTREMITIES: No clubbing, cyanosis or edema. NEUROLOGIC: Grossly intact. LABORATORY DATA: Peripheral counts are pending. Platelet count is reported at 192,000. Sodium 136, potassium 3.5, chloride 102, carbon dioxide 25, BUN 22, creatinine 0.83. RADIOGRAPHIC DATA: CT scan of the chest reveals thickening bronchioalveolar bundles with bronchovascular distribution to ground-glass and patchy consolidative opacities and mild intralobar septal thickening suggestive of pulmonary edema, suggestion of possible leukemic infiltration, perhaps pneumonitis are all within the differential diagnosis. Obviously, there are enlarged supraclavicular axillary chain, perivesicular paratracheal and subcarinal lymph nodes noted. IMPRESSION: 1. Possible pneumonitis versus bilobar pneumonia. 2. Coagulopathy, attributable to Coumadin. 3. Enterococcal bacteremia. 4. Asthenia. 5. Hypoalbuminemia. 6. Chronic lymphocytic leukemia. PLAN: Carlos seems to be back sliding a bit. His mentation is a little off today. He has no overt complaints per se. I spoke to Dr. Suero informally last night about Carlos's CT findings and we collectively agree with that pulmonary should be consulted, perhaps bronchoscopy may be helpful. Would continue supportive care as previously provided otherwise. He continues broad-spectrum antimicrobials for bacteremia and pneumonia. Will continue to follow Carlos during his hospital stay. Again, appreciate hospitalist's effort in helping me care for this gentleman. OLMAN
[2018-12-06] MEDS: FUROSEMIDE 20 MG TAB PO SCH (11:56)
[2018-12-06] MEDS: POTASSIUM CHLORIDE 20 MEQ TABCR PO SCH (11:57)
--- NOTE | 2018-12-06 12:18 | Consultation Report ---
DATE OF CONSULTATION: 12/06/2018 PULMONARY CONSULTATION TIME: 11:30 a.m. REPORT OF CONSULTATION: The patient was seen in room 409. He is an 83-year-old male who has been diagnosed with chronic lymphocytic leukemia. He recently started therapy for this with bendamustine and rituximab. The initial chemo was in October. In general, he has not been feeling well since that time. He has had generalized malaise and loss of appetite, loss of energy. He has been having fevers for the past several days. He actually came to the Emergency Room on November 27 because of a prolonged INR to 7.8. His hemoglobin was 8.1. He had been having some epistaxis. He has been on long-term warfarin because of atrial fibrillation. He has been getting evaluated since that time. He has had some shortness of breath. There have been intermittent fevers. On the , his temperature was up to 37.6. On the , the maximum temperature was 37.9 and then 38.8. On the , maximum temperature 38.1. On the , maximum temp 37.6. He was afebrile on the and the . On the , his temperatures went up again to 37.8. This morning, temperature is just 37.1. The patient denies to me that he has had shortness of breath. He does describe coughing and gagging. I tried to have him separate whether he thought this was from vomiting or not. He says he is vomiting small quantities. I asked him if he was sure that food came off at times, he indicated yes. His mucus, he described as sometimes yellow and sometimes clear. He did not cough during my exam. Thus, I am uncertain whether he is truly coughing or vomiting. He has had 1 blood culture positive for enterococcus. He also has had a rash on his back. There are multiple somewhat well circumscribed erythematous areas with some dried elevations in the middle. This does not look like a contact dermatitis to me. He denies having chest pains. PAST SURGICAL HISTORY: 1. Vasectomy. 2. Cardiac stents. PAST MEDICAL HISTORY: 1. Coronary artery disease. 2. Atrial fib. 3. CLL. 4. Hypothyroidism. 5. Aortic regurg. 6. Hypertension. 7. Hyperlipidemia. SOCIAL HISTORY: Tobacco, he quit smoking in the 1980s, which would be his early 50s. He may have smoked 25 or 30 years, but he states it would just be a pack of cigarettes per week. Alcohol use is described as very little. 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 FAMILY HISTORY: Noncontributory. ALLERGIES: STATINS. REVIEW OF SYSTEMS: The patient relates that he has had constipation. Subsequently, that was relieved a couple of days ago. Denies abdominal pains. He does have urinary incontinence. The remainder of the review of systems is negative except as noted here and in the history of present illness. Ten systems reviewed. MEDICATIONS AT HOME: 1. Acetaminophen. 2. Zyloprim 300 mg daily. 3. Aspirin 81 mg daily. 4. Levothyroxine 25 mcg daily. 5. Metoprolol 25 mg at bedtime. 6. Compazine 10 mg q. 6 p.r.n. 7. Sertraline 50 mg daily. 8. Coumadin 2.5 mg 4 days per week and 5 mg 3 days per week. PHYSICAL EXAMINATION: GENERAL: The patient is an 83-year-old male who was cooperative, alert and oriented. He did look fatigued. VITAL SIGNS: Cardiac rate was 88. Rhythm was regular. Blood pressure 114/62. Respiratory rate 18. Saturation was 95% on 3 liters at the time of my exam. HEENT: Eye exam suggests he may have had cataract surgeries. Pupils react. No nasal blood was noted. The patient's tongue was coated. There were no exudates or erythema in the pharynx itself. NECK: Palpation of the neck reveals a left supraclavicular node. It was nontender. I did not palpate axillary nodes. CHEST: The chest was of normal expansion. He has a rash on the posterior chest as noted. LUNGS: Lung wright were clear bilaterally. ABDOMEN: Soft. It was nontender. No masses were palpable. EXTREMITIES: Reveals some swelling of the left lower extremity approximately +2. There was trace edema on the right. No cyanosis or clubbing was noted. LABORATORY DATA: CBC today shows a white count of 23.17. On 10/31/2018, the white count was 347.13. Admission date showed white count 34.03. Hemoglobin today is 8.9, admission was 8.3. Platelets are 192,000. The patient's percentage of lymphocytes is high and all of the CBCs and the white cells have been low with neutrophils. The neutrophil count has been improving, however. INR initially was 8.0. It came down to 1.7. Coumadin was restarted and today it is elevated again at 4.5. Electrolytes show sodium 136, potassium 3.5, chloride 102, bicarbonate 25. BUN is 22 with a creatinine of 0.83. The patient has had serial chest x-rays. On the , there were minimal bibasilar opacities which could suggest mild atelectasis. On the , there was some progression in the nonspecific bibasilar opacities. On the , that represented further progression. Small effusions were suggested. The patient had a CT of the chest done on December 05. This reported enlarged supraclavicular, axillary, prevascular, paratracheal, subcarinal, hilar and upper abdominal adenopathy, compatible with a lymphoproliferative disorder. Small effusions were seen. There were somewhat diffuse infiltrates. These were most prominent in the lower lung wright bilaterally, but there are apical infiltrates as well. I believe aspiration should be considered, particularly with his history of vomiting. Could not exclude that it is simply pneumonia in an immunosuppressed host. Leukemic infiltrates could not be entirely excluded, but are probably less likely. I think it is less likely, this represents CHF. He did have an echocardiogram done on 12/04/2018. The ejection fraction was 55-60%. Right ventricle was felt to be normal. Mild aortic regurg was noted. IMPRESSION: 1. Bilateral lung infiltrates of undetermined etiology. 2. Recurring fevers. 3. Chronic lymphocytic leukemia - status post chemo. 4. Rash on posterior trunk. 5. Blood culture positive for enterococcus. COMMENTS AND RECOMMENDATIONS: The patient seems subacutely ill, but not acutely ill at present. He no doubt has had the significant side effects from the chemo. I am having difficulty determining if he is truly vomiting or if he is just expectorating sputum. He indicates he does this about 5 times per day. Will order a sputum C and S. We will also order Legionella titer. Obviously, the possibility of aspiration exists and he may need aspiration precautions. We would check a BNP for completeness, but I am not expecting that CHF is the cause of his issue. He does have some swelling of the left leg, but has been on chronic anticoagulation and I think it is unlikely this is a DVT. The patient has had extensive antibiotic coverage, but I am not sure he has had atypical coverage. Will discuss this with Dr. Suero. Thank you very much for asking me to assist in his care.
[2018-12-06] MEDS: DOXYCYCLINE HYCLATE 100 MG CAP PO SCH ×2 (14:29→21:39)
[2018-12-06] MEDS: WARFARIN SOD 2.5 MG TAB PO SCH (15:33)
--- NOTE | 2018-12-06 18:24 | Hospitalist Progress Note ---
Date of Service December 06, 2018 Assessment & Plan (1) Enterococcal bacteremia: source - suspect the skin (either from rash on back, or a small ulceration (now healed) on the anterior aspect of the right knee. repeat blood cx's negative. he remains on ampicillin for the enterococcus. doubt GI source for bacteremia. doubt source for bacteremia. echo w/o obvious valvular vegetations. he still has no GI symptoms to suggest a GI source. day #7 of IV amp. plan 14 days of Rx from date of most recent negative blood cx. (2) HCAP (healthcare-associated pneumonia): day #7 of broad-spectrum IV antibiotics (was started on IV zosyn on 11/[address] Nuñez, and then changed to cefepime a few days later). continue IV cefepime today - can likely transition to oral therapy soon? added doxycycline for atypical coverage. MRSA swab negative - defer on MRSA coverage. rapid flu testing negative. CT chest reviewed, and case d/w Dr. Alva from pulmonary. We doubt CT findings are due to CHF. This could be leukemic infiltration of lungs. This could be atypical pneumonia thus adding the doxy. Cont supportive care. (3) Atrial fibrillation: rates are borderline high but no changes in meds today. INR is supratherapeutic - likely due to antibiotics - hold coumadin. INR am. (4) CLL (chronic lymphocytic leukemia): s/p initial chemo treatment recently. followed by Dr. Chadwick. CBC in am (5) CAD (coronary artery disease): no ischemic sx's at this time (6) Hyponatremia: improved s/p lasix bmp in am (7) Hypothyroidism: cont synthroid recent TSH was 4 (8) Supratherapeutic INR: see above hold coumadin (9) Dermatitis: rash on back - uncertain etiology contact dermatitis? viral? bacterial? cont triamcinolone cream TID (0.1% strength). disseminated shinges in light of immunocompromised status? send zoster culture. staph or strep infection? but cefepime should cover such continue to monitor if this doesn't improve then dermatology consultation (10) Chronic kidney disease, stage 3a: creatinine is stable at this time BMP am (11) DVT prophylaxis: coumadin PT, OT left message for daughter 12/06/18 Subjective patient states he "doesn't feel any better" but he looks better today still consuming 100% of meals diarrhea - about 1-2x's/day rash on back is not painful or pruritic - just a little irritating feels weak denies fever or chills cough is main complaint Constitutional: no fever Ear, Nose, Mouth, Throat: no sore throat Respiratory: + cough and + sputum production; no hemoptysis Cardiovascular: no chest pain Gastrointestinal: no abdominal pain, no nausea and no vomiting Physical Exam 2 Vital Signs (Past 24 Hours): Last Vital Signs Temp 36.5 C 12/06/18 16:00 Pulse 73 12/06/18 16:00 Resp 19 12/06/18 16:00 BP 149/79 H 12/06/18 16:00 Pulse Ox 92 12/06/18 16:00 Constitutional: + ill appearing and average body habitus; no acute distress ENMT: external ear and nose normal, oropharynx normal Respiratory: no respiratory distress Auscultation: + wheezes (minimal end- exp); no diminished lung sounds and no crackles Cardiovascular: Rate/Rhythm: regular rate and + tachycardic; + abnormal rhythm (irregular) Heart Sounds: normal S1 and normal S2; no murmur Vessels: posterior tibial pulses present and dorsalis pedis pulses present; no JVD Gastrointestinal (Abdomen): normal bowel sounds, soft, nontender, no hepatosplenomegaly Skin: + rash (back -- papules with central ulceration; occasional lesion with blister-like formation in central portion of the lesion; other areas of body spared of rash) Psychiatric: Orientation: alert and oriented x 3 Affect: + depressed affect Results & Data Laboratory Results Laboratory Results - last 24 hr 12/05/18 12/05/18 12/05/18 18:26 18:26 18:26 WBC RBC Hgb Hct MCV MCH MCHC RDW Std Deviation RDW Coeff of Jacoby Plt Count MPV Neutrophils % (Manual) Lymphocytes % (Manual) Neutrophils # (Manual) Total Absolute Neuts Lymphocytes # (Manual) Total Abs Lymphocytes Poikilocytosis PT INR VBG pH 7.46 H VBG pCO2 35 L VBG pO2 48 VBG HCO3 24 VBG O2 Saturation 83.5 VBG Base Excess 0.8 Barometric Pressure 735.2 Sodium Potassium Chloride Carbon Dioxide Anion Gap BUN Creatinine Est Cr Clr Drug Dosing Est GFR ( Amer) Est GFR (Non-Af Amer) BUN/Creatinine Ratio Glucose Lactate 1.2 Calcium Magnesium Ammonia 23.5 NT-Pro-B Natriuret Pep Procalcitonin Nasal Screen MRSA (PCR) Influenza Type A (PCR) Influenza Type B (PCR) 12/06/18 12/06/18 12/06/18 07:24 07:24 07:24 WBC 23.17 H RBC 3.20 L Hgb 8.9 L Hct 27.4 L MCV 85.6 MCH 27.8 MCHC 32.5 RDW Std Deviation 54.6 H RDW Coeff of Jacoby 17.4 H Plt Count 192 MPV 9.8 Neutrophils % (Manual) 15.0 Lymphocytes % (Manual) 85.0 Neutrophils # (Manual) 3.48 Total Absolute Neuts 3.48 Lymphocytes # (Manual) 19.69 H Total Abs Lymphocytes 19.69 H Poikilocytosis Present PT INR VBG pH VBG pCO2 VBG pO2 VBG HCO3 VBG O2 Saturation VBG Base Excess Barometric Pressure Sodium Potassium Chloride Carbon Dioxide Anion Gap BUN Creatinine Est Cr Clr Drug Dosing Est GFR ( Amer) Est GFR (Non-Af Amer) BUN/Creatinine Ratio Glucose Lactate Calcium Magnesium 2.2 Ammonia NT-Pro-B Natriuret Pep Procalcitonin 0.17 Nasal Screen MRSA (PCR) Influenza Type A (PCR) Influenza Type B (PCR) 12/06/18 12/06/18 12/06/18 07:24 08:25 08:25 WBC RBC Hgb Hct MCV MCH MCHC RDW Std Deviation RDW Coeff of Jacoby Plt Count MPV Neutrophils % (Manual) Lymphocytes % (Manual) Neutrophils # (Manual) Total Absolute Neuts Lymphocytes # (Manual) Total Abs Lymphocytes Poikilocytosis PT INR VBG pH VBG pCO2 VBG pO2 VBG HCO3 VBG O2 Saturation VBG Base Excess Barometric Pressure Sodium 136 Potassium 3.5 D Chloride 102 Carbon Dioxide 25 Anion Gap 8.0 BUN 22 H Creatinine 0.83 Est Cr Clr Drug Dosing 63.0 Est GFR ( Amer) 93.0 Est GFR (Non-Af Amer) 80.2 BUN/Creatinine Ratio 26.3 H Glucose 97 Lactate Calcium 7.6 L Magnesium Ammonia NT-Pro-B Natriuret Pep Procalcitonin Nasal Screen MRSA (PCR) Negative Influenza Type A (PCR) Neg for Influ A Influenza Type B (PCR) Neg for Influ B 12/06/18 12/06/18 09:21 12:03 WBC RBC Hgb Hct MCV MCH MCHC RDW Std Deviation RDW Coeff of Jacoby Plt Count MPV Neutrophils % (Manual) Lymphocytes % (Manual) Neutrophils # (Manual) Total Absolute Neuts Lymphocytes # (Manual) Total Abs Lymphocytes Poikilocytosis PT 42.0 H INR 4.5 H VBG pH VBG pCO2 VBG pO2 VBG HCO3 VBG O2 Saturation VBG Base Excess Barometric Pressure Sodium Potassium Chloride Carbon Dioxide Anion Gap BUN Creatinine Est Cr Clr Drug Dosing Est GFR ( Amer) Est GFR (Non-Af Amer) BUN/Creatinine Ratio Glucose Lactate Calcium Magnesium Ammonia NT-Pro-B Natriuret Pep 2408 H Procalcitonin Nasal Screen MRSA (PCR) Influenza Type A (PCR) Influenza Type B (PCR) _ (1) CAD (coronary artery disease) Associated angina: without angina Coronary Disease-Associated Artery/Lesion type: [place] artery [place] vs. transplanted heart: [place] heart Qualified Code (s): I25.10 - Atherosclerotic heart disease of [place] coronary artery without angina pectoris (2) Atrial fibrillation Atrial fibrillation type: paroxysmal Qualified Code(s): I48.0 - Paroxysmal atrial fibrillation (3) Hypothyroidism Hypothyroidism type: acquired Qualified Code(s): E03.9 - Hypothyroidism, unspecified
[2018-12-06] MEDS: METOPROLOL SUCC 25MG EXT REL TAB PO SCH (21:40)
[2018-12-07] MEDS: AMPICILLIN 2,000 MG in SODIUM CHLOR 0.9% AD-VAN 100 ML IV SCH ×4 (02:08→21:14)
[2018-12-07] MEDS: ACETAMINOPHEN 325 MG TAB PO PRN (03:49)
[2018-12-07] MEDS: LEVOTHYROXINE SODIUM 25 MCG TABLET PO SCH (05:43)
[2018-12-07 06:39] LABS: Mean Corpuscular Hgb Conc 32.6 g/dL (32-36); Mean Platelet Volume 10.7 fL (7.4-10.4); Platelet Count 220 K/uL (130-400)
[2018-12-07 07:10] LABS: BUN Creatinine Ratio 27.3 (10-20); Calcium 7.6 mg/dl (8.5-10.1); Creatinine Clr Calc Pharmacy 58.4 ml/min; Est GFR (African American) 91.6; Est GFR (Non-African American) 79.1; Potassium 3.6 mmol/L (3.5-5.1)
[2018-12-07 07:14] LABS: Hematocrit (blood only) 27.6 % (42-52); Mean Corpuscular Volume 85.2 fL (80-100); RDW Coefficient of Variation 17.4 % (11.5-14.5); RDW Standard Deviation 54.6 fL (36.4-46.3); Red Blood Count 3.24 M/uL (4.7-6.1); White Blood Count 22.86 K/uL (4.8-10.8)
[2018-12-07 07:31] LABS: ALC (manual) 19.89 K/uL (1.2-3.4); Lymphocytes # (manual) 19.89 K/uL (1.2-3.4); Poikilocytosis Present
[2018-12-07] MEDS: POTASSIUM CHLORIDE 20 MEQ TABCR PO SCH (08:25)
[2018-12-07] MEDS: BENZONATATE 100 MG CAPSULE PO SCH ×3 (08:25→21:16)
[2018-12-07] MEDS: ALLOPURINOL 300 MG TAB PO SCH (08:25)
[2018-12-07] MEDS: guaiFENesin 600 MG TABCR PO SCH ×2 (08:25→21:17)
[2018-12-07] MEDS: FUROSEMIDE 20 MG TAB PO SCH (08:26)
[2018-12-07] MEDS: DOXYCYCLINE HYCLATE 100 MG CAP PO SCH ×2 (08:26→21:15)
[2018-12-07] MEDS: POLYETHYLENE (MIRALAX) 17 GM PACK PO SCH (08:27)
[2018-12-07] MEDS: SERTRALINE HCL 50 MG TABLET PO SCH (08:27)
[2018-12-07] MEDS: TRIAMCINOLONE ACET 0.1% CR 80 GM TUBE EXT SCH ×3 (08:27→21:14)
[2018-12-07] MEDS: CEFEPIME 1,000 MG in SYRINGE 0 ML IV SCH ×2 (08:34→21:14)
--- NOTE | 2018-12-07 09:09 | Progress Note ---
DATE: 12/07/2018 HEMATOLOGY PROGRESS NOTE DIAGNOSES: 1. Hospital-acquired pneumonia. 2. Vancomycin-resistant enterococcal bacteremia. 3. Coagulopathy, attributable to Coumadin. 4. Asthenia, attributable to chemotherapy. 5. Hypoalbuminemia. SUBJECTIVE: Carlos was seen and examined at bedside. He mentally was a little brighter today. Specifically, I asked him if he was giving up hope of recovery and he denied feeling so. Appreciate pulmonary's input regarding his respiratory status. I would expect at this juncture Carlos would be turning the corner. Profound weakness seems to be his most problem in the clinical issue. Nursing reports no overnight difficulties. OBJECTIVE: GENERAL: Carlos is in no acute distress. VITAL SIGNS: Temperature 37.5, pulse 87, respiratory rate 18, blood pressure 103/55. SKIN: Without rash or lesion. HEENT: Oral mucosa without erythema or ulceration. NECK: Supple. Trachea midline. HEART: Regular rate and rhythm. LUNGS: Clear to auscultation. ABDOMEN: Soft, nontender, nondistended. EXTREMITIES: No clubbing, cyanosis or edema. NEUROLOGICAL: Grossly intact. LABORATORY DATA: WBC count 22,860, hemoglobin 9, platelet count 220,000. His absolute neutrophil count is almost 3000. PT 55 seconds, INR 6. Sodium 136, potassium 3.6, chloride 102, carbon dioxide 25, BUN 23, creatinine 0.86. IMPRESSION: 1. Possible pneumonitis versus bilobar pneumonia. 2. Coagulopathy, attributable to Coumadin. 3. Enterococcal bacteremia. 4. Asthenia/generalized weakness. 5. Hypoalbuminemia. 6. Chronic lymphocytic leukemia. PLAN: Again, Carlos from a mental standpoint seems to be a little brighter today. He denies giving up hope of recovery. His PT and INR are a bit high and therefore would hold his Coumadin dose today. I do not think there is need to administer vitamin K at present. Generalized weakness seems to be the prevalent tissue at this point. He is not short of breath or dyspneic. He does continue to have this cough which is otherwise unexplained. Again, appreciate pulmonary's input and any recommendations to help Carlos would be greatly appreciated. Encourage ambulation with assistance. At this juncture, I see Carlos ending up in a step down unit as I do not think he is able to go home anytime soon. Obviously, his performance status prohibits me from pushing forward with chemotherapy and will engage in discussion with family members to discuss where we go from here. Again, thank you for assisting me in the care of this very pleasant gentleman.
[2018-12-07] MEDS ORDERED: FUROSEMIDE 20 MG TAB PO ONE (10:00)
[2018-12-07] MEDS ORDERED: POTASSIUM CHLORIDE 10 MEQ TABCR PO ONE (10:00)
[2018-12-07] MEDS ORDERED: POTASSIUM CHLORIDE 10 MEQ TABCR PO STA (14:30)
[2018-12-07] MEDS ORDERED: FUROSEMIDE 40 MG TAB PO ONE (14:30)
--- NOTE | 2018-12-07 16:28 | Progress Note ---
DATE: 12/07/2018 PULMONARY PROGRESS NOTE TIME: 3:55 p.m. SUBJECTIVE: The patient is not complaining of anything, but he is quite fatigued. He appears sleepy. His daughter was present during this evaluation. She has been with him for a few hours. She thinks he is actually better than yesterday. She feels that his cough is definitively less now than it was last week. It had been severe previously. She states he only coughed 3 times between 1:00 p.m. and 4 p.m. Apparently, he was up in a chair for a good part of the day. OBJECTIVE: GENERAL: The patient looks very fatigued. He was in no distress. VITAL SIGNS: Temperature is 36.4. This morning, temperature was 37.5, so he did have some fever. Heart rate was 86 per minute. Rhythm regular. Blood pressure 100/64. LUNGS: Respiratory rate was 16. Auscultation revealed somewhat decreased breath sounds. No wheezing was heard. CHEST: He did have an extensive rash on his posterior chest. His daughter indicated he did have the rash for years. I am not certain; however, she was referring to the many nevi that he has. The redness of the acutely inflamed areas appears different to me. EXTREMITIES: Showed no cyanosis, clubbing or edema. LABORATORY DATA: White count today is 22.86. Hemoglobin is 9. Platelets 220,000. INR today was up to 6. Sodium was 136, potassium 3.6, chloride 102, bicarbonate 25. BUN 23 with a creatinine of 0.86. His ProBNP yesterday was 2408. This would be mildly elevated for a patient of this age. Sputum sample obtained today showed squamous cells indicative of upper airway contamination. IMPRESSION: 1. Bilateral lung infiltrates - questionable pneumonia versus other etiologies as previously discussed. 2. Intermittent fevers. 3. Chronic lymphocytic leukemia - status post chemo with bendamustine and rituximab. 4. Enterococcus bacteremia. 5. Posterior trunk rash. COMMENTS: The patient still seems to be remarkably fatigued. He has been on cefepime and ampicillin. I would continue this therapy for now. He is also on doxycycline. He is not having any acute respiratory issues. After several days, he likely would need a followup x-ray of some type. If the patient was not improving in light of the fact he is immunosuppressed, one could give consideration to doing a diagnostic bronchoscopy with lavage. Advised waiting and seeing how this plays out over the next couple of days, particularly in light of the improvement in his cough.
--- NOTE | 2018-12-07 20:52 | Hospitalist Progress Note ---
Date of Service December 07, 2018 Assessment & Plan (1) Enterococcal bacteremia: source - suspect the skin (either from rash on back, or a small ulceration (now healed) on the anterior aspect of the right knee. repeat blood cx's negative. he remains on ampicillin for the enterococcus. echo w/o obvious valvular vegetations. he still has no GI symptoms to suggest a GI source and u/a was negative making the urine unlikely as source. day #8 of IV amp. plan 14 days of Rx from date of most recent negative blood cx. (2) HCAP (healthcare-associated pneumonia): day #8 of broad-spectrum IV antibiotics (was started on IV zosyn on 11/[address] Nuñez, and then changed to cefepime a few days later). will stop cefepime since he has had 7+ days of broad-spectrum/ gram negative coverage. continue with doxy - day #2 of such. plan 7 days of doxy for atypical coverage. CT chest reviewed, and case d/w Dr. Alva from pulmonary. We doubt CT findings are due to CHF. This could be leukemic infiltration of lungs. This could be atypical pneumonia thus continuing with doxy. Cont supportive care. wean o2 as tolerated. (3) Atrial fibrillation: rates are borderline high but no changes in meds today. INR is supratherapeutic - likely due to antibiotics - cont to hold coumadin. INR am. no need for vitamin K - no bleeding. (4) CLL (chronic lymphocytic leukemia): s/p initial chemo treatment recently. followed by Dr. Chadwick. CBCs have been acceptable. (5) CAD (coronary artery disease): no ischemic sx's at this time (6) Hyponatremia: resolved (7) Hypothyroidism: cont synthroid recent TSH was 4 (8) Supratherapeutic INR: see above hold coumadin (9) Dermatitis: rash on back - uncertain etiology contact dermatitis? viral? bacterial? cont triamcinolone cream TID (0.1% strength). disseminated shingles in light of immunocompromised status? sent zoster culture. staph or strep infection? but antibiotics should have covered this easily. continue to monitor if this doesn't improve then dermatology consultation (10) Chronic kidney disease, stage 3a: creatinine is stable at this time BMP am (11) DVT prophylaxis: coumadin PT, OT daughter extensively updated at bedside today strongly recommended SNF for rehab - patient very weak - doubt he will transition home easily Subjective sitting in chair at bedside daughter in room patient again states "having a bad day" but eating 100% of meals cough improved per daughter no dyspnea no fever no chills wants to go home with home health and home PT does NOT want rehab at SNF staff report he is very weak Constitutional: + fatigue; no fever, no chills and no anorexia Respiratory: + cough and + sputum production; no hemoptysis and no wheezing Cardiovascular: no chest pain, no orthopnea, no paroxysmal nocturnal dyspnea and no edema Gastrointestinal: no abdominal pain, no nausea and no vomiting Physical Exam 2 Vital Signs (Past 24 Hours): Last Vital Signs Temp 36.4 C L 12/07/18 11:40 Pulse 86 12/07/18 11:40 Resp 16 12/07/18 11:40 BP 100/64 12/07/18 11:40 Pulse Ox 97 12/07/18 11:40 Constitutional: + ill appearing and average body habitus; no acute distress ENMT: external ear and nose normal, oropharynx normal Respiratory: normal respiratory effort, lungs clear to auscultation no respiratory distress Auscultation: no diminished lung sounds and no crackles Cardiovascular: Rate/Rhythm: regular rate; + abnormal rhythm (irregular) Heart Sounds: normal S1 and normal S2; no murmur Vessels: posterior tibial pulses present and dorsalis pedis pulses present; no JVD Gastrointestinal (Abdomen): normal bowel sounds, soft, nontender, no hepatosplenomegaly Skin: + rash (back -- papules with central ulceration; occasional lesion with blister-like formation in central portion of the lesion; other areas of body spared of rash) Psychiatric: Orientation: alert and oriented x 3 Affect: + depressed affect Results & Data Laboratory Results Laboratory Results - last 24 hr 12/07/18 12/07/18 12/07/18 05:57 05:57 05:57 WBC 22.86 H RBC 3.24 L Hgb 9.0 L Hct 27.6 L MCV 85.2 MCH 27.8 MCHC 32.6 RDW Std Deviation 54.6 H RDW Coeff of [place] 17.4 H Plt Count 220 MPV 10.7 H Neutrophils % (Manual) 13.0 Lymphocytes % (Manual) 87.0 Neutrophils # (Manual) 2.97 Total Absolute Neuts 2.97 Lymphocytes # (Manual) 19.89 H Total Abs Lymphocytes 19.89 H Poikilocytosis Present PT 55.0 H INR 6.0 H* Sodium 136 Potassium 3.6 Chloride 102 Carbon Dioxide 25 Anion Gap 8.0 BUN 23 H Creatinine 0.86 Est Cr Clr Drug Dosing 58.4 Est GFR ( Amer) 91.6 Est GFR (Non-Af Amer) 79.1 BUN/Creatinine Ratio 27.3 H Glucose 100 H Calcium 7.6 L _ (1) CAD (coronary artery disease) Associated angina: without angina Coronary Disease-Associated Artery/Lesion type: [place] artery [place] vs. transplanted heart: [place] heart Qualified Code (s): I25.10 - Atherosclerotic heart disease of [place] coronary artery without angina pectoris (2) Atrial fibrillation Atrial fibrillation type: paroxysmal Qualified Code(s): I48.0 - Paroxysmal atrial fibrillation (3) Hypothyroidism Hypothyroidism type: acquired Qualified Code(s): E03.9 - Hypothyroidism, unspecified
[2018-12-07] MEDS: METOPROLOL SUCC 25MG EXT REL TAB PO SCH (21:16)
[2018-12-08] MEDS: AMPICILLIN 2,000 MG in SODIUM CHLOR 0.9% AD-VAN 100 ML IV SCH ×4 (02:04→20:04)
[2018-12-08] MEDS ORDERED: DEXTROMETHORPHAN POLYMR COMPLX 30 MG/5 ML UDP PO ONE (02:35)
[2018-12-08] MEDS: LEVOTHYROXINE SODIUM 25 MCG TABLET PO SCH (05:52)
[2018-12-08 06:48] LABS: BUN Creatinine Ratio 24.5 (10-20); Calcium 7.5 mg/dl (8.5-10.1); Creatinine Clr Calc Pharmacy 58.1 ml/min; Est GFR (African American) 89.9; Est GFR (Non-African American) 77.6; Magnesium 1.9 mg/dl (1.8-2.4); Potassium 3.7 mmol/L (3.5-5.1)
[2018-12-08] MEDS: TRIAMCINOLONE ACET 0.1% CR 80 GM TUBE EXT SCH ×3 (08:18→20:05)
[2018-12-08] MEDS: POLYETHYLENE (MIRALAX) 17 GM PACK PO SCH (08:18)
[2018-12-08] MEDS: guaiFENesin 600 MG TABCR PO SCH ×2 (08:20→20:05)
[2018-12-08] MEDS: FUROSEMIDE 20 MG TAB PO SCH (08:20)
[2018-12-08] MEDS: SERTRALINE HCL 50 MG TABLET PO SCH (08:21)
[2018-12-08] MEDS: ALLOPURINOL 300 MG TAB PO SCH (08:21)
[2018-12-08] MEDS: POTASSIUM CHLORIDE 20 MEQ TABCR PO SCH (08:21)
[2018-12-08] MEDS: BENZONATATE 100 MG CAPSULE PO SCH ×3 (08:21→20:05)
[2018-12-08] MEDS: DOXYCYCLINE HYCLATE 100 MG CAP PO SCH ×2 (08:22→20:04)
[2018-12-08 09:47] LABS: Prothrombin Time 61.6 Seconds (9.0-12.0)
[2018-12-08 09:49] LABS: INR 6.8 (0.9-1.1)
[2018-12-08] MEDS ORDERED: Nursing to Pharmacy Communication ONE (09:54)
[2018-12-08] MEDS ORDERED: PHYTONADIONE 5 MG TAB PO STA (10:44)
[2018-12-08] MEDS ORDERED: PHYTONADIONE PED 1 MG, ORA-SWEET SYRUP 2.25 ML, ORA-PLUS SUSP VEHICLE 2.25 ML, BARCODE ... PO ONE (11:15)
[2018-12-08] MEDS: METOPROLOL SUCC 25MG EXT REL TAB PO SCH (20:05)
--- NOTE | 2018-12-08 21:56 | Hospitalist Progress Note ---
Date of Service December 08, 2018 Assessment & Plan (1) Enterococcal bacteremia: source - suspect the skin (either from rash on back, or a small ulceration (now healed) on the anterior aspect of the right knee. repeat blood cx's negative. he remains on ampicillin for the enterococcus. echo w/o obvious valvular vegetations. he still has no GI symptoms to suggest a GI source and u/a was negative making the urine unlikely as source. day #9 of IV amp. plan 14 days of Rx from date of most recent negative blood cx. suspect we can change to PO augmentin tomorrow. (2) HCAP (healthcare-associated pneumonia): day #9 of IV/PO antibiotics. previously on zosyn/cefepime - these have been stopped. day #3 of 7 of doxy for atypical coverage. CT chest reviewed, and case d/w Dr. Alva from pulmonary. We doubt CT findings are due to CHF. This could be leukemic infiltration of lungs. This could be atypical pneumonia thus continuing with doxy. He received several doses of PO lasix without any change in his clinical exam and no change in symptoms. cont supportive care. wean o2 as tolerated but suspect he may need the O2 at discharge cont incentive spirometry. (3) Atrial fibrillation: rates are borderline high but will not change any meds at this time. INR is supratherapeutic - likely due to antibiotics - cont to hold coumadin. give vitamin K 1mg po x 1 as he has no active bleeding at this time. INR in am. (4) CLL (chronic lymphocytic leukemia): s/p initial chemo treatment in 10/2018. followed by Dr. Chadwick. CBCs have been acceptable. repeat CBC in am. ?leukemic infiltration of lungs on CT?? (5) CAD (coronary artery disease): no ischemic sx's at this time (6) Hyponatremia: resolved (7) Hypothyroidism: cont synthroid recent TSH was 4 (8) Supratherapeutic INR: see above hold coumadin vitamin K 1mg po x 1 today INR am in light of difficulties regulating his coumadin...change to novel agent?? (9) Dermatitis: rash on back - uncertain etiology contact dermatitis? viral? bacterial? cont triamcinolone cream TID (0.1% strength) to help with inflammation and any itch. disseminated shingles in light of immunocompromised status? sent zoster culture. this is still pending. staph or strep infection? but antibiotics should have covered this easily (and the rash didn't change with antibiotics making it some form of infectious rash unlikely). continue to monitor if this doesn't improve then dermatology consultation (10) Chronic kidney disease, stage 3a: creatinine is stable at this time BMP am (11) DVT prophylaxis: coumadin PT, OT daughter extensively updated at bedside 12/07 grand-daughter updated at bedside 12/08 strongly recommended SNF for rehab - patient very weak - doubt he will transition home easily he has been noncommittal with respect to SNF placement Subjective patient sitting in chair during my visit he looked the same to me as yesterday - flat affect, tired-appearing despite my impression he stated "I feel better than yesterday" previously had been eating 100% of meals - today only eating 50% or so cough improved I removed his O2 during the visit - after 10 minutes sats were 88% in RA; 2.5 L put back on - sats low to mid 90s still stating he does not feel depressed still will not commit to rehab grand-daughter at bedside w/ questions Constitutional: + fatigue and + weakness; no fever Respiratory: no dyspnea on exertion and no hemoptysis Cardiovascular: no chest pain Gastrointestinal: no abdominal pain and no diarrhea/loose stools Physical Exam 2 Vital Signs (Past 24 Hours): Last Vital Signs Temp 37 C 12/08/18 19:00 Pulse 84 12/08/18 19:59 Resp 20 12/08/18 19:00 BP 123/64 12/08/18 19:59 Pulse Ox 91 12/08/18 19:59 Constitutional: + ill appearing and average body habitus; no acute distress ENMT: external ear and nose normal, oropharynx normal Respiratory: normal respiratory effort, lungs clear to auscultation no respiratory distress Auscultation: + crackles (minimal - bases ); no wheezes (minimal end-exp) Cardiovascular: Rate/Rhythm: regular rate and + tachycardic; + abnormal rhythm (irregular) Heart Sounds: normal S1 and normal S2; no murmur Vessels: posterior tibial pulses present and dorsalis pedis pulses present; no JVD Gastrointestinal (Abdomen): normal bowel sounds, soft, nontender, no hepatosplenomegaly Skin: + rash (back -- papules with central ulceration; occasional lesion with blister-like formation in central portion of the lesion; other areas of body spared of rash; no change in rash today) Psychiatric: Orientation: alert and oriented x 3 Affect: + depressed affect Results & Data Laboratory Results Laboratory Results - last 24 hr 12/08/18 12/08/18 05:44 09:24 PT 61.6 H INR 6.8 H* Sodium 136 Potassium 3.7 Chloride 101 Carbon Dioxide 26 Anion Gap 9.0 BUN 22 H Creatinine 0.90 Est Cr Clr Drug Dosing 58.1 Est GFR ( Amer) 89.9 Est GFR (Non-Af Amer) 77.6 BUN/Creatinine Ratio 24.5 H Glucose 99 Calcium 7.5 L Magnesium 1.9 _ (1) CAD (coronary artery disease) Associated angina: without angina Coronary Disease-Associated Artery/Lesion type: [place] artery [place] vs. transplanted heart: [place] heart Qualified Code (s): I25.10 - Atherosclerotic heart disease of [place] coronary artery without angina pectoris (2) Atrial fibrillation Atrial fibrillation type: paroxysmal Qualified Code(s): I48.0 - Paroxysmal atrial fibrillation (3) Hypothyroidism Hypothyroidism type: acquired Qualified Code(s): E03.9 - Hypothyroidism, unspecified
[2018-12-09] MEDS: AMPICILLIN 2,000 MG in SODIUM CHLOR 0.9% AD-VAN 100 ML IV SCH ×4 (01:55→20:28)
[2018-12-09 06:04] LABS: Mean Corpuscular Hgb Conc 32.5 g/dL (32-36); Mean Platelet Volume 9.1 fL (7.4-10.4); Platelet Count 203 K/uL (130-400)
[2018-12-09] MEDS: LEVOTHYROXINE SODIUM 25 MCG TABLET PO SCH (06:18)
[2018-12-09 06:21] LABS: INR 1.7 (0.9-1.1); Prothrombin Time 16.4 Seconds (9.0-12.0)
[2018-12-09 06:34] LABS: BUN Creatinine Ratio 26.2 (10-20); Calcium 7.6 mg/dl (8.5-10.1); Creatinine Clr Calc Pharmacy 70.1 ml/min; Est GFR (Non-African American) 84.6; Potassium 3.7 mmol/L (3.5-5.1)
[2018-12-09 06:57] LABS: ALC (manual) 17.25 K/uL (1.2-3.4); Hemoglobin 9.1 g/dL (14.0-18.0); Lymphocytes # (manual) 17.25 K/uL (1.2-3.4); Lymphocytes % (manual) 87.2 %; Mean Corpuscular Volume 85.6 fL (80-100); Neutrophils % (manual) 12.8 %; Poikilocytosis Present; RDW Coefficient of Variation 17.2 % (11.5-14.5); RDW Standard Deviation 54.3 fL (36.4-46.3); Red Blood Count 3.27 M/uL (4.7-6.1); White Blood Count 19.78 K/uL (4.8-10.8)
[2018-12-09] MEDS: DOXYCYCLINE HYCLATE 100 MG CAP PO SCH ×2 (08:35→20:29)
[2018-12-09] MEDS: BENZONATATE 100 MG CAPSULE PO SCH ×3 (08:35→20:29)
[2018-12-09] MEDS: SERTRALINE HCL 50 MG TABLET PO SCH (08:36)
[2018-12-09] MEDS: guaiFENesin 600 MG TABCR PO SCH ×2 (08:37→20:30)
[2018-12-09] MEDS: POTASSIUM CHLORIDE 20 MEQ TABCR PO SCH (08:37)
[2018-12-09] MEDS: TRIAMCINOLONE ACET 0.1% CR 80 GM TUBE EXT SCH ×3 (08:38→20:38)
[2018-12-09] MEDS: POLYETHYLENE (MIRALAX) 17 GM PACK PO SCH (08:38)
[2018-12-09] MEDS: ALLOPURINOL 300 MG TAB PO SCH (08:38)
--- NOTE | 2018-12-09 08:49 | Progress Note ---
DATE: 12/09/2018 PULMONARY PROGRESS NOTE TIME: 8:15 a.m. SUBJECTIVE: The patient offers no complaints. However, he is not very verbal. He typically answers questions with just 1 or 2 words. He is staring a lot. OBJECTIVE: GENERAL: The patient appears profoundly weak. He just appears to have somewhat failure to thrive. VITAL SIGNS: Temperature is 36.9. Maximum temperature in the past 24 hours was 37.2. CARDIAC: Rate was 83 per minute. Rhythm was regular. Blood pressure 110/58. LUNGS: Respiratory rate was 20. Lung wright revealed very mild rales bilaterally. Oxygen saturation is 96% on 2.5 liter nasal cannula. He did not appear to be in any respiratory distress. Overall, the patient just seems profoundly weak. EXTREMITIES: Showed no cyanosis, clubbing or edema. LABORATORIES: White count today is 19.78. This continues to decline. Hemoglobin 9.1. Platelets 203,000. INR today was down to 1.7. Electrolytes show sodium 135, potassium 3.7, chloride 101, bicarbonate 26. BUN was 19 with a creatinine of 0.73. IMPRESSIONS: 1. Bilateral lung infiltrates. 2. Chronic lymphocytic leukemia -- status post bendamustine and rituximab. 3. Small pleural effusions. 4. Enterococcus bacteremia. The patient continues to look relatively poorly. Dr. Suero and I discussed the possibility yesterday if he may have some superimposed depression. I would suggest a followup chest x-ray tomorrow. This would be to assess if the infiltrates have improved or not. He is still on the IV ampicillin. There is a different pulmonary team as of tomorrow. Please feel free to call them if you would like them to reevaluate the patient. I agree with Dr. Suero that the patient certainly should be transitioned to an outpatient facility rather than going home under the current circumstances.
[2018-12-09] MEDS: FUROSEMIDE 20 MG TAB PO SCH (10:00)
--- NOTE | 2018-12-09 10:00 | Progress Note ---
DATE: 12/09/2018 HEMATOLOGY PROGRESS NOTE DIAGNOSES: 1. Hospital-acquired pneumonia. 2. Vancomycin-resistant enterococcal bacteremia. 3. Coagulopathy attributable to Coumadin. 4. Asthenia attributable to chemotherapy. 5. Hypoalbuminemia. SUBJECTIVE: Carlos was seen and examined this morning. He seemed to be a bit mentally brighter today, answered questions appropriately. He continues to tolerate his diet. Again, the preventative issue for discharge is that of generalized weakness and asthenia. Read the other providers' notes and it would appear that Carlos would like to either go to a [facility] facility or go home with home health. Clearly, he is not strong enough for [facility] in my estimation. Nursing reports no overnight difficulties and Carlos denies any pain or symptoms otherwise today. PHYSICAL EXAMINATION, OBJECTIVE: GENERAL: Very pleasant 83-year-old gentleman in no acute distress. VITAL SIGNS: Temperature 36.9, pulse 83, respiratory rate 21, blood pressure 110/58. SKIN: Without rash or lesion. HEENT: Oral mucosa without erythema or ulceration. NECK: Supple. Trachea is midline. HEART: Regular rate and rhythm. LUNGS: Clear to auscultation bilaterally. ABDOMEN: Soft, nontender, nondistended. EXTREMITIES: No clubbing, cyanosis or edema. NEUROLOGIC: Grossly intact. LABORATORY DATA: WBC count 19,780, hemoglobin 9.1, platelet count 203,000. PT 16.4 seconds, INR 1.7. Sodium 135, potassium 3.7, chloride 101, carbon dioxide 26, creatinine 0.73, BUN 19. IMPRESSION: 1. Pneumonitis versus bilobar pneumonia. 2. Coagulopathy attributable to Coumadin. 3. Enterococcal bacteremia. 4. Asthenia/generalized weakness. 5. Hypoalbuminemia. 6. Chronic lymphocytic leukemia. PLAN: Carlos is now entering day #12 of hospitalization. Seems to be making very slow progress moving towards discharge. I am not sure we are doing much medically for him at this juncture and should make a decision on disposition either to a [facility] facility or send him home with appropriate nursing care. Carlos, I believe, recognizes it may be difficult for his family to help to care for him in his current condition and with little convincing, I think, would be amenable to going to a skilled facility for another week or so. Obviously from a hematologic standpoint, I cannot aggressively proceed with cytoreductive therapy and we will evaluate Carlos again once he is medically stable. I have nothing further to add and actually will officially sign off at this point. If you have any questions or concerns, feel free to contact me.
--- NOTE | 2018-12-09 15:31 | Hospitalist Progress Note ---
Date of Service December 09, 2018 Assessment & Plan (1) Enterococcal bacteremia: source - suspect the skin (either from rash on back, or a small ulceration (now healed) on the anterior aspect of the right knee. repeat blood cx's negative. he remains on ampicillin for the enterococcus-day #10/14. echo w/o obvious valvular vegetations. he still has no GI symptoms to suggest a GI source and u/a was negative making the urine unlikely as source. -continue IV ampicillin until ready for dc and then transition to po Augmentin to finsih out course (2) HCAP (healthcare-associated pneumonia): day #10 of IV/PO antibiotics. previously on zosyn/cefepime - these have been stopped after on for at least 7days. day #4 of 7 of doxy for atypical coverage. CT chest reviewed, and Dr. Alva from pulmonary doubts CT findings are due to CHF. This could be leukemic infiltration of lungs. This could be atypical pneumonia thus continuing with doxy. He received several doses of PO lasix without any change in his clinical exam and no change in symptoms. cont supportive care. wean o2 as tolerated but suspect he may need the O2 at discharge cont incentive spirometry. -continue tessalon pearls (3) Atrial fibrillation: rates are controlled INR was supratherapeutic - likely due to antibiotics and previous to that was secondary to his chemotherapy - held coumadin and thenwas given Vit K again on 2 /2 INR now down to 1.7 -restart coumadin at 1mg daily -follow INR in AM -consider switching to Eliquis or Xarelto if affordable? (4) CLL (chronic lymphocytic leukemia): s/p initial chemo treatment in 10/2018. followed by Dr. Chadwick. CBCs have been acceptable. repeat CBC in am. ?leukemic infiltration of lungs on CT?? Oncology has signed off, f/u with Dr. Chadwick in the office (5) CAD (coronary artery disease): no ischemic sx's at this time (6) Hyponatremia: resolved (7) Hypothyroidism: cont synthroid recent TSH was 4 (8) Supratherapeutic INR: see above (9) Dermatitis: rash on back - uncertain etiology but present for years as per daughter- previously treated successfully with ketoconazole--> tinea versicolor? cont triamcinolone cream TID (0.1% strength) to help with inflammation and any itch. disseminated shingles in light of immunocompromised status? sent zoster culture. this is still pending. -start ketoconazole topical staph or strep infection? but antibiotics should have covered this easily (and the rash didn't change with antibiotics making it some form of infectious rash unlikely). continue to monitor Will arrange dermatology consultation as an outpt as DERM no longer comes to the hospital (10) Chronic kidney disease, stage 3a: creatinine is stable at this time BMP am (11) DVT prophylaxis: coumadin PT, OT daughter updated at bedside Dispo-referral made to [facility] for SNF today, ready for discharge tomorrow Subjective Pt still feels tired and weak. Denies much cough. No pain. Is forcing himself to eat as much as he can. Moving his bowels regularly, remains afebrile. He is agreeable to SNF placement if his daughter wants him to go. Discussed his care with daughter at bedside and she would like to see him go to SNF just temporarily. Daughter reports that pt's rash on his back has been there for many years and is usually exacerbated by getting hot and sweaty. She reports Dr. Encinas used to prescribe ketoconazole cream which would clear it right up. She thinks perhaps it looks a little different now than previously. Review of Systems All systems reviewed & are unremarkable except as noted in HPI & below Physical Exam 2 Vital Signs (Past 24 Hours): Last Vital Signs Temp 37.0 C 12/09/18 11:45 Pulse 86 12/09/18 11:45 Resp 20 12/09/18 11:45 BP 126/68 12/09/18 11:45 Pulse Ox 94 12/09/18 11:45 Constitutional: WD/WN, vitals as above Eyes: PERRL, conjunctivae normal, anicteric sclerae ENMT: external ear and nose normal, oropharynx normal Neck: trachea midline, no thyromegaly Respiratory: normal respiratory effort, lungs clear to auscultation Cardiovascular: Rate/Rhythm: regular rate; + abnormal rhythm (irreg irreg) Heart Sounds: + murmur (2/6 at RUSB) Gastrointestinal (Abdomen): normal bowel sounds, soft, nontender, no hepatosplenomegaly Musculoskeletal: Extremities: extremities normal to inspection; no cyanosis and no clubbing Skin: + rash (back with numerous purpura surrounding excoriated previous blister sites, no erythema) Neurologic: moves all extremities and awake; no focal motor deficits Psychiatric: Orientation: alert, oriented x 3 and cooperative Affect: + flat affect Results & Data Laboratory Results 12/09/18 12/09/18 12/09/18 Range/Units 05:52 05:52 05:52 WBC 19.78 H (4.8-10.8) K/uL RBC 3.27 L (4.7-6.1) M/uL Hgb 9.1 L (14.0-18.0) g/dL Hct 28.0 L (42-52) % MCV 85.6 (80-100) fL MCH 27.8 (25-34) pg MCHC 32.5 (32-36) g/dL RDW Std Deviation 54.3 H (36.4-46.3) fL RDW Coeff of Jacoby 17.2 H (11.5-14.5) % Plt Count 203 (130-400) K/uL MPV 9.1 (7.4-10.4) fL Neutrophils % (Manual) 12.8 % Lymphocytes % (Manual) 87.2 % Neutrophils # (Manual) 2.53 (1.4-6.5) K/uL Total Absolute Neuts 2.53 (1.4-6.5) K/uL Lymphocytes # (Manual) 17.25 H (1.2-3.4) K/uL Total Abs Lymphocytes 17.25 H (1.2-3.4) K/uL Poikilocytosis Present PT 16.4 H (9.0-12.0) Seconds INR 1.7 H (0.9-1.1) Sodium 135 L (136-145) mmol/L Potassium 3.7 (3.5-5.1) mmol/L Chloride 101 (98-107) mmol/L Carbon Dioxide 26 (21-32) mmol/L Anion Gap 8.0 (3-11) BUN 19 H (7-18) mg/dl Creatinine 0.73 (0.6-1.4) mg/dl Est Cr Clr Drug Dosing 70.1 ml/min Est GFR ( Amer) 98.0 Est GFR (Non-Af Amer) 84.6 BUN/Creatinine Ratio 26.2 H (10-20) Glucose 84 (70-99) mg/dl Calcium 7.6 L (8.5-10.1) mg/dl _ (1) CAD (coronary artery disease) Associated angina: without angina Coronary Disease-Associated Artery/Lesion type: [place] artery [place] vs. transplanted heart: [place] heart Qualified Code (s): I25.10 - Atherosclerotic heart disease of [place] coronary artery without angina pectoris (2) Atrial fibrillation Atrial fibrillation type: paroxysmal Qualified Code(s): I48.0 - Paroxysmal atrial fibrillation (3) Hypothyroidism Hypothyroidism type: acquired Qualified Code(s): E03.9 - Hypothyroidism, unspecified
[2018-12-09] MEDS: WARFARIN SOD 1 MG TAB PO SCH (16:23)
[2018-12-09] MEDS: METOPROLOL SUCC 25MG EXT REL TAB PO SCH (20:30)
[2018-12-10] MEDS: AMPICILLIN 2,000 MG in SODIUM CHLOR 0.9% AD-VAN 100 ML IV SCH ×4 (01:46→20:20)
[2018-12-10] MEDS: LEVOTHYROXINE SODIUM 25 MCG TABLET PO SCH (06:23)
[2018-12-10 06:39] LABS: Mean Corpuscular Hgb Conc 32.2 g/dL (32-36); Mean Platelet Volume 10.8 fL (7.4-10.4); Platelet Count 251 K/uL (130-400)
[2018-12-10 06:46] LABS: INR 1.4 (0.9-1.1); Prothrombin Time 13.7 Seconds (9.0-12.0)
--- NOTE | 2018-12-10 07:19 | XRay Report ---
XR chest 1V portable CLINICAL HISTORY: 83 years-old Male presenting with lung infiltrates. TECHNIQUE: Portable upright AP view of the chest was obtained. COMPARISON: Chest CT from 12/05/2018 and chest x-ray from 12/04/2018. FINDINGS: The patient is slightly VERA rotated. Atherosclerosis of the aortic arch. Cardiac silhouette enlarged. Bronchial wall thickening is evident. Mild pulmonary vessel prominence. Interval increase in patchy bilateral opacities with a basilar predominance. Small left pleural effusion suspected. No pneumothor ax. Degenerative changes of the thoracic spine. Upper abdomen normal. IMPRESSION: 1. Cardiomegaly with mild volume overload. 2. Interval increase in bilateral patchy infiltrates with a basilar predominance. This is concerning for an infectious or inflammatory etiology potentially superimposed on underlying congestive change. 3. Small left pleural effusion. Electronically signed by: Bolivar Montero M.D. 12/10/2018 7:18 AM
[2018-12-10 07:20] LABS: BUN Creatinine Ratio 23.1 (10-20); Calcium 7.8 mg/dl (8.5-10.1); Creatinine Clr Calc Pharmacy 65.7 ml/min; Est GFR (African American) 95.4; Est GFR (Non-African American) 82.3; Potassium 3.9 mmol/L (3.5-5.1)
[2018-12-10 07:41] LABS: Hematocrit (blood only) 30.1 % (42-52); Hemoglobin 9.7 g/dL (14.0-18.0); RDW Coefficient of Variation 17.4 % (11.5-14.5); RDW Standard Deviation 53.5 fL (36.4-46.3); Red Blood Count 3.54 M/uL (4.7-6.1); White Blood Count 22.34 K/uL (4.8-10.8)
[2018-12-10 07:42] LABS: ALC (manual) 20.33 K/uL (1.2-3.4); Lymphocytes # (manual) 20.33 K/uL (1.2-3.4); Poikilocytosis Present
[2018-12-10] MEDS: POTASSIUM CHLORIDE 20 MEQ TABCR PO SCH (07:48)
[2018-12-10] MEDS: FUROSEMIDE 20 MG TAB PO SCH (07:49)
[2018-12-10] MEDS: TRIAMCINOLONE ACET 0.1% CR 80 GM TUBE EXT SCH ×3 (07:49→20:21)
[2018-12-10] MEDS: SERTRALINE HCL 50 MG TABLET PO SCH (07:49)
[2018-12-10] MEDS: BENZONATATE 100 MG CAPSULE PO SCH ×3 (07:49→20:21)
[2018-12-10] MEDS: DOXYCYCLINE HYCLATE 100 MG CAP PO SCH ×2 (07:49→20:21)
[2018-12-10] MEDS: guaiFENesin 600 MG TABCR PO SCH ×2 (07:49→20:21)
[2018-12-10] MEDS: ALLOPURINOL 300 MG TAB PO SCH (07:49)
[2018-12-10] MEDS: POLYETHYLENE (MIRALAX) 17 GM PACK PO SCH (07:50)
[2018-12-10] MEDS: KETOCONAZOLE 2% CR 15 GM TUBE EXT SCH (07:50)
[2018-12-10] MEDS: WARFARIN SOD 1 MG TAB PO SCH (15:38)
--- NOTE | 2018-12-10 17:28 | Hospitalist Progress Note ---
Date of Service December 10, 2018 Assessment & Plan (1) Enterococcal bacteremia: source - suspect the skin (either from rash on back, or a small ulceration (now healed) on the anterior aspect of the right knee. repeat blood cx's negative. he remains on ampicillin for the enterococcus-day #11/14. echo w/o obvious valvular vegetations. he still has no GI symptoms to suggest a GI source and u/a was negative making the urine unlikely as source. -continue IV ampicillin until ready for dc and then transition to po Augmentin to finish out course (2) HCAP (healthcare-associated pneumonia): Received #10 of IV/PO antibiotics-previously on zosyn/cefepime day #5 of 7 of doxy for atypical coverage. CT chest reviewed, and Dr. Alva from pulmonary doubts CT findings are due to CHF. This could be leukemic infiltration of lungs. This could be atypical pneumonia thus continuing with doxy. He received several doses of PO lasix without any change in his clinical exam and no change in symptoms. Legionella urine antigen negative Repeat CXR 12/10 slightly worse but could be some atelectasis as he is moving very minimally -cont supportive care. -wean o2 as tolerated but suspect he may need the O2 at discharge -cont incentive spirometry. -continue tessalon pearls -encourage ambulation (3) Atrial fibrillation: rates are controlled, seems to be in a regular rhythm today INR was supratherapeutic - likely due to antibiotics and previous to that was secondary to his chemotherapy - held coumadin and then was given Vit K again on 12/08 INR now down again to 1.4 -continue lower dose of coumadin at 1mg daily -follow INR in AM (4) CLL (chronic lymphocytic leukemia): s/p initial chemo treatment in 10/2018. followed by Dr. Chadwick. CBCs have been acceptable. repeat CBC in am. ?leukemic infiltration of lungs on CT?? Oncology has signed off, f/u with Dr. Chadwick in the office (5) CAD (coronary artery disease): no ischemic sx's at this time (6) Hyponatremia: resolved (7) Hypothyroidism: cont synthroid recent TSH was 4 (8) Supratherapeutic INR: see above (9) Dermatitis: rash on back - uncertain etiology but present for years as per daughter- previously treated successfully with ketoconazole--> tinea versicolor? cont triamcinolone cream TID (0.1% strength) to help with inflammation and any itch. disseminated shingles in light of immunocompromised status? sent zoster culture. this is still pending. -continue ketoconazole topical staph or strep infection? but antibiotics should have covered this easily (and the rash didn't change with antibiotics making it some form of infectious rash unlikely). continue to monitor Will arrange dermatology consultation as an outpt as DERM no longer comes to the hospital (10) Chronic kidney disease, stage 3a: creatinine is stable at this time BMP am (11) DVT prophylaxis: coumadin PT, OT Dispo-referral made to [facility] for SNF, possibly ready for discharge tomorrow Subjective Still feeling very fatigued, sleeping most of the day today as per RN after being out of bed to the chair for the AM. Not eating much today. Remains afebrile, with mild cough. No abd pain Review of Systems All systems reviewed & are unremarkable except as noted in HPI & below Physical Exam 2 Vital Signs (Past 24 Hours): Last Vital Signs Temp 36.7 C 12/10/18 15:10 Pulse 77 12/10/18 15:10 Resp 18 12/10/18 15:10 BP 92/56 L 12/10/18 15:10 Pulse Ox 96 12/10/18 15:10 Constitutional: WD/WN, vitals as above Eyes: PERRL, conjunctivae normal, anicteric sclerae ENMT: external ear and nose normal, oropharynx normal Neck: trachea midline, no thyromegaly Respiratory: normal respiratory effort, lungs clear to auscultation normal respiratory effort Auscultation: + crackles (at bases bilat); no wheezes Cardiovascular: Rate/Rhythm: regular rate and regular rhythm Heart Sounds: + murmur (2/6 at RUSB) Gastrointestinal (Abdomen): normal bowel sounds, soft, nontender, no hepatosplenomegaly Musculoskeletal: Extremities: extremities normal to inspection; no cyanosis and no clubbing Skin: no rashes, warm and dry + rash (back with numerous purpura surrounding excoriated previous blister sites, no erythema) Neurologic: moves all extremities and awake; no focal motor deficits Psychiatric: Orientation: alert and cooperative Affect: + flat affect Results & Data Laboratory Results 12/10/18 12/10/18 12/10/18 Range/Units 06:18 06:18 06:18 WBC 22.34 H (4.8-10.8) K/uL RBC 3.54 L (4.7-6.1) M/uL Hgb 9.7 L (14.0-18.0) g/dL Hct 30.1 L (42-52) % MCV 85.0 (80-100) fL MCH 27.4 (25-34) pg MCHC 32.2 (32-36) g/dL RDW Std Deviation 53.5 H (36.4-46.3) fL RDW Coeff of Jacoby 17.4 H (11.5-14.5) % Plt Count 251 (130-400) K/uL MPV 10.8 H (7.4-10.4) fL Neutrophils % (Manual) 9.0 % Lymphocytes % (Manual) 91.0 % Neutrophils # (Manual) 2.01 (1.4-6.5) K/uL Total Absolute Neuts 2.01 (1.4-6.5) K/uL Lymphocytes # (Manual) 20.33 H (1.2-3.4) K/uL Total Abs Lymphocytes 20.33 H (1.2-3.4) K/uL Poikilocytosis Present PT 13.7 H (9.0-12.0) Seconds INR 1.4 H (0.9-1.1) Sodium 133 L (136-145) mmol/L Potassium 3.9 (3.5-5.1) mmol/L Chloride 100 (98-107) mmol/L Carbon Dioxide 27 (21-32) mmol/L Anion Gap 6.0 (3-11) BUN 18 (7-18) mg/dl Creatinine 0.78 (0.6-1.4) mg/dl Est Cr Clr Drug Dosing 65.7 ml/min Est GFR ( Amer) 95.4 Est GFR (Non-Af Amer) 82.3 BUN/Creatinine Ratio 23.1 H (10-20) Glucose 90 (70-99) mg/dl Calcium 7.8 L (8.5-10.1) mg/dl Urine Legionella Ag (NOT DETECTED) 12/07/18 Range/Units 17:00 WBC (4.8-10.8) K/uL RBC (4.7-6.1) M/uL Hgb (14.0-18.0) g/dL Hct (42-52) % MCV (80-100) fL MCH (25-34) pg MCHC (32-36) g/dL RDW Std Deviation (36.4-46.3) fL RDW Coeff of Jacoby (11.5-14.5) % Plt Count (130-400) K/uL MPV (7.4-10.4) fL Neutrophils % (Manual) % Lymphocytes % (Manual) % Neutrophils # (Manual) (1.4-6.5) K/uL Total Absolute Neuts (1.4-6.5) K/uL Lymphocytes # (Manual) (1.2-3.4) K/uL Total Abs Lymphocytes (1.2-3.4) K/uL Poikilocytosis PT (9.0-12.0) Seconds INR (0.9-1.1) Sodium (136-145) mmol/L Potassium (3.5-5.1) mmol/L Chloride (98-107) mmol/L Carbon Dioxide (21-32) mmol/L Anion Gap (3-11) BUN (7-18) mg/dl Creatinine (0.6-1.4) mg/dl Est Cr Clr Drug Dosing ml/min Est GFR ( Amer) Est GFR (Non-Af Amer) BUN/Creatinine Ratio (10-20) Glucose (70-99) mg/dl Calcium (8.5-10.1) mg/dl Urine Legionella Ag NOT DETECTED (NOT DETECTED) Diagnostic Findings CXR image personally reviewed by me and agree with the following: XR chest 1V portable CLINICAL HISTORY: 83 years-old Male presenting with lung infiltrates. TECHNIQUE: Portable upright AP view of the chest was obtained. COMPARISON: Chest CT from 12/05/2018 and chest x-ray from 12/04/2018. FINDINGS: The patient is slightly VERA rotated. Atherosclerosis of the aortic arch. Cardiac silhouette enlarged. Bronchial wall thickening is evident. Mild pulmonary vessel prominence. Interval increase in patchy bilateral opacities with a basilar predominance. Small left pleural effusion suspected. No pneumothorax. Degenerative changes of the thoracic spine. Upper abdomen normal. IMPRESSION: 1. Cardiomegaly with mild volume overload. 2. Interval increase in bilateral patchy infiltrates with a basilar predominance. This is concerning for an infectious or inflammatory etiology potentially superimposed on underlying congestive change. 3. Small left pleural effusion. _ (1) CAD (coronary artery disease) Associated angina: without angina Coronary Disease-Associated Artery/Lesion type: [place] artery [place] vs. transplanted heart: [place] heart Qualified Code (s): I25.10 - Atherosclerotic heart disease of [place] coronary artery without angina pectoris (2) Atrial fibrillation Atrial fibrillation type: paroxysmal Qualified Code(s): I48.0 - Paroxysmal atrial fibrillation (3) Hypothyroidism Hypothyroidism type: acquired Qualified Code(s): E03.9 - Hypothyroidism, unspecified
[2018-12-10] MEDS: METOPROLOL SUCC 25MG EXT REL TAB PO SCH (20:21)
[2018-12-11] MEDS: AMPICILLIN 2,000 MG in SODIUM CHLOR 0.9% AD-VAN 100 ML IV SCH ×4 (01:11→20:02)
[2018-12-11] MEDS: LEVOTHYROXINE SODIUM 25 MCG TABLET PO SCH (05:26)
[2018-12-11 07:08] LABS: Mean Corpuscular Hgb Conc 32.4 g/dL (32-36); Mean Platelet Volume 10.8 fL (7.4-10.4); Platelet Count 221 K/uL (130-400)
[2018-12-11 07:24] LABS: INR 1.5 (0.9-1.1); Prothrombin Time 14.9 Seconds (9.0-12.0)
[2018-12-11 07:43] LABS: BUN Creatinine Ratio 20.2 (10-20); Calcium 7.4 mg/dl (8.5-10.1); Creatinine Clr Calc Pharmacy 58.7 ml/min; Est GFR (African American) 91.2; Est GFR (Non-African American) 78.7; Potassium 3.5 mmol/L (3.5-5.1)
[2018-12-11 07:57] LABS: Anisocytosis Present; Hematocrit (blood only) 28.4 % (42-52); Hemoglobin 9.2 g/dL (14.0-18.0); Mean Corpuscular Volume 84.8 fL (80-100); RDW Coefficient of Variation 17.4 % (11.5-14.5); RDW Standard Deviation 54.1 fL (36.4-46.3); Red Blood Count 3.35 M/uL (4.7-6.1); Smudge Cells Present; Toxic Granulation 1+; White Blood Count 19.19 K/uL (4.8-10.8)
[2018-12-11 08:08] LABS: Basophils # (manual) 0.19 K/uL (0-0.2); Monocytes # (manual) 0.38 K/uL (0.11-0.59)
[2018-12-11] MEDS: ONDANSETRON INJ 2 MG/ML 2 ML VIAL IV PRN (09:12)
[2018-12-11] MEDS: BENZONATATE 100 MG CAPSULE PO SCH ×3 (09:18→20:03)
[2018-12-11] MEDS: guaiFENesin 600 MG TABCR PO SCH ×2 (09:18→20:03)
[2018-12-11] MEDS: SERTRALINE HCL 50 MG TABLET PO SCH (09:18)
[2018-12-11] MEDS: KETOCONAZOLE 2% CR 15 GM TUBE EXT SCH (09:18)
[2018-12-11] MEDS: ALLOPURINOL 300 MG TAB PO SCH (09:18)
[2018-12-11] MEDS: FUROSEMIDE 20 MG TAB PO SCH (09:18)
[2018-12-11] MEDS: TRIAMCINOLONE ACET 0.1% CR 80 GM TUBE EXT SCH ×3 (09:18→20:03)
[2018-12-11] MEDS: DOXYCYCLINE HYCLATE 100 MG CAP PO SCH ×2 (09:19→20:03)
[2018-12-11] MEDS: POLYETHYLENE (MIRALAX) 17 GM PACK PO SCH (09:19)
[2018-12-11] MEDS: POTASSIUM CHLORIDE 20 MEQ TABCR PO SCH (09:19)
--- NOTE | 2018-12-11 11:11 | Palliative Care Consultation ---
Date of Consultation December 11, 2018 Assessment & Plan (1) Goals of care, counseling/discussion: -83 year old male with PMH CLL, hypothyroidism, MDD, anemia, CAD, afib and IN s/p stenting, presented to hospital two weeks ago with fatigue and nosebleeds after his recent chemotherapy treatment on 10/31/18. Patient is on Coumadin for cardiac stents. This prompted outpatient testing which showed elevated INR, so he was referred to hospital. He has unfortunately had a complicated hospital course with health care associated pneumonia, anemia, enterococcus bacteremia, and open back sores. Patient's weakness has progressed , his overall condition is worsening despite numbers improving. Patient and his daughter are interested in possibly going home with hospice. Palliative care is consulted. -Met at length with patient, his daughter Claudine, Dr. Rice, and Kiel Mobley, case coordinator. Patient states he just wants to go home. We discussed all options including going to SNF for rehab, continuing treatment for CLL, going home with home health or going home with hospice. We did discuss the fact that patient responded to treatment for CLL and this is a manageable chronic disease. However , patient stated he felt so awful after chemo that he really does not want to do it again. -I do not believe patient is imminently dying, which I did talked to patient and daughter about. However, I would not be surprised if he in the next six months due to his comorbidities, profound weakness, malnutrition, and overall/general decline. Also due to the fact that patient does not want to continue coming to and from hospital and wishes to just be home and comfortable. -Plan will be for home with hospice. Daughter Claudine will be his primary caregiver. She is a retired RN. -Patient would like to continue his Coumadin. bulk plant manager will discuss drawing PT/INR at home with the hospice agency that patient and daughter choose. -Can transition to PO abx for home. Love is on day 11 of abx. -NO pain or other symptom issues at this time. (2) CLL (chronic lymphocytic leukemia): (3) Enterococcal bacteremia: (4) HCAP (healthcare-associated pneumonia): (5) Protein malnutrition: (6) Anemia: Anemia type: other cause Bone marrow failure anemia type: Chronic kidney disease stage: Folate deficiency anemia type: Hemolytic anemia type: Iron deficiency anemia type: Other causes of anemia: acute posthemorrhagic Vitamin B12 deficiency anemia type: Qualified Code(s): D62 - Acute posthemorrhagic anemia Supervising Physician Co-Signing Physician Notes Chart reviewed, patient seen and examined along withZACH Ruiz and case management. Patient's daughter at bedside. PE: No acute distress, patient appears very fatigued HEENT: EOMI, normal hearing Respirations: Unlabored CV: Regular rate Abdomen: Not distended Neuro: Alert and oriented Agree with above note, assessment and plan as per ZACH Ruiz- provided support and medical decision making. Patient and daughter leaning towards home with hospice care. History of Present Illness Reason for Consultation: Goals of care Requesting Physician: Dr. Ca Attending Physician: Shayy Ca MD History of Present Illness This 83 year old male patient with PMH CLL, aortic regurg, hypothyroidism, MDD, anemia, CAD, afib and IN, presented to hospital two weeks ago with fatigue and nosebleeds after his recent chemotherapy treatment on 10/31/18. This prompted outpatient testing which showed elevated INR, so he was referred to hospital. He has unfortunately had a complicated hospital course with health care associated pneumonia, anemia, enterococcus bacteremia, and open back sores. Patient's weakness has progressed, his overall condition is worsening. Patient and his daughter are interested in possibly going home with hospice. Palliative care is consulted. See A&P for details. Thank you kindly for this consult. I will follow as needed. Allergies Allergy/AdvReac Type Severity Reaction Status Date / Time Bquhnqu-[id number] Reductase AdvReac Severe muscle Verified 11/27/18 20:11 Inhibitor aches/weak Home Medications Home Medications Medication Instructions Recorded Confirmed Type acetaminophen [Tylenol] 325 - 650 mg PO Q6H PRN 11/27/18 11/27/18 History allopurinol [Zyloprim] 300 mg PO DAILY 11/27/18 11/27/18 History aspirin 81 mg PO DAILY 11/27/18 11/27/18 History levothyroxine [Synthroid] 25 mcg PO DAILY 11/27/18 11/27/18 History metoprolol succinate [Toprol XL] 25 mg PO HS 11/27/18 11/27/18 History prochlorperazine maleate 10 mg PO Q6 PRN 11/27/18 11/27/18 History [Compazine] sertraline [Zoloft] 50 mg PO DAILY 11/27/18 11/27/18 History warfarin [Coumadin] 2.5 mg PO 4XWK 11/27/18 11/27/18 History warfarin [Coumadin] 5 mg PO 3XWK 11/27/18 11/27/18 History Patient History Medical History Major depressive disorder Hypothyroidism Protein malnutrition Atrial fibrillation History of IN (myocardial infarction) CAD (coronary artery disease) Anemia (Acute) Leukemia Afib coumadin therapy Cellulitis of right leg Septic joint of right knee joint Syncope Family History Other Coronary artery disease Social History marital status: / Current Living Situation: Alone Current Living Situation Comment: Currently has daughter staying with him, not permanent. Feels Safe at Home: Yes Safety Concerns: Feels Safe At This Time Smoking Status: Former smoker Do You Dip or Chew Tobacco: No Second Hand Exposure: No Hx Alcohol Use: No Hx Substance Use: No Beliefs That Will Affect Care: None Communication Ability: Effective Review of Systems Constitutional: + fatigue and + weakness Ear, Nose, Mouth, Throat: no epistaxis and no dysphagia Respiratory: no cough and no dyspnea Cardiovascular: no chest pain and no edema Gastrointestinal: + nausea and + vomiting; no abdominal pain Musculoskeletal: + muscle weakness Neurologic: no confusion Psychiatric: + depression; no anxiety Physical Exam 2 Vital Signs (Past 24 Hours): Last Vital Signs Temp 37.3 C 12/11/18 06:33 Pulse 103 H 12/11/18 06:33 Resp 20 12/11/18 06:33 BP 114/76 12/11/18 06:33 Pulse Ox 92 12/11/18 06:33 Constitutional: + ill appearing and average body habitus; no acute distress ENMT: Ears: no hearing impairment Neck: normal visual inspection and trachea midline Respiratory: normal respiratory effort, lungs clear to auscultation Cardiovascular: RRR, no murmur, no edema Gastrointestinal (Abdomen): Inspection/Auscultation: abdomen normal to inspection and normal bowel sounds; abdomen not distended Skin: open sores on back that I did not visualize. shingles culture pending Neurologic: awake; not confused Psychiatric: A+Ox3, euthymic affect Orientation: alert and oriented x 3 Affect: + depressed affect Time Spent Midlevel 80 minutes with >50% of time spent at bedside with patient and daughter discussing condition, GOC, and hospice.
[2018-12-11] MEDS: WARFARIN SOD 1 MG TAB PO SCH (15:47)
--- NOTE | 2018-12-11 18:12 | Hospitalist Progress Note ---
Date of Service December 11, 2018 Assessment & Plan (1) Enterococcal bacteremia: source - suspect the skin (either from rash on back, or a small ulceration (now healed) on the anterior aspect of the right knee. repeat blood cx's negative. he remains on ampicillin for the enterococcus-day #12/14. -Will switch to Augmentin for 2 more days starting tomorrow echo w/o obvious valvular vegetations. he still has no GI symptoms to suggest a GI source and u/a was negative making the urine unlikely as source. (2) HCAP (healthcare-associated pneumonia): Received #10 days of IV/PO antibiotics-previously on zosyn/cefepime Now on day #6 of 7 of doxy for atypical coverage. CT chest reviewed, and Dr. Alva from pulmonary doubts CT findings are due to CHF. This could be leukemic infiltration of lungs. This could be atypical pneumonia thus continuing with doxy. He received multiple doses of PO lasix without any change in his clinical exam and no change in symptoms. Legionella urine antigen negative Repeat CXR 12/10 slightly worse but could be some atelectasis as he is moving very minimally -cont supportive care. -wean o2 as tolerated but suspect he may need the O2 at discharge -cont incentive spirometry. -continue tessalon pearls -encourage ambulation (3) Atrial fibrillation: rates are controlled, is irregular today INR was supratherapeutic - likely due to antibiotics and previous to that was secondary to his chemotherapy - held coumadin and then was given Vit K again on 12/08 INR now slowly increasing again to 1.5 -continue lower dose of coumadin at 1mg daily -follow INR in AM -Patient wishes to remain on anticoagulation even if goes on home hospice to avoid risk of stroke (4) CLL (chronic lymphocytic leukemia): s/p initial chemo treatment in 10/2018. followed by Dr. Chadwick. CBCs have been acceptable. He has had a good response to treatment as far as reduction in his WBC count repeat CBC in am. ?leukemic infiltration of lungs on CT?? Oncology has signed off, f/u with Dr. Chadwick in the office. Palliative care discussed his case with Dr. Chadwick today who is in agreement with hospice care if the patient desires. If he improves from a medical standpoint otherwise and wishes to pursue further chemotherapy, he certainly welcome to do so. (5) CAD (coronary artery disease): no ischemic sx's at this time -He has been off of his aspirin, but remains on his metoprolol (6) Hyponatremia: Mildly low at 133 (7) Hypothyroidism: cont synthroid recent TSH was 4 (8) Supratherapeutic INR: see above, now resolved (9) Dermatitis: rash on back - uncertain etiology but present for years as per daughter- previously treated successfully with ketoconazole--> tinea versicolor? cont triamcinolone cream TID (0.1% strength) to help with inflammation and any itch. disseminated shingles in light of immunocompromised status? sent zoster culture. this is still pending. -continue ketoconazole topical staph or strep infection? but antibiotics should have covered this easily (and the rash didn't change with antibiotics making it some form of infectious rash unlikely). continue to monitor Will arrange dermatology consultation as an outpt as DERM no longer comes to the hospital (10) Chronic kidney disease, stage 3a: creatinine is stable at this time (11) DVT prophylaxis: coumadin PT, OT Dispo-palliative care consultation was made and patient and his daughter are in agreement to go home with home hospice-referrals been made to hospice agencies and there is hope that he will be discharged home tomorrow. He will need home oxygen. Subjective Patient states he still feels extremely tired and is not sure if he has the energy to get to a chair today. He otherwise denies cough or shortness of breath but remains on oxygen. He denies chest pain or abdominal pain. He is nauseated pretty much every morning and it seems to come on after he coughs up some mucus and gags on it. I had a long discussion with the patient's daughter and then with the patient today about his goals of care moving forward. They are in agreement to bring him home rather than have him go to a nursing facility, and are interested in enrolling in-home hospice. Review of Systems All systems reviewed & are unremarkable except as noted in HPI & below Physical Exam 2 Vital Signs (Past 24 Hours): Last Vital Signs Temp 37.1 C 12/11/18 15:52 Pulse 85 12/11/18 11:30 Resp 18 12/11/18 15:52 BP 113/67 12/11/18 15:52 Pulse Ox 95 12/11/18 15:52 Constitutional: WD/WN, vitals as above Eyes: PERRL, conjunctivae normal, anicteric sclerae Neck: trachea midline, no thyromegaly Respiratory: normal respiratory effort Auscultation: + crackles (at bases bilat); no wheezes Cardiovascular: Rate/Rhythm: regular rate; + abnormal rhythm (Irregularly irregular) Heart Sounds: + murmur (2/6 at RUSB) Gastrointestinal (Abdomen): normal bowel sounds, soft, nontender, no hepatosplenomegaly Musculoskeletal: Extremities: extremities normal to inspection; no cyanosis and no clubbing Skin: no rashes, warm and dry + rash (back with numerous purpura surrounding excoriated previous blister sites, no erythema) Neurologic: moves all extremities and awake; no focal motor deficits Psychiatric: Orientation: alert, oriented x 3 and cooperative Affect: + flat affect Results & Data Laboratory Results 12/11/18 12/11/18 12/11/18 Range/Units 06:41 06:41 06:41 WBC 19.19 H (4.8-10.8) K/uL RBC 3.35 L (4.7-6.1) M/uL Hgb 9.2 L (14.0-18.0) g/dL Hct 28.4 L (42-52) % MCV 84.8 (80-100) fL MCH 27.5 (25-34) pg MCHC 32.4 (32-36) g/dL RDW Std Deviation 54.1 H (36.4-46.3) fL RDW Coeff of Jacoby 17.4 H (11.5-14.5) % Plt Count 221 (130-400) K/uL MPV 10.8 H (7.4-10.4) fL Neutrophils % (Manual) 11.0 % Lymphocytes % (Manual) 86.0 % Monocytes % (Manual) 2.0 % Basophils % (Manual) 1.0 % Neutrophils # (Manual) 2.11 (1.4-6.5) K/uL Total Absolute Neuts 2.11 (1.4-6.5) K/uL Lymphocytes # (Manual) 16.50 H (1.2-3.4) K/uL Total Abs Lymphocytes 16.50 H (1.2-3.4) K/uL Monocytes # (Manual) 0.38 (0.11-0.59) K/uL Basophils # (Manual) 0.19 (0-0.2) K/uL Smudge Cells Present Toxic Granulation 1+ Anisocytosis Present PT 14.9 H (9.0-12.0) Seconds INR 1.5 H (0.9-1.1) Sodium 133 L (136-145) mmol/L Potassium 3.5 (3.5-5.1) mmol/L Chloride 99 (98-107) mmol/L Carbon Dioxide 27 (21-32) mmol/L Anion Gap 7.0 (3-11) BUN 18 (7-18) mg/dl Creatinine 0.87 (0.6-1.4) mg/dl Est Cr Clr Drug Dosing 58.7 ml/min Est GFR ( Amer) 91.2 Est GFR (Non-Af Amer) 78.7 BUN/Creatinine Ratio 20.2 H (10-20) Glucose 97 (70-99) mg/dl Calcium 7.4 L (8.5-10.1) mg/dl _ (1) CAD (coronary artery disease) Associated angina: without angina Coronary Disease-Associated Artery/Lesion type: [place] artery [place] vs. transplanted heart: [place] heart Qualified Code (s): I25.10 - Atherosclerotic heart disease of [place] coronary artery without angina pectoris (2) Atrial fibrillation Atrial fibrillation type: paroxysmal Qualified Code(s): I48.0 - Paroxysmal atrial fibrillation (3) Hypothyroidism Hypothyroidism type: acquired Qualified Code(s): E03.9 - Hypothyroidism, unspecified
[2018-12-11] MEDS: METOPROLOL SUCC 25MG EXT REL TAB PO SCH (20:03)
[2018-12-11] MEDS ORDERED: POLYETHYLENE (MIRALAX) 17 GM PACK PO PRN (21:29)
[2018-12-12] MEDS: LEVOTHYROXINE SODIUM 25 MCG TABLET PO SCH (05:33)
[2018-12-12 07:43] LABS: Hemoglobin 8.9 g/dL (14.0-18.0); Mean Corpuscular Hgb Conc 31.8 g/dL (32-36); Mean Corpuscular Volume 84.6 fL (80-100); Mean Platelet Volume 10.4 fL (7.4-10.4); Platelet Count 208 K/uL (130-400); RDW Coefficient of Variation 17.6 % (11.5-14.5); RDW Standard Deviation 54.7 fL (36.4-46.3); Red Blood Count 3.31 M/uL (4.7-6.1); White Blood Count 18.72 K/uL (4.8-10.8)
[2018-12-12 07:53] LABS: INR 1.7 (0.9-1.1)
[2018-12-12] MEDS ORDERED: AMOXICILLIN/CLAVULANATE 875 MG TAB PO SCH (08:00)
[2018-12-12 08:13] LABS: BUN Creatinine Ratio 22.1 (10-20); Calcium 7.3 mg/dl (8.5-10.1); Creatinine Clr Calc Pharmacy 60.8 ml/min; Est GFR (African American) 91.6; Est GFR (Non-African American) 79.1
[2018-12-12 08:19] LABS: Basophils # (auto) 0.02 K/uL (0-0.2); Basophils % (auto) 0.1 %; Eosinophils # (auto) 0.01 K/uL (0-0.5); Eosinophils % (auto) 0.1 %; Immature Granulocytes # (auto) 0.04 K/uL (0.00-0.02); Immature Granulocytes % (auto) 0.2 %; Lymphocytes # (auto) 15.67 K/uL (1.2-3.4); Lymphocytes % (auto) 83.7 %; Monocytes # (auto) 0.88 K/uL (0.11-0.59); Monocytes % (auto) 4.7 %; Neutrophils % (auto) 11.2 %
[2018-12-12] MEDS: DOXYCYCLINE HYCLATE 100 MG CAP PO SCH (08:24)
[2018-12-12] MEDS: ALLOPURINOL 300 MG TAB PO SCH (08:24)
[2018-12-12] MEDS: BENZONATATE 100 MG CAPSULE PO SCH ×2 (08:24→15:35)
[2018-12-12] MEDS: SERTRALINE HCL 50 MG TABLET PO SCH (08:24)
[2018-12-12] MEDS: guaiFENesin 600 MG TABCR PO SCH (08:24)
[2018-12-12] MEDS: FUROSEMIDE 20 MG TAB PO SCH (08:25)
[2018-12-12] MEDS: KETOCONAZOLE 2% CR 15 GM TUBE EXT SCH (08:25)
[2018-12-12] MEDS: POTASSIUM CHLORIDE 20 MEQ TABCR PO SCH (08:25)
[2018-12-12] MEDS: TRIAMCINOLONE ACET 0.1% CR 80 GM TUBE EXT SCH ×2 (08:25→15:35)
--- NOTE | 2018-12-12 12:55 | Palliative Care Progress Note ---
Date of Service December 12, 2018 Assessment & Plan (1) Goals of care, counseling/discussion: -Patient continues to state he is ready to go home. -Plan is for home with his daughter Claudine and hospice care. Possibly today. -Patient and his daughter made decision to pursue hospice care yesterday. They are aware of course that if patient improves and wants to pursue further treatment for his CLL, he is welcome to do so at any time. Patient states he just wants to be home, comfortable, and out of the hospital. He does not have the energy to go through with rehab. -Patient currently has no symptom management needs. His abx is now PO. -Thank you again for this consult. Please contact me with any further palliative care needs. (2) CLL (chronic lymphocytic leukemia): (3) Enterococcal bacteremia: (4) HCAP (healthcare-associated pneumonia): (5) Protein malnutrition: (6) Anemia: Subjective Patient is more tired today. He just wants to go home. He denies any pain, nausea or vomiting today. Constitutional: + fatigue and + weakness Respiratory: no cough and no dyspnea Cardiovascular: no chest pain and no edema Gastrointestinal: no abdominal pain, no nausea and no vomiting Musculoskeletal: + muscle weakness Neurologic: no confusion Psychiatric: + depression; no anxiety Physical Exam 2 Vital Signs (Past 24 Hours): Last Vital Signs Temp 37.3 C 12/12/18 07:39 Pulse 90 12/12/18 07:39 Resp 16 12/12/18 07:39 BP 112/65 12/12/18 07:39 Pulse Ox 92 12/12/18 07:39 Constitutional: + ill appearing and average body habitus; no acute distress ENMT: Ears: no hearing impairment Neck: normal visual inspection and trachea midline Respiratory: normal respiratory effort, lungs clear to auscultation Cardiovascular: RRR, no murmur, no edema Gastrointestinal (Abdomen): Inspection/Auscultation: abdomen normal to inspection and normal bowel sounds; abdomen not distended Neurologic: not confused Psychiatric: Orientation: oriented x 3 Affect: + depressed affect Time Spent Midlevel 25 minutes with >50% of time spent at bedside with patient discussing condition and GOC. _ (1) Anemia Anemia type: other cause Bone marrow failure anemia type: Chronic kidney disease stage: Folate deficiency anemia type: Hemolytic anemia type: Iron deficiency anemia type: Other causes of anemia: acute posthemorrhagic Vitamin B12 deficiency anemia type: Qualified Code(s): D62 - Acute posthemorrhagic anemia
--- NOTE | 2018-12-12 15:13 | Discharge Summary ---
Date of Service December 12, 2018 Admission HPI Per Admitting Provider The patient is an 83-year-old male with a past medical history including leukemia with most recent chemotherapy 10/31/27, and the development of persistent fatigue and more recently nosebleeds. This prompted laboratory testing in the outpatient setting, which included an INR that was found to be supratherapeutic, for which the patient was referred to the ED for assessment. Principal Diagnosis Supratherapeutic INR, epistaxis, anemia, healthcare associated pneumonia, CLL Discharge Exam Constitutional WD/WN, vitals as above Eyes PERRL, conjunctivae normal, anicteric sclerae Neck trachea midline, no thyromegaly Respiratory normal respiratory effort Auscultation: + crackles (at bases bilat); no wheezes Cardiovascular Rate/Rhythm: regular rate; + abnormal rhythm (Irregularly irregular) Heart Sounds: + murmur (2/6 at RUSB) Gastrointestinal (Abdomen) normal bowel sounds, soft, nontender, no hepatosplenomegaly Musculoskeletal Extremities: extremities normal to inspection; no cyanosis and no clubbing Skin no rashes, warm and dry + rash (back with numerous purpura surrounding excoriated previous blister sites , no erythema) Neurologic moves all extremities and awake; no focal motor deficits Psychiatric Orientation: alert, oriented x 3 and cooperative Affect: + flat affect Discharge Data Allergies Allergy/AdvReac Type Severity Reaction Status Date / Time Sdlnteo-Qmm-Ruk Reductase AdvReac Severe muscle Verified 11/27/18 20:11 Inhibitor aches/weak Consultations Hematology Pulmonology Palliative Care Procedures Performed Echocardiogram Ordered Studies 12/05/18 17:24 CT chest wo con Routine Chest x-ray x4 Hospital Course (1) Enterococcal bacteremia: source - suspect the skin (either from rash on back, or a small ulceration (now healed) on the anterior aspect of the right knee. repeat blood cx's negative. He received 12 days of IV Zosyn and then transitioned to ampicillin, now on Augmentin-day #13/14 of treatment echo w/o obvious valvular vegetations. he still has no GI symptoms to suggest a GI source and u/a was negative making the urine unlikely as source. (2) HCAP (healthcare-associated pneumonia): Received #10 days of IV/PO antibiotics-previously on zosyn/cefepime Now on day #7 of 7 of doxy for atypical coverage. CT chest reviewed, and Dr. Alva from pulmonary doubts CT findings are due to CHF. This could be leukemic infiltration of lungs. This could be atypical pneumonia thus continuing with doxy. He received multiple doses of PO lasix without any change in his clinical exam and no change in symptoms. Okay to continue p.o. Lasix once daily Legionella urine antigen negative Repeat CXR 12/10 slightly worse but could be some atelectasis as he is moving very minimally -cont supportive care. Continue supplemental O2 at home on discharge -cont incentive spirometry. -encourage ambulation as tolerated (3) Atrial fibrillation: rates are controlled, is irregular on exam here INR was supratherapeutic - likely due to antibiotics and previous to that was secondary to his chemotherapy - held coumadin and then was given Vit K again on 12/08 INR now slowly increasing again to 1.7 since restarting Coumadin -continue lower dose of coumadin at 1mg daily -follow INR in 1 day with home hospice -Patient wishes to remain on anticoagulation even if goes on home hospice to avoid risk of stroke (4) CLL (chronic lymphocytic leukemia): s/p initial chemo treatment in 10/2018. followed by Dr. Chadwick. CBCs have been acceptable. He has had a good response to treatment as far as reduction in his WBC count, but has had profound fatigue since that time, as well as complicating pneumonia Follow CBC if desired with oncology as an outpatient ?leukemic infiltration of lungs on CT?? Oncology has signed off, f/u with Dr. Chadwick in the office. Palliative care discussed his case with Dr. Chadwick who is in agreement with hospice care if the patient desires. If he improves from a medical standpoint otherwise and wishes to pursue further chemotherapy, he certainly welcome to do so. (5) CAD (coronary artery disease): no ischemic sx's at this time -Okay to restart aspirin, and continue on metoprolol (6) Hyponatremia: Now resolved (7) Hypothyroidism: cont synthroid recent TSH was 4 (8) Supratherapeutic INR: see above, now resolved (9) Dermatitis: rash on back - uncertain etiology but present for years as per daughter- previously treated successfully with ketoconazole--> tinea versicolor? disseminated shingles in light of immunocompromised status? sent zoster culture. this is still pending. -continue ketoconazole topical, but stop triamcinolone staph or strep infection? but antibiotics should have covered this easily (and the rash didn't change with antibiotics making it some form of infectious rash unlikely). continue to monitor We have arranged for a dermatology consultation as an outpt as DERM no longer comes to the hospital (10) Chronic kidney disease, stage 3a: creatinine is stable at this time (11) DVT prophylaxis: coumadin Dispo-remained profoundly fatigued and with poor appetite. Palliative care consultation was made and patient and his daughter are in agreement to go home with home hospice-stable for discharge on home hospice today. He will need home oxygen. Total Time Total Time Spent Total Time Spent (In Minutes): Greater than 30 minutes Total Time Includes: Examination of the Patient, Discharge Planning and Medication Reconciliation Discharge Plan Discharge Items Patient Disposition: Hospice - Home Reason For Visit: EPISTAXIS,SUPRATHERAPEUTIC INR,ANEMIA Discharge Diagnosis: Epistaxis, supratherapeutic INR, anemia, pneumonia, CLL Condition: Fair Discharge Goals: Decrease discomfort, Diagnostic testing, Improve disease control, Learn about illness and Therapeutic intervention Activity: As commented below Bathing: No limitations Exercise/Sports: As tolerated Non-emergency contact: Primary Care Provider Call non-emergency contact if: you have any medication questions, your symptoms worsen, your pain is not controlled, your pain is worsening, your pain is unusual for you, your pain is concerning for you and you have a fever Follow-up/Referrals: Arsh Laughlin MD [Physician] - 12/14/18 10:20 am (Please, follow up at [facility] D[facility]ology Office with Dr. Arsh Laughlin on MondayDecember 14 at 10:20 am. *This office is located in [address] of [facility] - big building next to this hospital. If you need to change this appointment, call the office at [phone].) Diet: Regular Addtl Provider Instructions: You were admitted due to a nosebleed and an elevated INR from your Coumadin level being too high after starting chemotherapy for your leukemia. You were treated for this and subsequently developed a pneumonia while you are in the hospital. You had severe, persistent fatigue, as well as nausea. You also developed a bloodstream infection and or treated with antibiotics. Please finish out the course of antibiotics as prescribed. You have chosen to go home with hospice care in place. Because of the rash on your back, we did make you a dermatology appointment as scheduled above. You can cancel this if you desire, but you are also welcome to go. You will need oxygen at home and the hospice agency will provide this for you. You can choose to follow-up with Dr. Chadwick but if you wish to pursue further treatment for your leukemia; otherwise this is not necessary. Please have the hospice nurse draw your PT/INR in 1 day-on 12/13/18 Prescriptions: New doxycycline hyclate 100 mg Capsule 100 mg PO BID Qty: 2 RF: 0 potassium chloride [Klor-Con M20] 20 mEq Tablet,Er Particles/Crystals 20 meq PO QAM Qty: 30 RF: 0 furosemide 20 mg Tablet 20 mg PO QAM Qty: 30 RF: 0 warfarin [Coumadin] 1 mg Tablet 1 mg PO DAILY@1600 Qty: 30 RF: 0 amoxicillin-pot clavulanate 875-125 mg Tablet 1 tab PO BIDM Qty: 2 RF: 0 sodium chloride [Saline Mist] 0.65 % Aerosol,Kelley 2 sprays NA Q2H PRN (Reason: dry nasal passages) Qty: 1 RF: 0 ketoconazole 2 % Cream 1 applic EXT DAILY Qty: 1 RF: 0 Continue prochlorperazine maleate [Compazine] 10 mg tablet 10 mg PO Q6 PRN (Reason: Nausea) RF: 0 aspirin 81 mg Tablet,Delayed Release (Dr/Ec) 81 mg PO DAILY RF: 0 levothyroxine [Synthroid] 25 mcg tablet 25 mcg PO DAILY RF: 0 allopurinol [Zyloprim] 300 mg tablet 300 mg PO DAILY RF: 0 metoprolol succinate [Toprol XL] 25 mg tablet extended release 24 hr 25 mg PO HS RF: 0 sertraline [Zoloft] 50 mg tablet 50 mg PO DAILY RF: 0 acetaminophen [Tylenol] 325 mg Capsule 325 - 650 mg PO Q6H PRN (Reason: Pain) RF: 0 Discontinued warfarin [Coumadin] 5 mg tablet 2.5 mg PO 4XWK RF: 0 warfarin [Coumadin] 5 mg tablet 5 mg PO 3XWK RF: 0 Stand-Alone Forms: [facility] Discharge Orders: Discharge Order (Routine); Ordered 12/12/18 Ordered By: Shayy Ca Admission Data Admit Date/Time: 11/27/18 21:48 Attending Provider: Shayy Ca Admit Provider: King Chicas Primary Care Provider: Nilton Sanchez Other Providers: King Chicas ; Clemente Chadwick V ; Harrison Alva ; Viola Rice Service: Medical Other Pending Studies at Discharge: No
[2018-12-12] MEDS: WARFARIN SOD 1 MG TAB PO SCH (15:36)
[2018-12-18 00:06] LABS: Source BACK
== END 2018-12-12 16:57 | disposition hospice, home (50) | DRG 813 ==
LOC: ED 19:00 → SUATTDRO 21:48 → 2S 21:48 → 4E 11-28 15:36
DX: I25.10 Atherosclerotic heart disease of native coronary artery without angina pectoris; L25.9 Unspecified contact dermatitis, unspecified cause; Z66 Do not resuscitate; Z87.891 Personal history of nicotine dependence; Z79.899 Other long term (current) drug therapy; T45.1X5A Adverse effect of antineoplastic and immunosuppressive drugs, initial encounter; F32.9 Major depressive disorder, single episode, unspecified; E87.1 Hypo-osmolality and hyponatremia; Z16.21 Resistance to vancomycin; D68.32 Hemorrhagic disorder due to extrinsic circulating anticoagulants; Y95 Nosocomial condition; R04.0 Epistaxis; Z88.8 Allergy status to other drugs, medicaments and biological substances; E88.09 Other disorders of plasma-protein metabolism, not elsewhere classified; I48.0 Paroxysmal atrial fibrillation; R53.1 Weakness; E46 Unspecified protein-calorie malnutrition; R78.81 Bacteremia; Z95.5 Presence of coronary angioplasty implant and graft; D64.81 Anemia due to antineoplastic chemotherapy; I25.2 Old myocardial infarction; T45.515A Adverse effect of anticoagulants, initial encounter; Z79.82 Long term (current) use of aspirin; J18.9 Pneumonia, unspecified organism; Z79.01 Long term (current) use of anticoagulants; N18.3 Chronic kidney disease, stage 3 (moderate); B95.2 Enterococcus as the cause of diseases classified elsewhere; I12.9 Hypertensive chronic kidney disease with stage 1 through stage 4 chronic kidney disease, or unspecified chronic kidney disease; C91.Z0 Other lymphoid leukemia not having achieved remission; E03.9 Hypothyroidism, unspecified; N17.9 Acute kidney failure, unspecified; D62 Acute posthemorrhagic anemia; B36.0 Pityriasis versicolor; K59.00 Constipation, unspecified

== ENCOUNTER 2019-02-01 16:00 | Inpatient (IN) ==
[2019-02-01] MEDS ORDERED: DiphenhydrAMINE HCL 50 MG/ML VIAL IV STA (16:15)
[2019-02-01] MEDS ORDERED: VANCOMYCIN HCL 1,250 MG in SODIUM CHLORIDE 0.9% 500 ML IV ONE (16:19)
[2019-02-01] MEDS ORDERED: cefTRIAXone SODIUM 1,000 MG/50 ML BAG IV STA (16:19)
[2019-02-01] MEDS ORDERED: VANCOMYCIN CONSULT ACTIVE PRN (16:19)
[2019-02-01 16:42] LABS: Hematocrit (blood only) 30.8 % (42-52); Hemoglobin 9.6 g/dL (14.0-18.0); Mean Corpuscular Hgb Conc 31.2 g/dL (32-36); Mean Corpuscular Volume 81.5 fL (80-100); Mean Platelet Volume 9.8 fL (7.4-10.4); Platelet Count 194 K/uL (130-400); RDW Standard Deviation 57.1 fL (36.4-46.3); Red Blood Count 3.78 M/uL (4.7-6.1); White Blood Count 17.73 K/uL (4.8-10.8)
[2019-02-01 16:44] LABS: iSTAT Creatinine 0.8 mg/dl (0.6-1.3); iSTAT Hemoglobin 10.2 g/dl (14.0-18.0); iSTAT Ionized Calcium 1.1 mmol/l (1.12-1.32)
[2019-02-01] MEDS ORDERED: IOVERSOL 100ml IV PRN (16:50)
[2019-02-01 17:01] LABS: Prothrombin Time 34.1 Seconds (9.0-12.0)
[2019-02-01 17:02] LABS: Albumin Level 2.8 gm/dl (3.4-5.0); BUN Creatinine Ratio 21.8 (10-20); Calcium 7.9 mg/dl (8.5-10.1); Creatinine Clr Calc Pharmacy 61.7 ml/min; Est GFR (African American) 94.4; Est GFR (Non-African American) 81.5; Potassium 4.1 mmol/L (3.5-5.1)
[2019-02-01 17:04] LABS: Albumin Globulin Ratio 0.8 (0.9-2); Bilirubin,Total 0.7 mg/dl (0.2-1); Globulin 3.7 gm/dl (2.5-4.0); Total Protein 6.5 gm/dl (6.4-8.2)
--- NOTE | 2019-02-01 17:04 | CT Scan Report ---
CT soft tissue neck w con HISTORY: 83 years-old Male facial swelling eval for abscess acute pain and swelling of the lower lip COMPARISON: CT head 01/03/2017 TECHNIQUE: Multiple axial CT images of the soft tissues of the neck were obtained following the intra venous administration of 91 mL Optiray 320 IV contrast. A dose lowering technique was used consistent with the principals of MATIAS. FINDINGS: The nasopharynx, oral pharynx and hypopharynx appear patent. Nonspecific calcifications are noted abo ut the epiglottis which is mildly thickened. The glottis and subglottic airway appear unremarkable. M ild degree of proximal tracheal secretions are noted. The parapharyngeal fat planes are symmetric and well-maintained. No peritonsillar abscess or prevertebral soft tissue swelling. There is extensive s oft tissue swelling about the right greater than left lower lip with a multiloculated right-sided flu id collection demonstrating peripheral enhancement measuring 2.4 x 6.1 x 3.3 cm. Dilation about the aortic isthmus and proximal descending thoracic aorta measures up to 4.5 cm transv ersely with associated extensive mixed plaque formation. Mixed plaque formation noted about the bilat eral carotid bulbs and proximal internal carotid arteries. 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 Trace left pleural effusion. No pneumothorax. Patchy groundglass opacities are noted abo ut the right greater than left lung apices with areas of tree-in-bud nodularity noted about the anter ior segment right upper lobe, arch and imaged. The thyroid. Mildly prominent level 1 lymph nodes, lik ja reactive. Prominent bilateral supraclavicular, subpectoral and upper mediastinal lymph nodes are seen measuring up to 9 mm. The submandibular and parotid glands appear unremarkable. Moderate subcuta neous edema tracks along the jaw about the platysma myofascial distributions. Degenerative changes ar e seen about the shoulders and spine. Mastoid air cells appear clear. 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 IMPRESSION: 1. Extensive soft tissue swelling about the right greater than left lower lip with multiloculated per ipherally enhancing fluid collection about the right lip and jaw distribution measuring up to 6.1 cm suggestive of abscess. 2. Mildly prominent level 1 lymph nodes, likely reactive. Additional indeterminate prominent bilatera l supraclavicular, subpectoral and upper mediastinal lymph nodes are present. 3. Trace left pleural effusion. 4. Partially imaged patchy upper lung zone groundglass densities are suggestive of a nonspecific pneu monitis with partially imaged bronchiolitis of the anterior segment right upper lobe. 5. 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 6. Additional findings as above. The above report was generated using voice recognition software. It may contain grammatical, syntax o r spelling errors. Electronically signed by: Norbert Green M.D. 02/01/2019 5:03 PM
[2019-02-01 17:31] LABS: INR 3.6 (0.9-1.1)
[2019-02-01] MEDS ORDERED: LIDOCAINE HCL 1% 20 ML VIAL INFIL ONE (17:47)
[2019-02-01] MEDS ORDERED: metroNIDAZOLE 500 MG/100 ML BAG IV STA (17:51)
[2019-02-01 17:58] LABS: Basophils # (auto) 0.02 K/uL (0-0.2); Basophils % (auto) 0.1 %; Immature Granulocytes # (auto) 0.47 K/uL (0.00-0.02); Immature Granulocytes % (auto) 2.7 %; Lymphocytes # (auto) 9.83 K/uL (1.2-3.4); Lymphocytes % (auto) 55.4 %; Monocytes # (auto) 0.97 K/uL (0.11-0.59); Monocytes % (auto) 5.5 %; Neutrophils # (auto) 6.44 K/uL (1.4-6.5); Neutrophils % (auto) 36.3 %; Ovalocytes 1+; Schistocytes 1+; Toxic Granulation 1+
--- NOTE | 2019-02-01 18:13 | Emergency Department Note ---
ED Visit Note I was requested by Dr. Bhatti to perform an I&D on an abscess of the lower lip on this patient. The area was prepped with Betadine x3. The area was anesthetized with 1% lidocaine. A small incision was made at 2 places on the lower lip. Only a small amount of purulent fluid was expressed. A culture was obtained. I feel that the abscess is lobulated. Patient tolerated procedure well. Please see Dr. Bhatti's note for remainder of patient's care. .
[2019-02-01] MEDS ORDERED: ZOLPIDEM TARTRATE 5 MG TAB PO PRN (18:53)
--- NOTE | 2019-02-01 19:17 | History & Physical Report ---
Date of Service February 01, 2019 Assessment & Plan (1) Abscess of lip: - Presented with lip cellulitis and abscess likely related to stool contamination at home; had lower lip open lesion leading to infection. - CT showed extensive soft tissue swelling of lower lip with multiloculated fluid collection measuring up to 6.1 cm. - S/p I&D in the ER; discussed with plastic surgery on phone--> had I&D in ER so will hold off on Plastics consult at this time - Received Ceftriaxone in the ED; will start Unasyn IV for empiric coverage of skin and GI organisms. - Wound culture and blood cultures pending. - NPO except sips of water and meds; IV fluids at 80 cc/hr. - Tylenol IV q8hr prn pain. (2) Chronic kidney disease, stage 3a: - Renally dose meds. (3) CLL (chronic lymphocytic leukemia): - Pt. was transitioned to home hospice in Dec 2018. - Will likely transition back to home hospice at discharge. (4) Major depressive disorder: - Continue Zoloft 50 mg daily. (5) Hypothyroidism: - Not currently receiving treatment. (6) Atrial fibrillation: - Will continue Coumadin -- INR was supratherapeutic today. - Hold Coumadin dose this evening; repeat INR in the AM. (7) CAD (coronary artery disease): - Continue home Metoprolol as prescribed. (8) DVT prophylaxis: - SCDs. Dispo: Med/surg for IV abx History of Present Illness Chief Complaint: Lip swelling Primary Care Provider: Nilton Sanchez MD Mr. Lakhani is a 83 year old male with past medical history of A. fib on chronic anticoagulation, CLL, coronary artery disease, hypothyroidism and CKD stage III who presented with lower lip swelling. He was admitted from 11/27/18-12/12/18 for Enterococcal bacteremia and pneumonia. Due to h/o CLL, patient was converted to home hospice prior to discharge. He has been living at home with 24 hour care provided by his daughter. History was obtained from his daughter who was present at bedside. She states her father bit his lip on Monday evening. He had mild bleeding from site that resolved quickly. On Monday, the patient smeared stool o n his face before his daughter placed him in the bathtub. He developed lower lip swelling on Windy. Swelling has increased significantly over the last 3 days. He has been taking Benadryl and applying warm compresses at home. PCP prescribed Augmentin; patient took 1 dose at home. He presented to the ER due to increased edema. In the ER, an I&D was performed in the ED. A small amount of fluid was expressed; culture is pending. He received a dose of Ceftriaxone in the ED; will continue Unasyn as an inpatient. Allergies Allergy/AdvReac Type Severity Reaction Status Date / Time [id number] Reductase AdvReac Severe muscle Verified 02/01/19 16:30 Inhibitor aches/weak Home Medications Home Medications Medication Instructions Recorded Confirmed Type acetaminophen [Tylenol] 325 - 650 mg PO Q6H PRN 11/27/18 02/01/19 History metoprolol succinate [Toprol XL] 25 mg PO HS 11/27/18 02/01/19 History sertraline [Zoloft] 50 mg PO QAM 11/27/18 02/01/19 History amoxicillin-pot clavulanate 1 tab PO Q12H 02/01/19 02/01/19 History [Augmentin] diphenhydramine HCl [Benadryl] 25 mg PO DIRECTED PRN 02/01/19 02/01/19 History ibuprofen 400 mg PO DIRECTED PRN 02/01/19 02/01/19 History melatonin 3 mg PO HS 02/01/19 02/01/19 History warfarin [Coumadin] 2.5 mg PO 5XWK 02/01/19 02/01/19 History warfarin [Coumadin] 5 mg PO 2XWK 02/01/19 02/01/19 History Past Med/Surg History Medical History Major depressive disorder Hypothyroidism Protein malnutrition Atrial fibrillation History of [place] (myocardial infarction) CAD (coronary artery disease) Anemia (Acute) CKD (chronic kidney disease) stage 3, GFR 30-59 ml/min CLL (chronic lymphocytic leukemia) Vasectomy status Afib coumadin therapy Cellulitis of right leg Septic joint of right knee joint Syncope Family History Other Coronary heart disease Social History Preferred Language: Maldivian Communication Ability: Effective Zoology Teacher Required: No Beliefs That Will Affect Care: None marital status: / Current Living Situation: Family Current Living Situation Comment: dtr Other Information That Helps Us Care for You: No Feels Safe at Home: Yes Safety Concerns: Feels Safe At This Time Smoking Status: Former smoker Hx Alcohol Use: No Hx Substance Use: No Review of Systems Other (History was obtained from daughter at bedside. ) Ear, Nose, Mouth, Throat: + mouth lesions Physical Exam Vital Signs (Past 24 Hours): Last Vital Signs Temp 36.7 C 02/01/19 16:13 Pulse 102 H 02/01/19 17:31 Resp 20 02/01/19 17:31 BP 137/72 02/01/19 17:31 Pulse Ox 94 02/01/19 17:31 Physical Exam: General: Resting comfortably in no apparent distress; A&OX3 HEENT: NC/AT; PERRLA with EOMI; significant lower lip edema, R>L. No discharge noted on exam. Neck: Supple and nontender Cardiac: irregular Lungs: CTA bilaterally Abdomen: Bowel normoactive X 4; Nontender to palpation Rectal: Deferred : Deferred Back: NO spinous tenderness Extremities: Warm. No edema present Neuro: No focal weakness Skin: No rash Results & Data Laboratory Results 02/01/19 02/01/19 02/01/19 Range/Units 16:31 16:26 16:26 WBC 17.73 H (4.8-10.8) K/uL RBC 3.78 L (4.7-6.1) M/uL Hgb 9.6 L (14.0-18.0) g/dL POC Hgb 10.2 L (14.0-18.0) g/dl Hct 30.8 L (42-52) % POC Hct 30 L (42-52) % MCV 81.5 (80-100) fL MCH 25.4 (25-34) pg MCHC 31.2 L (32-36) g/dL RDW Std Deviation 57.1 H (36.4-46.3) fL RDW Coeff of Jacoby 19.0 H (11.5-14.5) % Plt Count 194 (130-400) K/uL MPV 9.8 (7.4-10.4) fL Immature Gran % (Auto) 2.7 % Neut % (Auto) 36.3 % Lymph % (Auto) 55.4 % [place] % (Auto) 5.5 % Eos % (Auto) 0.0 % Baso % (Auto) 0.1 % Immature Gran # (Auto) 0.47 H (0.00-0.02) K/uL Neut # (Auto) 6.44 (1.4-6.5) K/uL Lymph # (Auto) 9.83 H (1.2-3.4) K/uL [place] # (Auto) 0.97 H (0.11-0.59) K/uL Eos # (Auto) 0.00 (0-0.5) K/uL Baso # (Auto) 0.02 (0-0.2) K/uL Toxic Granulation 1+ Ovalocytes 1+ Schistocytes 1+ PT 34.1 H (9.0-12.0) Seconds INR 3.6 H (0.9-1.1) POC Sodium 139 (135-144) mEq/L Sodium (136-145) mmol/L POC Potassium 4.0 (3.3-5.0) mEq/L Potassium (3.5-5.1) mmol/L POC Chloride 103 (101-112) mEq/L Chloride (98-107) mmol/L Carbon Dioxide (21-32) mmol/L POC Total CO2 24 (24-31) mEq/l Anion Gap (3-11) POC Anion Gap 17.0 (16-25) mmol/L POC BUN 16 (7-18) mg/dl BUN (7-18) mg/dl Creatinine (0.6-1.4) mg/dl POC Creatinine 0.8 (0.6-1.3) mg/dl Est Cr Clr Drug Dosing ml/min Est GFR ( Amer) Est GFR (Non-Af Amer) BUN/Creatinine Ratio (10-20) Glucose (70-99) mg/dl POC Glucose (other) 103 H (70-99) mg/dl Calcium (8.5-10.1) mg/dl POC Ioniz Calcium [place] 1.10 L (1.12-1.32) mmol/l Total Bilirubin (0.2-1) mg/dl AST (15-37) U/L ALT (12-78) U/L Alkaline Phosphatase (45-117) U/L Total Protein (6.4-8.2) gm/dl Albumin (3.4-5.0) gm/dl Globulin (2.5-4.0) gm/dl Albumin/Globulin Ratio (0.9-2) / Range/Units 16:26 WBC (4.8-10.8) K/uL RBC (4.7-6.1) M/uL Hgb (14.0-18.0) g/dL POC Hgb (14.0-18.0) g/dl Hct (42-52) % POC Hct (42-52) % MCV (80-100) fL MCH (25-34) pg MCHC (32-36) g/dL RDW Std Deviation (36.4-46.3) fL RDW Coeff of Jacoby (11.5-14.5) % Plt Count (130-400) K/uL MPV (7.4-10.4) fL Immature Gran % (Auto) % Neut % (Auto) % Lymph % (Auto) % [place] % (Auto) % Eos % (Auto) % Baso % (Auto) % Immature Gran # (Auto) (0.00-0.02) K/uL Neut # (Auto) (1.4-6.5) K/uL Lymph # (Auto) (1.2-3.4) K/uL [place] # (Auto) (0.11-0.59) K/uL Eos # (Auto) (0-0.5) K/uL Baso # (Auto) (0-0.2) K/uL Toxic Granulation Ovalocytes Schistocytes PT (9.0-12.0) Seconds INR (0.9-1.1) POC Sodium (135-144) mEq/L Sodium 139 (136-145) mmol/L POC Potassium (3.3-5.0) mEq/L Potassium 4.1 (3.5-5.1) mmol/L POC Chloride (101-112) mEq/L Chloride 107 (98-107) mmol/L Carbon Dioxide 27 (21-32) mmol/L POC Total CO2 (24-31) mEq/l Anion Gap 5.0 (3-11) POC Anion Gap (16-25) mmol/L POC BUN (7-18) mg/dl BUN 17 (7-18) mg/dl Creatinine 0.80 (0.6-1.4) mg/dl POC Creatinine (0.6-1.3) mg/dl Est Cr Clr Drug Dosing 61.7 ml/min Est GFR ( Amer) 94.4 Est GFR (Non-Af Amer) 81.5 BUN/Creatinine Ratio 21.8 H (10-20) Glucose 102 H (70-99) mg/dl POC Glucose (other) (70-99) mg/dl Calcium 7.9 L (8.5-10.1) mg/dl POC Ioniz Calcium [place] (1.12-1.32) mmol/l Total Bilirubin 0.7 (0.2-1) mg/dl AST 14 L (15-37) U/L ALT 15 (12-78) U/L Alkaline Phosphatase 64 (45-117) U/L Total Protein 6.5 (6.4-8.2) gm/dl Albumin 2.8 L (3.4-5.0) gm/dl Globulin 3.7 (2.5-4.0) gm/dl Albumin/Globulin Ratio 0.8 L (0.9-2) Code Status & VTE Plan Code Status DNR/DNI Supervising Physician Co-Signing Physician Notes PA Supervision Note: I personally saw and examined the patient. I verified all shaw points and agree with ENRRIQUE Ferris with the following exceptions and/or additions: Pt here with large swollen lip and found ot have abscess. History reivewed as above Vitals reviewed Lower lip with significant edema R>L side , with puncture hold in outer lip and inner lip mucosa with drainge site, both draining purulent material when lip is gently squeezed Appears ill, emaciated Ext-no edema 83 yo male with CLL, here with lower lip cellulitis and abscess, with a h/o fecal contamination of the wound -treating with IV abx I&D has been performed and await cultures -warm compresses to the lip -will have Plastics see him if not improving (1) Major depressive disorder Active/Remission status: remission status unspecified Major depression recurrence: unspecified whether recurrent Qualified Code(s): F32.9 - Major depressive disorder, single episode, unspecified (2) CAD (coronary artery disease) Associated angina: without angina Coronary Disease-Associated Artery/Lesion type: [place] artery [place] vs. transplanted heart: [place] heart Qualified Code(s): I25.10 - Atherosclerotic heart disease of [place] coronary artery without angina pectoris (3) Atrial fibrillation Atrial fibrillation type: paroxysmal Qualified Code(s): I48.0 - Paroxysmal atrial fibrillation (4) Hypothyroidism Hypothyroidism type: acquired Qualified Code(s): E03.9 - Hypothyroidism, unspecified
[2019-02-01] MEDS ORDERED: ONDANSETRON INJ 2 MG/ML 2 ML VIAL IV PRN (20:05)
[2019-02-01] MEDS ORDERED: DiphenhydrAMINE HCL 50 MG/ML VIAL IV PRN (20:05)
[2019-02-01] MEDS ORDERED: ACETAMINOPHEN 1,000 MG/100 ML VIAL IV PRN (20:05)
[2019-02-01] MEDS: SODIUM CHLORIDE 0.9% 1000ML 1,000 ML IV SCH (20:13)
--- NOTE | 2019-02-01 21:22 | Emergency Department Note ---
Entered by Cassandra Otero acting as a scribe for History of Present Illness General Chief complaint: Facial Injury/Pain Stated complaint: INFECTION Source: patient Limitations: no limitations History of Present Illness Onset (ago): hour(s) (today) Location: mouth (lips) Pain Consistency: + constant Quality: + other (swelling) Associated symptoms: + denies other symptoms (hitting his head when he fell, neck pain, tongue swelling, and throat swelling); no headaches and no nausea/vomiting The patient is an 83 year old male who presents to the Emergency Room with complaints of constant lip swelling. He states that he fell 6 days ago and bit his lip. The patient reports that his lips were red, but they started swelling today. He states that his "tongue" feels bit swollen. The patient denies hitting his head when he fell, vomiting, headache, neck pain, tongue swelling, and throat swelling. He notes that he is on antibiotics. Per the nursing staff, the patient has a history of leukemia. Home Medications Home Medications Medication Instructions Recorded Confirmed Type acetaminophen [Tylenol] 325 - 650 mg PO Q6H PRN 11/27/18 02/01/19 History metoprolol succinate [Toprol XL] 25 mg PO HS 11/27/18 02/01/19 History sertraline [Zoloft] 50 mg PO QAM 11/27/18 02/01/19 History amoxicillin-pot clavulanate 1 tab PO Q12H 02/01/19 02/01/19 History [Augmentin] diphenhydramine HCl [Benadryl] 25 mg PO DIRECTED PRN 02/01/19 02/01/19 History ibuprofen 400 mg PO DIRECTED PRN 02/01/19 02/01/19 History melatonin 3 mg PO HS 02/01/19 02/01/19 History warfarin [Coumadin] 2.5 mg PO 5XWK 02/01/19 02/01/19 History warfarin [Coumadin] 5 mg PO 2XWK 02/01/19 02/01/19 History Allergies Allergy/AdvReac Type Severity Reaction Status Date / Time [id number]-[id number] Reductase AdvReac Severe muscle Verified 02/01/19 16:30 Inhibitor aches/weak Past Med/Surg History Medical History Major depressive disorder Hypothyroidism Protein malnutrition Atrial fibrillation History of ID (myocardial infarction) CAD (coronary artery disease) Anemia (Acute) Vasectomy status Afib coumadin therapy Cellulitis of right leg Septic joint of right knee joint Syncope Family History Other Coronary heart disease Social History Preferred Language: Slovak Communication Ability: Effective [employer] Intern Required: No Beliefs That Will Affect Care: None marital status: / Current Living Situation: Family Current Living Situation Comment: dtr Other Information That Helps Us Care for You: No Feels Safe at Home: Yes Safety Concerns: Feels Safe At This Time Smoking Status: Former smoker Hx Alcohol Use: No Hx Substance Use: No Review of Systems See HPI for pertinent positives & negatives. and A total of 10 systems reviewed and were otherwise negative Physical Exam Vital Signs Vital Signs - 24 hr 02/01/19 16:13 02/01/19 17:31 02/01/19 19:10 Temperature 36.7 C Temperature Source Oral Sepsis Recent Fever Within 48 Hours No Sepsis New/Unexplained Change in Mental Status No Sepsis Action Taken by Nursing No Action Required Pulse Rate 100 H 115 H Pulse Rate [Apical] 102 H Respiratory Rate 16 20 Blood Pressure 143/9 H 141/74 H Blood Pressure [Left Arm] 137/72 Blood Pressure Mean 53 Blood Pressure Mean [Left Arm] 93 Blood Pressure Position [Left Arm] Lying Pulse Oximetry 98 94 Oxygen Delivery Method Room Air Room Air 02/01/19 19:32 Temperature 36.7 C Temperature Source Oral Sepsis Recent Fever Within 48 Hours Sepsis New/Unexplained Change in Mental Status Sepsis Action Taken by Nursing Pulse Rate Pulse Rate [Apical] 69 Respiratory Rate 20 Blood Pressure Blood Pressure [Left Arm] 149/74 H Blood Pressure Mean Blood Pressure Mean [Left Arm] 99 Blood Pressure Position [Left Arm] Pulse Oximetry 96 Oxygen Delivery Method Room Air Constitutional: Vital signs reviewed. Eyes: Pupils are equal round reactive to light. Conjunctiva are noninjected. ENT: Pharynx is clear without erythema or exudate. Mucous membranes are moist. Neck supple without meningeal signs. No swelling to the uvula. Tongue seems slightly enlarged without elevation. There is diffuse swelling and tenderness to the lower lip. It is greater on right side where there is a small abrasion. There is no tenderness to the submental space, but there is some mild erythema extending to the area. Respiratory: Clear to auscultation bilaterally. Breath sounds are equal bilat erally. Cardiovascular: Regular rate and rhythm. No rubs or gallops. GI: Soft, nondistended and nontender. Bowel sounds are present. Musculoskeletal: No peripheral edema. No lower extremity tenderness. Integumentary: No cyanosis. Neurological: The patient is awake and alert. No focal deficits. Psychiatric: Normal affect. Course 1608: Past medical records reviewed. The patient was evaluated in room C10, and a complete history and physical examination were performed. 1730: I spoke to the patients daughter, and she said the patient was on hospice care. She reported that Dr. Sanchez wanted him sent here. She said he is very confused. She states that he did not fall, but he bit his lip 6 days ago. The daughter reports that he rubbed his face with a feces-ridden cloth 4 days ago. He had one dose of Augmentin. The daughter feels that hospitalization is best. 1742: I spoke with Dr. Pryor of plastic surgery about the patient's case. She felt that an I&D at the most purulent point was best. 1746: I spoke with Dr. Regina Mike, [facility], about the patient's case. She will further evaluate the patient. 1750: Rupali Carmona PA-C, will preform the I&D. Consultations Consultation #1: I spoke with Dr. Pryor of plastic surgery about the patient's case. She felt that an I&D at the most purulent point was best. Time: 17:42 Consultation #2: I spoke with Dr. Regina Mike, [facility], about the patient's case. She will further evaluate the patient. Time: 17:46 Administered Medications Sodium Chloride (Nss 1000ml) 1,000 mls @ 80 mls/hr IV .[id number] MONICA Stop: 03/03/19 18:44 Last Admin: 02/01/19 20:13 Dose: 80 mls/hr Documented by: [id number] Discontinued Medications Diphenhydramine HCl (Benadryl) 50 mg IV NOW STA Stop: 02/01/19 16:16 Last Admin: 02/01/19 16:34 Dose: 50 mg Documented by: [id number] Vancomycin HCl 1,250 mg/ (Sodium Chloride) 525 mls @ 200 mls/hr IV NOW ONE Stop: 02/01/19 18:56 Last Admin: 02/01/19 17:31 Dose: 200 mls/hr Documented by: [id number] Ceftriaxone Sodium (Rocephin) 1,000 mg in 50 mls @ 100 mls/hr IV NOW STA Stop: 02/01/19 16:48 Last Infusion: 02/01/19 17:31 Dose: 0 mls/hr Documented by: [id number] Admin: 02/01/19 17:00 Dose: 100 mls/hr Documented by: [id number] Ioversol (Optiray 320 100ml) 91 ml IV ONCE PRN PRN Reason: Interaction Checking Stop: 02/05/19 16:49 Last Admin: 02/01/19 16:50 Dose: 91 ml Documented by: [id number] Lidocaine HCl (Xylocaine 1% (Local)) 10 ml INFIL NOW ONE Stop: 02/01/19 17:48 Last Admin: 02/01/19 17:58 Dose: 10 ml Documented by: [id number] Medical Decision Making Differential Diagnosis The differential diagnosis includes: cellulitis, abscess, Ludwigs angina, angioedema, and hematoma. Medical Records Attestation: I reviewed the patient's medical records. The records report that he was seen in late November of 2018 for epistaxis, anemia, and bacteremia. Home Medications Current Medication List: was personally reviewed by me Laboratory Data Attestation: I reviewed the patient's lab results. Result diagrams: 02/01/19 16:26 02/01/19 16:26 Lab Results 02/01/19 02/01/19 02/01/19 Range/Units 16:26 16:26 16:26 WBC 17.73 H (4.8-10.8) K/uL RBC 3.78 L (4.7-6.1) M/uL Hgb 9.6 L (14.0-18.0) g/dL POC Hgb (14.0-18.0) g/dl Hct 30.8 L (42-52) % POC Hct (42-52) % MCV 81.5 (80-100) fL MCH 25.4 (25-34) pg MCHC 31.2 L (32-36) g/dL RDW Std Deviation 57.1 H (36.4-46.3) fL RDW Coeff of Jacoby 19.0 H (11.5-14.5) % Plt Count 194 (130-400) K/uL MPV 9.8 (7.4-10.4) fL Immature Gran % (Auto) 2.7 % Neut % (Auto) 36.3 % Lymph % (Auto) 55.4 % Coles % (Auto) 5.5 % Eos % (Auto) 0.0 % Baso % (Auto) 0.1 % Immature Gran # (Auto) 0.47 H (0.00-0.02) K/uL Neut # (Auto) 6.44 (1.4-6.5) K/uL Lymph # (Auto) 9.83 H (1.2-3.4) K/uL Coles # (Auto) 0.97 H (0.11-0.59) K/uL Eos # (Auto) 0.00 (0-0.5) K/uL Baso # (Auto) 0.02 (0-0.2) K/uL Toxic Granulation 1+ Ovalocytes 1+ Schistocytes 1+ PT 34.1 H (9.0-12.0) Seconds INR 3.6 H (0.9-1.1) POC Sodium (135-144) mEq/L Sodium 139 (136-145) mmol/L POC Potassium (3.3-5.0) mEq/L Potassium 4.1 (3.5-5.1) mmol/L POC Chloride (101-112) mEq/L Chloride 107 (98-107) mmol/L Carbon Dioxide 27 (21-32) mmol/L POC Total CO2 (24-31) mEq/l Anion Gap 5.0 (3-11) POC Anion Gap (16-25) mmol/L POC BUN (7-18) mg/dl BUN 17 (7-18) mg/dl Creatinine 0.80 (0.6-1.4) mg/dl POC Creatinine (0.6-1.3) mg/dl Est Cr Clr Drug Dosing 61.7 ml/min Est GFR ( Amer) 94.4 Est GFR (Non-Af Amer) 81.5 BUN/Creatinine Ratio 21.8 H (10-20) Glucose 102 H (70-99) mg/dl POC Glucose (other) (70-99) mg/dl Calcium 7.9 L (8.5-10.1) mg/dl POC Ioniz Calcium Dayana (1.12-1.32) mmol/l Total Bilirubin 0.7 (0.2-1) mg/dl AST 14 L (15-37) U/L ALT 15 (12-78) U/L Alkaline Phosphatase 64 (45-117) U/L Total Protein 6.5 (6.4-8.2) gm/dl Albumin 2.8 L (3.4-5.0) gm/dl Globulin 3.7 (2.5-4.0) gm/dl Albumin/Globulin Ratio 0.8 L (0.9-2) 02/01/19 Range/Units 16:31 WBC (4.8-10.8) K/uL RBC (4.7-6.1) M/uL Hgb (14.0-18.0) g/dL POC Hgb 10.2 L (14.0-18.0) g/dl Hct (42-52) % POC Hct 30 L (42-52) % MCV (80-100) fL MCH (25-34) pg MCHC (32-36) g/dL RDW Std Deviation (36.4-46.3) fL RDW Coeff of Jacoby (11.5-14.5) % Plt Count (130-400) K/uL MPV (7.4-10.4) fL Immature Gran % (Auto) % Neut % (Auto) % Lymph % (Auto) % Coles % (Auto) % Eos % (Auto) % Baso % (Auto) % Immature Gran # (Auto) (0.00-0.02) K/uL Neut # (Auto) (1.4-6.5) K/uL Lymph # (Auto) (1.2-3.4) K/uL Coles # (Auto) (0.11-0.59) K/uL Eos # (Auto) (0-0.5) K/uL Baso # (Auto) (0-0.2) K/uL Toxic Granulation Ovalocytes Schistocytes PT (9.0-12.0) Seconds INR (0.9-1.1) POC Sodium 139 (135-144) mEq/L Sodium (136-145) mmol/L POC Potassium 4.0 (3.3-5.0) mEq/L Potassium (3.5-5.1) mmol/L POC Chloride 103 (101-112) mEq/L Chloride (98-107) mmol/L Carbon Dioxide (21-32) mmol/L POC Total CO2 24 (24-31) mEq/l Anion Gap (3-11) POC Anion Gap 17.0 (16-25) mmol/L POC BUN 16 (7-18) mg/dl BUN (7-18) mg/dl Creatinine (0.6-1.4) mg/dl POC Creatinine 0.8 (0.6-1.3) mg/dl Est Cr Clr Drug Dosing ml/min Est GFR ( Amer) Est GFR (Non-Af Amer) BUN/Creatinine Ratio (10-20) Glucose (70-99) mg/dl POC Glucose (other) 103 H (70-99) mg/dl Calcium (8.5-10.1) mg/dl POC Ioniz Calcium Dayana 1.10 L (1.12-1.32) mmol/l Total Bilirubin (0.2-1) mg/dl AST (15-37) U/L ALT (12-78) U/L Alkaline Phosphatase (45-117) U/L Total Protein (6.4-8.2) gm/dl Albumin (3.4-5.0) gm/dl Globulin (2.5-4.0) gm/dl Albumin/Globulin Ratio (0.9-2) Imaging Data Radiologist's Impression: Radiology results as stated below per my review and the radiologist's interpretation: CT soft tissue neck w con HISTORY: 83 years-old Male facial swelling eval for abscess acute pain and swelling of the lower lip COMPARISON: CT head 01/03/2017 TECHNIQUE: Multiple axial CT images of the soft tissues of the neck were obtained following the intravenous administration of 91 mL Optiray [address] A dose lowering technique was used consistent with the principals of MATIAS. FINDINGS: The nasopharynx, oral pharynx and hypopharynx appear patent. Nonspecific calcifications are noted about the epiglottis which is mildly thickened. The glottis and subglottic airway appear unremarkable. Mild degree of proximal tracheal secretions are noted. The parapharyngeal fat planes are symmetric and well-maintained. No peritonsillar abscess or prevertebral soft tissue swelling. There is extensive soft tissue swelling about the right greater than left lower lip with a multiloculated right-sided fluid collection demonstrating peripheral enhancement measuring 2.4 x 6.1 x 3.3 cm. Dilation about the aortic isthmus and proximal descending thoracic aorta measures up to 4.5 cm transversely with associated extensive mixed plaque formation. Mixed plaque formation noted about the bilateral carotid bulbs and proximal internal carotid arteries. 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 Trace left pleural effusion. No pneumothorax. Patchy groundglass opacities are noted about the right greater than left lung apices with areas of tree-in-bud nodularity noted about the anterior segment right upper lobe, arch and imaged. The thyroid. Mildly prominent level 1 lymph nodes, likely reactive. Prominent bilateral supraclavicular, subpectoral and upper mediastinal lymph nodes are seen measuring up to 9 mm. The submandibular and parotid glands appear unremarkable. Moderate subcutaneous edema tracks along the jaw about the platysma myofascial distributions. Degenerative changes are seen about the shoulders and spine. Mastoid air cells appear clear. 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 IMPRESSION: 1. Extensive soft tissue swelling about the right greater than left lower lip with multiloculated peripherally enhancing fluid collection about the right lip and jaw distribution measuring up to 6.1 cm suggestive of abscess. 2. Mildly prominent level 1 lymph nodes, likely reactive. Additional indeterminate prominent bilateral supraclavicular, subpectoral and upper mediastinal lymph nodes are present. 3. Trace left pleural effusion. 4. Partially imaged patchy upper lung zone groundglass densities are suggestive of a nonspecific pneumonitis with partially imaged bronchiolitis of the anterior segment right upper lobe. 5. 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 6. Additional findings as above. The above report was generated using voice recognition software. It may contain grammatical, syntax or spelling errors. Electronically signed by: Norbert Green M.D. 02/01/2019 5:03 PM Blood Pressure Blood Pressure Findings: Elevated blood pressure Blood Pressure Disposition: Referred to patients primary care provider BISHNU Narrative I did evaluate the patient as noted above. The patient is presenting with swelling to his lip after a traumatic injury. He also states that his tongue feels swollen. While his history seems consistent with a infectious etiology I was concerned about the potential for angioedema. I did initially treated him with Benadryl IV until I could get more history from his daughter. IV access was established. I did treat him with Rocephin and vancomycin IV. The patient was placed on a continuous surveillance system monitor. I did order and review the patient's blood work as noted in the electronic medical record. His white count is 17,000. He is anemic. I did order a CT of the soft tissue neck. I did review the images myself as well as the radiology report as described above. He does have a lip abscess. I did discuss the test results with the patient and his daughter. His daughter gave additional history. She states that he gets confused sometimes. He actually did not fall. He just bit his lip on Monday. She notes also that he rubbed his face with a clot that had fecal material on it on Monday. Because of his history I did additionally give the patient Flagyl 500 mg IV to cover anaerobes. The patient's daughter stated that he does have leukemia and is on hospice but she did want to have him admitted and treated for this. Rupali Carmona PA-C did perform I&D of the abscess. I did discuss case with the hospitalist and bilingual case manager. Impression & Plan Cellulitis of face, Abscess of lip Discharge Plan Visit Data *Final* Discharge Date/Time: 02/01/19 19:10 Chief Complaint: Facial Injury/Pain Stated Complaint: INFECTION ED Provider: Joaquin Bhatti Discharge Problem: Cellulitis of face, Abscess of lip Patient Disposition: Admitted As Inpatient Discharge Instructions Interventions: ED Discharge Assessment Last Done: 02/01/19 19:10 The donis's documentation has been prepared under my direction and personally reviewed by me in its entirety. I confirm that the note above accurately reflects all work, treatment, procedures, and medical decision making performed by me.
[2019-02-01] MEDS: METOPROLOL SUCC 25MG EXT REL TAB PO SCH (22:11)
[2019-02-01] MEDS: AMPICILLIN/SULBACTAM SOD 3,000 MG in 0.9 % SODIUM CHLORIDE 100 ML IV SCH (23:27)
[2019-02-02] MEDS: AMPICILLIN/SULBACTAM SOD 3,000 MG in 0.9 % SODIUM CHLORIDE 100 ML IV SCH ×4 (03:45→22:30)
[2019-02-02 05:33] LABS: Hematocrit (blood only) 25.8 % (42-52); Hemoglobin 7.9 g/dL (14.0-18.0); Mean Corpuscular Hgb Conc 30.6 g/dL (32-36); Mean Corpuscular Volume 80.9 fL (80-100); Mean Platelet Volume 9.6 fL (7.4-10.4); Platelet Count 167 K/uL (130-400); RDW Coefficient of Variation 18.9 % (11.5-14.5); RDW Standard Deviation 56.3 fL (36.4-46.3); Red Blood Count 3.19 M/uL (4.7-6.1); White Blood Count 15.76 K/uL (4.8-10.8)
[2019-02-02 05:43] LABS: INR 3.2 (0.9-1.1); Prothrombin Time 29.8 Seconds (9.0-12.0)
[2019-02-02 05:51] LABS: Calcium 7.5 mg/dl (8.5-10.1); Creatinine Clr Calc Pharmacy 74.8 ml/min; Est GFR (African American) 102.2; Est GFR (Non-African American) 88.2; Potassium 3.6 mmol/L (3.5-5.1)
[2019-02-02] MEDS ORDERED: BENZOCAINE 20% (ORAJEL) 11.9 GM TUBE MT PRN (09:50)
[2019-02-02] MEDS: SODIUM CHLORIDE 0.9% 1000ML 1,000 ML IV SCH ×2 (10:11→20:59)
[2019-02-02] MEDS: SERTRALINE HCL 50 MG TABLET PO SCH (10:12)
--- NOTE | 2019-02-02 12:28 | Hospitalist Progress Note ---
Date of Service February 02, 2019 Assessment & Plan (1) Abscess of lip: - Presented with lip cellulitis and abscess possibly related to stool contamination at home; had lower lip open lesion leading to infection. - CT showed extensive soft tissue swelling of lower lip with multi-loculated fluid collection measuring up to 6.1 cm. - S/p I&D in the ER; discussed with plastic surgery on phone--> had I&D in ER so will hold off on Plastics consult at this time. - Continue Unasyn IV for empiric coverage of skin and GI organisms; adding Vanc for coverage of MRSA. - Wound culture was not sent last evening, repeat culture ordered this AM; blood culture positive as noted below. - Advance to full liquid diet for dinner; IV fluids at 80 cc/hr. - Tylenol IV q8hr prn pain. - Suction kit at bedside for oral secretions/bleeding; Orajel prn pain. - Consult speech therapy for evaluation. (2) Positive blood culture: - BC on admission (1 of 2) positive for MRSA. - Will repeat BC this afternoon 24 hours after initial cultures were obtained. - Start Vancomycin IV for gram positive bacteremia. - Will discuss obtaining TTE to rule out vegetation with his daughter. (3) Anemia: - Likely acute on chronic anemia; baseline hgb ~9 in setting of CKD and CLL. - Hgb decreased to 7.9 in setting of bleeding and partially dilutional. - Will monitor CBC closely and transfuse if necessary. (4) Chronic kidney disease, stage 3a: - Renally dose meds. (5) CLL (chronic lymphocytic leukemia): - Pt. was transitioned to home hospice in Dec 2018. - Will likely transition back to home hospice at discharge. (6) Major depressive disorder: - Continue Zoloft 50 mg daily - cannot tolerate PO meds at this time. (7) Hypothyroidism: - Not currently receiving treatment. (8) Atrial fibrillation: - Will continue Coumadin -- INR was supratherapeutic at 3.2. - Will start Coumadin 2.5 mg PO daily as INR is trending down. (9) CAD (coronary artery disease): - Continue home Metoprolol as prescribed - cannot tolerate PO meds at this time. (10) DVT prophylaxis: - SCDs. Dispo: Med/surg for IV abx. Supervising Physician Co-Signing Physician Notes PA Supervision Note: I did not personally see or examine the patient today, but I verified all shaw points of ENRRIQUE Ferris's assessment and plan with the following exceptions/additions: WIll require at least 2 weeks of IV abx to adequately treat the MRSA bacteremia and lip abscess/cellulitis. Unclear if family and pt would want extensive treatment beyond that for valvular vegetation as he is on Hospice and that wouldn't necessarily make him more comfortable. Goal of care is abx for comfort for the lip at this point but will need to revisit wishes with pt and his daughter Subjective Pt. is doing well with exception of lip swelling/pain. He denies significant pain in the area. Edema has not improved overnight. He has drainage at opening on inner lip -- wound culture was not sent yesterday, unclear where specimen is located at. Repeat wound culture was collected from drainage this morning and sent to lab. Has bleeding within oral cavity -- will order suction at bedside. He has not been able to tolerate water and does not want diet ordered at this time. He states he is feeling fine "with the rest of my body". Review of Systems All systems reviewed & are unremarkable except as noted in HPI & below Constitutional: + fatigue, + weakness and + anorexia; no fever and no chills Ear, Nose, Mouth, Throat: + bleeding gums Respiratory: no cough and no dyspnea Cardiovascular: no chest pain, no palpitations and no edema Gastrointestinal: no abdominal pain, no nausea, no constipation and no diarrhea/loose stools Genitourinary (Male): no difficulty urinating Musculoskeletal: no joint pain Allergy / Immunological: no rash Physical Exam Vital Signs (Past 24 Hours): Last Vital Signs Temp 36.7 C 02/02/19 07:53 Pulse 82 02/02/19 07:53 Resp 18 02/02/19 07:53 BP 122/61 02/02/19 07:53 Pulse Ox 99 02/02/19 07:53 Physical Exam: General: Resting comfortably in no apparent distress; A&OX3 HEENT: NC/AT; significant lower lip edema with opening on lower inner lip with white drainage. No improvement in edema on exam compared to last evening. Neck: Supple and nontender Cardiac: irregular Lungs: CTA bilaterally Abdomen: Bowel normoactive X 4; Nontender to palpation Extremities: Warm. No edema present Neuro: No focal weakness Skin: No rash Results & Data Laboratory Results 02/02/19 02/02/19 02/02/19 Range/Units 11:50 05:16 05:16 WBC (4.8-10.8) K/uL RBC (4.7-6.1) M/uL Hgb (14.0-18.0) g/dL POC Hgb (14.0-18.0) g/dl Hct (42-52) % POC Hct (42-52) % MCV (80-100) fL MCH (25-34) pg MCHC (32-36) g/dL RDW Std Deviation (36.4-46.3) fL RDW Coeff of Jacoby (11.5-14.5) % Plt Count (130-400) K/uL MPV (7.4-10.4) fL Immature Gran % (Auto) % Neut % (Auto) % Lymph % (Auto) % [place] % (Auto) % Eos % (Auto) % Baso % (Auto) % Immature Gran # (Auto) (0.00-0.02) K/uL Neut # (Auto) (1.4-6.5) K/uL Lymph # (Auto) (1.2-3.4) K/uL [place] # (Auto) (0.11-0.59) K/uL Eos # (Auto) (0-0.5) K/uL Baso # (Auto) (0-0.2) K/uL Toxic Granulation Ovalocytes Schistocytes PT 29.8 H (9.0-12.0) Seconds INR 3.2 H (0.9-1.1) POC Sodium (135-144) mEq/L Sodium 140 (136-145) mmol/L POC Potassium (3.3-5.0) mEq/L Potassium 3.6 (3.5-5.1) mmol/L POC Chloride (101-112) mEq/L Chloride 111 H (98-107) mmol/L Carbon Dioxide 25 (21-32) mmol/L POC Total CO2 (24-31) mEq/l Anion Gap 4.0 (3-11) POC Anion Gap (16-25) mmol/L POC BUN (7-18) mg/dl BUN 18 (7-18) mg/dl Creatinine 0.66 (0.6-1.4) mg/dl POC Creatinine (0.6-1.3) mg/dl Est Cr Clr Drug Dosing 74.8 ml/min Est GFR ( Amer) 102.2 Est GFR (Non-Af Amer) 88.2 BUN/Creatinine Ratio 27.0 H (10-20) Glucose 87 (70-99) mg/dl POC Glucose (other) (70-99) mg/dl Calcium 7.5 L (8.5-10.1) mg/dl POC Ioniz Calcium [place] (1.12-1.32) mmol/l Total Bilirubin (0.2-1) mg/dl AST (15-37) U/L ALT (12-78) U/L Alkaline Phosphatase (45-117) U/L Total Protein (6.4-8.2) gm/dl Albumin (3.4-5.0) gm/dl Globulin (2.5-4.0) gm/dl Albumin/Globulin Ratio (0.9-2) Urine Color Pending Urine Appearance Pending Urine pH Pending Ur Specific [place] Pending Urine Protein Pending Urine Glucose (UA) Pending Urine Ketones Pending Urine Blood Pending Urine Nitrite Pending Urine Bilirubin Pending Urine Urobilinogen Pending Ur Leukocyte Esterase Pending Bld Cult Staph aureus PCR Blood Culture MRSA PCR 02/02/19 02/01/19 02/01/19 Range/Units 05:16 16:31 16:26 WBC 15.76 H (4.8-10.8) K/uL RBC 3.19 L (4.7-6.1) M/uL Hgb 7.9 L (14.0-18.0) g/dL POC Hgb 10.2 L (14.0-18.0) g/dl Hct 25.8 L (42-52) % POC Hct 30 L (42-52) % MCV 80.9 (80-100) fL MCH 24.8 L (25-34) pg MCHC 30.6 L (32-36) g/dL RDW Std Deviation 56.3 H (36.4-46.3) fL RDW Coeff of Ajcoby 18.9 H (11.5-14.5) % Plt Count 167 (130-400) K/uL MPV 9.6 (7.4-10.4) fL Immature Gran % (Auto) % Neut % (Auto) % Lymph % (Auto) % [place] % (Auto) % Eos % (Auto) % Baso % (Auto) % Immature Gran # (Auto) (0.00-0.02) K/uL Neut # (Auto) (1.4-6.5) K/uL Lymph # (Auto) (1.2-3.4) K/uL [place] # (Auto) (0.11-0.59) K/uL Eos # (Auto) (0-0.5) K/uL Baso # (Auto) (0-0.2) K/uL Toxic Granulation Ovalocytes Schistocytes PT 34.1 H (9.0-12.0) Seconds INR 3.6 H (0.9-1.1) POC Sodium 139 (135-144) mEq/L Sodium (136-145) mmol/L POC Potassium 4.0 (3.3-5.0) mEq/L Potassium (3.5-5.1) mmol/L POC Chloride 103 (101-112) mEq/L Chloride (98-107) mmol/L Carbon Dioxide (21-32) mmol/L POC Total CO2 24 (24-31) mEq/l Anion Gap (3-11) POC Anion Gap 17.0 (16-25) mmol/L POC BUN 16 (7-18) mg/dl BUN (7-18) mg/dl Creatinine (0.6-1.4) mg/dl POC Creatinine 0.8 (0.6-1.3) mg/dl Est Cr Clr Drug Dosing ml/min Est GFR ( Amer) Est GFR (Non-Af Amer) BUN/Creatinine Ratio (10-20) Glucose (70-99) mg/dl POC Glucose (other) 103 H (70-99) mg/dl Calcium (8.5-10.1) mg/dl POC Ioniz Calcium [place] 1.10 L (1.12-1.32) mmol/l Total Bilirubin (0.2-1) mg/dl AST (15-37) U/L ALT (12-78) U/L Alkaline Phosphatase (45-117) U/L Total Protein (6.4-8.2) gm/dl Albumin (3.4-5.0) gm/dl Globulin (2.5-4.0) gm/dl Albumin/Globulin Ratio (0.9-2) Urine Color Urine Appearance Urine pH Ur Specific [place] Urine Protein Urine Glucose (UA) Urine Ketones Urine Blood Urine Nitrite Urine Bilirubin Urine Urobilinogen Ur Leukocyte Esterase Bld Cult Staph aureus PCR Blood Culture MRSA PCR 02/01/19 02/01/19 02/01/19 Range/Units 16:26 16:26 16:23 WBC 17.73 H (4.8-10.8) K/uL RBC 3.78 L (4.7-6.1) M/uL Hgb 9.6 L (14.0-18.0) g/dL POC Hgb (14.0-18.0) g/dl Hct 30.8 L (42-52) % POC Hct (42-52) % MCV 81.5 (80-100) fL MCH 25.4 (25-34) pg MCHC 31.2 L (32-36) g/dL RDW Std Deviation 57.1 H (36.4-46.3) fL RDW Coeff of Jacoby 19.0 H (11.5-14.5) % Plt Count 194 (130-400) K/uL MPV 9.8 (7.4-10.4) fL Immature Gran % (Auto) 2.7 % Neut % (Auto) 36.3 % Lymph % (Auto) 55.4 % [place] % (Auto) 5.5 % Eos % (Auto) 0.0 % Baso % (Auto) 0.1 % Immature Gran # (Auto) 0.47 H (0.00-0.02) K/uL Neut # (Auto) 6.44 (1.4-6.5) K/uL Lymph # (Auto) 9.83 H (1.2-3.4) K/uL [place] # (Auto) 0.97 H (0.11-0.59) K/uL Eos # (Auto) 0.00 (0-0.5) K/uL Baso # (Auto) 0.02 (0-0.2) K/uL Toxic Granulation 1+ Ovalocytes 1+ Schistocytes 1+ PT (9.0-12.0) Seconds INR (0.9-1.1) POC Sodium (135-144) mEq/L Sodium 139 (136-145) mmol/L POC Potassium (3.3-5.0) mEq/L Potassium 4.1 (3.5-5.1) mmol/L POC Chloride (101-112) mEq/L Chloride 107 (98-107) mmol/L Carbon Dioxide 27 (21-32) mmol/L POC Total CO2 (24-31) mEq/l Anion Gap 5.0 (3-11) POC Anion Gap (16-25) mmol/L POC BUN (7-18) mg/dl BUN 17 (7-18) mg/dl Creatinine 0.80 (0.6-1.4) mg/dl POC Creatinine (0.6-1.3) mg/dl Est Cr Clr Drug Dosing 61.7 ml/min Est GFR ( Amer) 94.4 Est GFR (Non-Af Amer) 81.5 BUN/Creatinine Ratio 21.8 H (10-20) Glucose 102 H (70-99) mg/dl POC Glucose (other) (70-99) mg/dl Calcium 7.9 L (8.5-10.1) mg/dl POC Ioniz Calcium [place] (1.12-1.32) mmol/l Total Bilirubin 0.7 (0.2-1) mg/dl AST 14 L (15-37) U/L ALT 15 (12-78) U/L Alkaline Phosphatase 64 (45-117) U/L Total Protein 6.5 (6.4-8.2) gm/dl Albumin 2.8 L (3.4-5.0) gm/dl Globulin 3.7 (2.5-4.0) gm/dl Albumin/Globulin Ratio 0.8 L (0.9-2) Urine Color Urine Appearance Urine pH Ur Specific [place] Urine Protein Urine Glucose (UA) Urine Ketones Urine Blood Urine Nitrite Urine Bilirubin Urine Urobilinogen Ur Leukocyte Esterase Bld Cult Staph aureus PCR Pending Blood Culture MRSA PCR Pending (1) Major depressive disorder Active/Remission status: remission status unspecified Major depression recurrence: unspecified whether recurrent Qualified Code(s): F32.9 - Major depressive disorder, single episode, unspecified (2) CAD (coronary artery disease) Associated angina: without angina Coronary Disease-Associated Artery/Lesion type: [place] artery [place] vs. transplanted heart: [place] heart Qualified Code(s): I25.10 - Atherosclerotic heart disease of [place] coronary artery without angina pectoris (3) Anemia Anemia type: other cause Other causes of anemia: acute posthemorrhagic Qualified Code(s): D62 - Acute posthemorrhagic anemia (4) Atrial fibrillation Atrial fibrillation type: paroxysmal Qualified Code(s): I48.0 - Paroxysmal atrial fibrillation (5) Hypothyroidism Hypothyroidism type: acquired Qualified Code(s): E03.9 - Hypothyroidism, unspecified
[2019-02-02 12:32] LABS: Appearance Urine Clear (Clear); Bacteria Urine Automated Negative (Negative); Bilirubin Urine Negative (Negative); Blood Urine 3+ (Negative); Color Urine Dark Yellow; Epithelial Cell Urine Auto 20-30 /lpf (0-5); Glucose Urine UA Negative (Negative); Ketones Urine Trace (Negative); Leukocyte Esterase Urine Negative (Negative); Nitrite Urine Negative (Negative); Protein Urine 1+ (Negative); RBC Urine Automated >30 /hpf (0-4); Specific Gravity Urine 1.045 (1.000-1.030); Urobilinogen Urine Negative (Negative)
[2019-02-02] MEDS ORDERED: VANCOMYCIN CONSULT ACTIVE PRN (14:08)
[2019-02-02] MEDS ORDERED: VANCOMYCIN HCL 1,500 MG in SODIUM CHLORIDE 0.9% 500 ML IV ONE (14:30)
--- NOTE | 2019-02-02 14:47 | Pharmacy Report ---
Pharmacy Abx Dose Short Note - Date of Service February 02, 2019 - Assessment & Plan Assessment Pharmacy consulted by Ana Rosa Ferris to dose Vancomycin for lip abscess (due to stool contamination?). 83 year old M receiving Vanc and Unasyn for treatment of SSTI. Day # 2 of antimicrobial therapy. * Pt received vanc 1250mg x 1 in the ED last evening. Based on his renal function, I suspect this dose has been cleared. * Will re-load. * Renal function at baseline. * 1/2 blood cultures growing Gram positive cocci. * MRSA suspected. * Wound culture pending * Estimated T1/2= 10.3hrs ke~ 0.067 based on crcl of 75ml/min * This is possibly an over estimation of kidney function as pt's body weight is on the lower side. Plan Vancomycin * Loading dose: 1500mg (23mg/kg) * Maintenance dose: 1000mg (15mg/kg) iv q 14 hours. * Goal trough level for now : 15 to 20 mcg/mL * Trough level ordered for: 02/04/19 @1730, prior to fourth maintenance dose. Pt also on Unasyn 3gm iv q 6hours. Pharmacy will continue to follow and will adjust dose/frequency as necessary. Thank you.
[2019-02-02] MEDS: WARFARIN SOD 2.5 MG TAB PO SCH (17:08)
[2019-02-02 17:20] LABS: Hematocrit (blood only) 27.7 % (42-52); Hemoglobin 8.5 g/dL (14.0-18.0)
[2019-02-02] MEDS: METOPROLOL SUCC 25MG EXT REL TAB PO SCH (20:59)
[2019-02-02] MEDS: VANCOMYCIN HCL 1,000 MG in SODIUM CHLORIDE 0.9% 250 ML IV SCH (23:38)
[2019-02-03] MEDS: AMPICILLIN/SULBACTAM SOD 3,000 MG in 0.9 % SODIUM CHLORIDE 100 ML IV SCH ×4 (04:50→21:18)
[2019-02-03 05:58] LABS: Hematocrit (blood only) 27.4 % (42-52); Hemoglobin 8.6 g/dL (14.0-18.0); Mean Corpuscular Hgb Conc 31.4 g/dL (32-36); Mean Corpuscular Volume 80.4 fL (80-100); Mean Platelet Volume 9.4 fL (7.4-10.4); Platelet Count 195 K/uL (130-400); Red Blood Count 3.41 M/uL (4.7-6.1); White Blood Count 13.34 K/uL (4.8-10.8)
[2019-02-03 06:09] LABS: INR 2.9 (0.9-1.1); Prothrombin Time 27.4 Seconds (9.0-12.0)
[2019-02-03 06:19] LABS: BUN Creatinine Ratio 33.7 (10-20); Calcium 7.8 mg/dl (8.5-10.1); Creatinine Clr Calc Pharmacy 79.6 ml/min; Est GFR (African American) 104.8; Est GFR (Non-African American) 90.5; Potassium 3.8 mmol/L (3.5-5.1)
[2019-02-03] MEDS: SERTRALINE HCL 50 MG TABLET PO SCH (08:40)
[2019-02-03] MEDS: SODIUM CHLORIDE 0.45 % 1,000 ML IV SCH (09:30)
[2019-02-03] MEDS ORDERED: BUMETANIDE 1 MG TAB PO ONE (11:08)
--- NOTE | 2019-02-03 12:48 | Hospitalist Progress Note ---
Date of Service February 03, 2019 Assessment & Plan (1) Abscess of lip: - Presented with lip abscess possibly related to stool contamination at home; had lower lip open lesion leading to infection. - CT showed extensive soft tissue swelling of lower lip with multi-loculated fluid collection measuring up to 6.1 cm. - S/p I&D in the ER; discussed with plastic surgery on phone--> had I&D in ER so will hold off on Plastics consult. - Wound culture +Breanna and MRSA; BC (1 of 2) pos for MRSA, repeat BC negative. - Continue Unasyn (for anaerobic coverage) and Vancomycin (MRSA culture) - Start Fluconazole 100 mg daily for fungal coverage. - Full liquid diet; IV fluids at 80 cc/hr. - Tylenol IV q8hr prn pain. - Consult speech therapy for evaluation. (2) Positive blood culture: - BC on admission (1 of 2) positive for MRSA. - Repeat blood cultures are negative. - Vancomycin IV for gram positive bacteremia. - Will hold TTE to rule out vegetation -- discussed with patient and daughter. (3) Hematuria: - U/a was positive for blood at admission. - Discussed with patient and daughter -- will defer further work up. (4) Anemia: - Likely acute on chronic anemia; baseline hgb ~9 in setting of CKD and CLL. - Hgb decreased, likely dilutional. - Will monitor CBC closely and transfuse if necessary. (5) Chronic kidney disease, stage 3a: - Renally dose meds. (6) CLL (chronic lymphocytic leukemia): - Pt. was transitioned to home hospice in Dec 2018. - Pt. would like to discuss resuming chemotherapy with Dr. Chadwick -- consulted oncology. - Explained the benefit of discontinuing chemotherapy leading to improved an improved quality of life to the patient and his daughter this afternoon. (7) Major depressive disorder: - Continue Zoloft 50 mg daily. - Start Seroquel 12.5 mg qhs for insomnia; titrate as tolerated. (8) Hypothyroidism: - Not currently receiving treatment. (9) Atrial fibrillation: - Will continue Coumadin -- INR was 2.9. - Continue Coumadin 2.5 mg PO daily. Does take 5 mg qTues/Thurs at home. (10) CAD (coronary artery disease): - Continue home Metoprolol as prescribed. (11) DVT prophylaxis: - SCDs; Coumadin. Dispo: Med/surg for IV abx. Discharge pending wound culture results and plan for home abx. Supervising Physician Co-Signing Physician Notes Attending Attestation: Chart reviewed, care plan d/w ENRRIQUE Cid. I agree w/ the shaw components of her documentation. s/p I & D of lip abscess. MRSA and breanna on cultures. remains on Rx for such. also with bacteremia from the above. this is in setting of recent hospice status for CLL. uncertain how aggressive to be with care in light of recent hospice. this will need to be further addressed/defined with pt and his family. home with hospice at d/c? involve social work for assistance. Ari Suero MD Subjective Pt. is doing well overall. Swelling improving -- he has been tolerating ice chips but has had difficulty with a full liquid diet. Is taking pills. Has had hematuria for unknown period of time -- has visual blood clots in his urine at times. Will need to discuss goals of care as pt. was on hospice at home -- complete work up of hematuria is likely not indicated. Discussed goals of care with the patient and his daughter this afternoon. The patient requested to speak with Dr. Chadwick regarding further chemotherapy treatments. We discussed the indication for discontinuing chemo treatments. His daughter was also in agreeance with not re-introducing chemo. Will consult oncology to meet with the patient. Discussed obtaining a TTE -- both parties agreed that they would not like to proceed with the echo, may result in 4-6 weeks of IV abx. Also discussed hematuria -- will hold urologic work up due to other co-morbidities. Review of Systems All systems reviewed & are unremarkable except as noted in HPI & below Constitutional: + fatigue, + weakness and + anorexia; no fever and no chills Ear, Nose, Mouth, Throat: + problem reported (Lower lip swelling ) Respiratory: no cough and no dyspnea Cardiovascular: no chest pain, no palpitations and no edema Gastrointestinal: no abdominal pain, no nausea and no constipation Genitourinary (Male): no difficulty urinating Musculoskeletal: no joint pain Allergy / Immunological: no rash Physical Exam Vital Signs (Past 24 Hours): Last Vital Signs Temp 36.8 C 02/03/19 07:00 Pulse 83 02/03/19 07:00 Resp 18 02/03/19 07:00 BP 149/72 H 02/03/19 07:00 Pulse Ox 96 02/03/19 07:00 Physical Exam: General: Resting comfortably in no apparent distress; A&OX3 HEENT: NC/AT; lower lip edema decreasing, opening on lower inner lip with white drainage. Neck: Supple and nontender Cardiac: irregular Lungs: CTA bilaterally Abdomen: Bowel normoactive X 4; Nontender to palpation Extremities: Warm. No edema present Neuro: No focal weakness Skin: No rash Results & Data Laboratory Results 02/03/19 02/03/19 02/03/19 Range/Units 05:35 05:35 05:35 WBC 13.34 H (4.8-10.8) K/uL RBC 3.41 L (4.7-6.1) M/uL Hgb 8.6 L (14.0-18.0) g/dL Hct 27.4 L (42-52) % MCV 80.4 (80-100) fL MCH 25.2 (25-34) pg MCHC 31.4 L (32-36) g/dL RDW Std Deviation 56.0 H (36.4-46.3) fL RDW Coeff of Jacoby 19.0 H (11.5-14.5) % Plt Count 195 (130-400) K/uL MPV 9.4 (7.4-10.4) fL PT 27.4 H (9.0-12.0) Seconds INR 2.9 H (0.9-1.1) Sodium 141 (136-145) mmol/L Potassium 3.8 (3.5-5.1) mmol/L Chloride 112 H (98-107) mmol/L Carbon Dioxide 24 (21-32) mmol/L Anion Gap 5.0 (3-11) BUN 21 H (7-18) mg/dl Creatinine 0.62 (0.6-1.4) mg/dl Est Cr Clr Drug Dosing 79.6 ml/min Est GFR ( Amer) 104.8 Est GFR (Non-Af Amer) 90.5 BUN/Creatinine Ratio 33.7 H (10-20) Glucose 72 (70-99) mg/dl Calcium 7.8 L (8.5-10.1) mg/dl Bld Cult Staph aureus PCR (Negative) Blood Culture MRSA PCR (Negative) 02/02/19 02/01/19 Range/Units 16:43 16:23 WBC (4.8-10.8) K/uL RBC (4.7-6.1) M/uL Hgb 8.5 L (14.0-18.0) g/dL Hct 27.7 L (42-52) % MCV (80-100) fL MCH (25-34) pg MCHC (32-36) g/dL RDW Std Deviation (36.4-46.3) fL RDW Coeff of Jacoby (11.5-14.5) % Plt Count (130-400) K/uL MPV (7.4-10.4) fL PT (9.0-12.0) Seconds INR (0.9-1.1) Sodium (136-145) mmol/L Potassium (3.5-5.1) mmol/L Chloride (98-107) mmol/L Carbon Dioxide (21-32) mmol/L Anion Gap (3-11) BUN (7-18) mg/dl Creatinine (0.6-1.4) mg/dl Est Cr Clr Drug Dosing ml/min Est GFR ( Amer) Est GFR (Non-Af Amer) BUN/Creatinine Ratio (10-20) Glucose (70-99) mg/dl Calcium (8.5-10.1) mg/dl Bld Cult Staph aureus PCR Positive A (Negative) Blood Culture MRSA PCR Positive A (Negative) (1) Major depressive disorder Active/Remission status: remission status unspecified Major depression recurrence: unspecified whether recurrent Qualified Code(s): F32.9 - Major depressive disorder, single episode, unspecified (2) CAD (coronary artery disease) Associated angina: without angina Coronary Disease-Associated Artery/Lesion type: [place] artery [place] vs. transplanted heart: [place] heart Qualified Code(s): I25.10 - Atherosclerotic heart disease of [place] coronary artery without angina pectoris (3) Anemia Anemia type: other cause Other causes of anemia: acute posthemorrhagic Qualified Code(s): D62 - Acute posthemorrhagic anemia (4) Atrial fibrillation Atrial fibrillation type: paroxysmal Qualified Code(s): I48.0 - Paroxysmal atrial fibrillation (5) Hypothyroidism Hypothyroidism type: acquired Qualified Code(s): E03.9 - Hypothyroidism, unspecified
[2019-02-03] MEDS: FLUCONAZOLE 100 MG TAB PO SCH (12:51)
[2019-02-03] MEDS: VANCOMYCIN HCL 1,000 MG in SODIUM CHLORIDE 0.9% 250 ML IV SCH (12:51)
[2019-02-03] MEDS: SACCHAROMYCES BOULARDII 250 MG CAP PO SCH (15:08)
[2019-02-03] MEDS: WARFARIN SOD 2.5 MG TAB PO SCH (15:08)
[2019-02-03] MEDS: SODIUM CHLORIDE 0.9% 1000ML 1,000 ML IV SCH (15:44)
[2019-02-03] MEDS ORDERED: QUETIAPINE FUMARATE 25 MG TABLET PO SCH (21:00)
[2019-02-03] MEDS: QUETIAPINE FUMARATE 25 MG TABLET PO SCH (21:09)
[2019-02-03] MEDS: METOPROLOL SUCC 25MG EXT REL TAB PO SCH (21:11)
[2019-02-04] MEDS: SODIUM CHLORIDE 0.45 % 1,000 ML IV SCH ×2 (02:09→14:28)
[2019-02-04] MEDS: AMPICILLIN/SULBACTAM SOD 3,000 MG in 0.9 % SODIUM CHLORIDE 100 ML IV SCH ×4 (03:51→21:44)
[2019-02-04] MEDS: VANCOMYCIN HCL 1,000 MG in SODIUM CHLORIDE 0.9% 250 ML IV SCH ×2 (04:28→18:04)
[2019-02-04 06:29] LABS: Prothrombin Time 36.1 Seconds (9.0-12.0)
[2019-02-04 06:31] LABS: INR 3.9 (0.9-1.1)
[2019-02-04 06:39] LABS: BUN Creatinine Ratio 18.2 (10-20); Calcium 7.8 mg/dl (8.5-10.1); Creatinine Clr Calc Pharmacy 68.5 ml/min; Est GFR (African American) 99.2; Est GFR (Non-African American) 85.6; Potassium 3.2 mmol/L (3.5-5.1)
[2019-02-04] MEDS: SACCHAROMYCES BOULARDII 250 MG CAP PO SCH (08:00)
[2019-02-04] MEDS: FLUCONAZOLE 100 MG TAB PO SCH (08:00)
[2019-02-04] MEDS: SERTRALINE HCL 50 MG TABLET PO SCH (08:00)
--- NOTE | 2019-02-04 15:55 | Hospitalist Progress Note ---
Date of Service February 04, 2019 Assessment & Plan (1) Abscess of lip: - Presented with lip abscess possibly related to stool contamination at home; had lower lip open lesion leading to infection. - CT showed extensive soft tissue swelling of lower lip with multi-loculated fluid collection measuring up to 6.1 cm; S/P I&D in ER - Wound Cx with Cher and MRSA; Initial BCx (11/07) with MRSA (contaminant?) with repeats NGTD - Will continue Unasyn and Vancomycin due to Cx findings and reported stool smearing on the face - Fluconazole 100 mg daily - Continue full liquid diet for now; will hold further fluids as he is able to take them in and can monitor for need to resume - Tylenol IV PRN (2) Positive blood culture: - BC on admission (1 of 2) positive for MRSA with repeats NGTD - It is possible this could be a contaminant given only 1 of 2 with evidence - however will continue Abx as above - TTE discussed on previous day but deferred by patient/family - he remains afebrile and clinically improving so no emergent need at this time (3) Hematuria: - U/A was positive for blood at admission; this was discussed with patient and family previously as well and deferred further workup - Has a tendency to be supratherapeutic on INR so likely contributing (4) Anemia: - Likely acute on chronic anemia; baseline hgb ~9 in setting of CKD and CLL. - Hgb decreased but staying stable and will monitor (5) Chronic kidney disease, stage 3a: - STABLE; renally dose medications (6) CLL (chronic lymphocytic leukemia): - Pt. was transitioned to home hospice in Dec 2018. - Pt. would like to discuss resuming chemotherapy with Dr. Chadwick -- consulted oncology. - Patient seems to go back and forth about whether he would want more chemotherapy vs hospice - family agrees they will support whatever decision he chooses to make (7) Major depressive disorder: - Continue Zoloft 50 mg daily. - Continue Seroquel 12.5 mg HS for insomnia - if tolerates could consider increase of dosage if needed Present on Admission?: Yes (8) Hypothyroidism: - Not currently receiving treatment. Present on Admission?: Yes (9) Atrial fibrillation: - INR is 3.9 and will hold Coumadin and trend INR - Normal regimen is 2.5 mg most days then 5 mg on / Present on Admission?: Yes (10) CAD (coronary artery disease): - STABLE without acute symptoms; Continue Toprol XL 25 mg daily (11) DVT prophylaxis: - SCDs; Coumadin. Dispo: Continue IV Abx and will monitor for ability to advance diet; possible D/C next 2-3 days Subjective Reports feeling well today. Marked improvement with swelling and tolerating intake a bit better but still having some drooling/loss of food from his mouth due to swelling. Is having increased diarrhea while on antibiotics. Feels well overall. He would like to talk to Dr. Navarro about possible ongoing CA treatment. However seems to go back and forth as he then states he is feeling better but knows he needs to get stronger before doing any more chemotherapy. I think at this point he just wants information to make a true decision. Constitutional: + fatigue, + weakness and + anorexia; no fever and no chills Ear, Nose, Mouth, Throat: + problem reported (Lower lip swelling with difficulty keeping food in mouth to chew adequately and swallow) Respiratory: no cough and no dyspnea Cardiovascular: no chest pain, no palpitations and no edema Gastrointestinal: + diarrhea/loose stools; no abdominal pain, no nausea, no vomiting and no constipation Genitourinary (Male): no dysuria Musculoskeletal: no joint pain Integumentary: no rash Physical Exam Vital Signs (Past 24 Hours): Last Vital Signs Temp 36.7 C 02/04/19 15:12 Pulse 77 02/04/19 15:12 Resp 18 02/04/19 15:12 BP 149/73 H 02/04/19 15:12 Pulse Ox 99 02/04/19 15:12 Constitutional: well developed and well nourished; no acute distress and not ill appearing Eyes: + anicteric sclerae ENMT: Mouth: no tongue abnormality Throat: no posterior oropharynx abnormality edematous low lip with R > L with scabbing on external R side of lower lip without drainage; no drainage appreciated on internal aspect of lip Neck: normal visual inspection and trachea midline Respiratory: normal respiratory effort, lungs clear to auscultation Cardiovascular: Rate/Rhythm: regular rate and regular rhythm Gastrointestinal (Abdomen): Inspection/Auscultation: normal bowel sounds (slightly hyperactive) Percussion/Palpation: abdomen soft; abdomen nontender Musculoskeletal: Head/Neck/Chest: normocephalic and head atraumatic Extremities: no cyanosis and no clubbing Skin: no rashes, warm and dry (other than described in ENMT) Neurologic: moves all extremities Psychiatric: A+Ox3, euthymic affect (1) Anemia Anemia type: other cause Other causes of anemia: acute posthemorrhagic Qualified Code(s): D62 - Acute posthemorrhagic anemia (2) Major depressive disorder Major depression recurrence: unspecified whether recurrent Active/Remission status: remission status unspecified Qualified Code(s): F32.9 - Major depressive disorder, single episode, unspecified (3) Hypothyroidism Hypothyroidism type: acquired Qualified Code(s): E03.9 - Hypothyroidism, unspecified (4) Atrial fibrillation Atrial fibrillation type: paroxysmal Qualified Code(s): I48.0 - Paroxysmal atrial fibrillation (5) CAD (coronary artery disease) Coronary Disease-Associated Artery/Lesion type: [place] artery [place] vs. transplanted heart: [place] heart Associated angina: without angina Qualified Code(s): I25.10 - Atherosclerotic heart disease of [place] coronary artery without angina pectoris
--- NOTE | 2019-02-04 16:44 | Oncology Consultation ---
Date of Consultation February 04, 2019 Assessment & Plan (1) CLL (chronic lymphocytic leukemia): Mr. Lakhani has CLL that was treated with a single cycle of bendamustine and Rituxan in late October. He tolerated treatment poorly and has had a number of infectious complications since that time. His ALC was less than 10K on admission. His platelets are normal. He is anemic, but this is likely multifactorial. Furthermore, he is much to weak to tolerate chemotherapy at this time. Overall, I think the best course would be expectant observation and treatment if his disease begins to relapse more aggressively and if he is in shape to receive it at that time. I will review his case with Dr. Chadwick, who is his treating oncologist. Present on Admission?: Yes History of Present Illness Reason for Consultation: CLL Attending Physician: William Nuñez, DO History of Present Illness Mr. Lakhani is an 83 year old man with a history of CAD, ID, CKD, mild dementia, and hypothyroidism. He followed with Dr. Chadwick from our practice for a history of CLL. He was diagnosed in 2013 and was observed expectantly until late last year, when he had progressive B symptoms, cytopenias, and an absolute lymphocyte count of >300K. He received one cycle of Bendamustine and Rituxan on 10/31 and . He had a dramatic response to treatment, with his ALC falling by an order of magnitude in less than a month. However, he struggled after that treatment and has not received more therapy. He had a lengthy hospital stay in November and December with multiple infections and rapid AFib with CHF symptoms. He was discharged in early December, but he has been very fatigued and weak ever since. He has trouble standing on his own and needs assistance with his ADLs. He was confused recently and wiped his face with a wipe that may have had fecal contamination. He presented to the ER over the weekend with swelling of his lower lip that proved to be a cellulitis/abscess. He is on Unasyn and Vanco and his lip, while swollen, is less tender and red. He denies any enlarging lymph nodes, fevers, sweats, or bleeding. Allergies Allergy/AdvReac Type Severity Reaction Status Date / Time [id number]-[id number] Reductase AdvReac Severe muscle Verified 02/01/19 16:30 Inhibitor aches/weak Home Medications Home Medications Medication Instructions Recorded Confirmed Type acetaminophen [Tylenol] 325 - 650 mg PO Q6H PRN 11/27/18 02/01/19 History metoprolol succinate [Toprol XL] 25 mg PO HS 11/27/18 02/01/19 History sertraline [Zoloft] 50 mg PO QAM 11/27/18 02/01/19 History amoxicillin-pot clavulanate 1 tab PO Q12H 02/01/19 02/01/19 History [Augmentin] diphenhydramine HCl [Benadryl] 25 mg PO DIRECTED PRN 02/01/19 02/01/19 History ibuprofen 400 mg PO DIRECTED PRN 02/01/19 02/01/19 History melatonin 3 mg PO HS 02/01/19 02/01/19 History warfarin [Coumadin] 2.5 mg PO 5XWK 02/01/19 02/01/19 History warfarin [Coumadin] 5 mg PO 2XWK 02/01/19 02/01/19 History Patient History Medical History Major depressive disorder Hypothyroidism Protein malnutrition Atrial fibrillation (Chronic) History of ID (myocardial infarction) CAD (coronary artery disease) Anemia (Acute) CKD (chronic kidney disease) stage 3, GFR 30-59 ml/min CLL (chronic lymphocytic leukemia) Vasectomy status Afib coumadin therapy Cellulitis of right leg Septic joint of right knee joint Syncope Family History Other Coronary heart disease Social History Preferred Language: Spanish Communication Ability: Effective Binder Selector Required: No Beliefs That Will Affect Care: None marital status: / Current Living Situation: Family Current Living Situation Comment: dtr Other Information That Helps Us Care for You: No Feels Safe at Home: Yes Safety Concerns: Feels Safe At This Time Smoking Status: Former smoker Hx Alcohol Use: No Hx Substance Use: No Review of Systems Constitutional: + fatigue; no fever, no sweats and no weight loss Eyes: no worsening vision Ear, Nose, Mouth, Throat: as per Subjective / HPI Respiratory: no cough and no dyspnea Cardiovascular: no chest pain and no palpitations Gastrointestinal: no abdominal pain and no nausea Musculoskeletal: as per Subjective / HPI Integumentary: no rash and no bleeding lesions Neurologic: + confusion; no headache(s) Hematologic / Lymphatic: no lymphadenopathy and no night sweats Physical Exam Vital Signs (Past 24 Hours): Last Vital Signs Temp 36.7 C 02/04/19 15:12 Pulse 77 02/04/19 15:12 Resp 18 02/04/19 15:12 BP 149/73 H 02/04/19 15:12 Pulse Ox 99 02/04/19 15:12 Constitutional: + frail appearing; no acute distress Eyes: + anicteric sclerae and EOM intact bilaterally ENMT: Mouth: + lip abnormality (His lower lip is swollen but not erythematous or warm) Respiratory: normal respiratory effort, lungs clear to auscultation Cardiovascular: RRR, no murmur, no edema Gastrointestinal (Abdomen): normal bowel sounds, soft, nontender, no hepatosplenomegaly Lymphatic: no cervical or axillary lymphadenopathy Results & Data Laboratory Results [facility] 02/04/19 05:55 Sodium 142 Potassium 3.2 L D Chloride 108 H Carbon Dioxide 26 BUN 13 Creatinine 0.71 Glucose 77 Calcium 7.8 L
[2019-02-04] MEDS ORDERED: VANCOMYCIN TROUGH ONE (17:30)
--- NOTE | 2019-02-04 19:07 | Pharmacy Report ---
Pharmacy Abx Dose Short Note - Date of Service February 04, 2019 - Assessment & Plan Assessment 83 year old M receiving vancomycin and ampicillin/sulbactam for treatment of lip abscess and 1 of 2 blood cultures positive for MRSA. Day #4 of antimicrobial therapy. Plan Vancomycin * Trough level of 14.7 mcg/mL is slightly subtherapeutic. Will target between 15-20 due to MRSA in bloodstream and due to the presence of MRSA with an GIULIANO of 2 in the facial wound culture * Will change dosing frequency from q14h to q12h to achieve goal trough of 15- 20. * Follow-up trough level ordered for 02/06/19 at 0530 before the 4th dose at this new frequency * Patient remains afebrile and a downtrend is noted in the WBC (17.7 -> 13.3) * Renal function has been relatively stable (SCr today is 0.71) * BMP/CBC scheduled for tomorrow morning Ampicillin/sulbactam 3 gm IV q6h continues to be appropriate due to possible fecal contamination of facial wound. Pharmacy will continue to follow and will adjust dose/frequency as necessary. Thank you.
[2019-02-04] MEDS: QUETIAPINE FUMARATE 25 MG TABLET PO SCH (20:27)
[2019-02-04] MEDS: METOPROLOL SUCC 25MG EXT REL TAB PO SCH (20:29)
[2019-02-05] MEDS: AMPICILLIN/SULBACTAM SOD 3,000 MG in 0.9 % SODIUM CHLORIDE 100 ML IV SCH ×4 (04:14→22:39)
[2019-02-05] MEDS: VANCOMYCIN HCL 1,000 MG in SODIUM CHLORIDE 0.9% 250 ML IV SCH ×2 (05:34→18:43)
[2019-02-05 05:52] LABS: Hematocrit (blood only) 28.5 % (42-52); Mean Corpuscular Hgb Conc 31.6 g/dL (32-36); Mean Corpuscular Volume 80.5 fL (80-100); Mean Platelet Volume 9.1 fL (7.4-10.4); Platelet Count 197 K/uL (130-400); RDW Coefficient of Variation 18.6 % (11.5-14.5); RDW Standard Deviation 55.3 fL (36.4-46.3); Red Blood Count 3.54 M/uL (4.7-6.1); White Blood Count 14.61 K/uL (4.8-10.8)
[2019-02-05 06:23] LABS: BUN Creatinine Ratio 11.8 (10-20); Calcium 8.2 mg/dl (8.5-10.1); Creatinine Clr Calc Pharmacy 68.5 ml/min; Est GFR (African American) 99.2; Est GFR (Non-African American) 85.6; Potassium 3.1 mmol/L (3.5-5.1)
[2019-02-05 07:51] LABS: INR 3.8 (0.9-1.1)
[2019-02-05] MEDS: FLUCONAZOLE 100 MG TAB PO SCH (07:52)
[2019-02-05] MEDS: SERTRALINE HCL 50 MG TABLET PO SCH (07:52)
[2019-02-05] MEDS: SACCHAROMYCES BOULARDII 250 MG CAP PO SCH (07:53)
--- NOTE | 2019-02-05 17:56 | Hospitalist Progress Note ---
Date of Service February 05, 2019 Assessment & Plan (1) Abscess of lip: - Presented with lip abscess possibly related to stool contamination at home; had lower lip open lesion/also bit internal lip eading to infection. - CT showed extensive soft tissue swelling of lower lip with multi-loculated f luid collection measuring up to 6.1 cm; S/P I&D in ER - Wound Cx with Cher and MRSA; Initial BCx (/) with MRSA (contaminant?) with repeats NGTD - Will continue Unasyn and Vancomycin due to Cx findings and reported stool smearing on the face - possibly conversion to Bactrim tomorrow? - Fluconazole 100 mg daily - Advance to regular diet with dental soft/easy to chew texture due to no dentures - Tylenol IV PRN (2) Positive blood culture: - BC on admission (1 of 2) positive for MRSA with repeats NGTD - It is possible this could be a contaminant given only 1 of 2 with evidence - however will continue Abx as above - TTE discussed on previous day but deferred by patient/family - he remains afebrile and clinically improving so no emergent need at this time (3) Hematuria: - U/A was positive for blood at admission; this was discussed with patient and family previously as well and deferred further workup - Has a tendency to be supratherapeutic on INR so likely contributing (4) Anemia: - Likely acute on chronic anemia; baseline hgb ~9 in setting of CKD and CLL. - Hgb decreased but staying stable and will monitor (5) Chronic kidney disease, stage 3a: - STABLE; renally dose medications (6) CLL (chronic lymphocytic leukemia): - Pt. was transitioned to home hospice in Dec 2018. - Pt. would like to discuss resuming chemotherapy with Dr. Chadwick -- consulted oncology. - Patient seems to go back and forth about whether he would want more chemotherapy vs hospice - family agrees they will support whatever decision he chooses to make - as of now he knows he needs to get this infection treated and get stronger so leaning towards continued hospice at this time - will confirm this tomorrow (7) Major depressive disorder: - Continue Zoloft 50 mg daily. - Continue Seroquel 12.5 mg HS for insomnia - if tolerates could consider increase of dosage if needed (8) Hypothyroidism: - Not currently receiving treatment. (9) Atrial fibrillation: - INR is 3.8 and will hold Coumadin and trend INR - Normal regimen is 2.5 mg most days then 5 mg on / (10) CAD (coronary artery disease): - STABLE without acute symptoms; Continue Toprol XL 25 mg daily (11) DVT prophylaxis: - SCDs; Coumadin. Dispo: Improving. Will monitor diet tolerance and possible D/C next 1-2 days Subjective Reports doing well today and able to use a straw now that swelling is further improving. Would like to try more solid food however does not have dentures so needs softer foods. He is pretty steady on his feet with walking to the bathroom today and verbalizes no other complaints. Constitutional: no fever and no chills Ear, Nose, Mouth, Throat: + problem reported (Lower lip swelling and internal lip irritation - improving) Respiratory: no cough and no dyspnea Cardiovascular: no chest pain and no edema Gastrointestinal: + diarrhea/loose stools; no abdominal pain, no nausea, no vomiting and no constipation Genitourinary (Male): no dysuria Physical Exam Vital Signs (Past 24 Hours): Last Vital Signs Temp 36.4 C L 02/05/19 14:29 Pulse 68 02/05/19 14:29 Resp 20 02/05/19 14:29 BP 135/70 02/05/19 14:29 Pulse Ox 99 02/05/19 14:29 Constitutional: well developed and well nourished; no acute distress and not ill appearing Eyes: + anicteric sclerae ENMT: Mouth: no tongue abnormality Throat: no posterior oropharynx abnormality small intact ulcerations of the lower lip - largest around pencil eraser side on R lower lip (internal) Neck: normal visual inspection and trachea midline Respiratory: normal respiratory effort, lungs clear to auscultation Cardiovascular: Rate/Rhythm: regular rate and regular rhythm Gastrointestinal (Abdomen): Inspection/Auscultation: normal bowel sounds (slightly hyperactive) Percussion/Palpation: abdomen soft; abdomen nontender Musculoskeletal: Head/Neck/Chest: normocephalic and head atraumatic Extremities: no cyanosis and no clubbing Skin: no rashes, warm and dry (other than described in ENMT) Neurologic: moves all extremities Psychiatric: A+Ox3, euthymic affect (1) Anemia Anemia type: other cause Other causes of anemia: acute posthemorrhagic Qualified Code(s): D62 - Acute posthemorrhagic anemia (2) Major depressive disorder Major depression recurrence: unspecified whether recurrent Active/Remission status: remission status unspecified Qualified Code(s): F32.9 - Major depressive disorder, single episode, unspecified (3) Hypothyroidism Hypothyroidism type: acquired Qualified Code(s): E03.9 - Hypothyroidism, unspecified (4) Atrial fibrillation Atrial fibrillation type: paroxysmal Qualified Code(s): I48.0 - Paroxysmal atrial fibrillation (5) CAD (coronary artery disease) Coronary Disease-Associated Artery/Lesion type: [place] artery [place] vs. transplanted heart: [place] heart Associated angina: without angina Qualified Code(s): I25.10 - Atherosclerotic heart disease of [place] coronary artery without angina pectoris
[2019-02-05] MEDS: METOPROLOL SUCC 25MG EXT REL TAB PO SCH (21:00)
[2019-02-05] MEDS: QUETIAPINE FUMARATE 25 MG TABLET PO SCH (21:03)
[2019-02-06] MEDS: AMPICILLIN/SULBACTAM SOD 3,000 MG in 0.9 % SODIUM CHLORIDE 100 ML IV SCH ×2 (04:08→10:21)
[2019-02-06] MEDS ORDERED: VANCOMYCIN TROUGH ONE (05:30)
[2019-02-06] MEDS: VANCOMYCIN HCL 1,000 MG in SODIUM CHLORIDE 0.9% 250 ML IV SCH (05:44)
[2019-02-06 06:21] LABS: INR 3.1 (0.9-1.1); Prothrombin Time 29.5 Seconds (9.0-12.0)
[2019-02-06] MEDS: SERTRALINE HCL 50 MG TABLET PO SCH (07:57)
[2019-02-06] MEDS: FLUCONAZOLE 100 MG TAB PO SCH (07:57)
[2019-02-06] MEDS: SACCHAROMYCES BOULARDII 250 MG CAP PO SCH (07:57)
[2019-02-06 09:23] LABS: Creatinine Clr Calc Pharmacy 70.1 ml/min; Est GFR (African American) 99.2; Est GFR (Non-African American) 85.6
--- NOTE | 2019-02-06 10:01 | Pharmacy Report ---
Pharmacy Abx Dose Short Note - Date of Service February 06, 2019 - Assessment & Plan Assessment 83 year old M receiving vancomycin for treatment of MRSA in lip wound and 1 of 2 blood cultures positive for MRSA Day # 6 of antimicrobial therapy. Patient also on Unasyn and Diflucan for lip wound (with fecal contamination) Plan Vancomycin * Trough level of 19.4 mcg/mL is therapeutic * Continue dose of 1000 mg IV every 12 hours * Goal trough level for MRSA wound (with GIULIANO = 2) and possible bacteremia : ~20 mcg/mL * Trough level ordered for: 02/08/19 prior to the AM dose Pharmacy will continue to follow and will adjust dose/frequency as necessary. Thank you.
--- NOTE | 2019-02-06 17:03 | Hospitalist Progress Note ---
Date of Service February 06, 2019 Assessment & Plan (1) Abscess of lip: - Presented with lip abscess possibly related to stool contamination at home; had lower lip open lesion/also bit internal lip leading to infection. - CT showed extensive soft tissue swelling of lower lip with multi-loculated fluid collection measuring up to 6.1 cm; S/P I&D in ER - Wound Cx with Cher and MRSA; Initial BCx (11/07) with MRSA (contaminant?) with repeats NGTD - Converted Unasyn/Vanc to Bactrim BID to complete a 14 day course (02/15) - Fluconazole 100 mg daily - Advance to regular diet with dental soft/easy to chew texture due to no dentures (2) Positive blood culture: - BC on admission (1 of 2) positive for MRSA with repeats NGTD - It is possible this could be a contaminant given only 1 of 2 with evidence - however will continue Abx as above - TTE discussed on previous day but deferred by patient/family - he remains afebrile and clinically improving so no emergent need at this time (3) Hematuria: - U/A was positive for blood at admission; this was discussed with patient and family previously as well and deferred further workup - Has a tendency to be supratherapeutic on INR so likely contributing (4) Anemia: - Likely acute on chronic anemia; baseline hgb ~9 in setting of CKD and CLL. - Hgb decreased but staying stable and will monitor (5) Chronic kidney disease, stage 3a: - STABLE; renally dose medications (6) CLL (chronic lymphocytic leukemia): - Pt. was transitioned to home hospice in Dec 2018 - Patient seems to go back and forth about whether he would want more chemotherapy vs hospice - family agrees they will support whatever decision he chooses to make - as of now he knows he needs to get this infection treated and get stronger so leaning towards continued hospice at this time; referral placed (7) Major depressive disorder: - Continue Zoloft 50 mg daily. - Continue Seroquel 12.5 mg HS for insomnia - if tolerates could consider increase of dosage if needed (8) Hypothyroidism: - Not currently receiving treatment. (9) Atrial fibrillation: - INR is 3.1 and will hold Coumadin and trend INR - could likely stay elevated given Bactrim and Diflucan use - if would need to dose will cut his Coumadin in half given interaction with other drugs - Normal regimen is 2.5 mg most days then 5 mg on / (10) CAD (coronary artery disease): - STABLE without acute symptoms; Continue Toprol XL 25 mg daily (11) DVT prophylaxis: - SCDs; Coumadin. Dispo: Planning on returning home with hospice for now; likely can D/C home tomorrow Subjective Reports feeling well today. Tried more solid/dental soft foods and tolerating this well. Swelling continues to improve daily with less pain as well. Constitutional: no fever and no chills Ear, Nose, Mouth, Throat: + problem reported (Lower lip swelling and internal lip irritation - improving) Respiratory: no cough and no dyspnea Cardiovascular: no chest pain, no palpitations and no edema Gastrointestinal: + diarrhea/loose stools; no abdominal pain, no nausea, no vomiting and no constipation Genitourinary (Male): no dysuria Physical Exam Vital Signs (Past 24 Hours): Last Vital Signs Temp 36.9 C 02/06/19 15:00 Pulse 73 02/06/19 15:00 Resp 17 02/06/19 15:00 BP 132/70 02/06/19 15:00 Pulse Ox 94 02/06/19 15:00 Constitutional: well developed and well nourished; no acute distress and not ill appearing Eyes: + anicteric sclerae ENMT: Mouth: no tongue abnormality Throat: no posterior oropharynx abnormality smaller closed blisters of the inner lip and continued reduction in lower lip swelling Neck: normal visual inspection and trachea midline Respiratory: normal respiratory effort, lungs clear to auscultation Cardiovascular: Rate/Rhythm: regular rate and regular rhythm Gastrointestinal (Abdomen): Inspection/Auscultation: normal bowel sounds (slightly hyperactive) Percussion/Palpation: abdomen soft; abdomen nontender Musculoskeletal: Head/Neck/Chest: normocephalic and head atraumatic Extremities: no cyanosis and no clubbing Skin: no rashes, warm and dry (other than described in ENMT) Neurologic: moves all extremities Psychiatric: A+Ox3, euthymic affect (1) Major depressive disorder Active/Remission status: remission status unspecified Major depression recurrence: unspecified whether recurrent Qualified Code(s): F32.9 - Major depressive disorder, single episode, unspecified (2) CAD (coronary artery disease) Associated angina: without angina Coronary Disease-Associated Artery/Lesion type: [place] artery [place] vs. transplanted heart: [place] heart Qualified Code(s): I25.10 - Atherosclerotic heart disease of [place] coronary artery without angina pectoris (3) Anemia Anemia type: other cause Other causes of anemia: acute posthemorrhagic Qualified Code(s): D62 - Acute posthemorrhagic anemia (4) Atrial fibrillation Atrial fibrillation type: paroxysmal Qualified Code(s): I48.0 - Paroxysmal atrial fibrillation (5) Hypothyroidism Hypothyroidism type: acquired Qualified Code(s): E03.9 - Hypothyroidism, unspecified
[2019-02-06] MEDS: SULFAMETHOXAZOLE/TRIMETHOPRIM DS 800/160MG TAB PO SCH (17:35)
[2019-02-06] MEDS: QUETIAPINE FUMARATE 25 MG TABLET PO SCH (21:49)
[2019-02-06] MEDS: METOPROLOL SUCC 25MG EXT REL TAB PO SCH (21:50)
--- NOTE | 2019-02-07 01:04 | Progress Note ---
Date of Service February 07, 2019 RN called regarding 1 blood culture growing yeast Chart reviewed and case discussed with Dr. Chicas Pt has hx of CLL and lip abscess Lip wound Cx grew breanna and MRSA Initial BCx (11/07) with MRSA and now repeat BCx (11/07) growing yeast which is very unlikely to be a contaminant Discussed case with pharmacy and pt given loading dose of caspofungin 70mg x 1 for candidemia If day team decides to continue medication, continuing dose will be 50mg once daily Physical Exam Vital Signs (Past 24 Hours): Last Vital Signs Temp 36.9 C 02/06/19 23:53 Pulse 83 02/06/19 23:53 Resp 20 02/06/19 23:53 BP 153/78 H 02/06/19 23:53 Pulse Ox 97 02/06/19 23:53 Resident Activity Tracking Resident Involvement: Resident Care Provided Care Provided: Adult Hospital Medicine
[2019-02-07] MEDS ORDERED: CASPOFUNGIN 70 MG in SODIUM CHLORIDE 0.9% 250 ML IV SCH (01:30)
[2019-02-07 06:45] LABS: Hematocrit (blood only) 27.6 % (42-52); Hemoglobin 8.7 g/dL (14.0-18.0); Mean Corpuscular Hgb Conc 31.5 g/dL (32-36); Mean Corpuscular Volume 80.7 fL (80-100); Mean Platelet Volume 9.4 fL (7.4-10.4); Platelet Count 165 K/uL (130-400); RDW Coefficient of Variation 18.8 % (11.5-14.5); RDW Standard Deviation 55.5 fL (36.4-46.3); Red Blood Count 3.42 M/uL (4.7-6.1); White Blood Count 15.42 K/uL (4.8-10.8)
[2019-02-07 06:56] LABS: INR 2.5 (0.9-1.1); Prothrombin Time 23.8 Seconds (9.0-12.0)
[2019-02-07 07:01] LABS: BUN Creatinine Ratio 15.4 (10-20); Calcium 7.8 mg/dl (8.5-10.1); Creatinine Clr Calc Pharmacy 63.1 ml/min; Est GFR (African American) 93.9; Potassium 3.2 mmol/L (3.5-5.1)
--- NOTE | 2019-02-07 09:54 | Infectious Disease Consult ---
Date of Consultation February 07, 2019 Assessment & Plan (1) Fungemia: Patient with fungemia, likely Cher albicans as well as MRSA bacteremia, likely related to lip abscess which grew same organisms. Patient will require course of IV antibiotics, and would recommend combination of vancomycin and caspofungin in the range of 10-14 days depending on clinical response. Would consider removal of left upper extremity PICC line. Will follow. (2) MRSA bacteremia: (3) Abscess of lip: History of Present Illness Reason for Consultation: Fungemia, lip abscess, MRSA Attending Physician: William Nuñez DO History of Present Illness 83-year-old male with long history of CLL on chemotherapy, presented to the hospital with several days of progressively worsening right lower lip swelling along with weakness and fatigue and low-grade fever. He was found to have a large lip abscess which was drained and cultures have grown MRSA and Cher albicans. Lip swelling has improved significantly, but now blood cultures are reported positive with one set growing MRSA and an additional set now growing yeast. Patient has been on vancomycin and caspofungin has been added today. Patient feeling better with improvement of pain, currently afebrile. Follow-up cultures are pending. Has PICC line in left upper extremity. Allergies Allergy/AdvReac Type Severity Reaction Status Date / Time [id number] Reductase AdvReac Severe muscle Verified 02/01/19 16:30 Inhibitor aches/weak Home Medications Home Medications Medication Instructions Recorded Confirmed Type acetaminophen [Tylenol] 325 - 650 mg PO Q6H PRN 11/27/18 02/01/19 History metoprolol succinate [Toprol XL] 25 mg PO HS 11/27/18 02/01/19 History sertraline [Zoloft] 50 mg PO QAM 11/27/18 02/01/19 History amoxicillin-pot clavulanate 1 tab PO Q12H 02/01/19 02/01/19 History [Augmentin] diphenhydramine HCl [Benadryl] 25 mg PO DIRECTED PRN 02/01/19 02/01/19 History ibuprofen 400 mg PO DIRECTED PRN 02/01/19 02/01/19 History melatonin 3 mg PO HS 02/01/19 02/01/19 History warfarin [Coumadin] 2.5 mg PO 5XWK 02/01/19 02/01/19 History warfarin [Coumadin] 5 mg PO 2XWK 02/01/19 02/01/19 History Patient History Medical History Major depressive disorder Hypothyroidism Protein malnutrition Atrial fibrillation (Chronic) History of AR (myocardial infarction) CAD (coronary artery disease) Anemia (Acute) CKD (chronic kidney disease) stage 3, GFR 30-59 ml/min CLL (chronic lymphocytic leukemia) Vasectomy status Afib coumadin therapy Cellulitis of right leg Septic joint of right knee joint Syncope Family History Other Coronary heart disease Social History Preferred Language: Cuban Communication Ability: Effective Radiator Mechanic Required: No Beliefs That Will Affect Care: None marital status: / Current Living Situation: Family Current Living Situation Comment: dtr Other Information That Helps Us Care for You: No Feels Safe at Home: Yes Safety Concerns: Feels Safe At This Time Smoking Status: Former smoker Hx Alcohol Use: No Hx Substance Use: No Review of Systems All systems were reviewed and are negative except as per HPI Physical Exam Vital Signs (Past 24 Hours): Last Vital Signs Temp 36.2 C L 02/07/19 07:29 Pulse 70 02/07/19 07:29 Resp 16 02/07/19 07:29 BP 128/65 02/07/19 07:29 Pulse Ox 96 02/07/19 07:29 Constitutional: WD/WN, vitals as above comfortable; no acute distress Eyes: PERRL, conjunctivae normal, anicteric sclerae ENMT: external ear and nose normal, oropharynx normal Mouth: + lip abnormality (Swelling and induration right lower lip) Neck: trachea midline, no thyromegaly neck nontender Respiratory: normal respiratory effort, lungs clear to auscultation normal percussion; does not use accessory muscles Cardiovascular: Rate/Rhythm: regular rate and regular rhythm Heart Sounds: normal S1 and normal S2; no gallop, no murmur and no cardiac rub Vessels: normal peripheral pulses; no JVD Gastrointestinal (Abdomen): normal bowel sounds, soft, nontender, no hepatosplenomegaly Musculoskeletal: no cyanosis or clubbing, extremities motor strength 5/5 Spine: thoracic spine normal to inspection and lumbar spine normal to inspection; no cervical spinal tenderness Skin: no rashes, warm and dry normal turgor; no lesions Neurologic: patellar DTR's 2+ bilat, sensation intact no focal motor deficits Psychiatric: A+Ox3, euthymic affect Orientation: cooperative Lymphatic: no cervical or axillary lymphadenopathy no inguinal lymphadenopathy Results & Data Laboratory Results Short CBC 02/07/19 Range/Units 06:13 WBC 15.42 H (4.8-10.8) K/uL Hgb 8.7 L (14.0-18.0) g/dL Hct 27.6 L (42-52) % Plt Count 165 (130-400) K/uL BMP 02/07/19 06:13 Sodium 144 Potassium 3.2 L Chloride 112 H Carbon Dioxide 26 BUN 12 Creatinine 0.81 Glucose 89 Calcium 7.8 L Diagnostic Findings Microbiology 02/01/19 16:23 Blood Blood Culture - Final Staph aureus MRSA 02/01/19 16:26 Blood Blood Culture - Final No growth 02/02/19 16:43 Blood Blood Culture - Preliminary Yeast 02/02/19 16:52 Blood Blood Culture - Preliminary No growth to date. 02/02/19 08:50 Face Gram Stain - Final 02/02/19 08:50 Face Deep Wound Culture - Final Staph aureus MRSA Cher albicans CT soft tissue neck w con HISTORY: 83 years-old Male facial swelling eval for abscess acute pain and swelling of the lower lip COMPARISON: CT head 01/03/2017 TECHNIQUE: Multiple axial CT images of the soft tissues of the neck were obtained following the intravenous administration of 91 mL Optiray 320 IV contrast. A dose lowering technique was used consistent with the principals of ALARA. FINDINGS: The nasopharynx, oral pharynx and hypopharynx appear patent. Nonspecific calcifications are noted about the epiglottis which is mildly thickened. The glottis and subglottic airway appear unremarkable. Mild degree of proximal tracheal secretions are noted. The parapharyngeal fat planes are symmetric and well-maintained. No peritonsillar abscess or prevertebral soft tissue swelling. There is extensive soft tissue swelling about the right greater than left lower lip with a multiloculated right-sided fluid collection demonstrating peripheral enhancement measuring 2.4 x 6.1 x 3.3 cm. Dilation about the aortic isthmus and proximal descending thoracic aorta measures up to 4.5 cm transversely with associated extensive mixed plaque formation. Mixed plaque formation noted about the bilateral carotid bulbs and p roximal internal carotid arteries. 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 Trace left pleural effusion. No pneumothorax. Patchy groundglass opacities are noted about the right greater than left lung apices with areas of tree-in-bud nodularity noted about the anterior segment right upper lobe, arch and imaged. The thyroid. Mildly prominent level 1 lymph nodes, likely reactive. Prominent bilateral supraclavicular, subpectoral and upper mediastinal lymph nodes are seen measuring up to 9 mm. The submandibular and parotid glands appear unremarkable. Moderate subcutaneous edema tracks along the jaw about the platysma myofascial distributions. Degenerative changes are seen about the shoulders and spine. Mastoid air cells appear clear. 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 IMPRESSION: 1. Extensive soft tissue swelling about the right greater than left lower lip with multiloculated peripherally enhancing fluid collection about the right lip and jaw distribution measuring up to 6.1 cm suggestive of abscess. 2. Mildly prominent level 1 lymph nodes, likely reactive. Additional indeterminate prominent bilateral supraclavicular, subpectoral and upper mediastinal lymph nodes are present. 3. Trace left pleural effusion. 4. Partially imaged patchy upper lung zone groundglass densities are suggestive of a nonspecific pneumonitis with partially imaged bronchiolitis of the anterior segment right upper lobe. 5. 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 6. Additional findings as above. The above report was generated using voice recognition software. It may contain grammatical, syntax or spelling errors. Electronically signed by: Norbert Green M.D. 02/01/2019 5:03 PM
[2019-02-07] MEDS ORDERED: CASPOFUNGIN 50 MG in SODIUM CHLORIDE 0.9% 250 ML IV SCH (10:00)
[2019-02-07] MEDS: SULFAMETHOXAZOLE/TRIMETHOPRIM DS 800/160MG TAB PO SCH (10:11)
[2019-02-07] MEDS: SACCHAROMYCES BOULARDII 250 MG CAP PO SCH (10:12)
[2019-02-07] MEDS: SERTRALINE HCL 50 MG TABLET PO SCH (10:12)
[2019-02-07] MEDS: FLUCONAZOLE 100 MG TAB PO SCH (10:12)
[2019-02-07] MEDS ORDERED: VANCOMYCIN CONSULT ACTIVE PRN (11:02)
[2019-02-07] MEDS ORDERED: VANCOMYCIN HCL 1,250 MG in SODIUM CHLORIDE 0.9% 250 ML IV ONE (12:00)
--- NOTE | 2019-02-07 14:26 | Pharmacy Report ---
Pharmacy Abx Dose Short Note - Date of Service February 07, 2019 - Assessment & Plan Assessment 83 year old M receiving Bactrim and Diflucan for treatment of lip abscess, with C. albicans and MRSA in lip culture, (assumed to be from stool contamination) with corresponding MRSA bacteremia. Patient's course of antibiotics/antifungals are as follows: * Vancomycin and Unasyn from 02/01 - 02/06 * Diflucan from 02/03 - 02/07 * Bactrim from 02/06 - 02/07 Patient was transitioned to po therapy yesterday in preparation for discharge home w/ hospice. Overnight, repeat blood cultures resulted with 1 of 2 growing yeast so caspofungin was initiated and ID now consulted. Patient has now been transitioned to caspofungin and back to IV vancomycin for MRSA bacteremia and fungemia. Plan Vancomycin * Last dose of vancomycin was 02/06 @ 0600. Based on t1/2, I'm estimating that level ~1100 today was ~7. Will give a slight load to produce a peak ~30-35 and then adjust dose slightly from previous dosing d/t slightly decreased CrCl (70.1 -> 63.1) * Vancomycin 1250 mg x 1 today @ 1200, then * Vancomycin 1 gm (15 mg/kg) q14h * Goal trough level : 15 to 20 mcg/mL * Trough level ordered for: 02/09/19 prior to the 4th dose Caspofungin * Not dosed per pharmacy but appropriate for renal/hepatic function. Dose is only adjusted in moderate-severe hepatic impairment Pharmacy will continue to follow and will adjust dose/frequency as necessary. Thank you.
--- NOTE | 2019-02-07 14:47 | Hospitalist Progress Note ---
Date of Service February 07, 2019 Assessment & Plan (1) Abscess of lip: - Presented with lip abscess possibly related to stool contamination at home; had lower lip open lesion/also bit internal lip leading to infection. - CT showed extensive soft tissue swelling of lower lip with multi-loculated fluid collection measuring up to 6.1 cm; S/P I&D in ER - Wound Cx with Cher and MRSA; Initial BCx (1/2) with MRSA and now with repeats only with yeast - Will hold on further gram negative coverage - will resume Vancomycin and Caspofungin - Regular diet with dental soft/easy to chew texture due to no dentures (2) Positive blood culture: - BC on admission (1 of 2) positive for MRSA with repeats now only with (1 of 2) with yeast not completely identified with likely source of mouth (MRSA/yeast) - Will repeat BCx now - will likely need to wait 3-4 days for confirmation of no yeast on culture. Can then place a U/S guided line vs PICC - will need 10-14 day treatment per ID (Vanco end 02/15 and Caspofungin end 02/20) - for 14 day treatment - TTE discussed on previous day but deferred by patient/family - he remains afebrile and clinically improving so no emergent need at this time (3) Hematuria: - U/A was positive for blood at admission; this was discussed with patient and family previously as well and deferred further workup - Has a tendency to be supratherapeutic on INR so likely contributing (4) Anemia: - Likely acute on chronic anemia; baseline hgb ~9 in setting of CKD and CLL. - Hgb decreased but staying stable and will monitor (5) Chronic kidney disease, stage 3a: - STABLE; renally dose medications (6) CLL (chronic lymphocytic leukemia): - Pt. was transitioned to home hospice in Dec 2018 - Patient seems to go back and forth about whether he would want more chemotherapy vs hospice - family agrees they will support whatever decision he chooses to make - as of now he knows he needs to get this infection treated and get stronger so leaning towards continued hospice at this time however now with fungal/bacteria bacteremia (7) Major depressive disorder: - Continue Zoloft 50 mg daily. - Continue Seroquel 12.5 mg HS for insomnia - if tolerates could consider increase of dosage if needed (8) Hypothyroidism: - Not currently receiving treatment. (9) Atrial fibrillation: - INR is 2.5 and will continue Coumadin at only 1 mg daily and trend INR - Normal regimen is 2.5 mg most days then 5 mg on / (10) CAD (coronary artery disease): - STABLE without acute symptoms; Continue Toprol XL 25 mg daily (11) DVT prophylaxis: - SCDs; Coumadin. Dispo: Expected prolonged stay due to need for finalized repeat cx to check for sterility from yeast prior to placing a long-term IV line to complete treatment. Will likely need to go home with home health until treatment is completed instead of hospice Subjective Reports feeling good just weak. However walks quite well considering. He continues to tolerate a diet without issue. Swelling continues to improve around the lip. Still with diarrhea but stable. Updated patient and daughter at bedside today. Constitutional: no fever and no chills Ear, Nose, Mouth, Throat: + problem reported (Lower lip swelling and internal lip irritation - almost to normal) Respiratory: no cough, no dyspnea and no dyspnea on exertion Cardiovascular: + edema (b/l ankles); no chest pain and no palpitations Gastrointestinal: + diarrhea/loose stools; no abdominal pain, no nausea, no vomiting and no constipation Genitourinary (Male): no dysuria Integumentary: no rash Neurologic: + generalized weakness Physical Exam Vital Signs (Past 24 Hours): Last Vital Signs Temp 36.2 C L 02/07/19 07:29 Pulse 70 02/07/19 07:29 Resp 16 02/07/19 07:29 BP 128/65 02/07/19 07:29 Pulse Ox 96 02/07/19 07:29 Constitutional: well developed and well nourished; no acute distress and not ill appearing Eyes: + anicteric sclerae ENMT: Mouth: no tongue abnormality Throat: no posterior oropharynx abnormality mild swelling largely of R lower lip with healing external scab Neck: normal visual inspection and trachea midline Respiratory: normal respiratory effort, lungs clear to auscultation Cardiovascular: Rate/Rhythm: regular rate and regular rhythm Gastrointestinal (Abdomen): Inspection/Auscultation: normal bowel sounds (slightly hyperactive) Percussion/Palpation: abdomen soft; abdomen nontender Musculoskeletal: Head/Neck/Chest: normocephalic and head atraumatic Extremities: no cyanosis and no clubbing Skin: no rashes, warm and dry (other than described in ENMT) Neurologic: moves all extremities Psychiatric: A+Ox3, euthymic affect (1) Anemia Anemia type: other cause Other causes of anemia: acute posthemorrhagic Qualified Code(s): D62 - Acute posthemorrhagic anemia (2) Major depressive disorder Major depression recurrence: unspecified whether recurrent Active/Remission status: remission status unspecified Qualified Code(s): F32.9 - Major depressive disorder, single episode, unspecified (3) Hypothyroidism Hypothyroidism type: acquired Qualified Code(s): E03.9 - Hypothyroidism, unspecified (4) Atrial fibrillation Atrial fibrillation type: paroxysmal Qualified Code(s): I48.0 - Paroxysmal atrial fibrillation (5) CAD (coronary artery disease) Coronary Disease-Associated Artery/Lesion type: [place] artery [place] vs. transplanted heart: [place] heart Associated angina: without angina Qualified Code(s): I25.10 - Atherosclerotic heart disease of [place] coronary artery with out angina pectoris
[2019-02-07] MEDS: WARFARIN SOD 1 MG TAB PO SCH (16:52)
[2019-02-07] MEDS: METOPROLOL SUCC 25MG EXT REL TAB PO SCH (21:14)
[2019-02-07] MEDS: QUETIAPINE FUMARATE 25 MG TABLET PO SCH (21:14)
[2019-02-07] MEDS: CASPOFUNGIN 50 MG in SODIUM CHLORIDE 0.9% 250 ML IV SCH (23:31)
[2019-02-08] MEDS ORDERED: VANCOMYCIN HCL 1,000 MG in SODIUM CHLORIDE 0.9% 250 ML IV SCH
[2019-02-08] MEDS: VANCOMYCIN HCL 1,000 MG in SODIUM CHLORIDE 0.9% 250 ML IV SCH ×2 (01:54→16:17)
[2019-02-08] MEDS ORDERED: VANCOMYCIN TROUGH ONE ×2 (05:30→15:30)
[2019-02-08] MEDS: SERTRALINE HCL 50 MG TABLET PO SCH (08:08)
[2019-02-08 08:18] LABS: INR 2.1 (0.9-1.1); Prothrombin Time 20.5 Seconds (9.0-12.0)
[2019-02-08 08:46] LABS: Creatinine Clr Calc Pharmacy 58.1 ml/min; Est GFR (African American) 91.2; Est GFR (Non-African American) 78.7
--- NOTE | 2019-02-08 09:34 | Pharmacy Report ---
Pharmacy Abx Dose Short Note - Date of Service February 08, 2019 - Assessment & Plan Assessment Mr. Lakhani's renal fxn has steadily worsened over the preceding days. We will check a Vanco level today @ 1530 to ensure we are not reaching supra-therapeutic levels. eCrCL over the previous 72hrs: 70 --> 63 --> 58cc/min. I am certainly comfortable with vanco levels 18-20mcg/mL given that the MRSA's GIULIANO is 2. Pharmacy will continue to follow and will adjust dose/frequency as necessary. Thank you.
[2019-02-08] MEDS ORDERED: CASPOFUNGIN 50 MG in SODIUM CHLORIDE 0.9% 250 ML IV SCH (10:00)
[2019-02-08] MEDS: WARFARIN SOD 1 MG TAB PO SCH (16:15)
--- NOTE | 2019-02-08 19:03 | Hospitalist Progress Note ---
Date of Service February 08, 2019 Assessment & Plan (1) Abscess of lip: - Presented with lip abscess possibly related to stool contamination at home; had lower lip open lesion/also bit internal lip leading to infection. - CT showed extensive soft tissue swelling of lower lip with multi-loculated fluid collection measuring up to 6.1 cm; S/P I&D in ER - Wound Cx with Cher and MRSA; Initial BCx (11/07) with MRSA and now with repeats only with yeast - Will hold on further gram negative coverage - will continue Vancomycin and Caspofungin - Regular diet with dental soft/easy to chew texture due to no dentures will need prolonged antibiotics for the bacteremia (2) Positive blood culture: - BC on admission (1 of 2) positive for MRSA with repeats now only with (1 of 2) with yeast not completely identified with likely source of mouth (MRSA/yeast) - repeat blood cultures on 02/07 - will likely need to wait 3-4 days for confirmation of no yeast on culture. Can then place a U/S guided line vs PICC - will need 10-14 day treatment per ID (Vanco end 02/15 and Caspofungin end 02/20) - for 14 day treatment no fever, WBC normal, infection is currently controlled (3) Hematuria: - U/A was positive for blood at admission; this was discussed with patient and family previously as well and deferred further workup - Has a tendency to be supratherapeutic on INR so likely contributing (4) Anemia: - Likely acute on chronic anemia; baseline hgb ~9 in setting of CKD and CLL. - Hgb 8.7 yesterday, no signs of blood loss (5) Chronic kidney disease, stage 3a: - STABLE; renally dose medications urine output adequate (6) CLL (chronic lymphocytic leukemia): - Pt. was transitioned to home hospice in Dec 2018 - Patient seems to go back and forth about whether he would want more chemotherapy vs hospice - family agrees they will support whatever decision he chooses to make - as of now he knows he needs to get this infection treated and get stronger so leaning towards continued hospice at this time however now with fungal/bacteria bacteremia (7) Major depressive disorder: - Continue Zoloft 50 mg daily. - Continue Seroquel 12.5 mg HS for insomnia - if tolerates could consider increase of dosage if needed (8) Hypothyroidism: - Not currently receiving treatment. (9) Atrial fibrillation: - INR is 2.1 and will continue Coumadin at only 1 mg daily and trend INR - Normal regimen is 2.5 mg most days then 5 mg on / (10) CAD (coronary artery disease): - STABLE without acute symptoms; Continue Toprol XL 25 mg daily (11) DVT prophylaxis: - SCDs; Coumadin. Dispo: Expected prolonged stay due to need for finalized repeat cx to check for sterility from yeast prior to placing a long-term IV line to complete treatment. Will likely need to go home with home health until treatment is completed instead of hospice anticipate being able to get PICC by Monday as long as there no growth on repeat blood cultures Subjective patient sitting up in bed, feeling well, no distress no complaints except that he feels weak lip swelling improving eating pretty well, no chest pain, no dyspnea he is moving bowels and urinating Review of Systems All systems reviewed & are unremarkable except as noted in HPI & below Ear, Nose, Mouth, Throat: + problem reported (Lower lip swelling and internal lip irritation - almost to normal) Cardiovascular: + edema (b/l ankles); no chest pain and no palpitations Gastrointestinal: + diarrhea/loose stools; no abdominal pain, no nausea, no vomiting and no constipation Neurologic: + generalized weakness Physical Exam Vital Signs (Past 24 Hours): Last Vital Signs Temp 36.6 C 02/08/19 14:47 Pulse 77 02/08/19 14:47 Resp 18 02/08/19 14:47 BP 128/62 02/08/19 14:47 Pulse Ox 98 02/08/19 14:47 Constitutional: WD/WN, vitals as above Eyes: PERRL, conjunctivae normal, anicteric sclerae ENMT: external ear and nose normal, oropharynx normal Mouth: + lip abnormality (lower lip swelling and tender) Neck: trachea midline, no thyromegaly Respiratory: normal respiratory effort, lungs clear to auscultation Cardiovascular: RRR, no murmur, no edema Gastrointestinal (Abdomen): normal bowel sounds, soft, nontender, no hepatosplenomegaly Musculoskeletal: Head/Neck/Chest: normocephalic and head atraumatic Extremities: + abnormal strength (generalized weakness); no cyanosis and no clubbing Skin: no rashes, warm and dry Neurologic: patellar DTR's 2+ bilat, sensation intact and PERRL, EOMI, accommodation nl, no face palsy, no dysarthria Psychiatric: A+Ox3, euthymic affect Lymphatic: no cervical or axillary lymphadenopathy Results & Data Laboratory Results Laboratory Results - last 24 hr 02/08/19 02/08/19 02/08/19 07:14 07:14 15:26 PT 20.5 H INR 2.1 H Creatinine 0.87 Est Cr Clr Drug Dosing 58.1 Est GFR ( Amer) 91.2 Est GFR (Non-Af Amer) 78.7 Vancomycin Trough 16.3 Microbiology 02/02/19 16:43 Blood Blood Culture - Preliminary Yeast not Cher albicans 02/02/19 16:52 Blood Blood Culture - Final No growth 02/01/19 16:23 Blood Blood Culture - Final Staph aureus MRSA 02/01/19 16:26 Blood Blood Culture - Final No growth 02/02/19 08:50 Face Gram Stain - Final 02/02/19 08:50 Face Deep Wound Culture - Final Staph aureus MRSA Cher albicans Medications Administered Current Inpatient Medications Benzocaine (Orajel 20%) 1 appln MT Q6H PRN PRN Reason: oral pain Stop: 03/04/19 09:49 Diphenhydramine HCl (Benadryl) 12.5 mg IV Q6H PRN PRN Reason: Edema Stop: 03/03/19 20:04 Acetaminophen (Ofirmev) 1,000 mg in 100 mls @ 400 mls/hr IV Q8H PRN PRN Reason: Pain Stop: 03/03/19 20:04 Last Infusion: 02/07/19 03:45 Dose: Infused Documented by: Caspofungin 50 mg/ Sodium (Chloride) 260 mls @ 250 mls/hr IV Q24H MONICA Stop: 03/10/19 00:00 Last Infusion: 02/08/19 00:34 Dose: Infused Documented by: Vancomycin HCl 1,000 mg/ (Sodium Chloride) 270 mls @ 125 mls/hr IV Q14H MONICA; Pr otocol Stop: 02/21/19 11:59 Last Infusion: 02/08/19 18:38 Dose: Infused Documented by: Metoprolol Succinate (Toprol Xl) 25 mg PO HS MONICA Stop: 03/03/19 20:59 Last Admin: 02/07/19 21:14 Dose: 25 mg Documented by: Miscellaneous Information (Consult) 1 ea N/A UD PRN PRN Reason: Consult Stop: 03/09/19 11:01 Ondansetron HCl (Zofran) 4 mg IV Q6H PRN PRN Reason: Nausea Stop: 03/03/19 20:04 Potassium Chloride (Klor-Con M20) 20 meq PO BID [facility] Stop: 03/10/19 20:59 Quetiapine Fumarate (Seroquel) 12.5 mg PO HS [facility] Stop: 03/05/19 20:59 Last Admin: 02/07/19 21:14 Dose: 12.5 mg Documented by: Sertraline HCl (Zoloft) 50 mg PO QAM [facility] [place] Stop: 03/04/19 08:59 Last Admin: 02/08/19 08:08 Dose: 50 mg Documented by: Warfarin Sodium (Coumadin) 1 mg PO DAILY@1600 [facility] Stop: 03/09/19 15:59 Last Admin: 02/08/19 16:15 Dose: 1 mg Documented by: (1) Major depressive disorder Active/Remission status: remission status unspecified Major depression recurrence: unspecified whether recurrent Qualified Code(s): F32.9 - Major depressive disorder, single episode, unspecified (2) CAD (coronary artery disease) Associated angina: without angina Coronary Disease-Associated Artery/Lesion type: [place] artery [place] vs. transplanted heart: [place] heart Qualified Code(s): I25.10 - Atherosclerotic heart disease of [place] coronary artery without angina pectoris (3) Anemia Anemia type: other cause Other causes of anemia: acute posthemorrhagic Qualified Code(s): D62 - Acute posthemorrhagic anemia (4) Atrial fibrillation Atrial fibrillation type: paroxysmal Qualified Code(s): I48.0 - Paroxysmal atrial fibrillation (5) Hypothyroidism Hypothyroidism type: acquired Qualified Code(s): E03.9 - Hypothyroidism, unspecified
[2019-02-08] MEDS: POTASSIUM CHLORIDE 20 MEQ TABCR PO SCH (20:16)
[2019-02-08] MEDS: METOPROLOL SUCC 25MG EXT REL TAB PO SCH (20:18)
[2019-02-08] MEDS: QUETIAPINE FUMARATE 25 MG TABLET PO SCH (20:18)
[2019-02-08] MEDS: CASPOFUNGIN 50 MG in SODIUM CHLORIDE 0.9% 250 ML IV SCH (23:19)
[2019-02-09] MEDS ORDERED: VANCOMYCIN TROUGH ONE (05:30)
[2019-02-09] MEDS: VANCOMYCIN HCL 1,000 MG in SODIUM CHLORIDE 0.9% 250 ML IV SCH ×2 (06:24→20:05)
[2019-02-09 06:31] LABS: Creatinine Clr Calc Pharmacy 55.6 ml/min; Est GFR (African American) 88.8; Est GFR (Non-African American) 76.6
[2019-02-09] MEDS: SERTRALINE HCL 50 MG TABLET PO SCH (07:59)
[2019-02-09] MEDS: POTASSIUM CHLORIDE 20 MEQ TABCR PO SCH ×2 (07:59→20:06)
[2019-02-09] MEDS ORDERED: LOPERAMIDE HCL 2 MG CAP PO PRN (13:42)
--- NOTE | 2019-02-09 13:46 | Hospitalist Progress Note ---
Date of Service February 09, 2019 Assessment & Plan (1) Abscess of lip: - Presented with lip abscess possibly related to stool contamination at home; had lower lip open lesion/also bit internal lip leading to infection. - CT showed extensive soft tissue swelling of lower lip with multi-loculated fluid collection measuring up to 6.1 cm; S/P I&D in ER - Wound Cx with Cher and MRSA; Initial BCx (11/07) with MRSA and now with repeats only with yeast - Will hold on further gram negative coverage - will continue Vancomycin and Caspofungin - Regular diet with dental soft/easy to chew texture due to no dentures will need prolonged antibiotics for the bacteremia (2) Positive blood culture: - BC on admission (1 of 2) positive for MRSA with repeats now only with (1 of 2) with yeast not completely identified with likely source of mouth (MRSA/yeast) - repeat blood cultures on 02/07 - will likely need to wait 3-4 days for confirmation of no yeast on culture. Can then place a U/S guided line vs PICC - will need 10-14 day treatment per ID (Vanco end 02/15 and Caspofungin end 02/20) - for 14 day treatment no fever, WBC normal, infection is currently controlled repeat culture on 02/07 currently with no growth, if no growth on 02/[address]ICC (3) Hematuria: - U/A was positive for blood at admission; this was discussed with patient and family previously as well and deferred further workup - Has a tendency to be supratherapeutic on INR so likely contributing (4) Anemia: - Likely acute on chronic anemia; baseline hgb ~9 in setting of CKD and CLL. - Hgb 8.7 on 02/07, no signs of blood loss repeat CBC tomorrow (5) Chronic kidney disease, stage 3a: - STABLE; renally dose medications urine output adequate (6) CLL (chronic lymphocytic leukemia): - Pt. was transitioned to home hospice in Dec 2018 - Patient seems to go back and forth about whether he would want more ch emotherapy vs hospice - family agrees they will support whatever decision he chooses to make - as of now he knows he needs to get this infection treated and get stronger so leaning towards continued hospice at this time however now with fungal/bacteria bacteremia (7) Major depressive disorder: - Continue Zoloft 50 mg daily. - Continue Seroquel 12.5 mg HS for insomnia - if tolerates could consider increase of dosage if needed (8) Hypothyroidism: - Not currently receiving treatment. (9) Atrial fibrillation: - INR is 2.1 and will continue Coumadin at only 1 mg daily and trend INR - Normal regimen is 2.5 mg most days then 5 mg on / (10) CAD (coronary artery disease): - STABLE without acute symptoms; Continue Toprol XL 25 mg daily (11) DVT prophylaxis: - SCDs; Coumadin. Dispo: Expected prolonged stay due to need for finalized repeat cx to check for sterility from yeast prior to placing a long-term IV line to complete treatment. Will likely need to go home with home health until treatment is completed instead of hospice anticipate being able to get PICC by Monday as long as there no growth on repeat blood cultures (12) Diarrhea: add Imodium PRN if it persists then check C diff and stool culture Subjective patient says he feels "ill" today, just no energy has moved bowels twice this morning, loose, dark no chest pain, no dyspnea, no nausea or vomiting and no abdominal pain ate a little of his breakfast reviewed cultures from 02/07, still no growth Review of Systems All systems reviewed & are unremarkable except as noted in HPI & below Ear, Nose, Mouth, Throat: + problem reported (Lower lip swelling and internal lip irritation - almost to normal) Cardiovascular: + edema (b/l ankles); no chest pain and no palpitations Gastrointestinal: + diarrhea/loose stools; no abdominal pain, no nausea, no vomiting and no constipation Neurologic: + generalized weakness Physical Exam Vital Signs (Past 24 Hours): Last Vital Signs Temp 36.8 C 02/09/19 11:58 Pulse 76 02/09/19 11:58 Resp 16 02/09/19 11:58 BP 147/69 H 02/09/19 11:58 Pulse Ox 98 02/09/19 11:58 Constitutional: WD/WN, vitals as above Eyes: PERRL, conjunctivae normal, anicteric sclerae ENMT: external ear and nose normal, oropharynx normal Mouth: + lip abnormality (lower lip swelling and tender) Neck: trachea midline, no thyromegaly Respiratory: normal respiratory effort, lungs clear to auscultation Cardiovascular: RRR, no murmur, no edema Gastrointestinal (Abdomen): normal bowel sounds, soft, nontender, no hepatosplenomegaly Musculoskeletal: Head/Neck/Chest: normocephalic and head atraumatic Extremities: + abnormal strength (generalized weakness); no cyanosis and no clubbing Skin: no rashes, warm and dry Neurologic: patellar DTR's 2+ bilat, sensation intact and PERRL, EOMI, accommodation nl, no face palsy, no dysarthria Psychiatric: A+Ox3, euthymic affect Lymphatic: no cervical or axillary lymphadenopathy Results & Data Laboratory Results Laboratory Results - last 24 hr 02/08/19 02/09/19 15:26 05:46 Creatinine 0.91 Est Cr Clr Drug Dosing 55.6 Est GFR ( Amer) 88.8 Est GFR (Non-Af Amer) 76.6 Vancomycin Trough 16.3 Medications Administered Current Inpatient Medications Benzocaine (Orajel 20%) 1 appln MT Q6H PRN PRN Reason: oral pain Stop: 03/04/19 09:49 Diphenhydramine HCl (Benadryl) 12.5 mg IV Q6H PRN PRN Reason: Edema Stop: 03/03/19 20:04 Acetaminophen (Ofirmev) 1,000 mg in 100 mls @ 400 mls/hr IV Q8H PRN PRN Reason: Pain Stop: 03/03/19 20:04 Last Infusion: 02/07/19 03:45 Dose: Infused Documented by: Caspofungin 50 mg/ Sodium (Chloride) 260 mls @ 250 mls/hr IV Q24H [facility] Stop: 03/10/19 00:00 Last Infusion: 02/09/19 00:36 Dose: Infused Documented by: Vancomycin HCl 1,000 mg/ (Sodium Chloride) 270 mls @ 125 mls/hr IV Q14H [facility]; Protocol Stop: 02/21/19 11:59 Last Infusion: 02/09/19 08:35 Dose: Infused Documented by: Loperamide HCl (Imodium) 2 mg PO Q6H PRN PRN Reason: Diarrhea Stop: 03/11/19 13:41 Metoprolol Succinate (Toprol Xl) 25 mg PO HS [facility] Stop: 03/03/19 20:59 Last Admin: 02/08/19 20:18 Dose: 25 mg Documented by: Miscellaneous Information (Consult) 1 ea N/A UD PRN PRN Reason: Consult Stop: 03/09/19 11:01 Ondansetron HCl (Zofran) 4 mg IV Q6H PRN PRN Reason: Nausea Stop: 03/03/19 20:04 Potassium Chloride (Klor-Con M20) 20 meq PO BID [facility] Stop: 03/10/19 20:59 Last Admin: 02/09/19 07:59 Dose: 20 meq Documented by: Quetiapine Fumarate (Seroquel) 12.5 mg PO HS [facility] Stop: 03/05/19 20:59 Last Admin: 02/08/19 20:18 Dose: 12.5 mg Documented by: Sertraline HCl (Zoloft) 50 mg PO QAM [facility] Stop: 03/04/19 08:59 Last Admin: 02/09/19 07:59 Dose: 50 mg Documented by: Warfarin Sodium (Coumadin) 1 mg PO DAILY@1600 [facility] Stop: 03/09/19 15:59 Last Admin: 02/08/19 16:15 Dose: 1 mg Documented by: (1) Anemia Anemia type: other cause Other causes of anemia: acute posthemorrhagic Qualified Code(s): D62 - Acute posthemorrhagic anemia (2) Major depressive disorder Major depression recurrence: unspecified whether recurrent Active/Remission status: remission status unspecified Qualified Code(s): F32.9 - Major depressive disorder, single episode, unspecified (3) Hypothyroidism Hypothyroidism type: acquired Qualified Code(s): E03.9 - Hypothyroidism, unspecified (4) Atrial fibrillation Atrial fibrillation type: paroxysmal Qualified Code(s): I48.0 - Paroxysmal atrial fibrillation (5) CAD (coronary artery disease) Coronary Disease-Associated Artery/Lesion type: [place] artery [place] vs. transplanted heart: [place] heart Associated angina: without angina Qualified Code(s): I25.10 - Atherosclerotic heart disease of [place] coronary artery without angina pectoris
[2019-02-09] MEDS: WARFARIN SOD 1 MG TAB PO SCH (16:34)
[2019-02-09] MEDS: METOPROLOL SUCC 25MG EXT REL TAB PO SCH (20:05)
[2019-02-09] MEDS: QUETIAPINE FUMARATE 25 MG TABLET PO SCH (20:06)
[2019-02-09] MEDS: CASPOFUNGIN 50 MG in SODIUM CHLORIDE 0.9% 250 ML IV SCH (23:55)
[2019-02-10 06:12] LABS: Hematocrit (blood only) 27.8 % (42-52); Hemoglobin 8.6 g/dL (14.0-18.0); Mean Corpuscular Hgb Conc 30.9 g/dL (32-36); Mean Corpuscular Volume 81.5 fL (80-100); Mean Platelet Volume 10.1 fL (7.4-10.4); Platelet Count 153 K/uL (130-400); RDW Coefficient of Variation 19.4 % (11.5-14.5); RDW Standard Deviation 57.1 fL (36.4-46.3); Red Blood Count 3.41 M/uL (4.7-6.1); White Blood Count 14.66 K/uL (4.8-10.8)
[2019-02-10 06:36] LABS: BUN Creatinine Ratio 18.9 (10-20); Calcium 7.9 mg/dl (8.5-10.1); Creatinine Clr Calc Pharmacy 73.2 ml/min; Est GFR (African American) 100.3; Est GFR (Non-African American) 86.6; Potassium 3.7 mmol/L (3.5-5.1)
[2019-02-10 07:11] LABS: Anisocytosis Present; Basophils # (auto) 0.01 K/uL (0-0.2); Basophils % (auto) 0.1 %; Eosinophils # (auto) 0.06 K/uL (0-0.5); Eosinophils % (auto) 0.4 %; Immature Granulocytes # (auto) 0.05 K/uL (0.00-0.02); Immature Granulocytes % (auto) 0.3 %; Lymphocytes # (auto) 10.51 K/uL (1.2-3.4); Lymphocytes % (auto) 71.7 %; Monocytes # (auto) 0.98 K/uL (0.11-0.59); Monocytes % (auto) 6.7 %; Neutrophils # (auto) 3.05 K/uL (1.4-6.5); Neutrophils % (auto) 20.8 %; Ovalocytes 1+; Poikilocytosis Present; Smudge Cells Present
[2019-02-10] MEDS: POTASSIUM CHLORIDE 20 MEQ TABCR PO SCH ×2 (08:37→22:01)
[2019-02-10] MEDS: SERTRALINE HCL 50 MG TABLET PO SCH (08:38)
[2019-02-10] MEDS ORDERED: VANCOMYCIN TROUGH ONE (09:30)
[2019-02-10] MEDS: VANCOMYCIN HCL 1,000 MG in SODIUM CHLORIDE 0.9% 250 ML IV SCH (11:10)
--- NOTE | 2019-02-10 11:27 | Pharmacy Report ---
Pharmacy Abx Dose Short Note - Date of Service February 10, 2019 - Assessment & Plan Assessment 83 year old M receiving Vancomycin IV 1000mg Q14H for treatment of lip abscess with MRSA Bacteremia. Day # 07/20 of antimicrobial therapy. Blood cultures from 02/07 remain negative to date. Laboratory Tests 02/10/19 09:32 Vancomycin Trough 17.5 Plan Vancomycin * Trough level of 17.5 mcg/mL is therapeutic. * Continue dose of 1000 mg IV every 14 hours. * Goal trough level 15 to 20 mcg/mL * Trough level ordered for: 02/12/19 before 1800 dose. Pharmacy will continue to follow and will adjust dose/frequency as necessary. Thank you.
--- NOTE | 2019-02-10 15:29 | Hospitalist Progress Note ---
Date of Service February 10, 2019 Assessment & Plan (1) Abscess of lip: - Presented with lip abscess possibly related to stool contamination at home; had lower lip open lesion/also bit internal lip leading to infection. - CT showed extensive soft tissue swelling of lower lip with multi-loculated fluid collection measuring up to 6.1 cm; S/P I&D in ER - Wound Cx with Cher and MRSA; Initial BCx (1/2) with MRSA and now with repeats only with yeast - Will hold on further gram negative coverage - will continue Vancomycin and Caspofungin - Regular diet with dental soft/easy to chew texture due to no dentures will need prolonged antibiotics for the bacteremia daughter no longer wants patient to have PICC, will need to discuss with ID tomorrow if there are oral options patient may go back on hospice, should fill out POLST will ask palliative to see patient tomorrow and discuss with family (2) Positive blood culture: - BC on admission (1 of 2) positive for MRSA with repeats now only with (1 of 2) with yeast not completely identified with likely source of mouth (MRSA/yeast) - repeat blood cultures on 02/07 - will likely need to wait 3-4 days for confirmation of no yeast on culture. Can then place a U/S guided line vs PICC - will need 10-14 day treatment per ID (Vanco end 02/15 and Caspofungin end 02/20) - for 14 day treatment no fever, WBC normal, infection is currently controlled repeat culture on 02/07 currently with no growth, if no growth on 02/[address]ICC however, daughter/patient do not want PICC, please determine if there are other options with ID will consult ID to help determine goals (3) Hematuria: - U/A was positive for blood at admission; this was discussed with patient and family previously as well and deferred further workup - Has a tendency to be supratherapeutic on INR so likely contributing (4) Anemia: - Likely acute on chronic anemia; baseline hgb ~9 in setting of CKD and CLL. - Hgb 8.6 on 02/10, no signs of blood loss (5) Chronic kidney disease, stage 3a: - STABLE; renally dose medications urine output adequate (6) CLL (chronic lymphocytic leukemia): - Pt. was transitioned to home hospice in Dec 2018 - Patient seems to go back and forth about whether he would want more chemotherapy vs hospice - family agrees they will support whatever decision he chooses to make - as of now he knows he needs to get this infection treated and get stronger so leaning towards continued hospice at this time however now with fungal/bacteria bacteremia WBC is 14k, Hb 8.6, plts 153 (7) Major depressive disorder: - Continue Zoloft 50 mg daily. - Continue Seroquel 12.5 mg HS for insomnia - if tolerates could consider increase of dosage if needed (8) Hypothyroidism: - Not currently receiving treatment. (9) Atrial fibrillation: - INR is 2.1 and will continue Coumadin at only 1 mg daily and trend INR - Normal regimen is 2.5 mg most days then 5 mg on / (10) CAD (coronary artery disease): - STABLE without acute symptoms; Continue Toprol XL 25 mg daily (11) DVT prophylaxis: - SCDs; Coumadin. Dispo: Expected prolonged stay due to need for finalized repeat cx to check for sterility from yeast prior to placing a long-term IV line to complete treatment. Will likely need to go home with home health until treatment is completed instead of hospice anticipate being able to get PICC by Monday as long as there no growth on repeat blood cultures (12) Diarrhea: resolved with Imodium solid BM today Plan: was planning on having PICC with home IV antibiotics/caspofungin? now patient/family not on board with plan discuss with ID about oral options get palliative to see patient and family tomorrow Subjective patient reports feeling better today had a solid bowel movement no fever/chills, has a good appetite, breathing well repeat blood culture still negative RN called later at night to say that the patient's daughter would not want the patient to have PICC would not want IV line at home with home nursing will need to discuss with ID if there are oral options at this time Review of Systems All systems reviewed & are unremarkable except as noted in HPI & below Ear, Nose, Mouth, Throat: + problem reported (Lower lip swelling and internal lip irritation - almost to normal) Gastrointestinal: no abdominal pain, no nausea, no vomiting, no constipation and no diarrhea/loose stools Neurologic: + generalized weakness Physical Exam Vital Signs (Past 24 Hours): Last Vital Signs Temp 36.3 C L 02/10/19 07:19 Pulse 73 02/10/19 07:19 Resp 16 02/10/19 07:19 BP 152/73 H 02/10/19 07:19 Pulse Ox 99 02/10/19 07:19 Constitutional: WD/WN, vitals as above Eyes: PERRL, conjunctivae normal, anicteric sclerae ENMT: external ear and nose normal, oropharynx normal Mouth: + lip abnormality (lower lip swelling and tender) Neck: trachea midline, no thyromegaly Respiratory: normal respiratory effort, lungs clear to auscultation Cardiovascular: RRR, no murmur, no edema Gastrointestinal (Abdomen): normal bowel sounds, soft, nontender, no hepatosplenomegaly Musculoskeletal: Head/Neck/Chest: normocephalic and head atraumatic Extremities: + abnormal strength (generalized weakness); no cyanosis and no clubbing Skin: no rashes, warm and dry Neurologic: patellar DTR's 2+ bilat, sensation intact and PERRL, EOMI, accommodation nl, no face palsy, no dysarthria Psychiatric: A+Ox3, euthymic affect Lymphatic: no cervical or axillary lymphadenopathy Results & Data Laboratory Results Microbiology 02/02/19 16:43 Blood Blood Culture - Preliminary Yeast not Cher albicans 02/07/19 14:27 Blood Blood Culture - Preliminary No growth to date. 02/07/19 14:25 Blood Blood Culture - Preliminary No growth to date. 02/02/19 16:52 Blood Blood Culture - Final No growth 02/01/19 16:23 Blood Blood Culture - Final Staph aureus MRSA 02/01/19 16:26 Blood Blood Culture - Final No growth 02/02/19 08:50 Face Gram Stain - Final 02/02/19 08:50 Face Deep Wound Culture - Final Staph aureus MRSA Cher albicans Laboratory Results - last 24 hr 02/10/19 02/10/19 02/10/19 05:48 05:48 09:32 WBC 14.66 H RBC 3.41 L Hgb 8.6 L Hct 27.8 L MCV 81.5 MCH 25.2 MCHC 30.9 L RDW Std Deviation 57.1 H RDW Coeff of [place] 19.4 H Plt Count 153 MPV 10.1 Immature Gran % (Auto) 0.3 Neut % (Auto) 20.8 Lymph % (Auto) 71.7 [place] % (Auto) 6.7 Eos % (Auto) 0.4 Baso % (Auto) 0.1 Immature Gran # (Auto) 0.05 H Neut # (Auto) 3.05 Lymph # (Auto) 10.51 H [place] # (Auto) 0.98 H Eos # (Auto) 0.06 Baso # (Auto) 0.01 Smudge Cells Present Poikilocytosis Present Anisocytosis Present Ovalocytes 1+ Sodium 144 Potassium 3.7 Chloride 113 H Carbon Dioxide 27 Anion Gap 4.0 BUN 13 Creatinine 0.69 Est Cr Clr Drug Dosing 73.2 Est GFR ( Amer) 100.3 Est GFR (Non-Af Amer) 86.6 BUN/Creatinine Ratio 18.9 Glucose 80 Calcium 7.9 L Vancomycin Trough 17.5 Medications Administered Current Inpatient Medications Benzocaine (Orajel 20%) 1 appln MT Q6H PRN PRN Reason: oral pain Stop: 03/04/19 09:49 Diphenhydramine HCl (Benadryl) 12.5 mg IV Q6H PRN PRN Reason: Edema Stop: 03/03/19 20:04 Acetaminophen (Ofirmev) 1,000 mg in 100 mls @ 400 mls/hr IV Q8H PRN PRN Reason: Pain Stop: 03/03/19 20:04 Last Infusion: 02/07/19 03:45 Dose: Infused Documented by: Caspofungin 50 mg/ Sodium (Chloride) 260 mls @ 250 mls/hr IV Q24H [facility] Stop: 03/10/19 00:00 Last Infusion: 02/10/19 01:13 Dose: Infused Documented by: Vancomycin HCl 1,000 mg/ (Sodium Chloride) 270 mls @ 125 mls/hr IV Q14H [facility]; Protocol Stop: 02/21/19 11:59 Last Infusion: 02/10/19 13:23 Dose: Infused Documented by: Loperamide HCl (Imodium) 2 mg PO Q6H PRN PRN Reason: Diarrhea Stop: 03/11/19 13:41 Last Admin: 02/09/19 16:41 Dose: 2 mg Documented by: Metoprolol Succinate (Toprol Xl) 25 mg PO [facility] Stop: 03/03/19 20:59 Last Admin: 02/09/19 20:05 Dose: 25 mg Documented by: Miscellaneous Information (Consult) 1 ea N/A UD PRN PRN Reason: Consult Stop: 03/09/19 11:01 Ondansetron HCl (Zofran) 4 mg IV Q6H PRN PRN Reason: Nausea Stop: 03/03/19 20:04 Potassium Chloride (Klor-Con M20) 20 meq PO BID [facility] Stop: 03/10/19 20:59 Last Admin: 02/10/19 08:37 Dose: 20 meq Documented by: Quetiapine Fumarate (Seroquel) 12.5 mg PO HS [facility] Stop: 03/05/19 20:59 Last Admin: 02/09/19 20:06 Dose: 12.5 mg Documented by: Sertraline HCl (Zoloft) 50 mg PO QAM [facility] Stop: 03/04/19 08:59 Last Admin: 02/10/19 08:38 Dose: 50 mg Documented by: Warfarin Sodium (Coumadin) 1 mg PO DAILY@1600 [facility] Stop: 03/09/19 15:59 Last Admin: 02/09/19 16:34 Dose: 1 mg Documented by: (1) Major depressive disorder Active/Remission status: remission status unspecified Major depression recurrence: unspecified whether recurrent Qualified Code(s): F32.9 - Major depressive disorder, single episode, unspecified (2) CAD (coronary artery disease) Associated angina: without angina Coronary Disease-Associated Artery/Lesion type: [place] artery [place] vs. transplanted heart: [place] heart Qualified Code(s): I25.10 - Atherosclerotic heart disease of [place] coronary artery without angina pectoris (3) Anemia Anemia type: other cause Other causes of anemia: acute posthemorrhagic Qualified Code(s): D62 - Acute posthemorrhagic anemia (4) Atrial fibrillation Atrial fibrillation type: paroxysmal Qualified Code(s): I48.0 - Paroxysmal atrial fibrillation (5) Hypothyroidism Hypothyroidism type: acquired Qualified Code(s): E03.9 - Hypothyroidism, unspecified
[2019-02-10] MEDS: WARFARIN SOD 1 MG TAB PO SCH (16:14)
[2019-02-10] MEDS: QUETIAPINE FUMARATE 25 MG TABLET PO SCH (22:01)
[2019-02-10] MEDS: METOPROLOL SUCC 25MG EXT REL TAB PO SCH (22:01)
[2019-02-11] MEDS: VANCOMYCIN HCL 1,000 MG in SODIUM CHLORIDE 0.9% 250 ML IV SCH (00:06)
[2019-02-11] MEDS: CASPOFUNGIN 50 MG in SODIUM CHLORIDE 0.9% 250 ML IV SCH (00:06)
[2019-02-11 06:43] LABS: Creatinine Clr Calc Pharmacy 54.7 ml/min; Est GFR (African American) 86.5; Est GFR (Non-African American) 74.6
[2019-02-11] MEDS: POTASSIUM CHLORIDE 20 MEQ TABCR PO SCH ×2 (08:29→20:11)
[2019-02-11] MEDS: SERTRALINE HCL 50 MG TABLET PO SCH (08:29)
[2019-02-11 09:21] LABS: INR 1.7 (0.9-1.1); Prothrombin Time 16.9 Seconds (9.0-12.0)
[2019-02-11 09:35] LABS: BUN Creatinine Ratio 13.2 (10-20); Calcium 8.2 mg/dl (8.5-10.1); Creatinine Clr Calc Pharmacy 57.1 ml/min; Est GFR (African American) 90.4; Magnesium 1.9 mg/dl (1.8-2.4); Potassium 3.9 mmol/L (3.5-5.1)
[2019-02-11] MEDS: SULFAMETHOXAZOLE/TRIMETHOPRIM DS 800/160MG TAB PO SCH ×2 (14:58→20:11)
--- NOTE | 2019-02-11 15:16 | Infectious Disease Progress Nt ---
Date of Service February 11, 2019 Assessment & Plan (1) Fungemia: Patient with fungemia, with non- albicans Cher species and MRSA bacteremia, likely from lip infection now improving. Would prefer use of IV antibiotics but family member wishing to treat orally only. Patient to be transition to oral therapy with Bactrim and voriconazole. Discussed with hospitalist service. (2) MRSA bacteremia: (3) Abscess of lip: Subjective Patient seen in follow-up for sepsis with lip abscess. Feeling somewhat better. Remains afebrile. Follow-up cultures negative. Daughter wishing patient to be treated with oral antibiotics and avoiding PICC line. Review of Systems All systems reviewed & are unremarkable except as noted in HPI & below Physical Exam Vital Signs (Past 24 Hours): Last Vital Signs Temp 36.4 C L 02/11/19 07:32 Pulse 73 02/11/19 07:32 Resp 16 02/11/19 07:32 BP 156/75 H 02/11/19 07:32 Pulse Ox 96 02/11/19 07:32 Constitutional: WD/WN, vitals as above comfortable; no acute distress Eyes: PERRL, conjunctivae normal, anicteric sclerae ENMT: external ear and nose normal, oropharynx normal Mouth: + lip abnormality (Swelling and induration right lower lip) Neck: trachea midline, no thyromegaly neck nontender Respiratory: normal respiratory effort, lungs clear to auscultation normal percussion; does not use accessory muscles Cardiovascular: Rate/Rhythm: regular rate and regular rhythm Heart Sounds: normal S1 and normal S2; no gallop, no murmur and no cardiac rub Vessels: normal peripheral pulses; no JVD Gastrointestinal (Abdomen): normal bowel sounds, soft, nontender, no hepatosplenomegaly Musculoskeletal: no cyanosis or clubbing, extremities motor strength 5/5 Spine: thoracic spine normal to inspection and lumbar spine normal to inspection; no cervical spinal tenderness Skin: no rashes, warm and dry normal turgor; no lesions Neurologic: patellar DTR's 2+ bilat, sensation intact no focal motor deficits Psychiatric: A+Ox3, euthymic affect Orientation: cooperative Lymphatic: no cervical or axillary lymphadenopathy no inguinal lymp hadenopathy Results & Data Laboratory Results [facility] 02/11/19 02/11/19 05:55 08:46 Sodium 140 Potassium 3.9 Chloride 108 H Carbon Dioxide 29 BUN 12 Creatinine 0.93 0.89 Glucose 112 H Calcium 8.2 L Diagnostic Findings Microbiology 02/02/19 16:43 Blood Blood Culture - Preliminary Yeast not Cher albicans 02/07/19 14:27 Blood Blood Culture - Preliminary No growth to date. 02/07/19 14:25 Blood Blood Culture - Preliminary No growth to date. 02/02/19 16:52 Blood Blood Culture - Final No growth 02/01/19 16:23 Blood Blood Culture - Final Staph aureus MRSA 02/01/19 16:26 Blood Blood Culture - Final No growth 02/02/19 08:50 Face Gram Stain - Final 02/02/19 08:50 Face Deep Wound Culture - Final Staph aureus MRSA [place] albicans
--- NOTE | 2019-02-11 16:29 | Hospitalist Progress Note ---
Date of Service February 11, 2019 Assessment & Plan (1) Abscess of lip: - Presented with lip abscess possibly related to open lip lesion/bit internal lip leading to infection. - CT showed extensive soft tissue swelling of lower lip with multi-loculated fluid collection measuring up to 6.1 cm; S/P I&D in ER. - Wound culture +Cher albicans; BC (1 of 2) +MRSA on admission, repeat BC (1 of 2) positive for yeast, not Cher albicans. - Repeat blood cultures 02/07/19 were negative. - Discussed with ID -- will convert to PO Bactrim and Voriconazole to avoid PICC line placement. - Regular diet with dental soft/easy to chew texture due to no dentures. (2) Positive blood culture: - Blood culture results as noted above -- has fungemia and MRSA bacteremia. - Converting to PO Voriconazole and PO Bactrim. - Appreciate ID input. (3) Hematuria: - U/A was positive for blood at admission; this was discussed with patient and family previously as well and deferred further workup - Has a tendency to be supratherapeutic on INR so likely contributing. (4) Anemia: - Likely acute on chronic anemia; baseline hgb ~9 in setting of CKD and CLL. (5) Chronic kidney disease, stage 3a: - Renally dose all meds. (6) CLL (chronic lymphocytic leukemia): - Pt. was transitioned to home hospice in Dec 2018 - Will discharge back to home hospice on 02/12/19 -- pt. has discussed the idea of restarting chemo in the future if his overall condition improves. (7) Major depressive disorder: - Continue Zoloft 50 mg daily. - Will d/c Seroquel due to medication interaction with Voriconazole. (8) Hypothyroidism: - Not currently receiving treatment. (9) Atrial fibrillation: - Subtherapeutic INR at 1.7. - Will continue Coumadin 1 mg PO daily due to med interactions, likelihood of supratherapeutic INR over next 2-3 days. - Will need script for INR in 2-3 days following discharge. (10) CAD (coronary artery disease): - Continue Toprol XL as prescribed. (11) Diarrhea: - Now resolved. (12) DVT prophylaxis: - SCDs; Coumadin. Dispo: Med/surg; plan for discharge to home with home hospice on 02/12/19. Supervising Physician Co-Signing Physician Notes PA Supervision Note: I did not personally see or examine the patient today, but I verified all shaw points of ENRRIQUE Ferris's assessment and plan with the following exceptions/additions: None Subjective Pt. is doing well today. Plan for discharge to home hospice on 02/12/19 under the care of his daughter. Converted to PO abx today per patient and daughter's request to avoid PICC line placement. Discussed with patient -- can follow up with oncology to discuss more chemo if his overall condition improves. Review of Systems All systems reviewed & are unremarkable except as noted in HPI & below Constitutional: no fever, no chills, no fatigue, no weakness and no anorexia Respiratory: no cough and no dyspnea Cardiovascular: no chest pain, no palpitations and no edema Gastrointestinal: no abdominal pain, no nausea and no constipation Genitourinary (Male): no difficulty urinating Musculoskeletal: no joint pain Integumentary: no rash Physical Exam Vital Signs (Past 24 Hours): Last Vital Signs Temp 36.2 C L 02/11/19 15:43 Pulse 67 02/11/19 15:43 Resp 18 02/11/19 15:43 BP 133/72 02/11/19 15:43 Pulse Ox 98 02/11/19 15:43 Physical Exam: General: Resting comfortably in no apparent distress; A&OX3 HEENT: NC/AT; PERRLA with EOMI; [place] conjunctiva, MMM. Neck: Supple and nontender Cardiac: RRR w/o murmurs, gallops or rubs Lungs: CTA bilaterally; No rhonchi, wheezing, or rales Abdomen: Bowel normoactive X 4; Nontender to palpation Extremities: Warm. No edema present Neuro: No focal weakness Skin: No rash Results & Data Laboratory Results 02/11/19 02/11/19 02/11/19 Range/Units 08:46 08:46 05:55 PT 16.9 H (9.0-12.0) Seconds INR 1.7 H (0.9-1.1) Sodium 140 (136-145) mmol/L Potassium 3.9 (3.5-5.1) mmol/L Chloride 108 H (98-107) mmol/L Carbon Dioxide 29 (21-32) mmol/L Anion Gap 3.0 (3-11) BUN 12 (7-18) mg/dl Creatinine 0.89 0.93 (0.6-1.4) mg/dl Est Cr Clr Drug Dosing 57.1 54.7 ml/min Est GFR ( Amer) 90.4 86.5 Est GFR (Non-Af Amer) 78.0 74.6 BUN/Creatinine Ratio 13.2 (10-20) Glucose 112 H (70-99) mg/dl Calcium 8.2 L (8.5-10.1) mg/dl Magnesium 1.9 (1.8-2.4) mg/dl (1) Major depressive disorder Active/Remission status: remission status unspecified Major depression recurrence: unspecified whether recurrent Qualified Code(s): F32.9 - Major depressive disorder, single episode, unspecified (2) CAD (coronary artery disease) Associated angina: without angina Coronary Disease-Associated Artery/Lesion type: [place] artery [place] vs. transplanted heart: [place] heart Qualified Code(s): I25.10 - Atherosclerotic heart disease of [place] coronary artery without angina pectoris (3) Anemia Anemia type: other cause Other causes of anemia: acute posthemorrhagic Qualified Code(s): D62 - Acute posthemorrhagic anemia (4) Atrial fibrillation Atrial fibrillation type: paroxysmal Qualified Code(s): I48.0 - Paroxysmal atrial fibrillation (5) Hypothyroidism Hypothyroidism type: acquired Qualified Code(s): E03.9 - Hypothyroidism, unspecified
[2019-02-11] MEDS: WARFARIN SOD 1 MG TAB PO SCH (17:31)
[2019-02-11] MEDS: METOPROLOL SUCC 25MG EXT REL TAB PO SCH (20:11)
[2019-02-11] MEDS: VORICONAZOLE 200 MG TABLET PO SCH (20:11)
[2019-02-12 07:27] VITALS: O2SAT 98
[2019-02-12 07:37] LABS: INR 1.6 (0.9-1.1); Prothrombin Time 16.1 Seconds (9.0-12.0)
[2019-02-12] MEDS: POTASSIUM CHLORIDE 20 MEQ TABCR PO SCH ×2 (08:14→21:26)
[2019-02-12] MEDS: SULFAMETHOXAZOLE/TRIMETHOPRIM DS 800/160MG TAB PO SCH ×2 (08:14→21:27)
[2019-02-12] MEDS: VORICONAZOLE 200 MG TABLET PO SCH ×2 (08:14→21:26)
[2019-02-12] MEDS: SERTRALINE HCL 50 MG TABLET PO SCH (08:14)
[2019-02-12] MEDS ORDERED: PHYTONADIONE 5 MG in SODIUM CHLORIDE 0.9% 50 ML IV ONE (12:15)
--- NOTE | 2019-02-12 12:20 | Hospitalist Progress Note ---
Date of Service February 12, 2019 Assessment & Plan (1) Abscess of lip: - Presented with lip abscess possibly related to open lip lesion/bit internal lip leading to infection. - CT showed extensive soft tissue swelling of lower lip with multi-loculated fluid collection measuring up to 6.1 cm; S/P I&D in ER. - Wound culture +Cher albicans; BC (1 of 2) +MRSA on admission, repeat BC (1 of 2) positive for yeast, not Cher albicans. - Repeat blood cultures 02/07/19 were negative. - Discussed with ID -- converted to PO Bactrim and Voriconazole to avoid PICC line placement. - Regular diet with dental soft/easy to chew texture due to no dentures. (2) Positive blood culture: - Blood culture results as noted above -- has fungemia and MRSA bacteremia. - Converted to PO Voriconazole and Bactrim. - Appreciate ID input. (3) Hematuria: - U/A was positive for blood in ER; this was discussed with the family at beginning of admission and they deferred work up. - Developed recurrent gross hematuria this morning -- will reverse INR (1.6 on AM labs) in setting of acute bleeding and discontinue Coumadin. - Re-addressed issue with the family, will continue to hold further work up and discharge to hospice. (4) Anemia: - Likely acute on chronic anemia; baseline hgb ~9 in setting of CKD and CLL. (5) Chronic kidney disease, stage 3a: - Renally dose all meds. (6) CLL (chronic lymphocytic leukemia): - Pt. was transitioned to home hospice in Dec 2018 - Will discharge back to home hospice -- pt. has discussed the idea of restarting chemo in the future if his overall condition improves. (7) Major depressive disorder: - Continue Zoloft 50 mg daily. - D/c'ed Seroquel due to medication interactions with Voriconazole. (8) Hypothyroidism: - Not currently receiving treatment. (9) Atrial fibrillation: - INR was 1.6 today; developed gross hematuria this morning. - Will reverse INR due to hematuria -- ordered Vit K 5 mg IV. - Plan to permanently discontinue Coumadin at home due to hematuria, increased bleeding. (10) CAD (coronary artery disease): - Continue Toprol XL as prescribed. (11) Diarrhea: - Now resolved. (12) DVT prophylaxis: - SCDs; d/c Coumadin. Dispo: Med/surg; plan for discharge to home with home hospice following reversal of INR and improvement in hematuria. Supervising Physician Co-Signing Physician Notes Attending Attestation - Chart reviewed in detail, care plan d/w ENRRIQUE Cid. I agree w/ the shaw components of her documentation. Pt with gross hematuria - etiology uncertain - in setting of coumadin use. INR 1.6 today - would reverse coumadin fully with vitamin K and, in light of plans to return home with hospice, would permanently d/c the coumadin. Cont voriconazole and bactrim for recent lip infection/blood-stream infection. Ari Suero MD Subjective Review of Systems All systems reviewed & are unremarkable except as noted in HPI & below Pt. was doing well overall today. He developed gross hematuria in the late morning -- previously had only intermittent mild hematuria. Discussed with Dr. Suero -- plan for reverse INR and discontinue Coumadin. Has abd discomfort this morning -- states he has had difficulty with having a BM this morning. Had 2 BMs yesterday and one overnight as well. Will discharge to hospice pending improvement in hematuria. Constitutional: + fatigue and + weakness; no fever, no chills and no anorexia Respiratory: no cough and no dyspnea Cardiovascular: no chest pain, no palpitations, no lightheadedness and no edema Gastrointestinal: + constipation; no abdominal pain, no nausea, no vomiting and no diarrhea/loose stools Genitourinary (Male): + hematuria; no dysuria, no difficulty urinating and no urinary hesitancy Musculoskeletal: no back pain and no joint pain Integumentary: no non-healing lesions Allergy / Immunological: no rash Physical Exam Vital Signs (Past 24 Hours): Last Vital Signs Temp 36.8 C 02/12/19 07:26 Pulse 74 02/12/19 07:26 Resp 18 02/12/19 07:26 BP 151/70 H 02/12/19 07:26 Pulse Ox 98 02/12/19 07:26 Physical Exam: General: Resting comfortably in no apparent distress; A&OX3 HEENT: NC/AT; PERRLA with EOMI; [facility] conjunctiva, MMM. Neck: Supple and nontender Cardiac: RRR w/o murmurs, gallops or rubs Lungs: CTA bilaterally; No rhonchi, wheezing, or rales Abdomen: Bowel normoactive X 4; Nontender to palpation Extremities: Warm. +1 bilat LE pitting edema. Neuro: No focal weakness Skin: No rash Results & Data Laboratory Results 02/12/19 Range/Units 07:10 PT 16.1 H (9.0-12.0) Seconds INR 1.6 H (0.9-1.1) (1) Major depressive disorder Active/Remission status: remission status unspecified Major depression recurrence: unspecified whether recurrent Qualified Code(s): F32.9 - Major depressive disorder, single episode, unspecified (2) CAD (coronary artery disease) Associated angina: without angina Coronary Disease-Associated Artery/Lesion type: [place] artery [place] vs. transplanted heart: [place] heart Qualified Code(s): I25.10 - Atherosclerotic heart disease of [place] coronary artery without angina pectoris (3) Anemia Anemia type: other cause Other causes of anemia: acute posthemorrhagic Qualified Code(s): D62 - Acute posthemorrhagic anemia (4) Atrial fibrillation Atrial fibrillation type: paroxysmal Qualified Code(s): I48.0 - Paroxysmal atrial fibrillation (5) Hypothyroidism Hypothyroidism type: acquired Qualified Code(s): E03.9 - Hypothyroidism, unspecified
[2019-02-12] MEDS ORDERED: VANCOMYCIN TROUGH ONE (17:30)
--- NOTE | 2019-02-12 21:14 | Infectious Disease Progress Nt ---
Date of Service February 12, 2019 Assessment & Plan (1) Fungemia: Patient with fungemia, with non- albicans Cher species and MRSA bacteremia, likely from lip infection now improving. Would prefer use of IV antibiotics but family member wishing to treat orally only. Patient transitioned to oral therapy with Bactrim and voriconazole. Discussed with hospitalist service. (2) MRSA bacteremia: (3) Abscess of lip: Subjective Patient seen in follow-up for sepsis with lip abscess. Feeling somewhat better. Remains afebrile. Follow-up cultures negative. Daughter wishing patient to be treated with oral antibiotics and avoiding PICC line. Physical Exam Vital Signs (Past 24 Hours): Last Vital Signs Temp 36.7 C 02/12/19 15:39 Pulse 70 02/12/19 15:39 Resp 18 02/12/19 15:39 BP 131/60 02/12/19 15:39 Pulse Ox 98 02/12/19 15:39 Constitutional: WD/WN, vitals as above comfortable; no acute distress Eyes: PERRL, conjunctivae normal, anicteric sclerae ENMT: external ear and nose normal, oropharynx normal Mouth: + lip abnormality (Swelling and induration right lower lip) Neck: trachea midline, no thyromegaly neck nontender Respiratory: normal respiratory effort, lungs clear to auscultation normal percussion; does not use accessory muscles Cardiovascular: Rate/Rhythm: regular rate and regular rhythm Heart Sounds: normal S1 and normal S2; no gallop, no murmur and no cardiac rub Vessels: normal peripheral pulses; no JVD Gastrointestinal (Abdomen): normal bowel sounds, soft, nontender, no hepatosplenomegaly Musculoskeletal: no cyanosis or clubbing, extremities motor strength 5/5 Spine: thoracic spine normal to inspection and lumbar spine normal to inspection; no cervical spinal tenderness Skin: no rashes, warm and dry normal turgor; no lesions Neurologic: patellar DTR's 2+ bilat, sensation intact no focal motor deficits Psychiatric: A+Ox3, euthymic affect Orientation: cooperative Lymphatic: no cervical or axillary lymphadenopathy no inguinal lymphadenopathy Results & Data Laboratory Results Laboratory Results - last 48 hr 02/11/19 02/11/19 02/11/19 05:55 08:46 08:46 PT 16.9 H INR 1.7 H Sodium 140 Potassium 3.9 Chloride 108 H Carbon Dioxide 29 Anion Gap 3.0 BUN 12 Creatinine 0.93 0.89 Est Cr Clr Drug Dosing 54.7 57.1 Est GFR ( Amer) 86.5 90.4 Est GFR (Non-Af Amer) 74.6 78.0 BUN/Creatinine Ratio 13.2 Glucose 112 H Calcium 8.2 L Magnesium 1.9 Vancomycin Trough 02/12/19 02/12/19 07:10 17:30 PT 16.1 H INR 1.6 H Sodium Potassium Chloride Carbon Dioxide Anion Gap BUN Creatinine Est Cr Clr Drug Dosing Est GFR ( Amer) Est GFR (Non-Af Amer) BUN/Creatinine Ratio Glucose Calcium Magnesium Vancomycin Trough 9.3 Diagnostic Findings Microbiology 02/02/19 16:43 Blood Blood Culture - Preliminary Yeast not Cher albicans 02/07/19 14:27 Blood Blood Culture - Preliminary No growth to date. 02/07/19 14:25 Blood Blood Culture - Preliminary No growth to date. 02/02/19 16:52 Blood Blood Culture - Final No growth 02/01/19 16:23 Blood Blood Culture - Final Staph aureus MRSA 02/01/19 16:26 Blood Blood Culture - Final No growth 02/02/19 08:50 Face Gram Stain - Final 02/02/19 08:50 Face Deep Wound Culture - Final Staph aureus MRSA Cher albicans
[2019-02-12] MEDS: METOPROLOL SUCC 25MG EXT REL TAB PO SCH (21:26)
[2019-02-13 05:49] LABS: Hematocrit (blood only) 28.7 % (42-52); Mean Corpuscular Hgb Conc 31.4 g/dL (32-36); Mean Corpuscular Volume 82.7 fL (80-100); Mean Platelet Volume 9.6 fL (7.4-10.4); Platelet Count 141 K/uL (130-400); RDW Standard Deviation 60.3 fL (36.4-46.3); Red Blood Count 3.47 M/uL (4.7-6.1); White Blood Count 15.36 K/uL (4.8-10.8)
[2019-02-13 06:15] LABS: INR 1.3 (0.9-1.1); Prothrombin Time 13.5 Seconds (9.0-12.0)
[2019-02-13 07:47] VITALS: TEMP 98.2
[2019-02-13] MEDS: VORICONAZOLE 200 MG TABLET PO SCH (08:31)
[2019-02-13] MEDS: SERTRALINE HCL 50 MG TABLET PO SCH (08:31)
[2019-02-13] MEDS: SULFAMETHOXAZOLE/TRIMETHOPRIM DS 800/160MG TAB PO SCH (08:31)
[2019-02-13] MEDS: POTASSIUM CHLORIDE 20 MEQ TABCR PO SCH (08:31)
--- NOTE | 2019-02-13 15:45 | Discharge Summary ---
Date of Service February 13, 2019 Admission HPI Per Admitting Provider Mr. Lakhani is a 83 year old male with past medical history of A. fib on chronic anticoagulation, CLL, coronary artery disease, hypothyroidism and CKD stage III who presented with lower lip swelling. He was admitted from 11/27/18-12/12/18 for Enterococcal bacteremia and pneumonia. Due to h/o CLL, patient was converted to home hospice prior to discharge. He has been living at home with 24 hour care provided by his daughter. History was obtained from his daughter who was present at bedside. She states her father bit his lip on Monday evening. He had mild bleeding from site that resolved quickly. On Monday, the patient smeared stool on his face before his daughter placed him in the bathtub. He developed lower lip swelling on Monday. Swelling has increased significantly over the last 3 days. He has been taking Benadryl and applying warm compresses at home. PCP prescribed Augmentin; patient took 1 dose at home. He presented to the ER due to increased edema. In the ER, an I&D was performed in the ED. A small amount of fluid was expressed; culture is pending. He received a dose of Ceftriaxone in the ED; will continue Unasyn as an inpatient. Admission Exam Per Admitting Provider General: Resting comfortably in no apparent distress; A&OX3 HEENT: NC/AT; PERRLA with EOMI; significant lower lip edema, R>L. No discharge noted on exam. Neck: Supple and nontender Cardiac: irregular Lungs: CTA bilaterally Abdomen: Bowel normoactive X 4; Nontender to palpation Rectal: Deferred : Deferred Back: NO spinous tenderness Extremities: Warm. No edema present Neuro: No focal weakness Skin: No rash Principal Diagnosis Abscess of lip, MRSA Bacteremia and Fungemia Discharge Exam General: Resting comfortably in no apparent distress; A&OX3 HEENT: NC/AT; PERRLA with EOMI; [place] conjunctiva, MMM. Neck: Supple and nontender Cardiac: RRR w/o murmurs, gallops or rubs Lungs: CTA bilaterally; No rhonchi, wheezing, or rales Abdomen: Bowel normoactive X 4; Nontender to palpation Extremities: Warm. No LE edema noted. Neuro: No focal weakness Skin: No rash Discharge Data Allergies Allergy/AdvReac Type Severity Reaction Status Date / Time [id number] Reductase AdvReac Severe muscle Verified 02/01/19 16:30 Inhibitor aches/weak Consultations 02/03/19 14:31 Consult Oncology Routine 02/07/19 09:28 Consult Infectious Diseases Routine Ordered Studies 02/01/19 16:15 CT soft tissue neck w con Stat Hospital Course (1) Abscess of lip: Presented with lip abscess possibly related to open lip lesion/bit internal lip leading to infection. CT showed extensive soft tissue swelling of lower lip with multi-loculated fluid collection measuring up to 6.1 cm; S/P I&D in ER. Wound culture +Breanna albicans. BC (1 of 2) +MRSA on admission; repeat BC (1 of 2) positive for yeast, not Breanna albicans. Repeat BC on 02/07 were negative. He was initially placed on broad spectrum coverage with Zosyn/Vanc. Caspo was added for fungemia. Zosyn d/c'ed following BC results. ID consulted, appreciate their input. The family preferred to avoid PICC line placement; he was converted to PO voriconazole and PO bactrim prior to discharge. Lip edema improved, was back to baseline prior to discharge. He was tolerating a regular diet. (2) Positive blood culture: Blood culture results as noted above -- has fungemia and MRSA bacteremia. (3) Hematuria: U/A was positive for blood in ER; this was discussed with the family at beginning of admission and they deferred work up. Developed recurrent hematuria on 02/12/19. Coumadin was discontinued and he received Vit K for INR reversal. Will permanently discontinue Coumadin in future. Hematuria resolved prior to discharge. (4) Anemia: Likely acute on chronic anemia; baseline hgb ~9 in setting of CKD and CLL. (5) Chronic kidney disease, stage 3a: Renally dosed all meds. (6) CLL (chronic lymphocytic leukemia): Pt. was transitioned to home hospice in Dec 2018. Will be discharged back to home hospice -- pt. has discussed the idea of restarting chemo in the future if his overall condition improves. (7) Major depressive disorder: Continued Zoloft 50 mg daily. D/c'ed Seroquel due to medication interactions with Voriconazole. (8) Hypothyroidism: Not currently receiving treatment. (9) Atrial fibrillation: Coumadin was initially continued and INR was monitored. Med was d/c'ed on 02/12/19 due to development of hematuria. Will continue to hold in future. (10) CAD (coronary artery disease): Continued Toprol XL as prescribed. (11) Diarrhea: Now resolved. (12) DVT prophylaxis: SCDs. He was stable for discharge to home hospice on 02/13/19. Total Time Total Time Spent Total Time Spent (In Minutes): >30 minutes Total Time Includes: Examination of the Patient, Discharge Planning, Medication Reconciliation, Communication With Other Providers and Other Discharge Plan Discharge Items Patient Disposition: Hospice - Home Reason For Visit: FACIAL CELLULITIS Discharge Diagnosis: Lip Abscess, Bacteremia & Fungemia Condition: Fair Discharge Goals: Decrease discomfort, Improve disease control, Improve function, Increase independence and Prevent disease Activity: As commented below Exercise/Sports: Gradually increase as tolerated Non-emergency contact: Primary Care Provider and Oncologist Call non-emergency contact if: you have any medication questions, your symptoms worsen, your pain is not controlled, your pain is worsening, your pain is unusual for you, your pain is concerning for you and you have a fever Follow-up/Referrals: Nilton Sanchez MD [Primary Care Provider] - 02/12/19 1:00 pm (Please, follow up at Dr. Sanchez's office with his fast food sales assistant, Iman Saravia PA-C, on MondayFebruary 12 at 1:00 pm. *If you need to change this appointment, call the office at [phone].) Diet: Regular Diet Texture: Dental soft (bite-sized) Other Ambulatory Orders: Prothrombin Time INR (Timed) Timeframe: 2 Days Location: Determined by Patient Ordered By: Ana Rosa West Provider Instructions: 1. Lip Abscess and MRSA bacteremia/Breanna fungemia. * Please continue Bactrim twice daily to complete a full course of antibiotics for treatment of MRSA bacteremia. * Please continue Voriconazole twice daily to complete a full course of antibiotics for treatment of Breanna fungemia. * Please follow up with your primary care provider as scheduled for evaluation. * Hospice services will be resumed following discharge. 2. CLL * Hospice services will be resumed following discharge. * You can schedule an appointment with oncology in the future if you would like to speak with Dr Chadwick about receiving chemotherapy. 3. Atrial Fibrillation * Coumadin has been discontinued due to hematuria during this admission. * You do not need PT/INR monitoring at home. 4. Hematuria * Please monitor for increased bleeding at home. * Please contact your hospice nurse if you develop increased bleeding for further care/evaluation. 5. Please call your family doctor or your hospice nurse if you develop the following: * Uncontrolled pain, shortness of breath, nausea/vomiting or diarrhea. Prescriptions: New voriconazole [Vfend] 200 mg Tablet 200 mg PO BID Qty: 19 RF: 0 Continued metoprolol succinate [Toprol XL] 25 mg tablet extended release 24 hr 25 mg PO HS RF: 0 sertraline [Zoloft] 50 mg tablet 50 mg PO QAM RF: 0 acetaminophen [Tylenol] 325 mg Capsule 325 - 650 mg PO Q6H PRN (Reason: Pain) RF: 0 melatonin 3 mg Tablet 3 mg PO HS RF: 0 diphenhydramine HCl [Benadryl] 25 mg Capsule 25 mg PO DIRECTED PRN (Reason: Allergic Symptoms) RF: 0 Discontinued amoxicillin-pot clavulanate [Augmentin] 500-125 mg Tablet 1 tab PO Q12H RF: 0 warfarin [Coumadin] 5 mg Tablet 5 mg PO 2XWK RF: 0 warfarin [Coumadin] 5 mg Tablet 2.5 mg PO 5XWK RF: 0 ibuprofen 200 mg Tablet 400 mg PO DIRECTED PRN (Reason: Pain) RF: 0 Stand-Alone Forms: [facility] Discharge Orders: Discharge Order (Routine); Ordered 02/13/19 Ordered By: Ana Rosa Cid Admission Data Admit Date/Time: 02/01/19 18:34 Attending Provider: Ari Suero Admit Provider: Shayy Ca Primary Care Provider: Nilton Sanchez Other Providers: Clemente Chadwick Evan T. Service: Medical Other Interventions: Discharge Summary Assessment (RN) Last Done: 02/13/19 16:12 Pending Studies at Discharge: Yes Studies:: Blood cultures 02/07/19: negative to date. DC Date/Time DO NOT enter until pt leaves facility: 02/13/19 16:51 Supervising Physician Co-Signing Physician Notes Attending Attestation & Discharge Note: Pt seen/examined, chart reviewed, discharge care plan d/w ENRRIQUE Cid. I agree w/ the shaw components of her discharge summary. 83yo male with known CLL and prior hospice status for same who presented with large lip abscess s/p I & D in the ER at presentation. Blood cultures ultimately showed evidence of fungemia. His oral symptoms gradually improved and was able to tolerate a diet. Seen by ID - combination of bactrim (for MRSA) and voriconazole (for breanna species) by mouth were recommended for home. This was done to obviate the need for PICC line as patient would be returning home again with hospice. Course complicated by gross hematuria in setting of coumadin use. Vitamin K was given and the coumadin was permanently discontinued in light of hospice status. Discharge exam - gen - thin, NAD HEENT - mouth w/o active infection or significant swelling heart - irregular, s1, s2 lungs - CTA b/l abd - soft, NT, ND, BS+ ext - no edema Ari Suero MD
[2019-02-13 16:13] VITALS: BP 147/69; PULSE 70
== END 2019-02-13 16:51 | disposition hospice, home (50) | DRG 158 ==
LOC: ED 16:00 → 4E 18:34 → SUATTDRO 18:34 → 4E 19:10